=== PATIENT | male | born 1950 | race Caucasian/White ===

== ENCOUNTER 2018-03-03 17:09 | Emergency (ER) | payer BC, MEDICARE ==
[2018-03-03 17:21] VITALS: RESP 18
[2018-03-03] MEDS ORDERED: SODIUM CHLORIDE 0.9% 1,000 ML IV STA (17:48)
--- NOTE | 2018-03-03 18:08 | ED ---
Male Urogenital HPI - General Chief complaint: Urogenital Stated complaint: Unable to urinate Time Seen by Provider: 03/03/18 17:27 Source: patient, RN notes reviewed Mode of arrival: ambulatory Limitations: no limitations - History of Present Illness Initial comments: This is a 67-year-old male who presents to the emergency department with chief complaint of difficulty urinating. Patient is legally blind in both eyes and does have some difficulty answering questions so his at bedside contributes to majority of the history. She states that last night she noticed blood in the patient's urine. They presented to [facility] where patient was diagnosed with a urinary tract infection and hematuria. He was started on Macrobid. He has taken 3 doses since yesterday. Patient's states that he does have a history of kidney stones for which it has caused obstruction and had to be removed by Dr. Michaud. She does state that she contacted Dr. Martin prior to arrival to the emergency department today and he requested that patient have a Harp catheter and follow up with him. Patient presents to the emergency department today because he developed some difficulty urinating, he states he has been straining and is only able to urinate in small amounts. He admits to dribbling. also states that patient had a bowel movement today and when he wiped noticed some bright red blood on the toilet paper. She does state that he has a history of hemorrhoids. Patient denies any significant abdominal pain but does admit to some mild suprapubic discomfort, especially while trying to urinate. Denies fevers or chills, chest pain or shortness of breath, nausea or vomiting, diarrhea or constipation. - Related Data Home Medications Medication Instructions Recorded Confirmed Aspirin EC [Ecotrin Low Dose] 81 mg PO DAILY 03/03/18 03/03/18 Thiamine [Vitamin B-1] 50 mg PO DAILY 03/03/18 03/03/18 Allergies Allergy/AdvReac Type Severity Reaction Status Date / Time Latex, Natural Rubber AdvReac Rash/Hives Verified 03/03/18 18:22 Review of Systems ROS Statement: Those systems with pertinent positive or pertinent negative responses have been documented in the HPI. ROS Other: All systems not noted in ROS Statement are negative. Past Medical History Past Medical History: CVA/TIA, Dementia, Hyperlipidemia Additional Past Medical History / Comment(s): kidney stones, legally blind History of Any Multi-Drug Resistant Organisms: None Reported Past Surgical History: No Surgical Hx Reported Additional Past Surgical History / Comment(s): Two surgeries for kidney stones Additional Past Anesthesia/Blood Transfusion Reaction / Comment(s): Never had transfusion Past Psychological History: No Psychological Hx Reported Smoking Status: Never smoker Past Alcohol Use History: None Reported Past Drug Use History: None Reported - Past Family History Mother Family Medical History: Dementia General Exam - General Exam Comments Initial Comments: General: Awake and alert, well-developed; in no apparent distress. HEENT: Head atraumatic, normocephalic. Pupils are equal, round and reactive to light. Extraocular movements intact. Oropharynx moist without erythema or exudate. Neck: Supple. Normal ROM. Cardiovascular: Regular rate and rhythm. Systolic murmur heard best at right upper sternal border. No rubs or gallops. Chest symmetrical. Respiratory: Lungs clear to auscultation bilaterally. No wheezes, rales or rhonchi. Normal respiratory effort with no use of accessory muscles. Abdomen: Soft. Tenderness on palpation of suprapubic region with mild distention. No rigidity, rebound or guarding. Normal bowel sounds in all 4 quadrants. Musculoskeletal: Normal ROM, no tenderness bilateral upper and lower extremities. Skin: [place], warm and dry without rashes or lesions. Neurological: Alert and oriented x3. CN II-XII grossly intact. No focal neuro deficits. Psychiatric: Normal mood and affect. No overt signs of depression or anxiety noted. Limitations: no limitations Rectal exam: Present: normal rectal tone, hemorrhoids (internal and external). Absent: mass, tenderness Course Vital Signs 03/03/18 17:17 Temperature 99.3 F Pulse Rate 99 Respiratory 18 Rate Blood Pressure 142/87 O2 Sat by Pulse 99 Oximetry Medical Decision Making - Medical Decision Making This is a 67-year-old male who presents to the emergency department with chief complaint of difficulty urinating. Patient was diagnosed with a urinary tract infection and hematuria yesterday. He was started on Macrobid. Patient complains of difficulty urinating, straining and dribbling. Bladder scan revealed a urine volume of 634 mL. Several attempts were made for foely catheter insertion and we were finally successful with using Urojet. UA revealed moderate blood, 40 red blood cells and occasional bacteria. CBC and CMP were unremarkable. KUB was unremarkable for any acute process. Patient did test positive for occult blood, however he does have internal and external hemorrhoids and he is not anemic. No signs of weakness, dizziness. Patient's vital signs are stable and he is in no acute distress. Patient's was in contact with Dr. Martin who patient will be following up with. He will be sent home with the Harp bag. Recommended flushing with normal saline every several hours. Patient to continue Macrobid. They're in agreement with plan and voices understanding. All questions were answered. - Lab Data Result diagrams: 03/03/18 17:55 03/03/18 17:55 Lab Results 03/03/18 03/03/18 03/03/18 Range/Units 17:55 17:55 17:55 WBC 9.6 (3.8-10.6) k/uL RBC 4.82 (4.30-5.90) m/uL Hgb 14.8 (13.0-17.5) gm/dL Hct 42.8 (39.0-53.0) % MCV 88.9 (80.0-100.0) fL MCH 30.6 (25.0-35.0) pg MCHC 34.5 (31.0-37.0) g/dL RDW 12.3 (11.5-15.5) % Plt Count 324 (150-450) k/uL Neutrophils % 70 % Lymphocytes % 20 % Monocytes % 6 % Eosinophils % 3 % Basophils % 1 % Neutrophils # 6.8 (1.3-7.7) k/uL Lymphocytes # 1.9 (1.0-4.8) k/uL Monocytes # 0.5 (0-1.0) k/uL Eosinophils # 0.3 (0-0.7) k/uL Basophils # 0.1 (0-0.2) k/uL Sodium 144 (137-145) mmol/L Potassium 4.2 (3.5-5.1) mmol/L Chloride 105 (98-107) mmol/L Carbon Dioxide 25 (22-30) mmol/L Anion Gap 14 mmol/L BUN 11 (9-20) mg/dL Creatinine 0.81 (0.66-1.25) mg/dL Est GFR (CKD-EPI)AfAm >90 (>60 ml/min/1.73 sqM) Est GFR (CKD-EPI)NonAf >90 (>60 ml/min/1.73 sqM) Glucose 137 H (74-99) mg/dL Calcium 10.1 (8.4-10.2) mg/dL Total Bilirubin 0.5 (0.2-1.3) mg/dL AST 23 (17-59) U/L ALT 28 (21-72) U/L Alkaline Phosphatase 70 (38-126) U/L Total Protein 7.1 (6.3-8.2) g/dL Albumin 4.3 (3.5-5.0) g/dL Urine Color Urine Appearance (Clear) Urine pH (5.0-8.0) Ur Specific [place] (1.001-1.035) Urine Protein (Negative) Urine Glucose (UA) (Negative) Urine Ketones (Negative) Urine Blood (Negative) Urine Nitrite (Negative) Urine Bilirubin (Negative) Urine Urobilinogen (<2.0) mg/dL Ur Leukocyte Esterase (Negative) Urine RBC (0-5) /hpf Urine WBC (0-5) /hpf Urine Bacteria (None) /hpf Stool Occult Blood Positive (Negative) 03/03/18 Range/Units 18:45 WBC (3.8-10.6) k/uL RBC (4.30-5.90) m/uL Hgb (13.0-17.5) gm/dL Hct (39.0-53.0) % MCV (80.0-100.0) fL MCH (25.0-35.0) pg MCHC (31.0-37.0) g/dL RDW (11.5-15.5) % Plt Count (150-450) k/uL Neutrophils % % Lymphocytes % % Monocytes % % Eosinophils % % Basophils % % Neutrophils # (1.3-7.7) k/uL Lymphocytes # (1.0-4.8) k/uL Monocytes # (0-1.0) k/uL Eosinophils # (0-0.7) k/uL Basophils # (0-0.2) k/uL Sodium (137-145) mmol/L Potassium (3.5-5.1) mmol/L Chloride (98-107) mmol/L Carbon Dioxide (22-30) mmol/L Anion Gap mmol/L BUN (9-20) mg/dL Creatinine (0.66-1.25) mg/dL Est GFR (CKD-EPI)AfAm (>60 ml/min/1.73 sqM) Est GFR (CKD-EPI)NonAf (>60 ml/min/1.73 sqM) Glucose (74-99) mg/dL Calcium (8.4-10.2) mg/dL Total Bilirubin (0.2-1.3) mg/dL AST (17-59) U/L ALT (21-72) U/L Alkaline Phosphatase (38-126) U/L Total Protein (6.3-8.2) g/dL Albumin (3.5-5.0) g/dL Urine Color Light Yellow Urine Appearance Clear (Clear) Urine pH 6.5 (5.0-8.0) Ur Specific [place] 1.003 (1.001-1.035) Urine Protein Negative (Negative) Urine Glucose (UA) Negative (Negative) Urine Ketones Negative (Negative) Urine Blood Moderate H (Negative) Urine Nitrite Negative (Negative) Urine Bilirubin Negative (Negative) Urine Urobilinogen <2.0 (<2.0) mg/dL Ur Leukocyte Esterase Negative (Negative) Urine RBC 40 H (0-5) /hpf Urine WBC 2 (0-5) /hpf Urine Bacteria Occasional H (None) /hpf Stool Occult Blood (Negative) Disposition Clinical Impression: Hematuria, Urinary retention, Prostate hypertrophy Disposition: HOME SELF-CARE Condition: Good Instructions: Urinary Tract Infection in Men (ED), Hematuria (ED) Additional Instructions: Please follow-up with Dr. Martin within 1-2 days. Please continue taking antibiotics as prescribed. Please flush harp catheter every several hours with normal saline. Please follow up with primary care provider within 1-2 days. Return to emergency department if symptoms should worsen or any concerns arise. Referrals: Jessica Hess III, MD [Primary Care Provider] - 1-2 days Mark Martin MD [STAFF PHYSICIAN] - 1-2 days Time of Disposition: 19:15
[2018-03-03 18:12] LABS: Basophils # (A) 0.1 k/uL (0-0.2); Basophils % (A) 1 %; Eosinophils # (A) 0.3 k/uL (0-0.7); Eosinophils % (A) 3 %; HCT 42.8 % (39.0-53.0); HGB 14.8 gm/dL (13.0-17.5); Lymphocytes # (A) 1.9 k/uL (1.0-4.8); Lymphocytes % (A) 20 %; MCH 30.6 pg (25.0-35.0); MCHC 34.5 g/dL (31.0-37.0); MCV 88.9 fL (80.0-100.0); Mean Platelet Volume 7.2; Monocytes # (A) 0.5 k/uL (0-1.0); Monocytes % (A) 6 %; Neutrophils # (A) 6.8 k/uL (1.3-7.7); Neutrophils % (A) 70 %; Platelet Count 324 k/uL (150-450); RBC 4.82 m/uL (4.30-5.90); RDW 12.3 % (11.5-15.5); WBC 9.6 k/uL (3.8-10.6)
[2018-03-03] MEDS ORDERED: LIDOCAINE URO-JET JELLY 2% 5 ML KIT URETHRAL ONE (18:29)
[2018-03-03 18:46] LABS: ALT 28 U/L (21-72); AST 23 U/L (17-59); Albumin 4.3 g/dL (3.5-5.0); Alkaline Phosphatase 70 U/L (38-126); Anion Gap 14 mmol/L; Blood Urea Nitrogen 11 mg/dL (9-20); Calcium 10.1 mg/dL (8.4-10.2); Carbon Dioxide 25 mmol/L (22-30); Chloride 105 mmol/L (98-107); Glucose 137 mg/dL (74-99); Potassium 4.2 mmol/L (3.5-5.1); Sodium 144 mmol/L (137-145); Total Bilirubin 0.5 mg/dL (0.2-1.3); Total Protein 7.1 g/dL (6.3-8.2)
--- NOTE | 2018-03-03 18:51 | XR ---
EXAMINATION TYPE: XR KUB portable, 2 views DATE OF EXAM: 03/03/2018 COMPARISON: 11/17/2013 HISTORY: Unable to urinate, pain TECHNIQUE: 2 supine images FINDINGS: Visualized lung bases and pleural spaces are negative. The bowel gas pattern is negative. Bones and soft tissues are negative for acute findings. It is noted that pneumoperitoneum cannot be excluded with supine radiography. IMPRESSION: NEGATIVE EXAMINATION.
[2018-03-03 18:57] LABS: Appearance,Urine Clear (Clear); Bacteria,Urine Occasional /hpf; Bilirubin,Urine Negative (Negative); Blood,Urine Moderate (Negative); Color,Urine Light Yellow; Glucose,Urine (UA) Negative (Negative); Ketones,Urine Negative (Negative); Leukocyte Esterase,Urine Negative (Negative); Nitrite,Urine Negative (Negative); PH, Urine 6.5 (5.0-8.0); Protein,Urine Negative (Negative); RBC,Urine 40 /hpf (0-5); Specific Gravity,Urine 1.003 (1.001-1.035); Urobilinogen,Urine <2.0 mg/dL (<2.0); WBC,Urine 2 /hpf (0-5)
[2018-03-03 19:40] VITALS: BP 139/85; PULSE 86; TEMP 98.7
== END 2018-03-03 19:40 | disposition home or self-care (01) ==
LOC: EC 17:09
DX: N40.1 Benign prostatic hyperplasia with lower urinary tract symptoms (principal); R33.8 Other retention of urine; K64.4 Residual hemorrhoidal skin tags; K64.8 Other hemorrhoids; Z86.73 Personal history of transient ischemic attack (TIA), and cerebral infarction without residual deficits; Z79.82 Long term (current) use of aspirin; Z91.040 Latex allergy status
CPT/HCPCS: 36415; 51702; 51798; 74018; 80053; 81001; 82272; 85025; 87086; 96360; 99283

== ENCOUNTER 2018-03-28 07:45 | Inpatient (IN) | payer MEDICARE ==
[2018-03-28] MEDS ORDERED: ACETAMINOPHEN TAB 325 MG TAB PO STA (08:14)
[2018-03-28] MEDS ORDERED: SODIUM CHLORIDE 0.9% 2,000 ML IV ONE (08:15)
--- NOTE | 2018-03-28 08:23 | ED ---
Altered Mental Status HPI <George Montenegro - Last Filed: 03/28/18 11:03> - General Source: patient, family Mode of arrival: wheelchair Limitations: physical limitation <Tasneem Padron - Last Filed: 03/28/18 16:41> - General Chief Complaint: Altered Mental Status Stated Complaint: fever, male Time Seen by Provider: 03/28/18 08:06 - History of Present Illness Initial Comments: 67-year-old male patient with past medical history significant for occipital CVA with residual blindness (legally) and dementia, kidney stones, and BPH presents to the emergency department today for evaluation of fever and altered mental status. Patient's is at bedside and provides most of history. She states that patient had issues with urinary retention approximately 3 weeks ago and had a Holden catheter placed. She states the catheter was removed yesterday. States the patient developed a fever yesterday, this morning his temperature was 104F . She states the patient has been acting confused and having hallucinations. She did give ibuprofen this morning and gave him a cool bath. Patient is complaining of lower abdominal pain, dysuria, and lower back pain. states he has been having hematuria for the last three weeks as well. He did complete an antibiotic about a month ago for UTI. He denies any cough, congestion, sore throat, or ear pain. reports he has had a couple episodes of diarrhea. She denies any hematochezia or melena. Patient denies any recent rash, shortness breath, chest pain, nausea, vomiting, numbness, tingling, dizziness, headache, visual changes, or any other complaints. (Tasneem Padron) - Related Data Home Medications Medication Instructions Recorded Confirmed Aspirin EC [Ecotrin Low Dose] 81 mg PO DAILY 03/03/18 03/28/18 Allergies Allergy/AdvReac Type Severity Reaction Status Date / Time Latex, Natural Rubber AdvReac Rash/Hives Verified 03/28/18 12:47 Review of Systems ROS Other: All systems not noted in ROS Statement are negative. <LanGeorge - Last Filed: 03/28/18 11:03> ROS Other: All systems not noted in ROS Statement are negative. <Tasneem Padron - Last Filed: 03/28/18 16:41> ROS Statement: Those systems with pertinent positive or pertinent negative responses have been documented in the HPI. Past Medical History Past Medical History: CVA/TIA, Dementia, Hyperlipidemia Additional Past Medical History / Comment(s): kidney stones, legally blind History of Any Multi-Drug Resistant Organisms: None Reported Past Surgical History: No Surgical Hx Reported Additional Past Surgical History / Comment(s): Two surgeries for kidney stones Additional Past Anesthesia/Blood Transfusion Reaction / Comment(s): Never had transfusion Past Psychological History: No Psychological Hx Reported Smoking Status: Never smoker Past Alcohol Use History: None Reported Past Drug Use History: None Reported - Past Family History Mother Family Medical History: Dementia <Tasneem Padron - Last Filed: 03/28/18 16:41> General Exam Limitations: physical limitation General appearance: alert, in no apparent distress, other (This is a well- developed, well-nourished elderly male patient in no acute distress. Vital signs upon presentation are temperature 102.4F, pulse 148, respirations 18, blood pressure 118/57, pulse ox 94% on room air.) Eye exam: Present: normal appearance, PERRL, EOMI. Absent: scleral icterus, conjunctival injection, periorbital swelling ENT exam: Present: normal exam, normal oropharynx, mucous membranes moist. Absent: TM's normal bilaterally (Right tympanic membrane obscured by cerumen, left tympanic membrane is within normal limits) Neck exam: Present: normal inspection. Absent: tenderness, meningismus, lymphadenopathy Respiratory exam: Present: normal lung sounds bilaterally. Absent: respiratory distress, wheezes, rales, rhonchi, stridor Cardiovascular Exam: Present: normal rhythm, tachycardia, normal heart sounds. Absent: systolic murmur, diastolic murmur, rubs, gallop, clicks GI/Abdominal exam: Present: soft, tenderness (Lower abdominal tenderness especially suprapubic), normal bowel sounds. Absent: distended, guarding, rebound, rigid Neurological exam: Present: alert, oriented X3, CN II-XII intact Psychiatric exam: Present: normal affect, normal mood Skin exam: Present: warm, dry, intact, normal color. Absent: rash <Tasneem Padron - Last Filed: 03/28/18 16:41> Course <George Montenegro - Last Filed: 03/28/18 11:03> <Tasneem Padron - Last Filed: 03/28/18 16:41> Vital Signs 03/28/18 03/28/18 03/28/18 07:46 09:43 10:38 Temperature 102.4 F H 99.5 F Pulse Rate 148 H 122 H 119 H Respiratory 18 22 20 Rate Blood Pressure 118/57 97/59 93/54 O2 Sat by Pulse 94 L 99 93 L Oximetry 03/28/18 03/28/18 11:56 11:57 Temperature Pulse Rate 112 H 113 H Respiratory 20 20 Rate Blood Pressure 94/54 93/63 O2 Sat by Pulse 94 L 97 Oximetry - Reevaluation(s) Reevaluation #1: 03/28/18 11:03 I did personally do a [id number] evaluation patient did discuss the findings with the patient and his . I did discuss the case with the hospitalist. Patient will be admitted I do agree with the assessment and plan. The initial epigastrium was within normal limits patient does demonstrate fever and evidence of infectious process. (George Montenegro) Medical Decision Making - Lab Data Result diagrams: 03/28/18 08:00 03/28/18 08:00 - EKG Data -: EKG Interpreted by Ny EKG shows normal: sinus rhythm (Sinus tachycardia rate 1:30 QRS 76 daily since QTC of 392/576) <George Montenegro - Last Filed: 03/28/18 11:03> - Lab Data Result diagrams: 03/28/18 08:00 03/28/18 08:00 - Radiology Data Radiology results: report reviewed, image reviewed <Tasneem Padron - Last Filed: 03/28/18 16:41> - Medical Decision Making 67 old male patient presented to the emergency department today for evaluation of fever and altered mental status. Physical examination was relatively unremarkable. Labs reviewed and did reveal an elevated white blood cell count at 19.6, neutrophils 18.2, blood glucose 1:30, bilirubin 2.1, urinalysis did show evidence of infection with trace protein, trace glucose, moderate blood, large leukocyte esterase, 103 white blood cells, rare bacteria, and rare mucous. Influenza testing was negative. Chest x-ray did show some evidence of mild congestive heart failure but no evidence of pneumonia. Lactic acid was 1.8. Patient was given IV fluids antipyretic medication. Temperature did improve. Patient remains tachycardic and altered. Patient will be admitted to the hospital for sepsis and urinary tract infection. We did give a dose of Rocephin and started Unasyn. Dr. Chau is accepting. (Tasneem Padron) - Lab Data Lab Results 03/28/18 03/28/18 03/28/18 Range/Units 08:00 08:00 08:00 WBC 19.6 H (3.8-10.6) k/uL RBC 4.47 (4.30-5.90) m/uL Hgb 13.9 (13.0-17.5) gm/dL Hct 39.3 (39.0-53.0) % MCV 87.9 (80.0-100.0) fL MCH 31.1 (25.0-35.0) pg MCHC 35.3 (31.0-37.0) g/dL RDW 12.1 (11.5-15.5) % Plt Count 220 (150-450) k/uL Neutrophils % 93 % Lymphocytes % 3 % Monocytes % 3 % Eosinophils % 0 % Basophils % 0 % Neutrophils # 18.2 H (1.3-7.7) k/uL Lymphocytes # 0.7 L (1.0-4.8) k/uL Monocytes # 0.5 (0-1.0) k/uL Eosinophils # 0.1 (0-0.7) k/uL Basophils # 0.0 (0-0.2) k/uL PT (9.0-12.0) sec INR (<1.2) APTT (22.0-30.0) sec Sodium 137 (137-145) mmol/L Potassium 3.6 (3.5-5.1) mmol/L Chloride 100 (98-107) mmol/L Carbon Dioxide 23 (22-30) mmol/L Anion Gap 14 mmol/L BUN 13 (9-20) mg/dL Creatinine 0.89 (0.66-1.25) mg/dL Est GFR (CKD-EPI)AfAm >90 (>60 ml/min/1.73 sqM) Est GFR (CKD-EPI)NonAf 89 (>60 ml/min/1.73 sqM) Glucose 130 H (74-99) mg/dL Plasma Lactic Acid Mikhail (0.7-2.0) mmol/L Calcium 9.8 (8.4-10.2) mg/dL Total Bilirubin 2.1 H (0.2-1.3) mg/dL AST 26 (17-59) U/L ALT 34 (21-72) U/L Alkaline Phosphatase 91 (38-126) U/L NT-Pro-B Natriuret Pep pg/mL Total Protein 6.7 (6.3-8.2) g/dL Albumin 4.2 (3.5-5.0) g/dL Urine Color Urine Appearance (Clear) Urine pH (5.0-8.0) Ur Specific [place] (1.001-1.035) Urine Protein (Negative) Urine Glucose (UA) (Negative) Urine Ketones (Negative) Urine Blood (Negative) Urine Nitrite (Negative) Urine Bilirubin (Negative) Urine Urobilinogen (<2.0) mg/dL Ur Leukocyte Esterase (Negative) Urine RBC (0-5) /hpf Urine WBC (0-5) /hpf Urine Bacteria (None) /hpf Urine Mucus (None) /hpf Influenza Type A RNA Not Detected (Not Detectd) Influenza Type B (PCR) Not Detected (Not Detectd) 03/28/18 03/28/18 03/28/18 Range/Units 08:00 08:00 08:00 WBC (3.8-10.6) k/uL RBC (4.30-5.90) m/uL Hgb (13.0-17.5) gm/dL Hct (39.0-53.0) % MCV (80.0-100.0) fL MCH (25.0-35.0) pg MCHC (31.0-37.0) g/dL RDW (11.5-15.5) % Plt Count (150-450) k/uL Neutrophils % % Lymphocytes % % Monocytes % % Eosinophils % % Basophils % % Neutrophils # (1.3-7.7) k/uL Lymphocytes # (1.0-4.8) k/uL Monocytes # (0-1.0) k/uL Eosinophils # (0-0.7) k/uL Basophils # (0-0.2) k/uL PT 11.0 (9.0-12.0) sec INR 1.1 (<1.2) APTT 26.7 (22.0-30.0) sec Sodium (137-145) mmol/L Potassium (3.5-5.1) mmol/L Chloride (98-107) mmol/L Carbon Dioxide (22-30) mmol/L Anion Gap mmol/L BUN (9-20) mg/dL Creatinine (0.66-1.25) mg/dL Est GFR (CKD-EPI)AfAm (>60 ml/min/1.73 sqM) Est GFR (CKD-EPI)NonAf (>60 ml/min/1.73 sqM) Glucose (74-99) mg/dL Plasma Lactic Acid Mikhail 1.8 (0.7-2.0) mmol/L Calcium (8.4-10.2) mg/dL Total Bilirubin (0.2-1.3) mg/dL AST (17-59) U/L ALT (21-72) U/L Alkaline Phosphatase (38-126) U/L NT-Pro-B Natriuret Pep pg/mL Total Protein (6.3-8.2) g/dL Albumin (3.5-5.0) g/dL Urine Color Light Yellow Urine Appearance Clear (Clear) Urine pH 6.0 (5.0-8.0) Ur Specific [place] 1.004 (1.001-1.035) Urine Protein Trace H (Negative) Urine Glucose (UA) Trace H (Negative) Urine Ketones Negative (Negative) Urine Blood Moderate H (Negative) Urine Nitrite Negative (Negative) Urine Bilirubin Negative (Negative) Urine Urobilinogen <2.0 (<2.0) mg/dL Ur Leukocyte Esterase Large H (Negative) Urine RBC 4 (0-5) /hpf Urine WBC 103 H (0-5) /hpf Urine Bacteria Rare H (None) /hpf Urine Mucus Rare H (None) /hpf Influenza Type A RNA (Not Detectd) Influenza Type B (PCR) (Not Detectd) 03/28/18 Range/Units 08:00 WBC (3.8-10.6) k/uL RBC (4.30-5.90) m/uL Hgb (13.0-17.5) gm/dL Hct (39.0-53.0) % MCV (80.0-100.0) fL MCH (25.0-35.0) pg MCHC (31.0-37.0) g/dL RDW (11.5-15.5) % Plt Count (150-450) k/uL Neutrophils % % Lymphocytes % % Monocytes % % Eosinophils % % Basophils % % Neutrophils # (1.3-7.7) k/uL Lymphocytes # (1.0-4.8) k/uL Monocytes # (0-1.0) k/uL Eosinophils # (0-0.7) k/uL Basophils # (0-0.2) k/uL PT (9.0-12.0) sec INR (<1.2) APTT (22.0-30.0) sec Sodium (137-145) mmol/L Potassium (3.5-5.1) mmol/L Chloride (98-107) mmol/L Carbon Dioxide (22-30) mmol/L Anion Gap mmol/L BUN (9-20) mg/dL Creatinine (0.66-1.25) mg/dL Est GFR (CKD-EPI)AfAm (>60 ml/min/1.73 sqM) Est GFR (CKD-EPI)NonAf (>60 ml/min/1.73 sqM) Glucose (74-99) mg/dL Plasma Lactic Acid Mikhail (0.7-2.0) mmol/L Calcium (8.4-10.2) mg/dL Total Bilirubin (0.2-1.3) mg/dL AST (17-59) U/L ALT (21-72) U/L Alkaline Phosphatase (38-126) U/L NT-Pro-B Natriuret Pep 103 pg/mL Total Protein (6.3-8.2) g/dL Albumin (3.5-5.0) g/dL Urine Color Urine Appearance (Clear) Urine pH (5.0-8.0) Ur Specific [place] (1.001-1.035) Urine Protein (Negative) Urine Glucose (UA) (Negative) Urine Ketones (Negative) Urine Blood (Negative) Urine Nitrite (Negative) Urine Bilirubin (Negative) Urine Urobilinogen (<2.0) mg/dL Ur Leukocyte Esterase (Negative) Urine RBC (0-5) /hpf Urine WBC (0-5) /hpf Urine Bacteria (None) /hpf Urine Mucus (None) /hpf Influenza Type A RNA (Not Detectd) Influenza Type B (PCR) (Not Detectd) - Radiology Data Two-view x-ray of the chest shows a steady is mildly rotated. Heart is mildly enlarged. There is scarring or atelectasis at the left lung base. Lungs otherwise clear. Pleural spaces are clear. There is vascular congestion and subtle interstitial change. Impression by Dr. Choudhury shows mild cardia megaly. Findings consistent with mild heart failure. (Tasneem Padron) Disposition <George Montenegro - Last Filed: 03/28/18 11:03> Decision to Admit Reason: Admit from [facility] Decision Date: 03/28/18 Decision Time: 16:40 <Tasneem Padron - Last Filed: 03/28/18 16:41> Clinical Impression: Urinary tract infection, Sepsis Disposition: ADMITTED IP TO THIS HOSP Condition: Serious
[2018-03-28 08:32] LABS: Basophils % (A) 0 %; Eosinophils # (A) 0.1 k/uL (0-0.7); Eosinophils % (A) 0 %; HCT 39.3 % (39.0-53.0); HGB 13.9 gm/dL (13.0-17.5); Lymphocytes # (A) 0.7 k/uL (1.0-4.8); Lymphocytes % (A) 3 %; MCH 31.1 pg (25.0-35.0); MCHC 35.3 g/dL (31.0-37.0); MCV 87.9 fL (80.0-100.0); Monocytes # (A) 0.5 k/uL (0-1.0); Monocytes % (A) 3 %; Neutrophils # (A) 18.2 k/uL (1.3-7.7); Neutrophils % (A) 93 %; Platelet Count 220 k/uL (150-450); RBC 4.47 m/uL (4.30-5.90); RDW 12.1 % (11.5-15.5); WBC 19.6 k/uL (3.8-10.6)
[2018-03-28 08:38] LABS: Appearance,Urine Clear (Clear); Bacteria,Urine Rare /hpf; Bilirubin,Urine Negative (Negative); Blood,Urine Moderate (Negative); Color,Urine Light Yellow; Glucose,Urine (UA) Trace (Negative); Ketones,Urine Negative (Negative); Leukocyte Esterase,Urine Large (Negative); Mucus,Urine Rare /hpf; Nitrite,Urine Negative (Negative); Protein,Urine Trace (Negative); RBC,Urine 4 /hpf (0-5); Specific Gravity,Urine 1.004 (1.001-1.035); Urobilinogen,Urine <2.0 mg/dL (<2.0); WBC,Urine 103 /hpf (0-5)
[2018-03-28 08:43] LABS: ALT 34 U/L (21-72); AST 26 U/L (17-59); Albumin 4.2 g/dL (3.5-5.0); Alkaline Phosphatase 91 U/L (38-126); Anion Gap 14 mmol/L; Blood Urea Nitrogen 13 mg/dL (9-20); Calcium 9.8 mg/dL (8.4-10.2); Carbon Dioxide 23 mmol/L (22-30); Chloride 100 mmol/L (98-107); Glucose 130 mg/dL (74-99); Potassium 3.6 mmol/L (3.5-5.1); Sodium 137 mmol/L (137-145); Total Bilirubin 2.1 mg/dL (0.2-1.3); Total Protein 6.7 g/dL (6.3-8.2)
[2018-03-28 08:46] LABS: INR 1.1 (<1.2); Partial Thromboplastin Time 26.7 sec (22.0-30.0)
[2018-03-28] MEDS ORDERED: cefTRIAXone IN SWFI 2,000 MG/20 ML SYRINGE IVP STA (08:52)
--- NOTE | 2018-03-28 09:53 | XR ---
EXAMINATION TYPE: XR chest 2V DATE OF EXAM: 03/28/2018 HISTORY: Fever. REFERENCE: Previous study dated 11/12/2017. FINDINGS: The study is mildly rotated. The heart is mildly enlarged. There is scarring or atelectasis at the left lung base. Lungs otherwise clear. Pleural spaces are clear. There is vascular congestion and subtle interstitial change. IMPRESSION: 1. MILD CARDIOMEGALY. 2. FINDINGS CONSISTENT WITH MILD HEART FAILURE. PLEASE CORRELATE CLINICALLY.
[2018-03-28] MEDS ORDERED: NALOXONE 0.4 MG/ML 1 ML VIAL IV PRN (10:39)
[2018-03-28] MEDS ORDERED: AMPICILLIN-SULBACTAM 3 GM in SODIUM CHLORIDE 0.9% 100 ML IVPB STA (10:41)
[2018-03-28] MEDS ORDERED: SODIUM CHLORIDE 0.9% 500 ML IV ONE (10:41)
[2018-03-28 14:05] VITALS: BMI 24.4
--- NOTE | 2018-03-28 16:57 | P.HPIM ---
History of Present Illness 67-year-old male gentleman with a previous occipital as stroke and legally blind secondary to that and some cognitive difficulties from his previous stroke came in with the complaints of fever chills and some mental status changes. Patient had hematuria that patient had a Holden catheter, patient underwent urodynamic studies subsequently Holden catheter was removed about 3 days ago patient was started on Flomax as patient be became lightheaded and didn 't do well on Flomax Flomax was discontinued couple days ago on on Thursday and patient started retaining urine on the day and started having fever since yesterday. Patient's Holden catheter was changed here patient had high-grade fever was started on Unasyn was also received ceftriaxone, blood cultures urine cultures were obtained patient blood pressure is low with systolics 90s patient was given IV fluid was started on 100 mL of normal saline. Review of Systems REVIEW OF SYSTEMS: CONSTITUTIONAL: As mentioned in HPI HEENT: No recent visual problems or hearing problems. Denied any sore throat. CARDIOVASCULAR: No chest pain, orthopnea, PND, no palpitations, no syncope. PULMONARY: No shortness of breath, no cough, no hemoptysis. GASTROINTESTINAL: No diarrhea, no nausea, no vomiting, no abdominal pain. Normoactive bowel sounds. NEUROLOGICAL: No headaches, no weakness, no numbness. HEMATOLOGICAL: Denies any bleeding or petechiae. GENITOURINARY: As mentioned in HPI MUSCULOSKELETAL/RHEUMATOLOGICAL: Denies any joint pain, swelling, or any muscle pain. ENDOCRINE: Denies any polyuria or polydipsia. The rest of the 14-point review of systems is negative. Past Medical History Past Medical History: CVA/TIA, Dementia, Hyperlipidemia Additional Past Medical History / Comment(s): kidney stones, legally blind History of Any Multi-Drug Resistant Organisms: None Reported Past Surgical History: No Surgical Hx Reported Additional Past Surgical History / Comment(s): Two surgeries for kidney stones Past Anesthesia/Blood Transfusion Reactions: No Reported Reaction Additional Past Anesthesia/Blood Transfusion Reaction / Comment(s): Never had transfusion Past Psychological History: No Psychological Hx Reported Smoking Status: Never smoker Past Alcohol Use History: None Reported Past Drug Use History: None Reported - Past Family History Mother Family Medical History: Dementia Medications and Allergies Home Medications Medication Instructions Recorded Confirmed Type Aspirin EC [Ecotrin Low Dose] 81 mg PO DAILY 03/03/18 03/28/18 History Allergies Allergy/AdvReac Type Severity Reaction Status Date / Time Latex, Natural Rubber AdvReac Rash/Hives Verified 03/28/18 12:47 Physical Exam Vitals: Vital Signs Temp Pulse Pulse Resp BP BP Pulse Ox 03/28/18 14:46 98.1 F 114 H 16 86/59 98 03/28/18 13:36 98.1 F 114 H 16 86/59 97 03/28/18 11:57 113 H 20 93/63 97 03/28/18 11:56 112 H 20 94/54 94 L 03/28/18 10:38 99.5 F 119 H 20 93/54 93 L 03/28/18 09:43 122 H 22 97/59 99 03/28/18 07:46 102.4 F H 148 H 18 118/57 94 L Intake and Output 03/28/18 03/28/18 03/28/18 06:59 14:59 22:59 Intake Total 300 Balance 300 Intake: Intake, IV Titration 300 Amount Ampicillin-Sulbactam 3 gm 100 In Sodium Chloride 0.9% 100 ml @ 100 mls/hr IVPB ONCE [facility] Rx#:[id number] Sodium Chloride 0.9% 1, 200 000 ml @ 100 mls/hr IV . Q10H [facility] Rx#:[id number] Other: Voiding Method Indwelling Catheter Weight 75 kg PHYSICAL EXAMINATION: GENERAL: The patient is alert and oriented x3, not in any acute distress. Well developed, well nourished. [address] HEENT: Legally blind. EOMI. No scleral icterus. No conjunctival pallor. Normocephalic, atraumatic. No pharyngeal erythema. No thyromegaly. CARDIOVASCULAR: S1 and S2 present. No murmurs, rubs, or gallops. PULMONARY: Chest is clear to auscultation, no wheezing or crackles. ABDOMEN: Soft, nontender, nondistended, normoactive bowel sounds. No palpable organomegaly. MUSCULOSKELETAL: No joint swelling or deformity. EXTREMITIES: No cyanosis, clubbing, or pedal edema. NEUROLOGICAL: Gross neurological examination did not reveal any focal deficits. SKIN: No rashes. Results CBC & Chem 7: 03/28/18 08:00 03/28/18 08:00 Labs: Abnormal Lab Results - Last 24 Hours (Table) 03/28/18 03/28/18 03/28/18 Range/Units 08:00 08:00 08:00 WBC 19.6 H (3.8-10.6) k/uL Neutrophils # 18.2 H (1.3-7.7) k/uL Lymphocytes # 0.7 L (1.0-4.8) k/uL Glucose 130 H (74-99) mg/dL Total Bilirubin 2.1 H (0.2-1.3) mg/dL Urine Protein Trace H (Negative) Urine Glucose (UA) Trace H (Negative) Urine Blood Moderate H (Negative) Ur Leukocyte Esterase Large H (Negative) Urine WBC 103 H (0-5) /hpf Urine Bacteria Rare H (None) /hpf Urine Mucus Rare H (None) /hpf Microbiology - Last 24 Hours (Table) 03/28/18 08:00 Urine Culture - Preliminary Urine,Clean Catch Thrombosis Risk Factor Assmnt - Choose All That Apply Any of the Below Risk Factors Present?: Yes Other Risk Factors: Yes Each Risk Factor Represents 2 Points: Age 61-74 years Thrombosis Risk Factor Assessment Total Risk Factor Score: 2 Thrombosis Risk Factor Assessment Level: Low Risk Assessment and Plan Plan: -Sepsis: Secondary to urinary tract infection, secondary to urinary retention, Holden catheter was placed and the patient was started on antibiotics. Urology will be consulted for benign prostatic hypertrophy and patient did not tolerate Flomax. Urine cultures and blood cultures were obtained awaiting cultures and studies. -History of cerebrovascular accident in the past and occipital area and patient is legally blind secondary to that -Possible mild vascular dementia patient and aspirin which will be continued -Benign prostatic hypertrophy: urology consultation -Tachycardia and hypotension: Secondary to sepsis -Toxic encephalopathy secondary to sepsis
[2018-03-28] MEDS: ACETAMINOPHEN TAB 325 MG TAB PO PRN (17:19)
[2018-03-28] MEDS: SODIUM CHLORIDE 0.9% 1,000 ML IV SCH ×2 (17:20→20:29)
[2018-03-28] MEDS: IBUPROFEN 400 MG TAB PO PRN (20:28)
[2018-03-28] MEDS: FAMOTIDINE 20 MG TAB PO SCH (20:28)
[2018-03-28] MEDS: HEPARIN SODIUM,PORCINE 5,000 UNIT/ML 1 ML VIAL SQ SCH (20:29)
[2018-03-29] MEDS: SODIUM CHLORIDE 0.9% 1,000 ML IV SCH ×2 (05:40→15:29)
[2018-03-29] MEDS: BENZOCAINE/MENTHOL LOZENG 1 EACH LOZENGE MUCOUS MEM PRN ×2 (06:24→08:45)
[2018-03-29] MEDS: PIPERACILLIN-TAZOBACTAM 3.375 GM in DEXTROSE/WATER 1 50ML.BAG IVPB SCH ×3 (07:43→23:43)
[2018-03-29] MEDS: HEPARIN SODIUM,PORCINE 5,000 UNIT/ML 1 ML VIAL SQ SCH ×2 (08:44→21:19)
[2018-03-29] MEDS: FAMOTIDINE 20 MG TAB PO SCH ×2 (08:45→21:19)
[2018-03-29] MEDS: ASPIRIN 81 MG PO SCH (08:45)
[2018-03-29 10:49] LABS: Anion Gap 10 mmol/L; Blood Urea Nitrogen 10 mg/dL (9-20); Calcium 8.9 mg/dL (8.4-10.2); Carbon Dioxide 25 mmol/L (22-30); Chloride 105 mmol/L (98-107); Glucose 187 mg/dL (74-99); Potassium 3.8 mmol/L (3.5-5.1); Sodium 140 mmol/L (137-145)
[2018-03-29 10:53] LABS: Basophils # (A) 0.1 k/uL (0-0.2); Basophils % (A) 0 %; Eosinophils # (A) 0.1 k/uL (0-0.7); Eosinophils % (A) 0 %; HCT 36.8 % (39.0-53.0); HGB 12.2 gm/dL (13.0-17.5); Lymphocytes # (A) 0.9 k/uL (1.0-4.8); Lymphocytes % (A) 5 %; MCH 30.6 pg (25.0-35.0); MCHC 33.2 g/dL (31.0-37.0); MCV 92.1 fL (80.0-100.0); Mean Platelet Volume 7.3; Monocytes # (A) 0.5 k/uL (0-1.0); Monocytes % (A) 3 %; Neutrophils # (A) 15.6 k/uL (1.3-7.7); Neutrophils % (A) 91 %; Platelet Count 185 k/uL (150-450); RBC 3.99 m/uL (4.30-5.90); RDW 12.4 % (11.5-15.5); WBC 17.2 k/uL (3.8-10.6)
[2018-03-29] MEDS: ACETAMINOPHEN TAB 325 MG TAB PO PRN (11:21)
--- NOTE | 2018-03-29 12:56 | P.PN ---
Subjective Patient was admitted secondary to urinary retention and urinary tract infection patient Zosyn no fever since yesterday heart rate and blood pressure are better now. His confusion improved. Constitutional: Denied any fatigue denied any fever. Cardio vascular: denied any chest pain, palpitations Gastrointestinal denied any nausea vomiting Pulmonary: Denied any shortness of breath cough Neurologic denied any new focal deficits Objective - Vital Signs Vital signs: Vital Signs Temp 97.7 F 03/29/18 07:00 Pulse 91 03/29/18 07:00 Resp 18 03/29/18 07:00 BP 107/64 03/29/18 07:00 Pulse Ox 98 03/29/18 07:00 Intake & Output 03/28/18 03/29/18 03/29/18 18:59 06:59 18:59 Intake Total 300 1800 50 Output Total 2200 Balance 300 -400 50 Weight 75 kg 75 kg Intake: Intake, IV Titration 300 50 Amount Ampicillin-Sulbactam 3 gm 100 In Sodium Chloride 0.9% 100 ml @ 100 mls/hr IVPB ONCE [facility] Rx#:[id number] Piperacillin-Tazobactam 3 50 .375 gm In Dextrose/Water 1 50ml.bag @ 12.5 mls/hr IVPB Q8HR [facility] Rx#: [id number] Sodium Chloride 0.9% 1, 200 000 ml @ 100 mls/hr IV . Q10H [facility] Rx#:[id number] Oral 1800 Output: Urine 2200 Other: Voiding Method Indwelling Catheter Indwelling Catheter # Bowel Movements 1 - Exam PHYSICAL EXAMINATION: GENERAL: The patient is alert and oriented x3, not in any acute distress. Well developed, well nourished. Holden catheter in place HEENT: Legally blind. EOMI. No scleral icterus. No conjunctival pallor. Normocephalic, atraumatic. No pharyngeal erythema. No thyromegaly. CARDIOVASCULAR: S1 and S2 present. No murmurs, rubs, or gallops. PULMONARY: Chest is clear to auscultation, no wheezing or crackles. ABDOMEN: Soft, nontender, nondistended, normoactive bowel sounds. No palpable organomegaly. MUSCULOSKELETAL: No joint swelling or deformity. EXTREMITIES: No cyanosis, clubbing, or pedal edema. NEUROLOGICAL: Gross neurological examination did not reveal any focal deficits. SKIN: No rashes. - Labs CBC & Chem 7: 03/29/18 10:03 03/29/18 10:03 Labs: Abnormal Lab Results - Last 24 Hours (Table) 03/29/18 03/29/18 Range/Units 10:03 10:03 WBC 17.2 H (3.8-10.6) k/uL RBC 3.99 L (4.30-5.90) m/uL Hgb 12.2 L (13.0-17.5) gm/dL Hct 36.8 L (39.0-53.0) % Neutrophils # 15.6 H (1.3-7.7) k/uL Lymphocytes # 0.9 L (1.0-4.8) k/uL Glucose 187 H (74-99) mg/dL Microbiology - Last 24 Hours (Table) 03/28/18 08:00 Blood Culture Gram Stain - Preliminary Blood 03/28/18 08:00 Blood Culture - Final Blood 03/28/18 08:00 Urine Culture - Preliminary Urine,Clean Catch Assessment and Plan Plan: -Sepsis: Secondary to urinary tract infection, secondary to urinary retention, Holden catheter was placed and the patient was started on antibiotics. Urology will be consulted for benign prostatic hypertrophy and patient did not tolerate Flomax. Urine cultures and blood cultures were obtained awaiting cultures and studies. Patient is found to be bacteremic with gram-negative rods which is consistent with urinary tract infection and bacteremia repeat blood cultures will be obtained today. Patient is unable to tolerate Flomax the possible reason being hypotension from sepsis, it's reasonable to try Flomax here again if urology believes that is appropriate and see if he can tolerate. I do not believe patient had ALLERGIC reaction to Flomax -History of cerebrovascular accident in the past and occipital area and patient is legally blind secondary to that -Possible mild vascular dementia patient and aspirin which will be continued -Benign prostatic hypertrophy: urology consultation -Tachycardia and hypotension: Secondary to sepsis -Toxic encephalopathy secondary to sepsis
[2018-03-29] MEDS ORDERED: SODIUM CHLORIDE 0.65% NASAL SPRAY 44 ML BTL NASAL PRN (13:12)
[2018-03-29] MEDS: IBUPROFEN 400 MG TAB PO PRN (13:14)
--- NOTE | 2018-03-29 16:39 | P.GSCN ---
History of Present Illness Consult date: 03/29/18 History of present illness: This is a pleasant 67-year-old gentleman who was admitted the hospital with a urinary tract infection with sepsis. The patient's urologic history dates to about 3 weeks ago when he developed a urinary tract infection with hematuria. [facility] by [facility] room. He had gross hematuria and a catheter was placed. Remain in place until he saw Dr. Martin several days ago. The patient was placed on Flomax and the catheter removed 48 hours later however he went back in urine retention. He then developed what sounded like a urinary traction infection with sepsis as his blood pressure dropped to 88 he became disoriented and he had a fever 104. He is admitted the hospital cultured up and placed on IV antibiotics. He was in urine retention and a catheter is placed. We are asked see the patient. The patient does have a history of bladder stones treated in the past with cystolithotripsy. His dates as does his that he has voided well since then. Review of Systems - Constitutional Reports anorexia, Reports chills, Reports fever - EENT Eyes: bilateral loss of vision - Genitourinary Reports as per HPI - Neurological Neurologic Comment(s): Previous occipital stroke Reports loss of vision Past Medical History Past Medical History: CVA/TIA, Dementia, Hyperlipidemia Additional Past Medical History / Comment(s): kidney stones, legally blind History of Any Multi-Drug Resistant Organisms: None Reported Past Surgical History: No Surgical Hx Reported Additional Past Surgical History / Comment(s): Two surgeries for kidney stones Past Anesthesia/Blood Transfusion Reactions: No Reported Reaction Additional Past Anesthesia/Blood Transfusion Reaction / Comm: Never had transfusion Past Psychological History: No Psychological Hx Reported Smoking Status: Never smoker Past Alcohol Use History: None Reported Past Drug Use History: None Reported - Past Family History Mother Family Medical History: Dementia Medications and Allergies Home Medications Medication Instructions Recorded Confirmed Type Aspirin EC [Ecotrin Low Dose] 81 mg PO DAILY 03/03/18 03/28/18 History Allergies Allergy/AdvReac Type Severity Reaction Status Date / Time Latex, Natural Rubber AdvReac Rash/Hives Verified 03/28/18 12:47 Surgical - Exam Vital Signs Temp Pulse Resp BP Pulse Ox 102.4 F H 148 H 18 118/57 94 L 03/28/18 07:46 03/28/18 07:46 03/28/18 07:46 03/28/18 07:46 03/28/18 07:46 - General Expressive aphasia well developed, well nourished - Eyes Blind - ENT no hearing loss - Neck trachea midline - Respiratory normal expansion, normal respiratory effort - Cardiovascular Rhythm: regular - Abdomen Abdomen: soft, non tender - Genitourinary Indwelling catheter and rectal deferred, recently done by Dr. Martin, enlarged but benign normal penis with no external lesions, testicles present - Musculoskeletal normal posture - Psychiatric oriented to time, oriented to person, oriented to place, speech is normal, memory intact Results - Labs 03/29/18 10:03 03/29/18 10:03 Abnormal Lab Results - Last 24 Hours (Table) 03/29/18 03/29/18 Range/Units 10:03 10:03 WBC 17.2 H (3.8-10.6) k/uL RBC 3.99 L (4.30-5.90) m/uL Hgb 12.2 L (13.0-17.5) gm/dL Hct 36.8 L (39.0-53.0) % Neutrophils # 15.6 H (1.3-7.7) k/uL Lymphocytes # 0.9 L (1.0-4.8) k/uL Glucose 187 H (74-99) mg/dL Microbiology - Last 24 Hours (Table) 03/28/18 08:00 Urine Culture - Preliminary Urine,Clean Catch Gram Neg Bacilli 03/28/18 08:00 Blood Culture Gram Stain - Preliminary Blood 03/28/18 08:00 Blood Culture - Final Blood Diabetes panel 03/29/18 Range/Units 10:03 Sodium 140 (137-145) mmol/L Potassium 3.8 (3.5-5.1) mmol/L Chloride 105 (98-107) mmol/L Carbon Dioxide 25 (22-30) mmol/L BUN 10 (9-20) mg/dL Creatinine 0.76 (0.66-1.25) mg/dL Glucose 187 H (74-99) mg/dL Calcium 8.9 (8.4-10.2) mg/dL Calcium panel 03/29/18 Range/Units 10:03 Calcium 8.9 (8.4-10.2) mg/dL Pituitary panel 03/29/18 Range/Units 10:03 Sodium 140 (137-145) mmol/L Potassium 3.8 (3.5-5.1) mmol/L Chloride 105 (98-107) mmol/L Carbon Dioxide 25 (22-30) mmol/L BUN 10 (9-20) mg/dL Creatinine 0.76 (0.66-1.25) mg/dL Glucose 187 H (74-99) mg/dL Calcium 8.9 (8.4-10.2) mg/dL Adrenal panel 03/29/18 Range/Units 10:03 Sodium 140 (137-145) mmol/L Potassium 3.8 (3.5-5.1) mmol/L Chloride 105 (98-107) mmol/L Carbon Dioxide 25 (22-30) mmol/L BUN 10 (9-20) mg/dL Creatinine 0.76 (0.66-1.25) mg/dL Glucose 187 H (74-99) mg/dL Calcium 8.9 (8.4-10.2) mg/dL - Imaging CT scan - abdomen: report reviewed, image reviewed CT scan - pelvis: report reviewed, image reviewed Assessment and Plan Assessment: Impression: Acute prostatitis with urine retention. Urinary tract infection with sepsis. Medical issues as outlined above Recommendations: The patient has an indwelling catheter which should remain. His blood pressure seems to be improving. His vital signs are stable. He has positive blood culture. He is on Zosyn. I would leave indwelling catheter until he goes back on Flomax for several days. Once the cultures are back she can be switched to oral antibiotics. There were no stones in his bladder leading to urine retention. I suspect the urine infection in the prostate has caused the prostate to swell and he has gone into retention. I will notify of his admission. Would hold the Flomax until his blood pressure is stable.
[2018-03-30] MEDS: SODIUM CHLORIDE 0.9% 1,000 ML IV SCH ×3 (03:34→23:05)
[2018-03-30] MEDS: ACETAMINOPHEN TAB 325 MG TAB PO PRN (05:41)
[2018-03-30] MEDS: ASPIRIN 81 MG PO SCH (08:05)
[2018-03-30] MEDS: FAMOTIDINE 20 MG TAB PO SCH ×2 (08:05→21:42)
[2018-03-30] MEDS: PIPERACILLIN-TAZOBACTAM 3.375 GM in DEXTROSE/WATER 1 50ML.BAG IVPB SCH ×3 (08:05→23:04)
[2018-03-30] MEDS: HEPARIN SODIUM,PORCINE 5,000 UNIT/ML 1 ML VIAL SQ SCH ×2 (08:05→21:44)
[2018-03-30 09:07] LABS: HCT 34.8 % (39.0-53.0); HGB 11.7 gm/dL (13.0-17.5); MCH 30.7 pg (25.0-35.0); MCHC 33.7 g/dL (31.0-37.0); MCV 91.2 fL (80.0-100.0); Mean Platelet Volume 7.6; Platelet Count 235 k/uL (150-450); RBC 3.82 m/uL (4.30-5.90); RDW 12.2 % (11.5-15.5); WBC 10.5 k/uL (3.8-10.6)
[2018-03-30 09:26] LABS: Anion Gap 11 mmol/L; Blood Urea Nitrogen 8 mg/dL (9-20); Calcium 8.7 mg/dL (8.4-10.2); Carbon Dioxide 22 mmol/L (22-30); Chloride 108 mmol/L (98-107); Glucose 197 mg/dL (74-99); Potassium 3.7 mmol/L (3.5-5.1); Sodium 141 mmol/L (137-145)
--- NOTE | 2018-03-30 11:25 | ECHOF ---
Referral Reason:r/o chf MEASUREMENTS -------- HEIGHT: 175.3 cm WEIGHT: 74.8 kg BP: 108/66 RVIDd: 3.2 cm (< 3.3) IVSd: 1.2 cm (0.6 - 1.1) LVIDd: 3.3 cm (3.9 - 5.3) LVPWd: 0.9 cm (0.6 - 1.1) IVSs: 1.2 cm LVIDs: 2.2 cm LVPWs: 1.1 cm LAESV Index (A-L): 24.46 ml/m Ao Diam: 2.9 cm (2.0 - 3.7) AV Cusp: 1.5 cm (1.5 - 2.6) LA Diam: 3.1 cm (2.7 - 3.8) MV E Tien: 0.90 m/s MV DecT: 213 ms MV A Tien: 0.96 m/s MV E/A Ratio: 0.94 AV maxP.63 mmHg AV meanP.14 mmHg RAP: 5.00 mmHg RVSP: 28.67 mmHg FINDINGS -------- Sinus rhythm. This was a technically adequate study. The left ventricular size is normal. There is borderline concentric left ventricular hypertrophy. Overall left ventricular systolic function is normal with, an EF between 55 - 60 %. The right ventricle is normal in size and function. Normal LA size by volume 22+/-6 ml/m2. The right atrium is normal in size. There is moderate aortic valve sclerosis. There is no evidence of aortic regurgitation. There is moderate aortic stenosis present. Peak/mean gradient across the Aortic Valve is 32.63mmHg / 20.14mm Hg. The mitral valve leaflets are mildly thickened. There is trace to mild mitral regurgitation. Mild tricuspid regurgitation present. Right ventricular systolic pressure is normal at < 35 mmHg. There is no evidence of pulmonary hypertension. Trace/mild (physiologic) pulmonic regurgitation. The aortic root size is normal. Normal inferior vena cava with normal inspiratory collapse consistent with estimated right atrial pre ssure of 5 mmHg. There is no pericardial effusion. CONCLUSIONS -------- 1. Sinus rhythm. 2. This was a technically adequate study. 3. The left ventricular size is normal. 4. There is borderline concentric left ventricular hypertrophy. 5. Overall left ventricular systolic function is normal with, an EF between 55 - 60 %. 6. Normal LA size by volume 22+/-6 ml/m2. 7. There is moderate aortic valve sclerosis. 8. There is moderate aortic stenosis present. 9. Peak/mean gradient across the Aortic Valve is 32.63mmHg / 20.14mmHg. 10. The mitral valve leaflets are mildly thickened. 11. There is trace to mild mitral regurgitation. 12. Mild tricuspid regurgitation present. 13. Right ventricular systolic pressure is normal at < 35 mmHg. 14. There is no evidence of pulmonary hypertension. 15. Trace/mild (physiologic) pulmonic regurgitation. 16. The aortic root size is normal. 17. There is no pericardial effusion. ED MANAGER: Frank Palmer RDCS
--- NOTE | 2018-03-30 22:42 | P.PN ---
Progress Note - Text Progress Note Date: 03/30/18 Mr. Call has no specific complaints. The Holden catheter is draining clear yellow urine. Urine and blood cultures have shown Pseudomonas, sensitive to quinolones. I would suggest that the Holden catheter remain in place. Consideration will be given to a repeat voiding trial, though he may be best served by a TURP.
[2018-03-31] MEDS: HEPARIN SODIUM,PORCINE 5,000 UNIT/ML 1 ML VIAL SQ SCH ×2 (08:10→21:24)
[2018-03-31] MEDS: ASPIRIN 81 MG PO SCH (08:10)
[2018-03-31] MEDS: PIPERACILLIN-TAZOBACTAM 3.375 GM in DEXTROSE/WATER 1 50ML.BAG IVPB SCH (08:10)
[2018-03-31] MEDS: FAMOTIDINE 20 MG TAB PO SCH ×2 (08:10→21:24)
[2018-03-31] MEDS: ACETAMINOPHEN TAB 325 MG TAB PO PRN (08:18)
[2018-03-31] MEDS: IBUPROFEN 400 MG TAB PO PRN ×2 (10:08→23:33)
[2018-03-31 11:45] LABS: Basophils % (A) 0 %; Eosinophils # (A) 0.1 k/uL (0-0.7); Eosinophils % (A) 1 %; HCT 34.7 % (39.0-53.0); Lymphocytes # (A) 0.5 k/uL (1.0-4.8); Lymphocytes % (A) 5 %; MCH 31.1 pg (25.0-35.0); MCHC 34.5 g/dL (31.0-37.0); Mean Platelet Volume 7.1; Monocytes # (A) 0.5 k/uL (0-1.0); Monocytes % (A) 5 %; Neutrophils # (A) 8.8 k/uL (1.3-7.7); Neutrophils % (A) 88 %; Platelet Count 236 k/uL (150-450); RBC 3.85 m/uL (4.30-5.90); RDW 12.3 % (11.5-15.5); WBC 10.1 k/uL (3.8-10.6)
--- NOTE | 2018-03-31 13:34 | P.PN ---
Subjective Patient was admitted secondary to urinary retention and urinary tract infection patient Zosyn no fever since yesterday heart rate and blood pressure are better now. His confusion improved. 03/31/2018 Patient started getting confused again, blood cultures are positive for Pseudomonas. Started having fever again repeat blood cultures were obtain again. Infectious disease was consulted. Constitutional: Denied any fatigue denied any fever. Cardio vascular: denied any chest pain, palpitations Gastrointestinal denied any nausea vomiting Pulmonary: Denied any shortness of breath cough Neurologic denied any new focal deficits Objective - Vital Signs Vital signs: Vital Signs Temp 100 F H 03/31/18 10:53 Pulse 92 03/31/18 06:00 Resp 16 03/31/18 06:00 BP 147/84 03/31/18 06:00 Pulse Ox 97 03/31/18 06:00 Intake & Output 03/30/18 03/31/18 03/31/18 18:59 06:59 18:59 Output Total 1600 1900 Balance -1600 -1900 Output: Urine 1600 1900 Other: Voiding Method Indwelling Catheter Indwelling Catheter Indwelling Catheter # Voids 2 - Exam PHYSICAL EXAMINATION: GENERAL: The patient is alert and oriented x3, not in any acute distress. Well developed, well nourished. Holden catheter in place HEENT: Legally blind. EOMI. No scleral icterus. No conjunctival pallor. Normocephalic, atraumatic. No pharyngeal erythema. No thyromegaly. CARDIOVASCULAR: S1 and S2 present. No murmurs, rubs, or gallops. PULMONARY: Chest is clear to auscultation, no wheezing or crackles. ABDOMEN: Soft, nontender, nondistended, normoactive bowel sounds. No palpable organomegaly. MUSCULOSKELETAL: No joint swelling or deformity. EXTREMITIES: No cyanosis, clubbing, or pedal edema. NEUROLOGICAL: Gross neurological examination did not reveal any focal deficits. SKIN: No rashes. - Labs CBC & Chem 7: 03/31/18 11:26 03/30/18 08:43 Labs: Abnormal Lab Results - Last 24 Hours (Table) 03/31/18 Range/Units 11:26 RBC 3.85 L (4.30-5.90) m/uL Hgb 12.0 L (13.0-17.5) gm/dL Hct 34.7 L (39.0-53.0) % Neutrophils # 8.8 H (1.3-7.7) k/uL Lymphocytes # 0.5 L (1.0-4.8) k/uL Microbiology - Last 24 Hours (Table) 03/30/18 08:43 Blood Culture - Preliminary Blood No Growth after 24 hours 03/28/18 08:00 Blood Culture Gram Stain - Final Blood Blood Culture - Final Pseudomonas aeruginosa 03/29/18 13:20 Blood Culture - Preliminary Blood No Growth after 24 hours Assessment and Plan Plan: -Sepsis: Secondary to urinary tract infection, secondary to urinary retention, Holden catheter was placed and the patient was started on antibiotics. Urology evaluated for benign prostatic hypertrophy and patient did not tolerate Flomax. Urine cultures and blood cultures are positive for Pseudomonas pansensitive Patient is found to be bacteremic with Pseudomonas. Repeat blood cultures from day before and has gram-negative started having fever again repeat blood cultures today -History of cerebrovascular accident in the past and occipital area and patient is legally blind secondary to that -Possible mild vascular dementia patient and aspirin which will be continued -Benign prostatic hypertrophy: urology consultation -Tachycardia and hypotension: Secondary to sepsis -Toxic encephalopathy secondary to sepsis
--- NOTE | 2018-03-31 13:35 | P.PN ---
Subjective Patient was admitted secondary to urinary retention and urinary tract infection patient Zosyn no fever since yesterday heart rate and blood pressure are better now. His confusion improved. 03/30/2018 Patient is feeling much better blood cultures and urine cultures are positive for Pseudomonas Constitutional: Denied any fatigue denied any fever. Cardio vascular: denied any chest pain, palpitations Gastrointestinal denied any nausea vomiting Pulmonary: Denied any shortness of breath cough Neurologic denied any new focal deficits Objective - Vital Signs Vital signs: Vital Signs Temp 100 F H 03/31/18 10:53 Pulse 92 03/31/18 06:00 Resp 16 03/31/18 06:00 BP 147/84 03/31/18 06:00 Pulse Ox 97 03/31/18 06:00 Intake & Output 03/30/18 03/31/18 03/31/18 18:59 06:59 18:59 Output Total 1600 1900 Balance -1600 -1900 Output: Urine 1600 1900 Other: Voiding Method Indwelling Catheter Indwelling Catheter Indwelling Catheter # Voids 2 - Exam PHYSICAL EXAMINATION: GENERAL: The patient is alert and oriented x3, not in any acute distress. Well developed, well nourished. Holden catheter in place HEENT: Legally blind. EOMI. No scleral icterus. No conjunctival pallor. Normocephalic, atraumatic. No pharyngeal erythema. No thyromegaly. CARDIOVASCULAR: S1 and S2 present. No murmurs, rubs, or gallops. PULMONARY: Chest is clear to auscultation, no wheezing or crackles. ABDOMEN: Soft, nontender, nondistended, normoactive bowel sounds. No palpable organomegaly. MUSCULOSKELETAL: No joint swelling or deformity. EXTREMITIES: No cyanosis, clubbing, or pedal edema. NEUROLOGICAL: Gross neurological examination did not reveal any focal deficits. SKIN: No rashes. - Labs CBC & Chem 7: 03/31/18 11:26 03/30/18 08:43 Labs: Abnormal Lab Results - Last 24 Hours (Table) 03/31/18 Range/Units 11:26 RBC 3.85 L (4.30-5.90) m/uL Hgb 12.0 L (13.0-17.5) gm/dL Hct 34.7 L (39.0-53.0) % Neutrophils # 8.8 H (1.3-7.7) k/uL Lymphocytes # 0.5 L (1.0-4.8) k/uL Microbiology - Last 24 Hours (Table) 03/30/18 08:43 Blood Culture - Preliminary Blood No Growth after 24 hours 03/28/18 08:00 Blood Culture Gram Stain - Final Blood Blood Culture - Final Pseudomonas aeruginosa 03/29/18 13:20 Blood Culture - Preliminary Blood No Growth after 24 hours Assessment and Plan Plan: -Sepsis: Secondary to urinary tract infection, secondary to urinary retention, Holden catheter was placed and the patient was started on antibiotics. Urology evaluated for benign prostatic hypertrophy and patient did not tolerate Flomax. Urine cultures and blood cultures are positive for Pseudomonas pansensitive Patient is found to be bacteremic with Pseudomonas. -History of cerebrovascular accident in the past and occipital area and patient is legally blind secondary to that -Possible mild vascular dementia patient and aspirin which will be continued -Benign prostatic hypertrophy: urology consultation -Tachycardia and hypotension: Secondary to sepsis -Toxic encephalopathy secondary to sepsis
[2018-03-31] MEDS: SODIUM CHLORIDE 0.9% 1,000 ML IV SCH ×2 (16:11→22:39)
--- NOTE | 2018-03-31 20:58 | US ---
EXAMINATION TYPE: US kidneys/renal and bladder DATE OF EXAM: 03/31/2018 COMPARISON: NONE CLINICAL HISTORY: recurrent UTI , bacteremia. UTI exam limitation patient had a stroke. EXAM MEASUREMENTS: Right Kidney: 10.3 x 4.9 x 5.8 cm Left Kidney: 10.7 x 5.7 x 4.8 cm Right Kidney: No hydronephrosis or masses seen Left Kidney: Lobulated cortex no hydronephrosis seen. Bladder: Catheter in place Bilateral Jets seen: No There is no evidence for hydronephrosis at this point in time. No nephrolithiasis is seen. No masses are identified. The urinary bladder is anechoic. IMPRESSION: No acute process.
--- NOTE | 2018-03-31 23:00 | CONS ---
CONSULTATION DATE OF SERVICE: 03/31/2018 REASON FOR CONSULTATION: Pseudomonas bacteremia and UTI. HISTORY OF PRESENT ILLNESS: The patient is a 67-year-old male who recently had a problem with urinary retention that required Holden catheter placement. The patient subsequently had a Holden catheter for about 3 weeks. He did have outpatient followup with Urology, but apparently the patient's Holden catheter was discontinued, as the patient was able to void and empty his bladder completely. The patient has been continued on Flomax and with no Holden catheter for about a week. However, the patient's temperature over the weekend with hallucinations, fever, weakness and evidence of urinary retention. With these symptoms, the patient was brought into the ER at [facility] on 03/28/2018. On arrival in the ER, the patient did have a fever of 102 degrees Fahrenheit. The patient had evidence of sepsis with elevated white count. His urine was significantly positive. Influenza serology was negative. The patient was started on Zosyn. Over the next day or two the patient's fever resolved and his urine was showing Pseudomonas aeruginosa. Blood culture was finalized with the same pathogen. However, the patient started having a fever again on 03/30/2018 of 100.1, with a fever of 102.7 this morning. That prompted this infectious disease consultation. The patient remains feeling weak and tired but denies having any headache. No significant URI symptoms. No chest pain or shortness of breath. No cough. No abdominal pain except some discomfort in the suprapubic area. No diarrhea. He did have a Holden catheter placed this admission. No nausea. No vomiting. No problem with the IV site. REVIEW OF SYSTEMS: CONSTITUTIONAL: Positive for weakness along with a fever. EYES: No complaint. ENT: No complaint. RESPIRATORY: No complaint. CARDIOVASCULAR: No complaint. GENITOURINARY: As per HPI. GASTROINTESTINAL: No complaint. MUSCULOSKELETAL: No complaint. INTEGUMENTARY: No complaint. PSYCHOLOGICAL: No complaint. ENDOCRINE: No complaint. NEUROLOGICAL: No complaint. PAST MEDICAL HISTORY: 1. Hyperlipidemia. 2. CVA, TIA. 3. Dementia. 4. Urine retention. 5. Kidney stone. PAST SURGICAL HISTORY: Surgery for kidney stone. SOCIAL HISTORY: No history of smoking, drinking or drug use. FAMILY HISTORY: Mother with history of dementia. ALLERGIES: LATEX and NATURAL RUBBER. CURRENT MEDICATIONS: 1. Tylenol. 2. Aspirin. 3. Cepacol lozenges. 4. Zosyn. 5. Pepcid. 6. Heparin. 7. Motrin. 8. Narcan. PHYSICAL EXAMINATION: Blood pressure is 98/66, pulse 87, temperature 97.9, T-max 102.7. He is 97% on room air. General description is an elderly male up in the chair in no distress. No tachypnea or accessory muscle of respiration use. HEENT examination shows no pallor or scleral icterus. Oral mucosa membrane is moist. No pharyngeal erythema or thrush. NECK: Trachea is central. No thyromegaly. LUNGS: Unlabored breathing. Clear to auscultation anteriorly. No wheeze or crackle. HEART: S1, S2. Regular rate and rhythm. No added sound. ABDOMEN: Soft. No tenderness. No guarding or rigidity. EXTREMITIES: No edema of feet. SKIN EXAMINATION: No rashes. No mass palpable. Neurologically the patient is awake, alert, oriented x3. Mood and affect normal. LABS: Hemoglobin is 12, white count 10.1. Admission white count was 19.6 with a BUN of 8, creatinine 0.76. Urine has been positive. Both urine and the blood culture with Pseudomonas aeruginosa. Blood cultures from 03/29 and 03/30 have been negative so far. DIAGNOSTIC IMPRESSION AND PLAN: Patient admitted to hospital with a complicated urinary tract infection in a patient who did have urine retention requiring a Holden catheter in the outpatient setting with retention. This admission he required a Holden catheter placement. Significantly positive UA with features of sepsis on admission, now with both blood and urine showing Pseudomonas aeruginosa. The patient has been on the right antibiotic in the form of Zosyn, with initial resolution of the fever. However, he subsequently started having a fever again, with a question of possible abnormality related to the urogenital floor tract or another process such as acute influenza that may be contributing to this new fever. Patient with no features suggestive of pneumonia and no evidence of any cellulitis or any problem with the IV site. PLAN: 1. Discontinue the Zosyn. 2. Start the patient on Fortaz 2 grams q.8. 3. Will obtain ultrasound of the kidneys and bladder. 4. Obtain influenza swab. 5. His clinical response as well as finalization of his workup will determine his discharge antibiotic. Family was present at the bedside. Their questions were answered. MMODL / IJN: [id number] /
[2018-04-01] MEDS: ACETAMINOPHEN TAB 325 MG TAB PO PRN (01:48)
[2018-04-01] MEDS: SODIUM CHLORIDE 0.9% 1,000 ML IV SCH ×3 (06:05→23:21)
[2018-04-01] MEDS: ASPIRIN 81 MG PO SCH (08:01)
[2018-04-01] MEDS: FAMOTIDINE 20 MG TAB PO SCH ×2 (08:01→20:26)
[2018-04-01] MEDS: HEPARIN SODIUM,PORCINE 5,000 UNIT/ML 1 ML VIAL SQ SCH ×2 (08:02→20:26)
[2018-04-01 09:59] LABS: HCT 38.8 % (39.0-53.0); HGB 13.1 gm/dL (13.0-17.5); MCH 30.8 pg (25.0-35.0); MCHC 33.8 g/dL (31.0-37.0); MCV 91.1 fL (80.0-100.0); Platelet Count 244 k/uL (150-450); RBC 4.26 m/uL (4.30-5.90); RDW 12.3 % (11.5-15.5); WBC 7.5 k/uL (3.8-10.6)
[2018-04-01 10:50] LABS: Anion Gap 15 mmol/L; Blood Urea Nitrogen 10 mg/dL (9-20); Calcium 9.1 mg/dL (8.4-10.2); Carbon Dioxide 25 mmol/L (22-30); Chloride 106 mmol/L (98-107); Glucose 142 mg/dL (74-99); Potassium 3.7 mmol/L (3.5-5.1); Sodium 146 mmol/L (137-145)
--- NOTE | 2018-04-01 11:18 | P.PN ---
Progress Note - Text Progress Note Date: 04/01/18 The patient is feeling better. He has been afebrile since yesterday morning. His WBC count has normalized. Urine and blood cultures have both shown Pseudomonas aeruginosa, sensitive to quinolones. I discussed with the patient and his the fact that this is a nosocomial UTI, related to the indwelling Holden catheter. The catheter remains in place to his urinary retention. They wish to lower his infection risk, and thus prefer to perform intermittent self- catheterization. The Holden catheter will best be removed, and the patient will be taught to self catheterize. His is willing to assist him. In the meantime, tamsulosin was prescribed with the hopes that he will be able to void.
[2018-04-01] MEDS: TAMSULOSIN 0.4 MG CAP.ER.24H PO SCH (11:39)
--- NOTE | 2018-04-01 14:27 | P.PN ---
Subjective Progress Note Date: 03/31/18 Patient was admitted secondary to urinary retention and urinary tract infection patient Zosyn no fever since yesterday heart rate and blood pressure are better now. His confusion improved. 03/30/2018 Patient is feeling much better blood cultures and urine cultures are positive for Pseudomonas 03/31/2018 Patient has fever again because of which repeat blood cultures were obtained and infectious disease was consulted. Constitutional: Denied any fatigue denied any fever. Cardio vascular: denied any chest pain, palpitations Gastrointestinal denied any nausea vomiting Pulmonary: Denied any shortness of breath cough Neurologic denied any new focal deficits Objective - Vital Signs Vital signs: Vital Signs Temp 98.5 F 04/01/18 06:30 Pulse 80 04/01/18 06:30 Resp 20 04/01/18 08:00 BP 121/58 04/01/18 06:30 Pulse Ox 97 04/01/18 06:30 Intake & Output 03/31/18 04/01/18 04/01/18 18:59 06:59 18:59 Intake Total 240 450 Output Total 1400 2500 2200 Balance -1160 -2500 -1750 Weight 75 kg Intake: Oral 240 450 Output: Urine 1400 2500 2200 Other: Voiding Method Indwelling Catheter Indwelling Catheter Indwelling Catheter # Bowel Movements 0 2 - Exam PHYSICAL EXAMINATION: GENERAL: The patient is alert and oriented x3, not in any acute distress. Well developed, well nourished. Holden catheter in place HEENT: Legally blind. EOMI. No scleral icterus. No conjunctival pallor. Normocephalic, atraumatic. No pharyngeal erythema. No thyromegaly. CARDIOVASCULAR: S1 and S2 present. No murmurs, rubs, or gallops. PULMONARY: Chest is clear to auscultation, no wheezing or crackles. ABDOMEN: Soft, nontender, nondistended, normoactive bowel sounds. No palpable organomegaly. MUSCULOSKELETAL: No joint swelling or deformity. EXTREMITIES: No cyanosis, clubbing, or pedal edema. NEUROLOGICAL: Gross neurological examination did not reveal any focal deficits. SKIN: No rashes. - Labs CBC & Chem 7: 04/01/18 09:33 04/01/18 09:33 Labs: Abnormal Lab Results - Last 24 Hours (Table) 04/01/18 04/01/18 Range/Units 09:33 09:33 RBC 4.26 L (4.30-5.90) m/uL Hct 38.8 L (39.0-53.0) % Sodium 146 H (137-145) mmol/L Glucose 142 H (74-99) mg/dL Microbiology - Last 24 Hours (Table) 03/31/18 11:26 Blood Culture - Preliminary Blood No Growth after 24 hours 03/30/18 08:43 Blood Culture - Preliminary Blood No Growth after 48 hours 03/29/18 13:20 Blood Culture - Preliminary Blood No Growth after 48 hours Assessment and Plan Plan: -Sepsis: Secondary to urinary tract infection, secondary to urinary retention, Holden catheter was placed and the patient was started on antibiotics. Urology evaluated for benign prostatic hypertrophy and patient did not tolerate Flomax. Urine cultures and blood cultures are positive for Pseudomonas pansensitive Patient is found to be bacteremic with Pseudomonas. -History of cerebrovascular accident in the past and occipital area and patient is legally blind secondary to that -Possible mild vascular dementia patient and aspirin which will be continued -Benign prostatic hypertrophy: urology consultation -Tachycardia and hypotension: Secondary to sepsis -Toxic encephalopathy secondary to sepsis
--- NOTE | 2018-04-01 14:29 | P.PN ---
Subjective Patient was admitted secondary to urinary retention and urinary tract infection patient Zosyn no fever since yesterday heart rate and blood pressure are better now. His confusion improved. 03/30/2018 Patient is feeling much better blood cultures and urine cultures are positive for Pseudomonas 03/31/2018 Patient has fever again because of which repeat blood cultures were obtained and infectious disease was consulted. 04/01/2018 Patient is afebrile patient is on Ceptazidime, fully get was removed patient is able to urinate once his infection clears patient will undergo prostatectomy. Constitutional: Denied any fatigue denied any fever. Cardio vascular: denied any chest pain, palpitations Gastrointestinal denied any nausea vomiting Pulmonary: Denied any shortness of breath cough Neurologic denied any new focal deficits Objective - Vital Signs Vital signs: Vital Signs Temp 98.5 F 04/01/18 06:30 Pulse 80 04/01/18 06:30 Resp 20 04/01/18 08:00 BP 121/58 04/01/18 06:30 Pulse Ox 97 04/01/18 06:30 Intake & Output 03/31/18 04/01/18 04/01/18 18:59 06:59 18:59 Intake Total 240 450 Output Total 1400 2500 2200 Balance -1160 -2500 -1750 Weight 75 kg Intake: Oral 240 450 Output: Urine 1400 2500 2200 Other: Voiding Method Indwelling Catheter Indwelling Catheter Indwelling Catheter # Bowel Movements 0 2 - Exam PHYSICAL EXAMINATION: GENERAL: The patient is alert and oriented x3, not in any acute distress. Well developed, well nourished. Holden catheter in place HEENT: Legally blind. EOMI. No scleral icterus. No conjunctival pallor. Normocephalic, atraumatic. No pharyngeal erythema. No thyromegaly. CARDIOVASCULAR: S1 and S2 present. No murmurs, rubs, or gallops. PULMONARY: Chest is clear to auscultation, no wheezing or crackles. ABDOMEN: Soft, nontender, nondistended, normoactive bowel sounds. No palpable organomegaly. MUSCULOSKELETAL: No joint swelling or deformity. EXTREMITIES: No cyanosis, clubbing, or pedal edema. NEUROLOGICAL: Gross neurological examination did not reveal any focal deficits. SKIN: No rashes. - Labs CBC & Chem 7: 04/01/18 09:33 04/01/18 09:33 Labs: Abnormal Lab Results - Last 24 Hours (Table) 04/01/18 04/01/18 Range/Units 09:33 09:33 RBC 4.26 L (4.30-5.90) m/uL Hct 38.8 L (39.0-53.0) % Sodium 146 H (137-145) mmol/L Glucose 142 H (74-99) mg/dL Microbiology - Last 24 Hours (Table) 03/31/18 11:26 Blood Culture - Preliminary Blood No Growth after 24 hours 03/30/18 08:43 Blood Culture - Preliminary Blood No Growth after 48 hours 03/29/18 13:20 Blood Culture - Preliminary Blood No Growth after 48 hours Assessment and Plan Plan: -Sepsis: Secondary to urinary tract infection, secondary to urinary retention, Holden catheter removed and patient is able to urinate now. Patient is afebrile repeat blood cultures from as today day before are negative patient is clinically doing well can be discharged tomorrow. Urine cultures and blood cultures are positive for Pseudomonas pansensitive Patient is found to be bacteremic with Pseudomonas. -History of cerebrovascular accident in the past and occipital area and patient is legally blind secondary to that -Possible mild vascular dementia patient and aspirin which will be continued -Benign prostatic hypertrophy: urology evaluated the patient patient -Tachycardia and hypotension: Secondary to sepsis -Toxic encephalopathy secondary to sepsis is resolved now
--- NOTE | 2018-04-01 22:37 | PN ---
PROGRESS NOTE DATE OF SERVICE: 04/01/2018 REASON FOR FOLLOWUP: Pseudomonas aeruginosa urinary tract infection and bacteremia. INTERVAL HISTORY: The patient's overall fever pattern has improved. He has been breathing comfortably. Denies any chest pain or cough. No abdominal pain. No diarrhea. Still has Holden catheter with discontinued and catheterization. EXAMINATION: Blood pressure 144/80 with a pulse of 78, temperature 99.1. He is 99% on room air. General description is an elderly male up in the chair in no distress. RESPIRATORY SYSTEM: Unlabored breathing, clear to auscultation anteriorly. HEART: S1, S2. Regular rate and rhythm and rhythm. ABDOMEN: Soft, no tenderness. EXTREMITIES: No edema of the feet. LABS: Hemoglobin 13.1, white count 7.5, BUN of 10, creatinine 0.84. DIAGNOSTIC IMPRESSION AND PLAN: The patient with Pseudomonas aeruginosa urinary tract infection with secondary bacteremia. Ultrasound was negative for any structural abnormality. Blood culture repeat has been negative. The patient continues to improve with oral Cipro 500 b.i.d. for another 10 days with close outpatient followup. MMODL / IJN: [id number] /
[2018-04-02 00:11] VITALS: RESP 16
[2018-04-02] MEDS: IBUPROFEN 400 MG TAB PO PRN (01:39)
[2018-04-02 07:01] VITALS: BP 145/87; PULSE 83; TEMP 98.5
[2018-04-02] MEDS: SODIUM CHLORIDE 0.9% 1,000 ML IV SCH (07:36)
[2018-04-02] MEDS: ASPIRIN 81 MG PO SCH (07:39)
[2018-04-02] MEDS: HEPARIN SODIUM,PORCINE 5,000 UNIT/ML 1 ML VIAL SQ SCH (07:39)
[2018-04-02] MEDS: TAMSULOSIN 0.4 MG CAP.ER.24H PO SCH (07:39)
[2018-04-02] MEDS: FAMOTIDINE 20 MG TAB PO SCH (07:39)
--- NOTE | 2018-04-02 12:43 | P.DS ---
Providers Date of admission: 03/28/18 11:02 Attending physician: Luz Chau Consults: 03/29/18 09:07 Consult Physician Urgent Consulting Provider: Mark Martin Consult Reason/Comments: retention/uti/sepsis, known to pt. Do you want consulting provider notified?: Yes 03/31/18 12:33 Consult Physician Routine Consulting Provider: Wendy Johnson Consult Reason/Comments: Bactremia, UTI Do you want consulting provider notified?: Yes [facility] Course: Patient was admitted secondary to urinary retention and urinary tract infection patient Zosyn no fever since yesterday heart rate and blood pressure are better now. His confusion improved. 03/30/2018 Patient is feeling much better blood cultures and urine cultures are positive for Pseudomonas 03/31/2018 Patient has fever again because of which repeat blood cultures were obtained and infectious disease was consulted. 04/01/2018 Patient is afebrile patient is on Ceptazidime, fully get was removed patient is able to urinate once his infection clears patient will undergo prostatectomy. 04/02/2018 Patient is afebrile. Repeat Blood cultures are negative discussed with infectious disease patient will be discharged on Cipro 750 twice a day for 10 days PHYSICAL EXAMINATION: GENERAL: The patient is alert and oriented x2-3, not in any acute distress. Well developed, well nourished. Holden catheter in place HEENT: Legally blind. EOMI. No scleral icterus. No conjunctival pallor. Normocephalic, atraumatic. No pharyngeal erythema. No thyromegaly. CARDIOVASCULAR: S1 and S2 present. No murmurs, rubs, or gallops. PULMONARY: Chest is clear to auscultation, no wheezing or crackles. ABDOMEN: Soft, nontender, nondistended, normoactive bowel sounds. No palpable organomegaly. MUSCULOSKELETAL: No joint swelling or deformity. EXTREMITIES: No cyanosis, clubbing, or pedal edema. NEUROLOGICAL: Gross neurological examination did not reveal any new focal deficits. Does have visual issues from his previous occipital stroke SKIN: No rashes. Assessment and Plan Plan: -Sepsis and bacteremia with the Pseudomonas aeruginosa -History of cerebrovascular accident in the past and occipital area and patient is legally blind secondary to that -Possible mild vascular dementia patient and aspirin which will be continued -Benign prostatic hypertrophy: urology evaluated the patient patient -Tachycardia and hypotension: Secondary to sepsis, resolved now -Toxic encephalopathy secondary to sepsis is resolved now Patient Condition at Discharge: Serious Plan - Discharge Summary Discharge Rx Participant: No New Discharge Prescriptions: New Ciprofloxacin HCl [Cipro] 750 mg PO BID #20 tablet Tamsulosin [Flomax] 0.4 mg PO DAILY #30 cap.er.24h Continue Aspirin EC [Ecotrin Low Dose] 81 mg PO DAILY Discharge Medication List Aspirin EC [Ecotrin Low Dose] 81 mg PO DAILY 03/03/18 [History] Ciprofloxacin HCl [Cipro] 750 mg PO BID #20 tablet 04/02/18 [Rx] Tamsulosin [Flomax] 0.4 mg PO DAILY #30 cap.er.24h 04/02/18 [Rx] Follow up Appointment(s)/Referral(s): Mark Martin MD [STAFF PHYSICIAN] - 1 Week Jessica Hess III, MD [Primary Care Provider] - 1-2 days [facility], [NON-STAFF] - Wendy Johnson MD [STAFF PHYSICIAN] - 1 Week Patient Instructions/Handouts: Urinary Tract Infection in Men (DC), Holden Catheter Placement and Care (DC) Activity/Diet/Wound Care/Special Instructions: Cardiac diet Discharge Disposition: HOME SELF-CARE
--- NOTE | 2018-04-02 14:32 | PN ---
PROGRESS NOTE DATE OF SERVICE: 04/02/2018 REASON FOR FOLLOWUP: Pseudomonas bacteremia urinary tract infection. INTERVAL HISTORY: The patient is afebrile. He has been breathing comfortably. Denies having any chest pain, shortness of breath: Abdomen the patient Holden has been discontinued. He is able to urinate without any problem. PHYSICAL EXAMINATION: Blood pressure is 145/87, pulse of 83, temperature 98.5. He is 97% on room air. General description is an elderly male up in the chair, in no distress. RESPIRATORY SYSTEM: Unlabored breathing, clear to auscultation anteriorly. HEART: S1, S2. Regular rate and rhythm. ABDOMEN: Soft, no tenderness. LABS: No new labs have been obtained today. DIAGNOSTIC IMPRESSION AND PLAN: Patient with Pseudomonas bacteremia and urinary tract infection. Ultrasound negative for any structural abnormality. Plan to finish therapy with oral Cipro 550 twice a day for another 10 days with close outpatient followup. MMODL / IJN: [id number] /
== END 2018-04-02 13:43 | disposition home health service (06) | DRG 698 ==
LOC: EC 07:45 → 4MS4W 11:02
PROVIDERS: ADMIT Internal Medicine; ATTEND Internal Medicine
DX: T83.511A Infection and inflammatory reaction due to indwelling urethral catheter, initial encounter (principal); A41.52 Sepsis due to Pseudomonas; G92 Toxic encephalopathy; N41.0 Acute prostatitis; N39.0 Urinary tract infection, site not specified; I69.319 Unspecified symptoms and signs involving cognitive functions following cerebral infarction; I69.398 Other sequelae of cerebral infarction; F01.50 Vascular dementia, unspecified severity, without behavioral disturbance, psychotic disturbance, mood disturbance, and anxiety; E78.5 Hyperlipidemia, unspecified; N40.1 Benign prostatic hyperplasia with lower urinary tract symptoms; R33.8 Other retention of urine; H54.8 Legal blindness, as defined in USA; R40.2362 Coma scale, best motor response, obeys commands, at arrival to emergency department; R40.2142 Coma scale, eyes open, spontaneous, at arrival to emergency department; R40.2252 Coma scale, best verbal response, oriented, at arrival to emergency department; R19.7 Diarrhea, unspecified; R31.0 Gross hematuria; Z79.82 Long term (current) use of aspirin; Z87.442 Personal history of urinary calculi; Z91.040 Latex allergy status; Z91.048 Other nonmedicinal substance allergy status; Y84.6 Urinary catheterization as the cause of abnormal reaction of the patient, or of later complication, without mention of misadventure at the time of the procedure
CPT/HCPCS: 36415; 51702; 71046; 76770; 80048; 80053; 81001; 83605; 83880; 85025; 85027; 85610; 85730; 87040; 87077; 87086; 87186; 87502; 93005; 93306; 94760; 96361; 96374; 99285

== ENCOUNTER 2018-11-29 01:14 | Inpatient (IN) | payer MEDICARE ==
[2018-11-29] MEDS ORDERED: SODIUM CHLORIDE 0.9% 1,000 ML IV STA (02:10)
--- NOTE | 2018-11-29 02:47 | ED ---
GI Bleed HPI - General Chief complaint: GI Bleed Stated complaint: Rectal bleeding Time Seen by Provider: 11/29/18 02:09 Source: patient, family Mode of arrival: ambulatory Limitations: no limitations - History of Present Illness Initial comments: Is a 68-year-old gentleman with a history of stroke in the past resulting in some expressive aphasia and weakness. Patient presents to the emergency department today with his significant other for evaluation of throat or 5 episodes of bright red blood per rectum. History is provided primarily by the significant other the patient is able to answer questions appropriately. Patient reports that around 8:30 yesterday evening he had a bowel movement which was bright red blood. She reports that over the past 6 hours he's had approximately one bowel movement per hour which are bright red blood but recently she noted some clots in the blood. He has no history of anything like this in the past. He has no known history of diverticulitis or diverticulosis. She cannot recall when his last colonoscopy was she leaves it was around the age of 61 and doesn't recall if there were any abnormalities. Patient does take baby aspirin 2 times daily but is on no other antiplatelet or anticoagulant medications. Patient is able to nod yes or no in answer in short verbal responses. Patient denies chest pain, shortness breath, lightheadedness, nausea, vomiting, abdominal pain. Patient reports that he is comfortable with no complaints aside from the bright red blood per rectum. reports - Related Data Home Medications Medication Instructions Recorded Confirmed Aspirin EC [Ecotrin Low Dose] 81 mg PO DAILY 03/03/18 03/28/18 Previous Rx's Medication Instructions Recorded Ciprofloxacin HCl [Cipro] 750 mg PO BID #20 tablet 04/02/18 Tamsulosin [Flomax] 0.4 mg PO DAILY #30 cap.er.24h 04/02/18 Allergies Allergy/AdvReac Type Severity Reaction Status Date / Time Latex, Natural Rubber AdvReac Rash/Hives Verified 11/29/18 01:24 Review of Systems ROS Statement: Those systems with pertinent positive or pertinent negative responses have been documented in the HPI. ROS Other: All systems not noted in ROS Statement are negative. Past Medical History Past Medical History: CVA/TIA, Dementia, Hyperlipidemia Additional Past Medical History / Comment(s): kidney stones, legally blind History of Any Multi-Drug Resistant Organisms: None Reported Past Surgical History: No Surgical Hx Reported Additional Past Surgical History / Comment(s): Two surgeries for kidney stones Past Anesthesia/Blood Transfusion Reactions: No Reported Reaction Additional Past Anesthesia/Blood Transfusion Reaction / Comment(s): Never had transfusion Past Psychological History: No Psychological Hx Reported Smoking Status: Never smoker Past Alcohol Use History: None Reported Past Drug Use History: None Reported - Past Family History Mother Family Medical History: Dementia General Exam - General Exam Comments Initial Comments: Physical Exam GENERAL: Patient is well-developed and well-nourished. Patient is nontoxic and well-hydrated and is in no distress. HENT: Normocephalic, Atraumatic. EYES: PERRL, EOMI No conjunctival pallor PULMONARY: Unlabored respirations. No audible rales rhonchi or wheezing was noted. CARDIOVASCULAR: There is a regular rate and rhythm without any murmurs gallops or rubs. ABDOMEN: Soft and nontender with normal bowel sounds. SKIN: Skin is clear with no lesions or rashes and otherwise unremarkable. : Deferred Rectal exam with dark red blood NEUROLOGIC: Alert and oriented 3, occasional expressive aphasia and difficulty with word finding MUSCULOSKELETAL: Normal extremities with adequate strength and full range of motion. No lower extremity swelling or edema. No calf tenderness. PSYCHIATRIC: Normal psychiatric evaluation. Limitations: no limitations Limitations: no limitations Course Vital Signs 11/29/18 11/29/18 11/29/18 01:21 03:39 03:49 Temperature 98.1 F Pulse Rate 76 67 70 Respiratory 18 17 15 Rate Blood Pressure 112/73 122/74 127/74 O2 Sat by Pulse 99 97 100 Oximetry Medical Decision Making - Medical Decision Making The patient was seen and evaluated history is obtained from patient medical record and discussion with significant other Physical exam is unremarkable aside from dark red blood per rectum, patient is not tachycardic, not hypoxic, he does not appear pale there is no conjunctival pallor Labs Ordered Labs with no significant abnormalities, patient's hemoglobin is stable at 13.4 Patient has had multiple episodes of dark red clotted blood per rectum this does appear to be a lower GI bleed, does not appear to be melanotic Patient remained hemodynamically stable. Patient care was discussed with GI document control coordinator Dr. Marvin lopez to make him aware that the patient is having a GI bleed will require evaluation. He will evaluate the patient in the morning. Protonix was ordered in case this is a rapid upper GI bleed though I have low suspicion for this is the patient is having no nausea or vomiting and the blood appears to be lower Takes a was ordered due to persistent bleeding Admission orders were placed to Dr. Corona of the [facility] hospitalist group for the patient's primary care physician preference. - Lab Data Result diagrams: 11/29/18 02:30 11/29/18 02:30 Lab Results 11/29/18 11/29/18 11/29/18 Range/Units 02:30 02:30 02:30 WBC 8.1 (3.8-10.6) k/uL RBC 4.58 (4.30-5.90) m/uL Hgb 13.4 (13.0-17.5) gm/dL Hct 41.3 (39.0-53.0) % MCV 90.2 (80.0-100.0) fL MCH 29.2 (25.0-35.0) pg MCHC 32.4 (31.0-37.0) g/dL RDW 12.6 (11.5-15.5) % Plt Count 257 (150-450) k/uL Neutrophils % 55 % Lymphocytes % 33 % Monocytes % 5 % Eosinophils % 3 % Basophils % 1 % Neutrophils # 4.5 (1.3-7.7) k/uL Lymphocytes # 2.7 (1.0-4.8) k/uL Monocytes # 0.4 (0-1.0) k/uL Eosinophils # 0.2 (0-0.7) k/uL Basophils # 0.1 (0-0.2) k/uL PT (9.0-12.0) sec INR (<1.2) APTT (22.0-30.0) sec Sodium 138 (137-145) mmol/L Potassium 4.1 (3.5-5.1) mmol/L Chloride 102 (98-107) mmol/L Carbon Dioxide 28 (22-30) mmol/L Anion Gap 8 mmol/L BUN 21 H (9-20) mg/dL Creatinine 0.98 (0.66-1.25) mg/dL Est GFR (CKD-EPI)AfAm >90 (>60 ml/min/1.73 sqM) Est GFR (CKD-EPI)NonAf 80 (>60 ml/min/1.73 sqM) Glucose 94 (74-99) mg/dL Plasma Lactic Acid Mikhail 1.0 (0.7-2.0) mmol/L Calcium 9.5 (8.4-10.2) mg/dL Total Bilirubin 0.6 (0.2-1.3) mg/dL AST 22 (17-59) U/L ALT 29 (21-72) U/L Alkaline Phosphatase 58 (38-126) U/L Total Protein 6.8 (6.3-8.2) g/dL Albumin 4.2 (3.5-5.0) g/dL Stool Occult Blood (Negative) 11/29/18 11/29/18 Range/Units 02:30 02:30 WBC (3.8-10.6) k/uL RBC (4.30-5.90) m/uL Hgb (13.0-17.5) gm/dL Hct (39.0-53.0) % MCV (80.0-100.0) fL MCH (25.0-35.0) pg MCHC (31.0-37.0) g/dL RDW (11.5-15.5) % Plt Count (150-450) k/uL Neutrophils % % Lymphocytes % % Monocytes % % Eosinophils % % Basophils % % Neutrophils # (1.3-7.7) k/uL Lymphocytes # (1.0-4.8) k/uL Monocytes # (0-1.0) k/uL Eosinophils # (0-0.7) k/uL Basophils # (0-0.2) k/uL PT 10.1 (9.0-12.0) sec INR 0.9 (<1.2) APTT 23.6 (22.0-30.0) sec Sodium (137-145) mmol/L Potassium (3.5-5.1) mmol/L Chloride (98-107) mmol/L Carbon Dioxide (22-30) mmol/L Anion Gap mmol/L BUN (9-20) mg/dL Creatinine (0.66-1.25) mg/dL Est GFR (CKD-EPI)AfAm (>60 ml/min/1.73 sqM) Est GFR (CKD-EPI)NonAf (>60 ml/min/1.73 sqM) Glucose (74-99) mg/dL Plasma Lactic Acid Mikhail (0.7-2.0) mmol/L Calcium (8.4-10.2) mg/dL Total Bilirubin (0.2-1.3) mg/dL AST (17-59) U/L ALT (21-72) U/L Alkaline Phosphatase (38-126) U/L Total Protein (6.3-8.2) g/dL Albumin (3.5-5.0) g/dL Stool Occult Blood Positive (Negative) Disposition Clinical Impression: GIB (gastrointestinal bleeding) Disposition: ADMITTED IP TO THIS HOSP
[2018-11-29 03:00] LABS: Basophils # (A) 0.1 k/uL (0-0.2); Basophils % (A) 1 %; Eosinophils # (A) 0.2 k/uL (0-0.7); Eosinophils % (A) 3 %; HCT 41.3 % (39.0-53.0); HGB 13.4 gm/dL (13.0-17.5); Lymphocytes # (A) 2.7 k/uL (1.0-4.8); Lymphocytes % (A) 33 %; MCH 29.2 pg (25.0-35.0); MCHC 32.4 g/dL (31.0-37.0); MCV 90.2 fL (80.0-100.0); Mean Platelet Volume 6.7; Monocytes # (A) 0.4 k/uL (0-1.0); Monocytes % (A) 5 %; Neutrophils # (A) 4.5 k/uL (1.3-7.7); Neutrophils % (A) 55 %; Platelet Count 257 k/uL (150-450); RBC 4.58 m/uL (4.30-5.90); RDW 12.6 % (11.5-15.5); WBC 8.1 k/uL (3.8-10.6)
[2018-11-29 03:08] LABS: INR 0.9 (<1.2); Partial Thromboplastin Time 23.6 sec (22.0-30.0); Prothrombin Time 10.1 sec (9.0-12.0)
[2018-11-29 03:15] LABS: ALT 29 U/L (21-72); AST 22 U/L (17-59); Albumin 4.2 g/dL (3.5-5.0); Alkaline Phosphatase 58 U/L (38-126); Anion Gap 8 mmol/L; Blood Urea Nitrogen 21 mg/dL (9-20); Calcium 9.5 mg/dL (8.4-10.2); Carbon Dioxide 28 mmol/L (22-30); Chloride 102 mmol/L (98-107); Glucose 94 mg/dL (74-99); Potassium 4.1 mmol/L (3.5-5.1); Sodium 138 mmol/L (137-145); Total Bilirubin 0.6 mg/dL (0.2-1.3); Total Protein 6.8 g/dL (6.3-8.2)
[2018-11-29] MEDS ORDERED: NALOXONE 0.4 MG/ML 1 ML VIAL IV PRN (03:22)
[2018-11-29] MEDS ORDERED: TRANEXAMIC ACID 1,000 MG in SODIUM CHLORIDE 0.9% 50 ML IVPB ONE (03:30)
[2018-11-29] MEDS: SODIUM CHLORIDE 0.9% 1,000 ML IV SCH ×3 (04:54→18:01)
[2018-11-29] MEDS: PANTOPRAZOLE 40 MG/10 ML VIAL IVP SCH ×2 (09:53→20:08)
[2018-11-29 11:36] LABS: Basophils # (A) 0.1 k/uL (0-0.2); Basophils % (A) 1 %; Eosinophils # (A) 0.2 k/uL (0-0.7); Eosinophils % (A) 4 %; HCT 38.4 % (39.0-53.0); HGB 12.4 gm/dL (13.0-17.5); Lymphocytes # (A) 1.9 k/uL (1.0-4.8); Lymphocytes % (A) 31 %; MCH 29.7 pg (25.0-35.0); MCHC 32.4 g/dL (31.0-37.0); MCV 91.7 fL (80.0-100.0); Mean Platelet Volume 6.8; Monocytes # (A) 0.3 k/uL (0-1.0); Monocytes % (A) 5 %; Neutrophils # (A) 3.5 k/uL (1.3-7.7); Neutrophils % (A) 58 %; Platelet Count 238 k/uL (150-450); RBC 4.19 m/uL (4.30-5.90); RDW 12.6 % (11.5-15.5); WBC 6.1 k/uL (3.8-10.6)
[2018-11-29] MEDS ORDERED: ALPRAZolam 0.25 MG TAB PO PRN (15:53)
[2018-11-29] MEDS ORDERED: HYDROcodone/APAP 5-325MG 1 EACH TAB PO PRN (15:53)
--- NOTE | 2018-11-29 17:07 | HP ---
HISTORY AND PHYSICAL CHIEF COMPLAINT: Gastrointestinal bleed. HISTORY OF PRESENT ILLNESS: This 68-year-old gentleman with a past medical history of multiple medical problems including CVA, TIA, dementia, history of hyperlipidemia, history of nephrolithiasis, being followed by Dr. Sydney Spaulding in the outpatient setting was noted to have significant bleeding per rectum, at least there were 5 episodes episodes of bright red blood per rectum and large quantity was observed by the family and the patient came to [facility] and admitted for evaluation and treatment. There is no history of fever, rigors or chills. The patient unable to give coherent history. Most of the history taken from my discussion with staff and review of chart and discussion with the family. Hemoglobin was 13.4 on admission and currently is 12.4. PAST MEDICAL HISTORY: Past medical history of CVA, TIA, dementia, and hyperlipidemia, kidney stones, legally blind. MEDICATIONS: Prior to admission include home medications are: 1. Flomax 0.4 daily. 2. Aspirin 81 mg b.i.d. ALLERGIES: LATEX. FAMILY HISTORY: History of dementia in the family. SOCIAL HISTORY: No history of smoking. No history of alcohol. REVIEW OF SYSTEMS: Could not be taken at length. PHYSICAL EXAM: VITAL SIGNS: Pulse is 62, blood pressure is 101/74, respiration 18, temperature normal, pulse ox 98% on room air. HEENT: Conjunctivae normal. Oral mucosa moist. NECK: No jugular venous distention. No carotid bruit. No lymph nodes enlargement. CARDIOVASCULAR: S1, S2. RESPIRATION: Breath sounds diminished in the bases. A few scattered rhonchi. No crackles. ABDOMEN: Soft, nontender. Legs are no edema. No swelling. CENTRAL NERVOUS SYSTEM: No focal deficits. LAB STUDIES: WBC 6.9, hemoglobin 12.4. CBC within normal limits. ASSESSMENT: 1. Acute gastrointestinal bleeding, lower gastrointestinal bleeding with blood loss anemia for evaluation. 2. History of cerebrovascular accident, transient ischemic attack. 3. History of dementia. 4. Hyperlipidemia. 5. History of nephrolithiasis. 6. Legal blindness. RECOMMENDATIONS AND DISCUSSION: In this 68-year-old gentleman who presented with multiple complex medical issues, we will monitor the patient closely. Continue the current medications, management and symptomatic treatment. I would recommend Gastroenterology consultation. Repeat hemoglobin. Otherwise, avoid aspirin. Resume the home medications. DVT prophylaxis. Guarded prognosis because of multiple complex medical issues. Further recommendations to follow. A copy of dictation being forwarded to Dr. Sydney Spaulding who is the primary physician. MMODL / IJN: [id number] /
--- NOTE | 2018-11-29 17:52 | P.CONS ---
History of Present Illness - Reason for Consult Consult date: 11/29/18 Hematochezia Requesting physician: Hudson Corona - Chief Complaint Blood per rectum - History of Present Illness 68-year-old male with a medical history significant for prior CVA and dyslipidemia who presented to the hospital with complaints of rectal bleeding. Of note a history has been given by the patient's , daughter as well as upon review of the medical record. Per the family patient had approximately 4- 5 episodes of blood per rectum. This started suddenly and was not associated with any abdominal pain. They deny any prior history of rectal bleeding. The patient's believes he is undergone evaluation with urology, but does not believe that he has had a colonoscopy in the past. They deny any significant history of GI disease or malignancy in the family. Testing of the patient's stool was positive for blood. On presentation his hemoglobin was noted to be 13.4 which subsequently trended to 12.4. No associated nausea or vomiting. Review of Systems REVIEW OF SYSTEMS: CARDIO: Denies any chest pain or palpitations. PULMONARY: Denies any shortness of breath or wheezing. GENITOURINARY: No dysuria or hematuria. MUSCULOSKELETAL: No new weakness reported. SKIN: Denies any new rashes or lesions, jaundice or pallor. PSYCHIATRIC: Denies any new depression or anxiety. NEUROLOGY: Denies headache, or syncopal episodes. EARS: No tinnitus, discharge or new hearing loss. NOSE: No discharge or congestion. EYES: No pain in eyes or change in vision. CONSTITUTIONAL: No recent weight loss. No fever, chills, night sweats. Past Medical History Past Medical History: CVA/TIA, Dementia, Hyperlipidemia, Prostate Disorder Additional Past Medical History / Comment(s): kidney stones,uti/sepsis , per pt's pt legally blind "occiptal stroke" History of Any Multi-Drug Resistant Organisms: None Reported Past Surgical History: No Surgical Hx Reported Additional Past Surgical History / Comment(s): Two surgeries for kidney stones Past Anesthesia/Blood Transfusion Reactions: No Reported Reaction Additional Past Anesthesia/Blood Transfusion Reaction / Comm: Never had transfusion Smoking Status: Never smoker - Past Family History Father History Unknown: Yes Additional Family Medical History / Comment(s): father in a mva Mother Family Medical History: Dementia Medications and Allergies Home Medications Medication Instructions Recorded Confirmed Type Aspirin EC [Ecotrin Low Dose] 81 mg PO BID 03/03/18 11/29/18 History Tamsulosin [Flomax] 0.4 mg PO DAILY@199911/29/18 11/29/18 History Allergies Allergy/AdvReac Type Severity Reaction Status Date / Time Latex, Natural Rubber AdvReac Rash/Hives Verified 11/29/18 09:20 Physical Exam Vitals: Vital Signs Temp Pulse Pulse Resp BP BP Pulse Ox 11/29/18 17:05 98.1 F 78 20 126/71 98 11/29/18 16:12 80 18 118/83 97 11/29/18 12:47 68 18 108/72 99 11/29/18 11:21 62 18 107/74 98 11/29/18 09:54 63 18 106/74 97 11/29/18 09:27 71 18 129/83 99 11/29/18 06:54 112 H 18 103/60 97 11/29/18 06:00 70 17 123/75 96 11/29/18 04:41 63 12 118/77 99 11/29/18 03:49 70 15 127/74 100 11/29/18 03:39 67 17 122/74 97 11/29/18 01:21 98.1 F 76 18 112/73 99 Intake and Output 11/29/18 11/29/18 11/29/18 06:59 14:59 22:59 Other: Weight 74.389 kg On physical examination, patient appears comfortable in no apparent distress. HEAD: Normocephalic, atraumatic. EYES: No scleral icterus. No conjunctival injection. MOUTH: No lesions, tongue midline. NECK: Trachea midline, no gross abnormalities. CHEST: Clear to auscultation with no wheezing or rhonchi appreciated. HEART: Regular rate and rhythm. ABDOMEN: Soft, obese. Bowel sounds are positive. No organomegaly. No guarding or rigidity. EXTREMITIES: No pedal edema. SKIN: No rashes, no jaundice. NEUROLOGIC: Alert and interactive, the patient does have residual deficits from prior. Results CBC & Chem 7: 11/29/18 11:22 11/29/18 02:30 Labs: Abnormal Lab Results - Last 24 Hours (Table) 11/29/18 11/29/18 Range/Units 02:30 11:22 RBC 4.19 L (4.30-5.90) m/uL Hgb 12.4 L (13.0-17.5) gm/dL Hct 38.4 L (39.0-53.0) % BUN 21 H (9-20) mg/dL Assessment and Plan (1) GIB (gastrointestinal bleeding) Narrative/Plan: the patient presented with multiple episodes of painless bright red blood per rectum. This likely represents a diverticular bleed with differential including hemorrhoidal bleed, bleeding AVM, or other etiology. Current Visit: Yes Status: Acute Code(s): K92.2 - GASTROINTESTINAL HEMORRHAGE, UNSPECIFIED SNOMED Code(s): 11723858 Plan: Supportive care Nothing by mouth, plan to advance to liquid diet tomorrow if hemoglobin remains stable and symptoms improved Monitor hemoglobin and transfuse as needed Cold any NSAID or anticoagulation at this time Continue to monitor symptoms No plans for endoscopic evaluation at this time, with recommendation for colonoscopy in the outpatient setting, however if patient continues to have bleeding further workup will be ordered Thank you for allowing us to dissipate in the care of this patient we will continue to follow
[2018-11-29] MEDS: TAMSULOSIN 0.4 MG CAP.ER.24H PO SCH (20:08)
[2018-11-29] MEDS: ACETAMINOPHEN TAB 500 MG TAB PO PRN (20:09)
[2018-11-30] MEDS: SODIUM CHLORIDE 0.9% 1,000 ML IV SCH ×3 (03:13→16:39)
[2018-11-30 07:19] LABS: Basophils # (A) 0.1 k/uL (0-0.2); Basophils % (A) 1 %; Eosinophils # (A) 0.2 k/uL (0-0.7); Eosinophils % (A) 4 %; HGB 12.2 gm/dL (13.0-17.5); Lymphocytes # (A) 1.9 k/uL (1.0-4.8); Lymphocytes % (A) 34 %; MCH 30.1 pg (25.0-35.0); MCHC 32.2 g/dL (31.0-37.0); MCV 93.5 fL (80.0-100.0); Monocytes # (A) 0.3 k/uL (0-1.0); Monocytes % (A) 5 %; Neutrophils % (A) 54 %; Platelet Count 246 k/uL (150-450); RBC 4.07 m/uL (4.30-5.90); RDW 12.6 % (11.5-15.5); WBC 5.6 k/uL (3.8-10.6)
[2018-11-30 07:44] LABS: Anion Gap 8 mmol/L; Blood Urea Nitrogen 12 mg/dL (9-20); Calcium 9.1 mg/dL (8.4-10.2); Carbon Dioxide 24 mmol/L (22-30); Chloride 109 mmol/L (98-107); Glucose 93 mg/dL (74-99); Potassium 4.1 mmol/L (3.5-5.1); Sodium 141 mmol/L (137-145)
[2018-11-30] MEDS: PANTOPRAZOLE 40 MG/10 ML VIAL IVP SCH ×2 (08:54→20:24)
--- NOTE | 2018-11-30 18:11 | P.PN ---
Subjective Progress Note Date: 11/30/18 Principal diagnosis: Blood per rectum Continues to deny any abdominal pain. Had 2 episodes of passage of dark clots this morning, but no further bright red blood. Objective - Vital Signs Vital signs: Vital Signs Temp 98 F 11/30/18 12:31 Pulse 72 11/30/18 12:31 Resp 16 11/30/18 12:31 BP 121/73 11/30/18 12:31 Pulse Ox 100 11/30/18 12:31 Intake & Output 11/29/18 11/30/18 11/30/18 18:59 06:59 18:59 Intake Total 875 1000 Balance 875 1000 Intake: Intake, IV Titration 875 1000 Amount Sodium Chloride 0.9% 1, 875 1000 000 ml @ 125 mls/hr IV . Q8H [facility] Rx#:[id number] Oral 0 Other: Voiding Method Toilet # Voids 2 # Bowel Movements 1 - Exam On physical examination, patient appears comfortable in no apparent distress. HEAD: Normocephalic, atraumatic. EYES: No scleral icterus. No conjunctival injection. MOUTH: No lesions, tongue midline. NECK: Trachea midline, no gross abnormalities. CHEST: Clear to auscultation with no wheezing or rhonchi appreciated. HEART: Regular rate and rhythm. ABDOMEN: Soft, obese. Bowel sounds are positive. No organomegaly. No guarding or rigidity. EXTREMITIES: No pedal edema. SKIN: No rashes, no jaundice. NEUROLOGIC: Alert and oriented. - Labs CBC & Chem 7: 11/30/18 06:17 11/30/18 06:17 Labs: Abnormal Lab Results - Last 24 Hours (Table) 11/30/18 11/30/18 Range/Units 06:17 06:17 RBC 4.07 L (4.30-5.90) m/uL Hgb 12.2 L (13.0-17.5) gm/dL Hct 38.0 L (39.0-53.0) % Chloride 109 H (98-107) mmol/L Assessment and Plan (1) GIB (gastrointestinal bleeding) Narrative/Plan: the patient presented with multiple episodes of painless bright red blood per rectum. This likely represents a diverticular bleed with differential including hemorrhoidal bleed, bleeding AVM, or other etiology. Current Visit: Yes Status: Acute Code(s): K92.2 - GASTROINTESTINAL HEMORRHAGE, UNSPECIFIED SNOMED Code(s): 12848604 Plan: Supportive care Liquid started today, advance as tolerated Monitor hemoglobin and transfuse as needed Hold any NSAID or anticoagulation at this time Continue to monitor symptoms No plans for endoscopic evaluation at this time, with recommendation for colonoscopy in the outpatient setting, however if patient continues to have bleeding further workup will be ordered Thank you for allowing us to dissipate in the care of this patient we will continue to follow
[2018-11-30] MEDS: TAMSULOSIN 0.4 MG CAP.ER.24H PO SCH (20:24)
--- NOTE | 2018-12-01 07:23 | PN ---
PROGRESS NOTE DATE OF SERVICE: 11/30/2018 This 68-year-old gentleman was admitted with acute GI bleed is being closely monitored at this time. Gastroenterology following the patient closely. The patient had 2 episodes of dark blood clots this morning. The hemoglobin is at 12.2 at this time. No chest pain. No palpitations. No fever. EXAM: Alert and oriented x2. Pulse 87, blood pressure 140/62, respirations 16, temperature 98.2, pulse ox 97% on room air. HEENT: Conjunctivae normal. NECK: No jugular venous distention. CARDIOVASCULAR: S1, S2 muffled. RESPIRATORY: Breath sounds diminished in the bases. No rhonchi. No crackles. ABDOMEN is soft, nontender. LEGS are no edema. No swelling. CENTRAL NERVOUS SYSTEM: No focal deficits. LABS: WBC 5.2, hemoglobin 12.2. ASSESSMENT: 1. Acute lower gastrointestinal bleeding with acute blood loss anemia for evaluation. 2. History of cerebrovascular accident, transient ischemic attack. 3. History of dementia. 4. Hyperlipidemia. 5. History of nephrolithiasis. 6. History of legal blindness. RECOMMENDATIONS AND DISCUSSION: Recommend to continue current medications, management and symptomatic treatment. Closely follow with Gastroenterology and Gastroenterology is planning possible outpatient endoscopies. Further recommendations to follow. Overall prognosis guarded. Advance diet. MMODL / IJN: [id number] /
[2018-12-01] MEDS: SODIUM CHLORIDE 0.9% 1,000 ML IV SCH ×3 (07:24→21:55)
[2018-12-01 07:54] LABS: Basophils % (A) 1 %; Eosinophils # (A) 0.2 k/uL (0-0.7); Eosinophils % (A) 4 %; HCT 31.5 % (39.0-53.0); HGB 10.7 gm/dL (13.0-17.5); Lymphocytes # (A) 1.4 k/uL (1.0-4.8); Lymphocytes % (A) 28 %; MCV 91.3 fL (80.0-100.0); Mean Platelet Volume 7.4; Monocytes # (A) 0.3 k/uL (0-1.0); Monocytes % (A) 6 %; Neutrophils % (A) 60 %; Platelet Count 206 k/uL (150-450); RBC 3.44 m/uL (4.30-5.90); RDW 12.7 % (11.5-15.5)
[2018-12-01] MEDS: PANTOPRAZOLE 40 MG/10 ML VIAL IVP SCH ×2 (07:57→21:55)
[2018-12-01 08:09] LABS: Anion Gap 5 mmol/L; Blood Urea Nitrogen 9 mg/dL (9-20); Calcium 8.8 mg/dL (8.4-10.2); Carbon Dioxide 25 mmol/L (22-30); Chloride 111 mmol/L (98-107); Glucose 96 mg/dL (74-99); Potassium 3.9 mmol/L (3.5-5.1); Sodium 141 mmol/L (137-145)
--- NOTE | 2018-12-01 08:24 | P.PN ---
Subjective Progress Note Date: 12/01/18 Principal diagnosis: GI bleed 2. Tinged bowel movements last night. Denies abdominal pain. Tolerating clears. Hemoglobin decreased this morning 10.7. Afebrile. BUN 9. Creatinine 0.7. Objective - Vital Signs Vital signs: Vital Signs Temp 98.0 F 12/01/18 05:00 Pulse 76 12/01/18 05:00 Resp 16 12/01/18 05:00 BP 114/60 12/01/18 05:00 Pulse Ox 92 L 12/01/18 05:00 Intake & Output 11/30/18 12/01/18 12/01/18 18:59 06:59 18:59 Intake Total 1000 1500 Balance 1000 1500 Intake: Intake, IV Titration 1000 1500 Amount Sodium Chloride 0.9% 1, 1000 1500 000 ml @ 125 mls/hr IV . Q8H [facility] Rx#:[id number] Other: Voiding Method Toilet Toilet # Voids 1 - Exam General appearance: The patient is alert, oriented, in no acute distress. HET: Head is normocephalic and atraumatic. Pupils are equal and reactive. Oropharynx is clear without lesions. Neck: Supple without lymphadenopathy. Trachea midline. Heart: S1 S2. Regular rate and rhythm. Lungs: No crackles or wheezes are heard. Abdomen: Soft, nontender, nondistended with bowel sounds. No peritoneal signs. No palpable organomegaly or masses. Extremities: Normal skin color and turgor. No cyanosis, rash, ulceration, clubbing, or edema. Radial and pedal pulses are 2/4 bilaterally. Neurological: No focal deficits. Strength and sensation are grossly intact. - Labs CBC & Chem 7: 12/01/18 07:20 12/01/18 07:20 Labs: Abnormal Lab Results - Last 24 Hours (Table) 12/01/18 12/01/18 Range/Units 07:20 07:20 RBC 3.44 L (4.30-5.90) m/uL Hgb 10.7 L (13.0-17.5) gm/dL Hct 31.5 L (39.0-53.0) % Chloride 111 H (98-107) mmol/L Assessment and Plan (1) GIB (gastrointestinal bleeding) Narrative/Plan: Acute GI bleed component of acute blood loss anemia. Admitted with painless rectal bleeding passed 2 pink tinged L movements last night with decreasing hemoglobin 10.7 this morning without abdominal pain or fever. Current Visit: Yes Status: Acute Code(s): K92.2 - GASTROINTESTINAL HEMORRHAGE, UNSPECIFIED SNOMED Code(s): 16961069 Plan: 1. CBC monitoring. GI prophylaxis. Clear liquids. Dr. Colin recommends outpatient endoscopy. We'll continue to follow. Assessment and plan a care discussed with Dr. Colin.
[2018-12-01] MEDS ORDERED: PEG 3350-NA SULF,BICARB,CL/KCL 4,000 ML BOTTLE PO ONE (15:00)
[2018-12-01 15:59] LABS: Glucose,Whole Blood 127 mg/dL (75-99)
[2018-12-01] MEDS ORDERED: MIDAZOLAM (PF) 2 MG/2 ML VIAL IV PRN (18:41)
[2018-12-01] MEDS ORDERED: LIDOCAINE 1% 20 ML VIAL (10MG/ML) FOR IV START INTRADERMA PRN (18:41)
--- NOTE | 2018-12-01 20:39 | PN ---
PROGRESS NOTE DATE OF SERVICE: 12/01/2018 This 68-year-old gentleman admitted with GI bleed had some drop in hemoglobin. Patient has continued bleeding. Discussed with Dr. Colin, who will perform a colonoscopy tomorrow. No chest pain. No palpitations. No fever. PHYSICAL EXAMINATION: Alert and oriented x3. Pulse 70, blood pressure 132/76, respiration 16, temperature 97.6, pulse ox 100% on room air. HEENT: Conjunctivae normal. NECK: No jugular venous distention. CARDIOVASCULAR SYSTEM: S1, S2 muffled. RESPIRATORY SYSTEM: Breath sounds diminished at the bases. No rhonchi. No crackles. ABDOMEN: Soft, non-tender. LEGS: No edema. No swelling. NERVOUS SYSTEM: No focal deficit. LABS: WBC 5, hemoglobin 10.7. ASSESSMENT: 1. Acute lower gastrointestinal bleeding with acute blood loss anemia for evaluation. 2. History of cerebrovascular accident, transient ischemic attack. 3. History of dementia. 4. Hyperlipidemia. 5. History of nephrolithiasis. 6. History of legal blindness. RECOMMENDATIONS AND DISCUSSION: At this time I recommend to continue current medications, continue with symptomatic treatment. Repeat the hemoglobin. Otherwise, continue with clear liquids and follow with Dr. Colin for possible colonoscopy. Prognosis guarded. Further recommendations to follow. MMODL / IJN: [id number] /
[2018-12-01] MEDS: TAMSULOSIN 0.4 MG CAP.ER.24H PO SCH (21:55)
[2018-12-01] MEDS: LACTATED RINGERS 1,000 ML IV SCH (21:59)
[2018-12-02] MEDS: SODIUM CHLORIDE 0.9% 1,000 ML IV SCH ×3 (06:34→15:13)
[2018-12-02] MEDS: PANTOPRAZOLE 40 MG/10 ML VIAL IVP SCH ×2 (08:17→23:32)
[2018-12-02 08:41] LABS: Basophils % (A) 1 %; Eosinophils # (A) 0.2 k/uL (0-0.7); Eosinophils % (A) 4 %; HCT 29.3 % (39.0-53.0); HGB 9.9 gm/dL (13.0-17.5); Lymphocytes # (A) 1.6 k/uL (1.0-4.8); Lymphocytes % (A) 33 %; MCH 30.8 pg (25.0-35.0); MCHC 33.8 g/dL (31.0-37.0); MCV 91.2 fL (80.0-100.0); Mean Platelet Volume 6.8; Monocytes # (A) 0.2 k/uL (0-1.0); Monocytes % (A) 5 %; Neutrophils # (A) 2.6 k/uL (1.3-7.7); Neutrophils % (A) 54 %; Platelet Count 205 k/uL (150-450); RBC 3.21 m/uL (4.30-5.90); WBC 4.7 k/uL (3.8-10.6)
[2018-12-02 08:54] LABS: Anion Gap 4 mmol/L; Blood Urea Nitrogen 4 mg/dL (9-20); Calcium 8.5 mg/dL (8.4-10.2); Carbon Dioxide 27 mmol/L (22-30); Chloride 111 mmol/L (98-107); Glucose 91 mg/dL (74-99); Potassium 3.7 mmol/L (3.5-5.1); Sodium 142 mmol/L (137-145)
[2018-12-02] MEDS ORDERED: IV FLUID CONTINUATION 1,000 ML IV ONE (11:32)
[2018-12-02] MEDS ORDERED: PROPOFOL 10 MG/ML 20 ML VIAL IV ONE (11:36)
[2018-12-02] MEDS ORDERED: LIDOCAINE 1% INJ 10MG/ML (20 ML MDV) ONE (11:36)
[2018-12-02] MEDS ORDERED: LACTATED RINGERS 1,000 ML IV ONE (12:13)
--- NOTE | 2018-12-02 13:37 | P.PCN ---
Date of Procedure: 12/02/18 Description of Procedure: BRIEF HISTORY: Patient is a 68-year-old pleasant male with past medical history significant for prior CVA who presented to the hospital with complaints of painless bright red blood per rectum. The patient had multiple episodes of bleeding per rectum and fall in his hemoglobin. Colonoscopy was ordered for further evaluation. The patient has no prior history of colonoscopy. PROCEDURE PERFORMED: Colonoscopy with polypectomy and biopsy. PREOPERATIVE DIAGNOSIS: Anemia of acute blood loss, hematochezia. ESTIMATED BLOOD LOSS: Minimal. IV sedation per Anesthesia. PROCEDURE: After informed consent was obtained, the patient, was brought into the endoscopy unit. IV sedation was administered by Anesthesia under continuous monitoring. Digital rectal examination was normal. Initially the Olympus CF- 190 flexible video colonoscope was then inserted in the rectum, gradually advanced into the cecum without any difficulty. Careful examination was performed as the scope was gradually being withdrawn. Ileocecal valve and the appendiceal orifice were visualized and appeared normal. Prep was excellent. A large pedunculated cecal mass without evidence of active bleeding was noted. The cecal mass was adjacent to the appendiceal orifice and nonobstructing, measuring approximately 4 cm. Multiple biopsies of the cecal mass were taken. Multiple large and small diverticula were noted predominantly in the sigmoid and descending colon. Cold forceps polypectomy of a sessile 4 mm polyp in the ascending colon. Cold forcep polypectomy of a sessile 3 mm polyp in the descending colon. Cold forcep polypectomy of a sessile 3 mm polyp in the rectum. Retroflexion was performed in the rectum and no lesions were seen. Mild internal hemorrhoids were noted during retroflexion, and external non- thrombosed hemorrhoids on digital rectal exam. The patient tolerated the procedure well. IMPRESSION: Cecal mass, biopsied. Cold forcep polypectomy of diminutive polyps in the ascending colon, descending colon and rectum. Diverticulosis. No active bleeding noted. Internal hemorrhoids RECOMMENDATIONS: Findings of this examination were discussed with the patient and his . Await pathology from biopsies. Surgical service has been consult. Okay for liquid diet. Monitor for signs and symptoms of bleeding. Monitor hemoglobin and transfuse as needed. Primary care physician has been informed of the findings.
[2018-12-02] MEDS: IOPAMIDOL-300 CONTRAST 30 ML VIAL (ORAL USE) PO PRN ×2 (15:15→16:14)
--- NOTE | 2018-12-02 16:20 | P.GSCN ---
<Denise Rankin - Last Filed: 12/02/18 16:23> History of Present Illness Consult date: 12/02/18 Reason for Consult: cecal mass Requesting physician: David Colin History of present illness: CHIEF COMPLAINT: cecal mass HISTORY OF PRESENT ILLNESS: 68-year-old male who presented to the emergency room with a chief complaint of rectal bleeding. There are multiple family members at the bedside. Majority of HPI is from family as patient has had a CVA approximately 5 years ago which has left him legally blind and also cognitively impaired per family member. Family reports they were at the [facility] and patient used the restroom and there was a large amount of blood in the toilet. Denies previous history of rectal bleeding. Denies abdominal pain. Family reports no change in bowel habits, nausea, vomiting, diarrhea, or constipation. Patient underwent colonoscopy today which revealed a nonobstructing cecal mass measuring 4cm. General surgery was consulted for further evaluation. Family denies previous colonoscopy. Last CT in EMR is from 10/2014 which did not show evidence of mass per radiologist dictation. PAST MEDICAL HISTORY: Please see list PAST SURGICAL HISTORY: Please see list MEDICATIONS: Please see list ALLERGIES: Latex, natural rubber SOCIAL HISTORY: No illicit drug use or recent tobacco use FAMILY HISTORY: Denies pertinent family medical history. Denies history of cancer. REVIEW OF SYSTEMS: Unable to obtain thorough review of systems due to patients cognitive impairment. PHYSICAL EXAM: VITAL SIGNS: Reviewed GENERAL: Well-developed pleasant male in no acute distress. HEENT: Patient is legally blind. No scleral icterus. Moist buccal mucosa. NECK: Supple without lymphadenopathy. CHEST: Equal expansion. CARDIOVASCULAR: Regular rate regular rhythm rhythm. Distal 2+ pulses. ABDOMEN: Soft. Non-distended. Positive bowel sounds. No palpable abdominal masses. MUSCULOSKELETAL: No clubbing, cyanosis, or edema. NEURO : Difficult to thoroughly assess due to history of CVA. No seizure activity noted. No tremors. PSYCH: Awake and alert. SKIN: Well perfused. Good skin turgor. No cyanosis. No jaundice. ASSESSMENT: 1. Cecal mass, measuring 4cm 2. Acute blood loss anemia 3. Diverticulosis 4. Internal hemorrhoids 5. History of CVA with residual cognitive impairment 6. Legally blind 7. Hyperlipidemia 8. History of UTI and sepsis, February 2018 PLAN: 1. CT chest/abdomen/pelvis with IV and oral contrast 2. Cardiology consult for surgical clearance 3. Await results of biopsy 4. Monitor hemoglobin 5. Patient tentatively scheduled for robotic right hemicolectomy, possible ostomy on Thursday with Dr. Lan Thank you for this consultation. We will continue to follow with Edgard during his hospitalization. Nurse practitioner note has been reviewed by physician. Signing provider agrees with the documented findings, assessment, and plan of care. Past Medical History Past Medical History: CVA/TIA, Dementia, Hyperlipidemia, Prostate Disorder Additional Past Medical History / Comment(s): kidney stones,uti/sepsis , per pt's pt legally blind "occiptal stroke" History of Any Multi-Drug Resistant Organisms: None Reported Past Surgical History: No Surgical Hx Reported Additional Past Surgical History / Comment(s): Two surgeries for kidney stones Past Anesthesia/Blood Transfusion Reactions: No Reported Reaction Additional Past Anesthesia/Blood Transfusion Reaction / Comm: Never had transfusion Smoking Status: Never smoker - Past Family History Father History Unknown: Yes Additional Family Medical History / Comment(s): father in a mva Mother Family Medical History: Dementia Medications and Allergies Home Medications Medication Instructions Recorded Confirmed Type Aspirin EC [Ecotrin Low Dose] 81 mg PO BID 03/03/18 11/29/18 History Tamsulosin [Flomax] 0.4 mg PO DAILY@199911/29/18 11/29/18 History Allergies Allergy/AdvReac Type Severity Reaction Status Date / Time Latex, Natural Rubber AdvReac Rash/Hives Verified 11/29/18 09:20 Surgical - Exam Vital Signs Temp Pulse Resp BP Pulse Ox 98.1 F 76 18 112/73 99 11/29/18 01:21 11/29/18 01:21 11/29/18 01:21 11/29/18 01:21 11/29/18 01:21 Results - Labs 12/02/18 08:10 12/02/18 08:10 Abnormal Lab Results - Last 24 Hours (Table) 12/01/18 12/02/18 12/02/18 Range/Units 15:55 08:10 08:10 RBC 3.21 L (4.30-5.90) m/uL Hgb 9.9 L (13.0-17.5) gm/dL Hct 29.3 L (39.0-53.0) % Chloride 111 H (98-107) mmol/L BUN 4 L (9-20) mg/dL POC Glucose (mg/dL) 127 H (75-99) mg/dL Diabetes panel 12/02/18 Range/Units 08:10 Sodium 142 (137-145) mmol/L Potassium 3.7 (3.5-5.1) mmol/L Chloride 111 H (98-107) mmol/L Carbon Dioxide 27 (22-30) mmol/L BUN 4 L (9-20) mg/dL Creatinine 0.82 (0.66-1.25) mg/dL Glucose 91 (74-99) mg/dL Calcium 8.5 (8.4-10.2) mg/dL Calcium panel 12/02/18 Range/Units 08:10 Calcium 8.5 (8.4-10.2) mg/dL Pituitary panel 12/02/18 Range/Units 08:10 Sodium 142 (137-145) mmol/L Potassium 3.7 (3.5-5.1) mmol/L Chloride 111 H (98-107) mmol/L Carbon Dioxide 27 (22-30) mmol/L BUN 4 L (9-20) mg/dL Creatinine 0.82 (0.66-1.25) mg/dL Glucose 91 (74-99) mg/dL Calcium 8.5 (8.4-10.2) mg/dL Adrenal panel 12/02/18 Range/Units 08:10 Sodium 142 (137-145) mmol/L Potassium 3.7 (3.5-5.1) mmol/L Chloride 111 H (98-107) mmol/L Carbon Dioxide 27 (22-30) mmol/L BUN 4 L (9-20) mg/dL Creatinine 0.82 (0.66-1.25) mg/dL Glucose 91 (74-99) mg/dL Calcium 8.5 (8.4-10.2) mg/dL Assessment and Plan (1) Acute blood loss anemia Current Visit: Yes Status: Acute Code(s): D62 - ACUTE POSTHEMORRHAGIC ANEMIA SNOMED Code(s): 840334919 (2) Cecum mass Current Visit: Yes Status: Acute Code(s): K63.9 - DISEASE OF INTESTINE, UNSPECIFIED SNOMED Code(s): 072682589 (3) Diverticulosis of colon Current Visit: Yes Status: Acute Code(s): K57.30 - DVRTCLOS OF LG INT W/O PERFORATION OR ABSCESS W/O BLEEDING SNOMED Code(s): 176681268 (4) Internal hemorrhoid Current Visit: Yes Status: Acute Code(s): K64.8 - OTHER HEMORRHOIDS SNOMED Code(s): 32358984 (5) CVA (cerebral vascular accident) Current Visit: Yes Status: Acute Code(s): I63.9 - CEREBRAL INFARCTION, UNSPECIFIED SNOMED Code(s): 479101157 (6) GIB (gastrointestinal bleeding) Current Visit: Yes Status: Acute Code(s): K92.2 - GASTROINTESTINAL HEMORRHAGE, UNSPECIFIED SNOMED Code(s): 03814921 <Dodie Lan - Last Filed: 12/03/18 10:14> Surgical - Exam Vital Signs Temp Pulse Resp BP Pulse Ox 98.1 F 76 18 112/73 99 11/29/18 01:21 11/29/18 01:21 11/29/18 01:21 11/29/18 01:21 11/29/18 01:21 Results - Labs 12/03/18 08:25 12/03/18 08:25 Abnormal Lab Results - Last 24 Hours (Table) 12/03/18 12/03/18 Range/Units 08:25 08:25 RBC 3.76 L (4.30-5.90) m/uL Hgb 11.3 L (13.0-17.5) gm/dL Hct 34.7 L (39.0-53.0) % Chloride 109 H (98-107) mmol/L BUN <2 L (9-20) mg/dL Glucose 139 H (74-99) mg/dL Diabetes panel 12/03/18 Range/Units 08:25 Sodium 142 (137-145) mmol/L Potassium 3.5 (3.5-5.1) mmol/L Chloride 109 H (98-107) mmol/L Carbon Dioxide 25 (22-30) mmol/L BUN <2 L (9-20) mg/dL Creatinine 0.80 (0.66-1.25) mg/dL Glucose 139 H (74-99) mg/dL Calcium 9.0 (8.4-10.2) mg/dL Calcium panel 12/03/18 Range/Units 08:25 Calcium 9.0 (8.4-10.2) mg/dL Pituitary panel 12/03/18 Range/Units 08:25 Sodium 142 (137-145) mmol/L Potassium 3.5 (3.5-5.1) mmol/L Chloride 109 H (98-107) mmol/L Carbon Dioxide 25 (22-30) mmol/L BUN <2 L (9-20) mg/dL Creatinine 0.80 (0.66-1.25) mg/dL Glucose 139 H (74-99) mg/dL Calcium 9.0 (8.4-10.2) mg/dL Adrenal panel 12/03/18 Range/Units 08:25 Sodium 142 (137-145) mmol/L Potassium 3.5 (3.5-5.1) mmol/L Chloride 109 H (98-107) mmol/L Carbon Dioxide 25 (22-30) mmol/L BUN <2 L (9-20) mg/dL Creatinine 0.80 (0.66-1.25) mg/dL Glucose 139 H (74-99) mg/dL Calcium 9.0 (8.4-10.2) mg/dL Assessment and Plan Plan: Metastatic work-up initiated with CT of the abdomen and pelvis. In the interim , will need cardiac risk assessment. Surgery tentatively scheduled for Thursday, Dec 06. Recommend iron infusion and blood transfusion if needed. Patient has virgin abdomen, robotic assisted approach described to and family at bedside. Biopsies are still pending but will need colon resection with presentation of acute blood loss anemia and GI bleed. Patient was seen and evaluated with SIMULATION ANALYST and agree with above assessment.
[2018-12-02] MEDS: LACTATED RINGERS 1,000 ML IV SCH (16:54)
--- NOTE | 2018-12-02 21:35 | CT ---
EXAMINATION TYPE: CT ChestAbdPelvis w con DATE OF EXAM: 12/02/2018 COMPARISON: 11/09/2014 HISTORY: Cecal mass. CT DLP: 1512 mGycm Automated exposure control for dose reduction was used. CONTRAST: CT scan of the chest, abdomen and pelvis is performed with Oral Contrast and with IV Contrast, patien t injected with 100ml mL of Isovue 300. FINDINGS: The lungs are clear of infiltrate. There is minimal scarring or atelectasis at the right posterior daniel ng base. Heart and mediastinum appear normal. There are no hilar masses. There is no mediastinal kenan opathy. There is no pericardial effusion. Liver spleen pancreas gallbladder appear normal. Bile ducts are not dilated. There is no adrenal mass . The kidneys show satisfactory contrast opacification. There is no hydronephrosis. There is no retrope ritoneal adenopathy. The bladder distends smoothly. There is no inguinal hernia. There is no free flu id in the pelvis. There is no evidence of a bowel obstruction. There are no dilated loops. There is n o evidence of a thickened appendix. There is small filling defect in the tip of the cecum that is tho ught to be some retained fecal material. There are few sigmoid diverticula. There is no sign of diver ticulitis. Small bowel pattern appears normal. There is no mesenteric edema or adenopathy. The bony s tructures appear intact. I see no compression fracture. IMPRESSION: Sigmoid diverticulosis. Fecal material retention in the cecum. A small cecal mass peduncu lated cannot be entirely excluded. There is clearing of the patchy mild atelectasis and infiltrates to a large extent compared to old CT scan of 11/09/2014. No evidence of metastatic disease.
[2018-12-02] MEDS: TAMSULOSIN 0.4 MG CAP.ER.24H PO SCH (23:32)
--- NOTE | 2018-12-03 00:25 | PN ---
PROGRESS NOTE DATE OF SERVICE: 12/02/2018. HISTORY: This 68-year-old gentleman was admitted with acute lower gastrointestinal bleeding, underwent colonoscopy by Dr. Colin. Colonoscopy showed a cecal mass which was biopsied by Dr. Colin. Diminutive polyps in the ascending, descending colon and rectum also noted. The patient also underwent a chest, abdomen, and pelvis CT scan which showed small cecal mass noted. No chest pain. No palpitations. No fever. EXAM: Alert and oriented x3. Pulse is 78, blood pressure 126/60, respirations 16, temperature 97.7, pulse ox 98% on room air. HEENT: Conjunctivae normal. NECK: Supple. No JVD. CARDIOVASCULAR: S1 and S2 muffled. LUNGS: Breath sounds diminished. CARDIOVASCULAR: S1 and S2 muffled. LUNGS: Breath sounds diminished in the bases. Few scattered rhonchi. No crackles. ABDOMEN: Soft, nontender. NERVOUS SYSTEM: No focal deficits. LABS: WBC 4.2, hemoglobin 9.9. ASSESSMENT: 1. Acute lower gastrointestinal bleeding secondary to possible cecal mass, possibly malignant. 2. Acute blood loss anemia. 3. History of cerebrovascular accident, transient ischemic attack. 4. History of dementia. 5. Hyperlipidemia. 6. History of nephrolithiasis. 7. History of nephrolithiasis. 8. History of legal blindness. RECOMMENDATIONS: Recommend to continue current management and symptomatic treatment. Otherwise will closely monitor with Gastroenterology. Surgical evaluation. Guarded prognosis because of multiple complex medical issues. Further recommendations to follow. MMODL / IJN: [id number] /
[2018-12-03] MEDS: SODIUM CHLORIDE 0.9% 1,000 ML IV SCH ×3 (05:14→18:30)
--- NOTE | 2018-12-03 08:28 | P.PN ---
Subjective Progress Note Date: 12/03/18 Principal diagnosis: GI bleed No rectal bleeding. CBC pending. Status post colonoscopy yesterday with findings of colonic diverticulosis and cecal mass biopsies pending. General surgery consulted. Denies abdominal pain. Tolerating clears. Afebrile. Objective - Vital Signs Vital signs: Vital Signs Temp 98.2 F 12/03/18 05:00 Pulse 75 12/03/18 05:00 Resp 16 12/03/18 05:00 BP 119/63 12/03/18 05:00 Pulse Ox 97 12/03/18 05:00 Intake & Output 12/02/18 12/03/18 12/03/18 18:59 06:59 18:59 Intake Total 200 590 Balance 200 590 Intake: IV 200 Oral 590 Other: Voiding Method Toilet Toilet # Voids 3 3 - Exam General appearance: The patient is alert, oriented, in no acute distress. HET: Head is normocephalic and atraumatic. Pupils are equal and reactive. Oropharynx is clear without lesions. Neck: Supple without lymphadenopathy. Trachea midline. Heart: S1 S2. Regular rate and rhythm. Lungs: No crackles or wheezes are heard. Abdomen: Soft, nontender, nondistended with bowel sounds. No peritoneal signs. No palpable organomegaly or masses. Extremities: Normal skin color and turgor. No cyanosis, rash, ulceration, clubbing, or edema. Radial and pedal pulses are 2/4 bilaterally. Neurological: No focal deficits. Strength and sensation are grossly intact. - Labs CBC & Chem 7: 12/02/18 08:10 12/02/18 08:10 Labs: Abnormal Lab Results - Last 24 Hours (Table) 12/02/18 12/02/18 Range/Units 08:10 08:10 RBC 3.21 L (4.30-5.90) m/uL Hgb 9.9 L (13.0-17.5) gm/dL Hct 29.3 L (39.0-53.0) % Chloride 111 H (98-107) mmol/L BUN 4 L (9-20) mg/dL Assessment and Plan (1) GIB (gastrointestinal bleeding) Narrative/Plan: Colonic diverticulosis cecal mass status post biopsies Current Visit: Yes Status: Acute Code(s): K92.2 - GASTROINTESTINAL HEMORRHAGE, UNSPECIFIED SNOMED Code(s): 73678384 Plan: 1. CT chest abdomen and pelvis reviewed no evidence of metastatic disease. Continue clear liquids. CBC monitoring. CEA requested. We'll follow as needed. Assessment and plan a care discussed with Dr. Colin
[2018-12-03] MEDS ORDERED: fentaNYL (PF) 50 MCG/ML 2 ML AMP IV PRN (08:29)
[2018-12-03] MEDS ORDERED: DEXAMETHASONE SOD PHOSPHATE 10 MG/ML 1 ML VIAL IV ONE (08:29)
[2018-12-03] MEDS ORDERED: MIDAZOLAM (PF) 2 MG/2 ML VIAL IV PRN (08:29)
[2018-12-03] MEDS ORDERED: LACTATED RINGERS 1,000 ML IV SCH (08:30)
[2018-12-03 08:59] LABS: Basophils % (A) 1 %; Eosinophils # (A) 0.2 k/uL (0-0.7); Eosinophils % (A) 4 %; HCT 34.7 % (39.0-53.0); HGB 11.3 gm/dL (13.0-17.5); Lymphocytes # (A) 1.5 k/uL (1.0-4.8); Lymphocytes % (A) 30 %; MCH 30.1 pg (25.0-35.0); MCHC 32.7 g/dL (31.0-37.0); MCV 92.2 fL (80.0-100.0); Mean Platelet Volume 7.3; Monocytes # (A) 0.2 k/uL (0-1.0); Monocytes % (A) 4 %; Neutrophils # (A) 3.1 k/uL (1.3-7.7); Neutrophils % (A) 60 %; Platelet Count 233 k/uL (150-450); RBC 3.76 m/uL (4.30-5.90); RDW 13.1 % (11.5-15.5); WBC 5.1 k/uL (3.8-10.6)
[2018-12-03 09:18] LABS: Anion Gap 8 mmol/L; Blood Urea Nitrogen <2 mg/dL (9-20); Carbon Dioxide 25 mmol/L (22-30); Chloride 109 mmol/L (98-107); Glucose 139 mg/dL (74-99); Potassium 3.5 mmol/L (3.5-5.1); Sodium 142 mmol/L (137-145)
[2018-12-03] MEDS: PANTOPRAZOLE 40 MG/10 ML VIAL IVP SCH ×2 (09:46→20:50)
--- NOTE | 2018-12-03 13:27 | P.CRDCN ---
History of Present Illness History of present illness: This is a pleasant 68-year-old male past medical history significant for CVA 5 years ago, BPH, dyslipidemia and aortic stenosis. The patient's is at the bedside who is his caregiver she states he has never had a history of coronary artery disease or hypertension. 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 We have been asked to see him in consultation for preoperative evaluation. He presented to the hospital with symptoms of ada bright red bleeding per rectum. He underwent colonoscopy which revealed a cecal mass. He is scheduled for exploratory laparotomy with Dr. Castaneda on Thursday. He denies symptoms of chest discomfort, shortness of breath, dizziness or palpitations. EKG reveals sinus mechanism with first-degree AV block, no acute ST or T wave abnormalities noted. CT chest abdomen and pelvis revealed sigmoid diverticulosis, fecal matter in the cecum and a small cecal mass cannot be excluded. No evidence of metastasis. Laboratory data reviewed, hemoglobin 11.3, platelets 233, WBC 5.1, sodium 142, potassium 3.5, creatinine 0.8. Current cardiac medications include aspirin 81 mg twice a day. Most recent echocardiogram obtained February 2018 reveals preserved left ventricular systolic function with ejection fraction 55-60%, aortic stenosis with a mean gradient of 20 mmHg. At the time of my exam: CONSTITUTIONAL: Denies fever. Denies chills. EYES: Denies blurred vision. Denies vision changes. Denies eye pain. EARS, NOSE, MOUTH & THROAT: Denies headache. Denies sore throat. Denies ear pain. CARDIOVASCULAR: Denies chest pain. Denies shortness of breath. Denies orthopnea. Denies PND. Denies palpitations. RESPIRATORY: Denies cough. GASTROINTESTINAL: Denies abdominal pain. Denies diarrhea. Denies constipation. Denies nausea. Denies vomiting. MUSCULOSKELETAL: Denies myalgias. INTEGUMENTARY: Denies pruitis. Denies rash. NEUROLOGIC: Denies numbness. Denies tingling. Denies weakness. PSYCHIATRIC: Denies anxiety. Denies depression. ENDOCRINE: Denies fatigue. Denies weight change. Denies polydipsia. Denies polyurina. GENITOURINARY: Denies burning, hematuria or urgency with micturation. HEMATOLOGIC: Denies history of anemia. Denies bleeding. Blood pressure 119/63 heart rate 75 afebrile maintaining oxygen saturation on room air GENERAL: This is a 68-year-old male in no apparent distress at the time of my examination. HEENT: Head is atraumatic, normocephalic. Pupils are equal, round. Sclerae anicteric. Conjunctivae are clear. Mucous membranes of the mouth are moist. Neck is supple. There is no jugular venous distention. No carotid bruit is heard. LUNGS: Clear to auscultation no wheezes, rales or rhonchi. No chest wall tenderness is noted on palpation or with deep breathing. HEART: Regular rate and rhythm with systolic ejection murmur at the base, no rubs or gallops. S1 and S2 heard. ABDOMEN: Soft, nontender. Bowel sounds are heard. No organomegaly noted. EXTREMITIES: No evidence of peripheral edema and no calf tenderness noted. VASCULAR: Radial and dorsalis pedis pulses palpated, no evidence of clubbing. NEUROLOGIC: Patient is awake, alert and oriented x3. ASSESSMENT Cecal mass Aortic stenosis History of occipital lobe CVA PLAN Repeat echocardiogram has been obtained and reviewed. From a cardiac perspective the patient has no symptoms suggestive of angina or heart failure. He is currently euvolemic. He is a moderate risk for surgical intervention secondary to his valvular abnormality. Recommend cautious fluid administration intraoperatively and optimal blood pressure control. Thank you kindly for this consultation. Nurse Practitioner note has been reviewed, I agree with a documented findings and plan of care. Patient was seen and examined. Past Medical History Past Medical History: CVA/TIA, Dementia, Hyperlipidemia, Prostate Disorder Additional Past Medical History / Comment(s): kidney stones,uti/sepsis , per pt's pt legally blind "occiptal stroke" History of Any Multi-Drug Resistant Organisms: None Reported Past Surgical History: No Surgical Hx Reported Additional Past Surgical History / Comment(s): Two surgeries for kidney stones Past Anesthesia/Blood Transfusion Reactions: No Reported Reaction Additional Past Anesthesia/Blood Transfusion Reaction / Comment(s): Never had transfusion Smoking Status: Never smoker - Past Family History Father History Unknown: Yes Additional Family Medical History / Comment(s): father in a mva Mother Family Medical History: Dementia Medications and Allergies Home Medications Medication Instructions Recorded Confirmed Type Aspirin EC [Ecotrin Low Dose] 81 mg PO BID 03/03/18 11/29/18 History Tamsulosin [Flomax] 0.4 mg PO DAILY@199911/29/18 11/29/18 History Allergies Allergy/AdvReac Type Severity Reaction Status Date / Time Latex, Natural Rubber AdvReac Rash/Hives Verified 11/29/18 09:20 Physical Exam Vitals: Vital Signs Temp Pulse Resp BP Pulse Ox 12/03/18 05:00 98.2 F 75 16 119/63 97 12/03/18 00:00 71 16 12/02/18 21:00 98.1 F 71 16 158/81 100 Intake and Output 12/02/18 12/03/18 12/03/18 22:59 06:59 14:59 Intake Total 590 500 Balance 590 500 Intake: Oral 590 500 Other: Voiding Method Toilet # Voids 3 1 Results 12/03/18 08:25 12/03/18 08:25 CBC 12/03/18 Range/Units 08:25 WBC 5.1 (3.8-10.6) k/uL RBC 3.76 L (4.30-5.90) m/uL Hgb 11.3 L (13.0-17.5) gm/dL Hct 34.7 L (39.0-53.0) % Plt Count 233 (150-450) k/uL Comprehensive Metabolic Panel 12/03/18 Range/Units 08:25 Sodium 142 (137-145) mmol/L Potassium 3.5 (3.5-5.1) mmol/L Chloride 109 H (98-107) mmol/L Carbon Dioxide 25 (22-30) mmol/L BUN <2 L (9-20) mg/dL Creatinine 0.80 (0.66-1.25) mg/dL Glucose 139 H (74-99) mg/dL Calcium 9.0 (8.4-10.2) mg/dL Current Medications Generic Name Dose Route Start Last Admin Trade Name Freq PRN Reason Stop Dose Admin Acetaminophen 500 mg 11/29/18 15:53 11/29/18 20:09 Tylenol Tab PO 500 mg Q6HR PRN Administration Fever and/ or Pain Hydrocodone Bitart/Acetaminophen 1 each 11/29/18 15:53 Perkins 5-325 PO Q6HR PRN Pain Alprazolam 0.25 mg 11/29/18 15:53 Xanax PO TID PRN Anxiety Dexamethasone Sodium Phosphate 5 mg 12/06/18 06:00 Decadron IV 12/06/18 06:01 ONCE ONE Fentanyl Citrate 50 mcg 12/03/18 08:29 Sublimaze IV 12/04/18 08:30 Q3M PRN Pain Control Sodium Chloride 1,000 mls @ 125 mls/hr 11/29/18 03:30 12/03/18 09:55 Saline 0.9% IV 125 mls/hr .Q8H LAURE Administration Lactated Ringer's 1,000 mls @ 20 mls/hr 12/01/18 18:45 12/02/18 16:54 Lactated Ringers IV Not Given .Q24H LAURE Lactated Ringer's 1,000 mls @ 20 mls/hr 12/06/18 06:00 Lactated Ringers IV .Q24H LAURE Lidocaine HCl 0.1 ml 12/01/18 18:41 .Xylocaine 1% Inj (10mg/Ml) For Iv Start INTRADERMA PER PROTOCOL PRN IV Start Midazolam HCl 2 mg 12/03/18 08:29 Versed Pf IV 12/04/18 08:30 ONCE PRN Anxiety Naloxone HCl 0.2 mg 11/29/18 03:22 Narcan IV Q2M PRN Opioid Reversal Pantoprazole Sodium 40 mg 11/29/18 09:00 12/03/18 09:46 Protonix IVP 40 mg BID LAURE Administration Tamsulosin HCl 0.4 mg 11/29/18 20:00 12/02/18 23:32 Flomax PO 0.4 mg DAILY@1999 LAURE Administration Intake and Output 12/02/18 12/03/18 12/03/18 22:59 06:59 14:59 Intake Total 590 500 Balance 590 500 Intake: Oral 590 500 Other: Voiding Method Toilet # Voids 3 1 12/03/18 08:25 12/03/18 08:25
[2018-12-03] MEDS: LACTATED RINGERS 1,000 ML IV SCH (17:43)
--- NOTE | 2018-12-03 18:30 | P.PN ---
Progress Note - Text Progress Note Date: 12/03/18 The patient resting comfortably in his bed. He denies any significant abdominal pain. He's had no further bleeding. On exam his vital signs are stable. His abdomen soft. Patient will undergo right colectomy on Thursday.
--- NOTE | 2018-12-03 18:50 | PN ---
PROGRESS NOTE DATE OF SERVICE: 12/03/2018 This 68-year-old gentleman who was admitted with acute lower GI bleeding, probably secondary to a cecal mass, is being closely monitored at this time. Surgery evaluation is in prognosis at this time. No chest pain. No palpitations. No fever. PHYSICAL EXAMINATION: Alert and oriented x3. Pulse 85, blood pressure 126/71, respiration 16, temperature 97.8, pulse ox 99% on room air. HEENT: Conjunctivae normal. NECK: No jugular venous distention. CARDIOVASCULAR SYSTEM: S1, S2 muffled. RESPIRATORY SYSTEM: Breath sounds diminished at the bases. A few scattered rhonchi. No crackles. ABDOMEN: Soft, non-tender. NERVOUS SYSTEM: No focal deficit. LABS: WBC 5.1, hemoglobin 11.3. ASSESSMENT: 1. Acute lower gastrointestinal bleeding secondary to possible cecal mass, possibly colonic malignancy. 2. Acute blood loss anemia. 3. History of cerebrovascular accident, transient ischemic attack. 4. History of dementia. 5. Hyperlipidemia. 6. History of nephrolithiasis. 7. Legal blindness. 8. History of aortic stenosis. RECOMMENDATIONS AND DISCUSSION: I recommend to continue current medication, continue with symptomatic treatment. Otherwise, closely follow. Cardiology clearance before surgery. CT scan of chest, abdomen and pelvis is noted. Closely follow with Surgery. Further recommendations to follow. MMODL / IJN: [id number] /
[2018-12-03] MEDS: TAMSULOSIN 0.4 MG CAP.ER.24H PO SCH (20:50)
[2018-12-04] MEDS: SODIUM CHLORIDE 0.9% 1,000 ML IV SCH ×3 (03:00→22:03)
[2018-12-04 08:00] LABS: Basophils % (A) 1 %; Eosinophils # (A) 0.2 k/uL (0-0.7); Eosinophils % (A) 5 %; HCT 30.7 % (39.0-53.0); HGB 10.4 gm/dL (13.0-17.5); Lymphocytes # (A) 1.6 k/uL (1.0-4.8); Lymphocytes % (A) 33 %; MCH 31.1 pg (25.0-35.0); MCHC 33.9 g/dL (31.0-37.0); MCV 91.6 fL (80.0-100.0); Mean Platelet Volume 7.3; Monocytes # (A) 0.2 k/uL (0-1.0); Monocytes % (A) 4 %; Neutrophils # (A) 2.7 k/uL (1.3-7.7); Neutrophils % (A) 56 %; Platelet Count 211 k/uL (150-450); RBC 3.36 m/uL (4.30-5.90); RDW 13.1 % (11.5-15.5); WBC 4.8 k/uL (3.8-10.6)
[2018-12-04 08:18] LABS: Anion Gap 5 mmol/L; Blood Urea Nitrogen <2 mg/dL (9-20); Calcium 8.6 mg/dL (8.4-10.2); Carbon Dioxide 27 mmol/L (22-30); Chloride 111 mmol/L (98-107); Glucose 90 mg/dL (74-99); Potassium 3.5 mmol/L (3.5-5.1); Sodium 143 mmol/L (137-145)
[2018-12-04] MEDS: PANTOPRAZOLE 40 MG/10 ML VIAL IVP SCH ×2 (08:32→20:25)
--- NOTE | 2018-12-04 12:41 | P.PN ---
Progress Note - Text Progress Note Date: 12/04/18 Patient resting comfortably in his bed. He has no real complaints of pain. On exam his vital signs are stable. His evidence soft. History of right colon tumor. Patient is scheduled for right colectomy with Dr. Castaneda on Thursday.
[2018-12-04] MEDS: LACTATED RINGERS 1,000 ML IV SCH (18:55)
--- NOTE | 2018-12-04 18:59 | PN ---
PROGRESS NOTE DATE OF SERVICE: 12/04/2018 This 68-year-old gentleman admitted with lower GI bleed and acute blood loss . The colonoscopy showed cecal mass. The patient has been awaiting right hemicolectomy by Dr. Rivero probably on Thursday. No chest pain. No palpitations. No fever. EXAM: Alert and oriented times three. Pulse 61. Blood pressure 150/78. Respiration 16 , temperature 97.4, pulse ox 99% room air. HEENT: Conjunctivae normal. NECK: No jugular venous distention. CARDIOVASCULAR: S1, S2 muffled. RESPIRATORY: Breath sounds diminished in the bases. Bilateral scattered rhonchi and crackles. ABDOMEN is soft. CENTRAL NERVOUS SYSTEM: No focal deficits. LABORATORY DATA: WBC 4.8. Hemoglobin 10.4. ASSESSMENT: 1. Acute lower gastrointestinal bleeding secondary to possible cecal mass, possible colonic malignancy. 2. Acute blood loss anemia. 3. History of cerebrovascular accident, transient ischemic attack. 4. History of dementia. 5. History of hyperlipidemia. 6. History of nephrolithiasis. 7. Legal blindness. 8. History of aortic stenosis. RECOMMENDATIONS AND DISCUSSION: Recommend to continue current medications, management and symptomatic treatment. Closely follow with Cardiology. Closely follow with multiple consultants. Guarded prognosis because of multiple complex medical issues. Further recommendations to follow. Repeat labs are noted. Further recommendations to follow. MMODL / IJN: [id number] / MTDD
[2018-12-04] MEDS: TAMSULOSIN 0.4 MG CAP.ER.24H PO SCH (20:25)
[2018-12-05] MEDS: SODIUM CHLORIDE 0.9% 1,000 ML IV SCH ×4 (03:51→23:38)
[2018-12-05] MEDS: PANTOPRAZOLE 40 MG/10 ML VIAL IVP SCH ×2 (08:47→20:31)
--- NOTE | 2018-12-05 12:41 | P.PN ---
Progress Note - Text Progress Note Date: 12/05/18 Patient seen well. He is tolerating his clear liquid diet. He has no complaints of pain. On exam his vital signs are stable. His abdomen soft. Patient will undergo right colectomy tomorrow for his colon polyp with high- grade dysplasia. Patient will be evaluated by Dr. Castaneda prior to surgery.
[2018-12-05] MEDS: LACTATED RINGERS 1,000 ML IV SCH (16:45)
[2018-12-05] MEDS: TAMSULOSIN 0.4 MG CAP.ER.24H PO SCH (20:30)
--- NOTE | 2018-12-05 22:22 | PN ---
PROGRESS NOTE . DATE OF SERVICE: 12/05/2018 This 68-year-old gentleman who was admitted with acute lower gastrointestinal bleeding had a cecal mass. The surgery has been tentatively planned by surgery tomorrow no chest pain. No palpitations. No fever. EXAM: Alert and oriented times three. Pulse 83. Blood pressure 150/72, respiratory rate 17, temperature 97.2, pulse ox 98% on room air. HEENT: Conjunctivae normal. NECK: No jugular venous distention. Cardiovascular: S1, S2 muffled. RESPIRATORY: Breath sounds diminished in the bases. No rhonchi. No crackles. ABDOMEN is soft, nontender. No mass palpable. LEGS: No edema. No swelling. Central nervous system: No focal deficits. LAB STUDIES: WBC 4.8, hemoglobin 10.4. ASSESSMENT: 1. Acute lower gastrointestinal bleeding secondary to possible cecal mass, possible chronic malignancy. 2. Acute blood loss anemia. 3. History of cerebrovascular accident, transient ischemic attack. 4. History of dementia. 5. History of hyperlipidemia. 6. History of nephrolithiasis. 7. Legal blindness. 8. History of aortic stenosis. RECOMMENDATIONS AND DISCUSSION: Recommend to continue current medications, monitoring and symptomatic treatment. Closely follow with surgery. Repeat labs. Incentive spirometry. DVT prophylaxis. Guarded prognosis. Further recommendations to follow. MMODL / IJN: [id number] /
[2018-12-06] MEDS ORDERED: LACTATED RINGERS 1,000 ML IV SCH (06:00)
[2018-12-06] MEDS ORDERED: DEXAMETHASONE SOD PHOSPHATE 10 MG/ML 1 ML VIAL IV ONE (06:00)
[2018-12-06] MEDS: PANTOPRAZOLE 40 MG/10 ML VIAL IVP SCH ×2 (08:58→21:10)
--- NOTE | 2018-12-06 09:53 | P.HPADDEND ---
H&P Addendum H&P Addendum Date: 12/06/18 I personally spoke to the patient's regarding findings of CEA within normal limits. CT of the chest abdomen and pelvis is negative for metastatic disease. 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 Will proceed with robotic right hemicolectomy
[2018-12-06] MEDS ORDERED: IV FLUID CONTINUATION 1,000 ML IV ONE (09:55)
--- NOTE | 2018-12-06 09:58 | ECHOF ---
Referral Reason:pre-op MEASUREMENTS -------- HEIGHT: 175.3 cm WEIGHT: 74.4 kg BP: 119/63 RVIDd: 2.3 cm (< 3.3) IVSd: 0.9 cm (0.6 - 1.1) LVIDd: 3.7 cm (3.9 - 5.3) LVPWd: 0.9 cm (0.6 - 1.1) IVSs: 1.2 cm LVIDs: 2.4 cm LVPWs: 1.2 cm LAESV Index (A-L): 16.65 ml/m Ao Diam: 3.4 cm (2.0 - 3.7) AV Cusp: 1.4 cm (1.5 - 2.6) LA Diam: 3.5 cm (2.7 - 3.8) EPSS: 0.3 cm MV E Tien: 0.76 m/s MV DecT: 188 ms MV A Tien: 0.79 m/s MV E/A Ratio: 0.96 AV maxP.70 mmHg AV meanP.65 mmHg RAP: 5.00 mmHg RVSP: 22.89 mmHg MV EF SLOPE: 145.18 mm/s (70 - 150) MV EXCURSION: 1.90 cm (> 18.000) FINDINGS -------- Sinus rhythm. This was a technically good study. The left ventricular size is normal. Left ventricular wall thickness is normal. Overall left vent ricular systolic function is normal with, an EF between 55 - 60 %. The right ventricle is normal in size and function. Normal LA size by volume 22+/-6 ml/m2. The right atrium is normal in size. There is moderate aortic valve sclerosis. There is no evidence of aortic regurgitation. There is moderate aortic stenosis present. Peak/mean gradient across the Aortic Valve is 35.70mmHg / 21.65mm Hg. The mitral valve leaflets are mildly thickened. There is trace to mild mitral regurgitation. Mild tricuspid regurgitation present. Right ventricular systolic pressure is normal at < 35 mmHg. There is no evidence of pulmonary hypertension. The pulmonic valve was not well visualized. The aortic root size is normal. Normal inferior vena cava with normal inspiratory collapse consistent with estimated right atrial pre ssure of 5 mmHg. There is no pericardial effusion. CONCLUSIONS -------- 1. Sinus rhythm. 2. This was a technically good study. 3. The left ventricular size is normal. 4. Left ventricular wall thickness is normal. 5. Overall left ventricular systolic function is normal with, an EF between 55 - 60 %. 6. Normal LA size by volume 22+/-6 ml/m2. 7. There is moderate aortic valve sclerosis. 8. There is moderate aortic stenosis present. 9. Peak/mean gradient across the Aortic Valve is 35.70mmHg / 21.65mmHg. 10. The mitral valve leaflets are mildly thickened. 11. There is trace to mild mitral regurgitation. 12. Mild tricuspid regurgitation present. 13. Right ventricular systolic pressure is normal at < 35 mmHg. 14. There is no evidence of pulmonary hypertension. 15. The pulmonic valve was not well visualized. 16. The aortic root size is normal. 17. There is no pericardial effusion. EXECUTIVE PASTRY CHEF: Frank Palmer RDCS
[2018-12-06] MEDS ORDERED: MIDAZOLAM 2 MG/2 ML VIAL IV ONE ×2 (10:37→11:30)
[2018-12-06] MEDS ORDERED: Antibiotics per Pharmacy 1 EACH MISC MISCELLANE PRN (10:44)
[2018-12-06] MEDS ORDERED: ALVIMOPAN 12 MG CAPSULE PO STA (10:44)
[2018-12-06] MEDS ORDERED: HEPARIN SODIUM,PORCINE 5,000 UNIT/ML 1 ML VIAL SQ STA (10:44)
[2018-12-06] MEDS ORDERED: ACETAMINOPHEN IV (For NPO) 1,000 MG in EMPTY BAG 1 BAG IVPB STA (10:47)
[2018-12-06] MEDS ORDERED: metroNIDAZOLE-NS PMX 500 MG in SALINE 1 100ML.BAG IVPB STA (10:49)
[2018-12-06] MEDS ORDERED: ceFAZolin IN SWFI 2 GM/20 ML SYRINGE IVP STA (10:49)
[2018-12-06] MEDS ORDERED: NALOXONE 0.4 MG/ML 1 ML VIAL IV PRN (11:00)
[2018-12-06] MEDS ORDERED: ROPIVACAINE 250 MG, fentaNYL (PF) 1,250 MCG in SODIUM CHLORIDE 0.9% 175 ML EPIDURAL PRN (11:00)
[2018-12-06] MEDS ORDERED: ONDANSETRON 4 MG/2 ML VIAL IVP ONE (11:18)
[2018-12-06] MEDS ORDERED: GLYCOPYRROLATE 0.2 MG/ML 2 ML VIAL ONE (11:29)
[2018-12-06] MEDS ORDERED: PHENYLEPHRINE-0.9% NACL SYG 1 MG/10 ML SYRINGE ONE (11:29)
[2018-12-06] MEDS ORDERED: PROPOFOL 10 MG/ML 20 ML VIAL IV ONE (11:29)
[2018-12-06] MEDS ORDERED: NEOSTIGMINE 1 MG/ML 10 ML VIAL ONE (11:29)
[2018-12-06] MEDS ORDERED: ROCURONIUM BROMIDE 10 MG/ML 10 ML VIAL IV ONE (11:29)
[2018-12-06] MEDS ORDERED: fentaNYL (PF) 50 MCG/ML 2 ML AMP ONE (11:29)
[2018-12-06] MEDS ORDERED: LIDOCAINE 1% INJ 10MG/ML (20 ML MDV) ONE (11:29)
[2018-12-06] MEDS ORDERED: LACTATED RINGERS 1,000 ML IV ONE ×2 (12:19→15:51)
[2018-12-06] MEDS ORDERED: BENZOCAINE/MENTHOL LOZENG 1 EACH LOZENGE MUCOUS MEM PRN (16:12)
--- NOTE | 2018-12-06 16:18 | P.OP ---
Date of Procedure: 12/06/18 Description of Procedure: Date of Procedure: 12/06/18 SURGEON: SHIRIN HOLLAND MD Preoperative Diagnosis: 1. History of gastrointestinal bleed 2. History acute blood loss anemia 3. Cecal mass with high-grade dysplasia 4. Chronic iron deficiency anemia due to blood loss 5. History of cerebrovascular accident with sequelae of occipital stroke 6. 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 Dementia 8. History of urosepsis 9. Hyperlipidemia 10. Prostate disorder Postoperative Diagnosis: 1. History of gastrointestinal bleed 2. History acute blood loss anemia 3. Cecal mass with high-grade dysplasia 4. Chronic iron deficiency anemia due to blood loss 5. History of cerebrovascular accident with sequelae of occipital stroke 6. 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 Dementia 8. History of urosepsis 9. Hyperlipidemia 10. Prostate disorder Procedure(s) Performed: Robot-assisted daVinci Xi laparoscopic ileocolectomy Anesthesia: GETA, local, epidural Estimated Blood Loss (ml): 30 Pathology: other (1. Terminal ileum with right colon with appendix sent en bloc 2. Ileocolic anastomosis) Condition: stable Disposition: floor COMPLICATIONS: None. Operative Findings: 1. MICHAEL drain placed right lateral abdominal wall to anastomosis 2. Ileocolectomy Gaetano oversewn using 3-0 silk 3. Mesenteric defect obliterated by isoperistaltic anastomosis of ileum and the colon 4. Left lower quadrant adhesions of sigmoid colon to abdominal wall from previous diverticulitis attacks identified 5. Tumor involving the cecum including ileocecal valve with proximal resection 5 cm proximal to ileocecal valve 6. No evidence of peritoneal metastatic deposits or liver involvement 7. Incision is made along the upper abdomen with specimen extraction at left upper quadrant INDICATIONS: The patient is a 68-year-old male who presented acutely to the hospital with acute blood loss anemia with gastrointestinal bleed. Workup including lower endoscopy by GI was performed identifying a neoplasm along the cecum. Metastatic workup with a computed tomography scan was unremarkable including CEA levels within normal limits. Surgical intervention with colon resection was described valve and cecal. Benefits and risks, including infection, open surgery possibility for additional surgery was discussed at length. Informed consent was obtained. All questions of the patient and family were answered. DESCRIPTION: During his hospitalization, the patient had recent colon prep for his colonoscopy and was maintained on liquid diet prior to surgery. The patient was transferred to the operating room and placed in supine position. After general anesthetic, a harp catheter was placed. The abdomen was then prepped and draped in standard sterile fashion as Ioban was placed along the abdomen to minimize any contamination of skin floor. After a timeout protocol was performed, attention was then brought to the left upper quadrant whereby a 0 degree 5 mm laparoscopic trocar entry was performed. The abdominal cavity was entered and insufflated to 15 mmHg pressure, which he tolerated well. Diagnostic laparoscopy demonstrated no injury to bowel, viscera or mesentery. No metastatic or peritoneal deposits were identified. The liver was unremarkable. The tumor was identified along the cecum with hypervascularity. Peritoneal adhesion of scar tissue of the left lower quadrant was consistent with prior diverticulitis attacks. All ports were placed along the epigastrium. Next a robotic 8-mm trocar was placed along the right lateral abdominal wall, 15-cm superior from the pelvis. A 8 mm port was placed along the right upper quadrant and another 8-mm port along the epigastrium. Ports were placed 8 cm apart from each other including 15-20 cm away from the target anatomy of the right pelvis. The 5-mm port was exchanged for a 12 mm robotic port at the left upper quadrant. The patient was then placed in Trendelenburg position, at least 14. The robotic da Sujata XI system was primed and docked from the right side of the patient. Using atraumatic graspers and vessel sealer, the robotic system was docked and primed as described. Instruments were interchanged by the civil engineering assistant including scissors, needle front loader residential driver, robotic stapler and vessel sealer. Next, attention was brought to identify the cecum. A stay suture using 0 silk was placed along the anterior serosa of the ascending colon including along the terminal ileum. The appendix was identified and used as a handle during the case. The terminal ileum and ascending colon mesentery was mobilized using a vessel sealer whereby the colon was marked and tagged. Using robot stapler 45 mm white load, the distal ileum was divided 5 cm proximal to the ileocecal valve. The mesentery of the ascending colon was mobilized towards the midline using a vessel sealer. Next, the ascending colon was divided using the robotic stapler 45 mm blue loads. The rest of the colon mesentery was mobilized using vessel sealer including using blunt dissection. The vascular pedicle of the ileocolic artery was controlled using a vessel sealer. The proximal colon and distal ileum was brought in a side to side in an isoperistaltic anastomotic fashion after placing interrupted sutures along the proposed abril-lumen using 3-0 silk. A colotomy and enterotomy was prepared along both limbs along the antimesenteric border. Next, 45 mm blue stapler loads were fired to create the abril-lumen of the previous colotomy. The abril- lumen was reapproximated using 3-0 silk followed by 45 mm blue load for closure of the enterostomy and oversewn using 3-0 silk. As the patient presents with increased risk of leak without a mechanical bowel prep, a MICHAEL drain was placed along the right lateral abdominal wall and exited via the right upper quadrant trocar. The field was completely dry with minimal contamination. All needles were removed from the abdominal cavity. The robot was undocked. I re-scrubbed into the case. Via the 12 mm port of the left upper quadrant, the right colon was removed after widening the skin incision to 4-cm. All sponges were removed from the abdominal cavity. No contamination had occurred throughout this portion of the case. The fascial defect was oversewn using 0 Vicryl and Pamela's. Next all pneumoperitoneum was evacuated from the abdominal cavity. The 8-mm trocar sites were reapproximated using 4-0 Monocryl in an interrupted subcuticular fashion. Local anesthetic was infiltrated to all wounds for postop analgesia. All incisions were also cleansed with diluted hydrogen peroxide. An Optifoam surgical dressing was placed over the left upper quadrant incision of the colon extraction site. Dermabond was applied to the rest of the skin incisions. The patient had tolerated the procedure well. The patient was extubated successfully. Intraoperative photos were reviewed with the patient's family who were overall pleased with the level of care. The patient was transferred to the postanesthesia care unit in stable condition.
[2018-12-06] MEDS: metroNIDAZOLE-NS PMX 500 MG in SALINE 1 100ML.BAG IVPB SCH (18:54)
[2018-12-06] MEDS: ceFAZolin IN SWFI 2 GM/20 ML SYRINGE IVP SCH (18:54)
[2018-12-06] MEDS: D5-0.45% NACL WITH KCL 20MEQ/L 1,000 ML IV SCH (18:54)
--- NOTE | 2018-12-06 20:04 | PN ---
PROGRESS NOTE DATE OF SERVICE: 12/06/2018 This 68-year-old gentleman who was admitted with acute lower GI bleed had a possible cecal mass. The patient was advised to undergo surgery. He underwent robotic right colectomy by Dr. Lan. No chest pain. No palpitations. No fever. On exam, pulse is 73, blood pressure 98/57, respirations 16, temperature 97.7, pulse ox 97% on room air. HEENT: Conjunctivae normal. NECK: No jugular venous distention. CARDIOVASCULAR SYSTEM: S1, S2 muffled. RESPIRATORY SYSTEM: Breath sounds diminished at the bases. No rhonchi. No crackles. ABDOMEN: Soft. Status post surgery. LEGS: No edema. No swelling. NERVOUS SYSTEM: No focal deficit. LABS: WBC 4.8, hemoglobin 10.4. Sodium 143, potassium 3.5. ASSESSMENT: 1. Acute lower gastrointestinal bleeding secondary to possible cecal mass, status post robotic right colectomy. 2. Acute blood loss anemia. 3. History of cerebrovascular accident, transient ischemic attack, occipital stroke and blindness. 4. History of dementia. 5. History of hyperlipidemia. 6. History of nephrolithiasis. 7. Legal blindness. 8. History of aortic stenosis. RECOMMENDATIONS AND DISCUSSION: I recommend to continue current management, continue with symptomatic treatment. Otherwise we will monitor the patient closely. Closely follow with Dr. Lan. See orders for further details. Further recommendations to follow. MMODL / IJN: [id number] /
[2018-12-06] MEDS: ALVIMOPAN 12 MG CAPSULE PO SCH (21:08)
[2018-12-06] MEDS: TAMSULOSIN 0.4 MG CAP.ER.24H PO SCH (21:08)
[2018-12-06] MEDS: SODIUM CHLORIDE 0.9% 1,000 ML IV SCH (22:23)
[2018-12-07] MEDS: metroNIDAZOLE-NS PMX 500 MG in SALINE 1 100ML.BAG IVPB SCH ×4 (00:18→17:53)
[2018-12-07] MEDS: ceFAZolin IN SWFI 2 GM/20 ML SYRINGE IVP SCH ×3 (02:03→17:47)
[2018-12-07] MEDS: ACETAMINOPHEN TAB 500 MG TAB PO PRN (02:35)
[2018-12-07] MEDS: D5-0.45% NACL WITH KCL 20MEQ/L 1,000 ML IV SCH ×2 (05:09→20:52)
--- NOTE | 2018-12-07 06:21 | P.PN ---
Progress Note - Text Progress Note Date: 12/07/18 68 yo male s/p robotic assisted laparoscopic right hemicolectomy. POD #1. Patient had a thoracic epidural placed in pre-op holding area for post-op pain control. Ropivacaine 0.1% + Fentanyl 5 mcg/ml currently at a rate of 3cc/hr. No issues or major complaints overnight. Sleeping in bed this morning. No headache , nausea or vomiting. No motor or sensory deficit. Epidural catheter insertion site clean, no signs of infection. VAs=2/10. Adequate pain control. Will keep same epidural regimen.
--- NOTE | 2018-12-07 09:37 | P.PN ---
Progress Note - Text Progress Note Date: 12/07/18 Please see full notes. at bedside. Minimal output from drain. He rested comfortably. wants harp out as soon as possible from prior history of urosepsis. Plan to DC epidural today with harp. Liquid for lunch. Plan for discharge in 24 hrs pending pain management with oral pain meds, MICHAEL drain care, and spontaneous void.
--- NOTE | 2018-12-07 10:11 | P.PN ---
<Denise Rankin A - Last Filed: 12/07/18 10:02> Subjective Progress Note Date: 12/07/18 CHIEF COMPLAINT: cecal mass HISTORY OF PRESENT ILLNESS: 68-year-old male who underwent robotic right colectomy. POD #1. Pain currently has epidural infusing. Pain is tolerable at this time. Holden intact. MICHAEL drain with minimal drainage. Patient was febrile overnight. 100.1 degrees Fahrenheit. Temp 98.3 this morning. Blood pressure in the 90s. PHYSICAL EXAM: VITAL SIGNS: Reviewed GENERAL: Well-developed pleasant male in no acute distress. HEENT: Patient is legally blind. No scleral icterus. Moist buccal mucosa. NECK: Supple without lymphadenopathy. CHEST: Equal expansion. CARDIOVASCULAR: Regular rate regular rhythm. Distal 2+ pulses. ABDOMEN: Abdominal dressing clean dry intact. MICHAEL drain with minimal output. MUSCULOSKELETAL: No clubbing, cyanosis, or edema. NEURO : Difficult to thoroughly assess due to history of CVA. No seizure activity noted. No tremors. PSYCH: Awake and alert. SKIN: Well perfused. Good skin turgor. No cyanosis. No jaundice. ASSESSMENT: 1. Cecal mass, s/p robotic right colectomy, POD #1 2. Acute blood loss anemia 3. Diverticulosis 4. Internal hemorrhoids 5. History of CVA with residual cognitive impairment 6. Legally blind 7. Hyperlipidemia 8. History of UTI and sepsis, February 2018 9. Diabetes type 2, [id number] 10. Ischemic cardiomyopathy with congestive heart failure 11. Iron deficiency anemia 12. Personal history of kidney stones 13. Personal history of skin cancer 14. Generalized debility PLAN: 1. Discontinue epidural 2. Begin oral pain medications 3. Begin clear liquid diet for lunch 4. Discontinue urinary catheter 5. Incentive spirometry 6. Possible discharge home tomorrow Nurse practitioner note has been reviewed by physician. Signing provider agrees with the documented findings, assessment, and plan of care. Objective - Vital Signs Vital signs: Vital Signs Temp 98.3 F 12/07/18 06:14 Pulse 88 12/07/18 06:14 Resp 16 12/07/18 06:14 BP 94/56 12/07/18 06:14 Pulse Ox 98 12/07/18 06:14 Intake & Output 12/06/18 12/07/18 12/07/18 18:59 06:59 18:59 Intake Total 1600 1528.100 Output Total 530 645 Balance 1070 883.100 Intake: IV 1600 Intake, IV Titration 1528.100 Amount D5-0.45% NaCl with KCl 1200 20Meq/l 1,000 ml @ 75 mls /hr IV .[id number] [facility] Rx#: [id number] Ropivacaine 250 mg 28.100 fentaNYL (PF) 1,250 mcg In Sodium Chloride 0.9% 175 ml @ Per Protocol EPIDURAL .Q0M PRN Rx#: [id number] metroNIDAZOLE-NS PMX 500 300 mg In Saline 1 100ml.bag @ 100 mls/hr IVPB Q6HR [facility] Rx#:[id number] Output: Drainage 20 Abdomen 20 Urine 120 625 Estimated Blood Loss 410 Other: Voiding Method Indwelling Catheter - Labs CBC & Chem 7: 12/04/18 07:07 12/04/18 07:07 Assessment and Plan (1) Acute blood loss anemia Current Visit: Yes Status: Acute Code(s): D62 - ACUTE POSTHEMORRHAGIC ANEMIA SNOMED Code(s): 333089579 (2) Cecum mass Current Visit: Yes Status: Acute Code(s): K63.9 - DISEASE OF INTESTINE, UNSPECIFIED SNOMED Code(s): 246832490 (3) Diverticulosis of colon Current Visit: Yes Status: Acute Code(s): K57.30 - DVRTCLOS OF LG INT W/O PERFORATION OR ABSCESS W/O BLEEDING SNOMED Code(s): 194711931 (4) Internal hemorrhoid Current Visit: Yes Status: Acute Code(s): K64.8 - OTHER HEMORRHOIDS SNOMED Code(s): 52056340 (5) CVA (cerebral vascular accident) Current Visit: Yes Status: Acute Code(s): I63.9 - CEREBRAL INFARCTION, UNSPECIFIED SNOMED Code(s): 602660599 (6) GIB (gastrointestinal bleeding) Current Visit: Yes Status: Acute Code(s): K92.2 - GASTROINTESTINAL HEMORRHAGE, UNSPECIFIED SNOMED Code(s): 53483752 <Dodie Lan - Last Filed: 12/08/18 09:54> Objective - Vital Signs Vital signs: Vital Signs Temp 97.0 F L 12/08/18 05:00 Pulse 86 12/08/18 05:00 Resp 16 12/08/18 05:00 BP 115/60 12/08/18 05:00 Pulse Ox 93 L 12/08/18 05:00 Intake & Output 12/07/18 12/08/18 12/08/18 18:59 06:59 18:59 Intake Total 1420 2120 Output Total 1540 30 Balance -120 2090 Weight 74.389 kg 74.389 kg Intake: Intake, IV Titration 700 1400 Amount D5-0.45% NaCl with KCl 600 1200 20Meq/l 1,000 ml @ 75 mls /hr IV .[id number] [facility] Rx#: [id number] metroNIDAZOLE-NS PMX 500 100 200 mg In Saline 1 100ml.bag @ 100 mls/hr IVPB Q6HR [facility] Rx#:[id number] Oral 720 720 Output: Drainage 90 30 Abdomen 90 30 Urine 1450 Uretheral (Holden) 750 Other: Voiding Method Indwelling Catheter Indwelling Catheter # Voids 1 1 - Labs CBC & Chem 7: 12/08/18 07:16 12/08/18 07:16 Labs: Abnormal Lab Results - Last 24 Hours (Table) 12/07/18 12/07/18 12/08/18 Range/Units 09:05 09:05 07:16 WBC 11.0 H 12.2 H (3.8-10.6) k/uL RBC 3.42 L 3.57 L (4.30-5.90) m/uL Hgb 10.6 L 11.1 L (13.0-17.5) gm/dL Hct 31.0 L 33.0 L (39.0-53.0) % Neutrophils # 8.1 H 9.8 H (1.3-7.7) k/uL Potassium 3.3 L (3.5-5.1) mmol/L BUN 8 L (9-20) mg/dL Glucose (74-99) mg/dL 12/08/18 Range/Units 07:16 WBC (3.8-10.6) k/uL RBC (4.30-5.90) m/uL Hgb (13.0-17.5) gm/dL Hct (39.0-53.0) % Neutrophils # (1.3-7.7) k/uL Potassium (3.5-5.1) mmol/L BUN 8 L (9-20) mg/dL Glucose 122 H (74-99) mg/dL
[2018-12-07 10:41] LABS: Anion Gap 7 mmol/L; Blood Urea Nitrogen 8 mg/dL (9-20); Calcium 8.6 mg/dL (8.4-10.2); Carbon Dioxide 27 mmol/L (22-30); Chloride 106 mmol/L (98-107); Glucose 99 mg/dL (74-99); Potassium 3.3 mmol/L (3.5-5.1); Sodium 140 mmol/L (137-145)
[2018-12-07] MEDS: HYDROcodone/APAP 5-325MG 1 EACH TAB PO PRN ×3 (10:48→21:00)
[2018-12-07] MEDS: PANTOPRAZOLE 40 MG/10 ML VIAL IVP SCH ×2 (10:50→21:00)
[2018-12-07] MEDS: ALVIMOPAN 12 MG CAPSULE PO SCH ×2 (10:50→21:00)
[2018-12-07 11:07] LABS: Basophils % (A) 0 %; Eosinophils # (A) 0.1 k/uL (0-0.7); Eosinophils % (A) 1 %; HGB 10.6 gm/dL (13.0-17.5); Lymphocytes # (A) 2.3 k/uL (1.0-4.8); Lymphocytes % (A) 21 %; MCHC 34.1 g/dL (31.0-37.0); MCV 90.7 fL (80.0-100.0); Mean Platelet Volume 9.2; Monocytes # (A) 0.4 k/uL (0-1.0); Monocytes % (A) 4 %; Neutrophils # (A) 8.1 k/uL (1.3-7.7); Neutrophils % (A) 74 %; Platelet Count 155 k/uL (150-450); RBC 3.42 m/uL (4.30-5.90); RDW 13.2 % (11.5-15.5)
[2018-12-07] MEDS: HYDROmorphone 1 MG/ML 1 ML SYRINGE IVP PRN (18:21)
[2018-12-07] MEDS: TAMSULOSIN 0.4 MG CAP.ER.24H PO SCH (21:00)
[2018-12-07] MEDS ORDERED: HYDROmorphone 1 MG/ML 1 ML SYRINGE ONE (23:50)
[2018-12-08] MEDS ORDERED: HYDROmorphone 1 MG/ML 1 ML SYRINGE ONE (03:00)
[2018-12-08] MEDS ORDERED: HYDROcodone/APAP 5-325MG 1 EACH TAB ONE (03:00)
[2018-12-08] MEDS: HYDROcodone/APAP 5-325MG 1 EACH TAB PO PRN ×5 (04:59→21:28)
[2018-12-08] MEDS: metroNIDAZOLE-NS PMX 500 MG in SALINE 1 100ML.BAG IVPB SCH ×5 (05:58→23:40)
[2018-12-08] MEDS: HYDROmorphone 1 MG/ML 1 ML SYRINGE IVP PRN (05:59)
[2018-12-08] MEDS: ceFAZolin IN SWFI 2 GM/20 ML SYRINGE IVP SCH ×2 (06:33→11:07)
[2018-12-08 07:56] LABS: Basophils % (A) 0 %; Eosinophils # (A) 0.1 k/uL (0-0.7); Eosinophils % (A) 1 %; HGB 11.1 gm/dL (13.0-17.5); Lymphocytes # (A) 1.8 k/uL (1.0-4.8); Lymphocytes % (A) 14 %; MCHC 33.5 g/dL (31.0-37.0); MCV 92.4 fL (80.0-100.0); Mean Platelet Volume 7.7; Monocytes # (A) 0.4 k/uL (0-1.0); Monocytes % (A) 4 %; Neutrophils # (A) 9.8 k/uL (1.3-7.7); Neutrophils % (A) 80 %; Platelet Count 236 k/uL (150-450); RBC 3.57 m/uL (4.30-5.90); RDW 13.3 % (11.5-15.5); WBC 12.2 k/uL (3.8-10.6)
[2018-12-08 08:12] LABS: Anion Gap 7 mmol/L; Blood Urea Nitrogen 8 mg/dL (9-20); Calcium 8.6 mg/dL (8.4-10.2); Carbon Dioxide 25 mmol/L (22-30); Chloride 105 mmol/L (98-107); Glucose 122 mg/dL (74-99); Potassium 3.7 mmol/L (3.5-5.1); Sodium 137 mmol/L (137-145)
[2018-12-08] MEDS: ALVIMOPAN 12 MG CAPSULE PO SCH ×2 (08:45→20:31)
[2018-12-08] MEDS: PANTOPRAZOLE 40 MG/10 ML VIAL IVP SCH ×2 (08:45→20:31)
[2018-12-08] MEDS: D5-0.45% NACL WITH KCL 20MEQ/L 1,000 ML IV SCH (11:02)
--- NOTE | 2018-12-08 12:52 | P.PN ---
Subjective This is a pleasant 68-year-old male past medical history significant for CVA 5 years ago, BPH, dyslipidemia and aortic stenosis. The patient's is at the bedside who is his caregiver she states he has never had a history of coronary artery disease or hypertension. He underwent right colectomy for removal of a cecal mass. Pathology is pending. Laboratory data reviewed, WBC 12.2, hemoglobin 11.1, platelets 236, sodium 137, potassium 3.7, creatinine 0.82. Blood pressure 115/60 heart rate 86 afebrile maintaining oxygen saturation on room air. HEENT denies symptoms of chest pain, shortness of breath, dizziness or palpitations. He seems to be in significant amount of abdominal discomfort. He states he ate a clear liquid breakfast this morning but has not yet started passing gas or having bowel movements. Bowel sounds are positive. GENERAL: This is a 68-year-old male in no apparent distress at the time of my examination. HEENT: Head is atraumatic, normocephalic. Pupils are equal, round. Sclerae anicteric. Conjunctivae are clear. Mucous membranes of the mouth are moist. Neck is supple. There is no jugular venous distention. No carotid bruit is heard. LUNGS: Clear to auscultation no wheezes, rales or rhonchi. No chest wall tenderness is noted on palpation or with deep breathing. HEART: Regular rate and rhythm with systolic ejection murmur at the base, no rubs or gallops. S1 and S2 heard. EXTREMITIES: No evidence of peripheral edema and no calf tenderness noted. ASSESSMENT Cecal mass Aortic stenosis History of occipital lobe CVA PLAN Stable from a cardiac perspective. Follow up with Dr. Greene upon discharge. We will continue to follow as needed, please feel free to call with further questions or concerns. Nurse Practitioner note has been reviewed, I agree with a documented findings and plan of care. Patient was seen and examined. Objective - Vital Signs Vital signs: Vital Signs Temp 97.0 F L 12/08/18 05:00 Pulse 86 12/08/18 05:00 Resp 16 12/08/18 05:00 BP 115/60 12/08/18 05:00 Pulse Ox 93 L 12/08/18 05:00 Intake & Output 12/07/18 12/08/18 12/08/18 18:59 06:59 18:59 Intake Total 1420 2120 Output Total 1540 30 Balance -120 2090 Weight 74.389 kg 74.389 kg Intake: Intake, IV Titration 700 1400 Amount D5-0.45% NaCl with KCl 600 1200 20Meq/l 1,000 ml @ 75 mls /hr IV .[id number] [facility] Rx#: [id number] metroNIDAZOLE-NS PMX 500 100 200 mg In Saline 1 100ml.bag @ 100 mls/hr IVPB Q6HR [facility] Rx#:[id number] Oral 720 720 Output: Drainage 90 30 Abdomen 90 30 Urine 1450 Uretheral (Holden) 750 Other: Voiding Method Indwelling Catheter Indwelling Catheter # Voids 1 1 - Labs CBC & Chem 7: 12/08/18 07:16 12/08/18 07:16 Labs: Abnormal Lab Results - Last 24 Hours (Table) 12/07/18 12/07/18 12/08/18 Range/Units 09:05 09:05 07:16 WBC 11.0 H 12.2 H (3.8-10.6) k/uL RBC 3.42 L 3.57 L (4.30-5.90) m/uL Hgb 10.6 L 11.1 L (13.0-17.5) gm/dL Hct 31.0 L 33.0 L (39.0-53.0) % Neutrophils # 8.1 H 9.8 H (1.3-7.7) k/uL Potassium 3.3 L (3.5-5.1) mmol/L BUN 8 L (9-20) mg/dL Glucose (74-99) mg/dL 12/08/18 Range/Units 07:16 WBC (3.8-10.6) k/uL RBC (4.30-5.90) m/uL Hgb (13.0-17.5) gm/dL Hct (39.0-53.0) % Neutrophils # (1.3-7.7) k/uL Potassium (3.5-5.1) mmol/L BUN 8 L (9-20) mg/dL Glucose 122 H (74-99) mg/dL
[2018-12-08] MEDS: PIPERACILLIN-TAZOBACTAM 3.375 GM in SODIUM CHLORIDE 0.9% 100 ML IVPB SCH ×2 (13:12→20:30)
--- NOTE | 2018-12-08 13:43 | P.PN ---
<Denise Rankin A - Last Filed: 12/08/18 13:34> Subjective Progress Note Date: 12/08/18 CHIEF COMPLAINT: cecal mass HISTORY OF PRESENT ILLNESS: 68-year-old male who underwent robotic right colectomy. POD #2. Epidural was discontinued yesterday. Pain is tolerable. Holden catheter discontinued. Patient voiding without difficulty. MICHAEL drain to right lower quadrant with minimal drainage. Patient denies passing gas. No BM. Tolerating clear liquid diet. PHYSICAL EXAM: VITAL SIGNS: Reviewed GENERAL: Well-developed pleasant male in no acute distress. HEENT: Patient is legally blind. No scleral icterus. Moist buccal mucosa. NECK: Supple without lymphadenopathy. CHEST: Equal expansion. CARDIOVASCULAR: Regular rate regular rhythm. Distal 2+ pulses. ABDOMEN: Abdominal dressing clean dry intact. MICHAEL drain with minimal output. MUSCULOSKELETAL: No clubbing, cyanosis, or edema. NEURO : Difficult to thoroughly assess due to history of CVA. No seizure activity noted. No tremors. PSYCH: Awake and alert. SKIN: Well perfused. Good skin turgor. No cyanosis. No jaundice. ASSESSMENT: 1. Cecal mass, s/p robotic right colectomy, POD #2 2. Acute blood loss anemia 3. Diverticulosis 4. Internal hemorrhoids 5. History of CVA with residual cognitive impairment 6. Legally blind 7. Hyperlipidemia 8. History of UTI and sepsis, February 2018 9. Diabetes type 2, [id number] 10. Ischemic cardiomyopathy with congestive heart failure 11. Iron deficiency anemia 12. Personal history of kidney stones 13. Personal history of skin cancer 14. Generalized debility PLAN: 1. May advance diet to full liquid with protein supplements 2. Continue optifoam dressing 3. Obtain smaller optifoam dressing to place over MICHAEL drain site 4. Incentive spirometry 5. Patient encouraged to cough and deep breathe. Patient needs pulmonary toileting. Nurse practitioner note has been reviewed by physician. Signing provider agrees with the documented findings, assessment, and plan of care. Objective - Vital Signs Vital signs: Vital Signs Temp 97.4 F L 12/08/18 13:19 Pulse 77 12/08/18 13:19 Resp 18 12/08/18 13:19 BP 113/65 12/08/18 13:19 Pulse Ox 96 12/08/18 13:19 Intake & Output 12/07/18 12/08/18 12/08/18 18:59 06:59 18:59 Intake Total 1420 2120 Output Total 1540 30 Balance -120 2090 Weight 74.389 kg 74.389 kg 74.389 kg Intake: Intake, IV Titration 700 1400 Amount D5-0.45% NaCl with KCl 600 1200 20Meq/l 1,000 ml @ 75 mls /hr IV .[id number] [facility] Rx#: [id number] metroNIDAZOLE-NS PMX 500 100 200 mg In Saline 1 100ml.bag @ 100 mls/hr IVPB Q6HR [facility] Rx#:[id number] Oral 720 720 Output: Drainage 90 30 Abdomen 90 30 Urine 1450 Uretheral (Holden) 750 Other: Voiding Method Indwelling Catheter Indwelling Catheter # Voids 1 1 - Labs CBC & Chem 7: 12/08/18 07:16 12/08/18 07:16 Labs: Abnormal Lab Results - Last 24 Hours (Table) 12/08/18 12/08/18 Range/Units 07:16 07:16 WBC 12.2 H (3.8-10.6) k/uL RBC 3.57 L (4.30-5.90) m/uL Hgb 11.1 L (13.0-17.5) gm/dL Hct 33.0 L (39.0-53.0) % Neutrophils # 9.8 H (1.3-7.7) k/uL BUN 8 L (9-20) mg/dL Glucose 122 H (74-99) mg/dL Assessment and Plan (1) Acute blood loss anemia Current Visit: Yes Status: Acute Code(s): D62 - ACUTE POSTHEMORRHAGIC ANEMIA SNOMED Code(s): 992627467 (2) Cecum mass Current Visit: Yes Status: Acute Code(s): K63.9 - DISEASE OF INTESTINE, UNSPECIFIED SNOMED Code(s): 482414735 (3) Diverticulosis of colon Current Visit: Yes Status: Acute Code(s): K57.30 - DVRTCLOS OF LG INT W/O PERFORATION OR ABSCESS W/O BLEEDING SNOMED Code(s): 404262457 (4) Internal hemorrhoid Current Visit: Yes Status: Acute Code(s): K64.8 - OTHER HEMORRHOIDS SNOMED Code(s): 96335170 (5) CVA (cerebral vascular accident) Current Visit: Yes Status: Acute Code(s): I63.9 - CEREBRAL INFARCTION, UNSPECIFIED SNOMED Code(s): 758471738 (6) GIB (gastrointestinal bleeding) Current Visit: Yes Status: Acute Code(s): K92.2 - GASTROINTESTINAL HEMORRHAGE, UNSPECIFIED SNOMED Code(s): 68815559 <Dodie Lan N - Last Filed: 12/09/18 04:21> Objective - Vital Signs Vital signs: Vital Signs Temp 98.1 F 12/08/18 19:59 Pulse 72 12/08/18 20:45 Resp 15 12/08/18 20:45 BP 106/60 12/08/18 19:59 Pulse Ox 98 12/08/18 19:59 Intake & Output 12/08/18 12/08/18 12/09/18 06:59 18:59 06:59 Intake Total 2120 3660 Output Total 30 600 30 Balance 2090 3060 -30 Weight 74.389 kg 74.389 kg 74.389 kg Intake: Intake, IV Titration 1400 900 Amount D5-0.45% NaCl with KCl 1200 600 20Meq/l 1,000 ml @ 75 mls /hr IV .[id number] [facility] Rx#: [id number] Piperacillin-Tazobactam 3 100 .375 gm In Sodium Chloride 0.9% 100 ml @ 25 mls/hr IVPB Q8H [facility] Rx#: [id number] metroNIDAZOLE-NS PMX 500 200 200 mg In Saline 1 100ml.bag @ 100 mls/hr IVPB Q6HR [facility] Rx#:[id number] Oral 720 2760 Output: Drainage 30 250 30 Abdomen 30 250 30 Urine 350 Other: Voiding Method Indwelling Catheter Toilet Toilet # Voids 1 4 2 # Bowel Movements 1 - Labs CBC & Chem 7: 12/08/18 07:16 12/08/18 07:16 Labs: Abnormal Lab Results - Last 24 Hours (Table) 12/08/18 12/08/18 Range/Units 07:16 07:16 WBC 12.2 H (3.8-10.6) k/uL RBC 3.57 L (4.30-5.90) m/uL Hgb 11.1 L (13.0-17.5) gm/dL Hct 33.0 L (39.0-53.0) % Neutrophils # 9.8 H (1.3-7.7) k/uL BUN 8 L (9-20) mg/dL Glucose 122 H (74-99) mg/dL Assessment and Plan Plan: Patient re-evaluated this evening due to discordant outputs documented from MICHAEL. I personally spoke to his nurse who also contacted Nurse of [facility] where outputs are inaccurately recorded. Only 50 mL serosanguinous in a 24 hr period. My re-evaluation in the evening showed scant output also serosanguinous from this mornings assessment. Patient denied any right lower quadrant or moderate incisional pain. Abdomen remained soft and non-distended without cellulitis. updated and also confirms good clinical status of her and overall pleased with surgical care. Will re-evaluate with discharge pending flatus and or bowel movement. Ambulation is encouraged.
[2018-12-08] MEDS: TAMSULOSIN 0.4 MG CAP.ER.24H PO SCH (20:31)
[2018-12-09] MEDS: HYDROcodone/APAP 5-325MG 1 EACH TAB PO PRN ×3 (00:24→09:48)
[2018-12-09] MEDS: HYDROmorphone 1 MG/ML 1 ML SYRINGE IVP PRN ×3 (03:17→17:43)
[2018-12-09] MEDS: PIPERACILLIN-TAZOBACTAM 3.375 GM in SODIUM CHLORIDE 0.9% 100 ML IVPB SCH ×3 (04:38→20:06)
[2018-12-09] MEDS: metroNIDAZOLE-NS PMX 500 MG in SALINE 1 100ML.BAG IVPB SCH ×3 (05:07→17:44)
[2018-12-09] MEDS: D5-0.45% NACL WITH KCL 20MEQ/L 1,000 ML IV SCH ×2 (06:12→07:42)
[2018-12-09] MEDS: PANTOPRAZOLE 40 MG/10 ML VIAL IVP SCH ×2 (07:42→23:11)
[2018-12-09] MEDS: ALVIMOPAN 12 MG CAPSULE PO SCH ×2 (07:42→23:11)
[2018-12-09 09:19] LABS: Basophils % (A) 0 %; Eosinophils # (A) 0.2 k/uL (0-0.7); Eosinophils % (A) 1 %; HCT 36.1 % (39.0-53.0); HGB 11.5 gm/dL (13.0-17.5); Lymphocytes # (A) 1.4 k/uL (1.0-4.8); Lymphocytes % (A) 10 %; MCH 29.9 pg (25.0-35.0); MCHC 31.8 g/dL (31.0-37.0); MCV 93.9 fL (80.0-100.0); Mean Platelet Volume 6.9; Monocytes # (A) 0.4 k/uL (0-1.0); Monocytes % (A) 3 %; Neutrophils # (A) 11.3 k/uL (1.3-7.7); Neutrophils % (A) 84 %; Platelet Count 287 k/uL (150-450); RBC 3.84 m/uL (4.30-5.90); RDW 12.9 % (11.5-15.5); WBC 13.4 k/uL (3.8-10.6)
[2018-12-09 09:45] LABS: Anion Gap 6 mmol/L; Blood Urea Nitrogen 6 mg/dL (9-20); Calcium 9.2 mg/dL (8.4-10.2); Carbon Dioxide 30 mmol/L (22-30); Chloride 103 mmol/L (98-107); Glucose 170 mg/dL (74-99); Potassium 3.7 mmol/L (3.5-5.1); Sodium 139 mmol/L (137-145)
--- NOTE | 2018-12-09 14:08 | P.PN ---
Subjective Progress Note Date: 12/07/18 Principal diagnosis: Acute lower GI bleed Cecal mass status post surgery Patient is a 68-year-old male was admitted to the hospital due to lower GI bleed and was found have cecal mass. Patient underwent robotic right colectomy by Dr. Lan. 12/07/2018 Patient denied any complaints of chest pain or shortness of breath. Abdominal pain is better. No flatness or bowel movement. Epidural has been discontinued. No fever no chills. No nausea vomiting. Discussed with family at bedside in detail. Current medications reviewed Objective - Vital Signs Vital signs: Vital Signs Temp 97.6 F 12/07/18 13:39 Pulse 78 12/07/18 13:39 Resp 16 12/07/18 13:39 BP 91/51 12/07/18 13:39 Pulse Ox 98 12/07/18 13:39 Intake & Output 12/06/18 12/07/18 12/07/18 18:59 06:59 18:59 Intake Total 1600 1528.100 Output Total 530 645 780 Balance 1070 883.100 -780 Weight 74.389 kg Intake: IV 1600 Intake, IV Titration 1528.100 Amount D5-0.45% NaCl with KCl 1200 20Meq/l 1,000 ml @ 75 mls /hr IV .[id number] [facility] Rx#: [id number] Ropivacaine 250 mg 28.100 fentaNYL (PF) 1,250 mcg In Sodium Chloride 0.9% 175 ml @ Per Protocol EPIDURAL .Q0M PRN Rx#: [id number] metroNIDAZOLE-NS PMX 500 300 mg In Saline 1 100ml.bag @ 100 mls/hr IVPB Q6HR [facility] Rx#:[id number] Output: Drainage 20 30 Abdomen 20 30 Urine 120 625 750 Uretheral (Holden) 750 Estimated Blood Loss 410 Other: Voiding Method Indwelling Catheter Indwelling Catheter - Exam GENERAL: Well-developed pleasant male in no acute distress. HEENT: Patient is legally blind. No scleral icterus. Moist buccal mucosa. NECK: Supple without lymphadenopathy. CHEST: Equal expansion. Bibasilar diminished air entry. No wheezing no crackles. CARDIOVASCULAR: Regular rate regular rhythm. Distal 2+ pulses. S1-S2 heard. Systolic murmur positive. ABDOMEN: Abdominal dressing clean dry intact. MICHAEL drain with minimal output. Bowel sounds diminished. MUSCULOSKELETAL: No clubbing, cyanosis, or edema. NEURO : Difficult to thoroughly assess due to history of CVA. No seizure activity noted. No tremors. PSYCH: Awake and alert. SKIN: Well perfused. Good skin turgor. No cyanosis. No jaundice. - Labs CBC & Chem 7: 12/09/18 09:04 12/09/18 09:04 Labs: Abnormal Lab Results - Last 24 Hours (Table) 12/07/18 12/07/18 Range/Units 09:05 09:05 WBC 11.0 H (3.8-10.6) k/uL RBC 3.42 L (4.30-5.90) m/uL Hgb 10.6 L (13.0-17.5) gm/dL Hct 31.0 L (39.0-53.0) % Neutrophils # 8.1 H (1.3-7.7) k/uL Potassium 3.3 L (3.5-5.1) mmol/L BUN 8 L (9-20) mg/dL Assessment and Plan Assessment: Acute lower GI bleed secondary to sigmoid mass. Status post robotic right colectomy Acute blood loss anemia History of CVA/TIA occipital stroke and blindness dementia hyperlipidemia History of December Legal blindness History of aortic stenosis. Outpatient follow-up per cardiology Plan: Patient will be continued on IV hydration pain management. Continue the supportive care. General surgery is on board. Replace electrolyte is continue to monitor closely. Continued on antibiotics in the form of Flagyl. Further recommendations based on the clinical course. Time with Patient: Greater than 30
--- NOTE | 2018-12-09 14:10 | P.PN ---
Subjective Progress Note Date: 12/08/18 Principal diagnosis: Acute lower GI bleed Cecal mass status post surgery Patient is a 68-year-old male was admitted to the hospital due to lower GI bleed and was found have cecal mass. Patient underwent robotic right colectomy by Dr. Lan. 12/07/2018 Patient denied any complaints of chest pain or shortness of breath. Abdominal pain is better. No flatness or bowel movement. Epidural has been discontinued. No fever no chills. No nausea vomiting. Discussed with family at bedside in detail. 12/08/2018 No complaints of chest pain or shortness breath. Holden catheter has been discontinued and voiding spontaneously. Patient is tolerating clear liquid diet. No bowel movement or flatus. Bowel sounds are heard today. No fever no chills. Patient remains on antibiotics in the form of Flagyl and Zosyn. General surgery is following. No other acute overnight issues. Plan discussed with the family at bedside in detail. Current medications reviewed Objective - Vital Signs Vital signs: Vital Signs Temp 98.1 F 12/08/18 19:59 Pulse 72 12/08/18 20:45 Resp 15 12/08/18 20:45 BP 106/60 12/08/18 19:59 Pulse Ox 98 12/08/18 19:59 Intake & Output 12/08/18 12/08/18 12/09/18 06:59 18:59 06:59 Intake Total 2120 3660 Output Total 30 600 Balance 2090 3060 Weight 74.389 kg 74.389 kg Intake: Intake, IV Titration 1400 900 Amount D5-0.45% NaCl with KCl 1200 600 20Meq/l 1,000 ml @ 75 mls /hr IV .[id number] [facility] Rx#: [id number] Piperacillin-Tazobactam 3 100 .375 gm In Sodium Chloride 0.9% 100 ml @ 25 mls/hr IVPB Q8H [facility] Rx#: [id number] metroNIDAZOLE-NS PMX 500 200 200 mg In Saline 1 100ml.bag @ 100 mls/hr IVPB Q6HR [facility] Rx#:[id number] Oral 720 2760 Output: Drainage 30 250 Abdomen 30 250 Urine 350 Other: Voiding Method Indwelling Catheter Toilet Toilet # Voids 1 4 - Exam GENERAL: Well-developed pleasant male in no acute distress. HEENT: Patient is legally blind. No scleral icterus. Moist buccal mucosa. NECK: Supple without lymphadenopathy. CHEST: Equal expansion. Bibasilar diminished air entry. No wheezing no crackles. CARDIOVASCULAR: Regular rate regular rhythm. Distal 2+ pulses. S1-S2 heard. Systolic murmur positive. ABDOMEN: Abdominal dressing clean dry intact. MICHAEL drain with minimal output. Bowel sounds diminished. MUSCULOSKELETAL: No clubbing, cyanosis, or edema. NEURO : Difficult to thoroughly assess due to history of CVA. No seizure activity noted. No tremors. PSYCH: Awake and alert. SKIN: Well perfused. Good skin turgor. No cyanosis. No jaundice. - Labs CBC & Chem 7: 12/09/18 09:04 12/09/18 09:04 Labs: Abnormal Lab Results - Last 24 Hours (Table) 12/08/18 12/08/18 Range/Units 07:16 07:16 WBC 12.2 H (3.8-10.6) k/uL RBC 3.57 L (4.30-5.90) m/uL Hgb 11.1 L (13.0-17.5) gm/dL Hct 33.0 L (39.0-53.0) % Neutrophils # 9.8 H (1.3-7.7) k/uL BUN 8 L (9-20) mg/dL Glucose 122 H (74-99) mg/dL Assessment and Plan Assessment: Acute lower GI bleed secondary to sigmoid mass. Status post robotic right colectomy Acute blood loss anemia History of CVA/TIA occipital stroke and blindness dementia hyperlipidemia History of December Legal blindness History of aortic stenosis. Outpatient follow-up per cardiology Plan: Patient will be continued on IV hydration pain management. Continue the supportive care. General surgery is on board. Replace electrolyte is continue to monitor closely. Continued on antibiotics in the form of Flagyl. Further recommendations based on the clinical course.
[2018-12-09] MEDS ORDERED: SODIUM CHLORIDE 0.9% 1,000 ML IV ONE (14:59)
[2018-12-09] MEDS ORDERED: fentaNYL (PF) 50 MCG/ML 2 ML AMP IV PRN (15:43)
[2018-12-09] MEDS ORDERED: MIDAZOLAM (PF) 2 MG/2 ML VIAL IV PRN (15:43)
--- NOTE | 2018-12-09 19:30 | P.PN ---
Progress Note - Text Progress Note Date: 12/09/18 Patient now has stool coming out of drain with new abdominal pain. Family and at bedside. Clinical leak confirmed. Exploratory laparotomy with ostomy described. Path is negative for cancer and information dispensed to family. All questions thoroughly addressed to and family.
[2018-12-09] MEDS: LACTATED RINGERS 1,000 ML IV SCH (19:35)
[2018-12-09] MEDS ORDERED: PROPOFOL 10 MG/ML 20 ML VIAL IV ONE (19:54)
[2018-12-09] MEDS ORDERED: PHENYLEPHRINE-0.9% NACL SYG 1 MG/10 ML SYRINGE ONE (19:54)
[2018-12-09] MEDS ORDERED: GLYCOPYRROLATE 0.2 MG/ML 2 ML VIAL ONE (19:54)
[2018-12-09] MEDS ORDERED: LIDOCAINE 1% INJ 10MG/ML (20 ML MDV) ONE (19:54)
[2018-12-09] MEDS ORDERED: ceFAZolin 1,000 MG VIAL ONE (19:54)
[2018-12-09] MEDS ORDERED: NEOSTIGMINE 1 MG/ML 10 ML VIAL ONE (19:54)
[2018-12-09] MEDS ORDERED: SUCCINYLCHOLINE CHLORIDE 100 MG/5 ML SYR IV ONE (19:54)
[2018-12-09] MEDS ORDERED: ROCURONIUM BROMIDE 10 MG/ML 10 ML VIAL IV ONE (19:54)
[2018-12-09] MEDS ORDERED: fentaNYL (PF) 50 MCG/ML 2 ML AMP ONE (19:54)
[2018-12-09] MEDS ORDERED: LACTATED RINGERS 1,000 ML IV ONE ×2 (19:57→22:33)
[2018-12-09] MEDS: TAMSULOSIN 0.4 MG CAP.ER.24H PO SCH (20:06)
[2018-12-09] MEDS: HYDROmorphone 1 MG/ML 1 ML SYRINGE IVP ONE ×2 (22:57→23:04)
[2018-12-09] MEDS: ONDANSETRON 4 MG/2 ML VIAL IVP PRN (23:04)
--- NOTE | 2018-12-09 23:04 | P.OP ---
Date of Procedure: 12/09/18 Description of Procedure: SURGEON: SHIRIN HOLLAND MD FIRER ELECTRIC LOCOMOTIVE: NONE. Preoperative Diagnosis: 1. Colon anastomotic leak 2. Peritonitis 3. History of gastrointestinal bleed 4. History acute blood loss anemia 5. Cecal mass with high-grade dysplasia 6. Chronic iron deficiency anemia due to blood loss 7. History of cerebrovascular accident with sequelae of occipital stroke 8. Blindness due to occipital stroke 9. Dementia 10. History of urosepsis 11. Hyperlipidemia 12. Prostate disorder Postoperative Diagnosis: 1. Colon anastomotic leak 2. Peritonitis 3. History of gastrointestinal bleed 4. History acute blood loss anemia 5. Cecal mass with high-grade dysplasia 6. Chronic iron deficiency anemia due to blood loss 7. History of cerebrovascular accident with sequelae of occipital stroke 8. Blindness due to occipital stroke 9. Dementia 10. History of urosepsis 11. Hyperlipidemia 12. Prostate disorder 13. Peritoneal adhesions from diverticulitis OPERATION: 1. Exploratory laparotomy with takedown of ileocolic anastomosis and extended right hemicolectomy 2. Peritoneal lavage 6 L normal saline 3. Placement of Johnnie-De Leon drain at left lower quadrant 4. Removal of previous right lower quadrant drain 5. Application of PREVENA wound VAC extended length Anesthesia: GETA Estimated Blood Loss (ml): 50 Pathology: Extended right hemicolectomy Condition: stable Disposition: floor Operative Findings: 1. Blowout of initial ileocolic anastomosis 2. Intra-abdominal adhesions from diverticulitis with internal hernias 4 released from left lower quadrant 3. MICHAEL drain along right lower quadrant discontinued as previous source of stool through drain 4. Extended right hemicolectomy performed with viable tissue INDICATIONS: The patient is a 68-year-old male who is postop day 3 from index operation of robotic right hemicolectomy for gastrointestinal bleed secondary to large cecal neoplasm. He was doing well until today when his MICHAEL had ada stool consistent with breakdown of ileocolic anastomosis. Surgical intervention was advised with exploratory laparotomy possible bowel resection and ostomy creation. Benefits and risks of the procedures were discussed. Informed consent was obtained. The patient's and daughter were at bedside. DESCRIPTION: The patient was brought to the operating room. After general induction, a Holden catheter was placed. The abdomen was prepped and draped in standard sterile fashion. Ioban draping was also placed. Prior to incision, a timeout protocol was confirmed with surgical team regarding patient's name including procedures to be performed. Preoperative medications were confirmed. A #10 blade was used to enter along the epigastrium and extended down to the pubis. Carefully the abdomen was entered using electro- Bovie cautery. No gross stool spillage was identified upon initial entry. Next, attention was brought to the right lower quadrant where the Johnnie-De Leon drain was initially placed and was removed. Careful inspection of the ileocolic anastomosis revealed a small pinhole leak. An extended right hemicolectomy was proposed to the mid transverse colon. Proximally, the ileum was resected using Covidien TriStapler ornelas load 60 mm. The omentum and mesentery were mobilized towards the mid transverse colon using LigaSure. The distal resection is along proximal to the mid transverse colon. The colon resection was performed using a 60 mm purple load. The proposed anastomosis was without tension and brougt up in an isoperistaltic fashion. An enterotomy and colotomy was performed along the proposed anastomosis where the abril-lumen was created using 60 mm purple load. Anti-tension sutures using 3-0 silk was placed along the seat of the anastomosis. The abril-lumen was closed using 60 mm purple load. The mesenteric defect was oversewn using 2-0 V LOC. The rest of the abdomen was explored where peritoneal adhesions were identified along the left lower pelvis of the sigmoid colon and omentum to the anterior abdominal wall. Upon closer inspection, intra-abdominal adhesions from previous diverticulitis was confirmed with internal hernias 4 released using Ligasure from left lower quadrant. The nasogastric tube was palpated and adjusted along the stomach. The small bowel was inspected from the ligament of Treitz distally. A peritoneal lavage of 6 L normal saline was performed. The irrigant was completely clear. A new Johnnie-De Leon #19 round drain was placed along the left lower quadrant and secured using 2-0 nylon. Hemostasis was excellent throughout the out the entire case. All instruments and gowns including gloves were changed after copiously irrigating the abdomen. The abdomen was dried using towels. All sponge count was verified as correct. The abdomen was closed using double stranded 0 PDS. The subcutaneous tissue was irrigated in a similar fashion. The skin incision was reapproximated using interrupted 3-0 Vicryl for the dermis at the umbilicus and rest of the incision was closed using stainless steel angelika. A PREVENA extended length was placed over the incision after prepping the skin with tegarderm and wipes. Optifoam dressings were placed along the MICHAEL sites. A bulb suction was placed to the MICHAEL drain. At the end of the procedure, needle, sponge, and instrument count had been verified correct by the surgical manager. The patient was sent to the postanesthesia care unit in stable condition. Intraoperative findings were described to the patient's family. Postoperative recovery was described in detail.
[2018-12-09] MEDS: KETOROLAC 30 MG/ML 1 ML VIAL IVP SCH (23:19)
--- NOTE | 2018-12-09 23:26 | P.PN ---
Subjective Progress Note Date: 12/09/18 Principal diagnosis: Acute lower GI bleed Cecal mass status post surgery Patient is a 68-year-old male was admitted to the hospital due to lower GI bleed and was found have cecal mass. Patient underwent robotic right colectomy by Dr. Lan. 12/07/2018 Patient denied any complaints of chest pain or shortness of breath. Abdominal pain is better. No flatness or bowel movement. Epidural has been discontinued. No fever no chills. No nausea vomiting. Discussed with family at bedside in detail. 12/08/2018 No complaints of chest pain or shortness breath. Holden catheter has been discontinued and voiding spontaneously. Patient is tolerating clear liquid diet. No bowel movement or flatus. Bowel sounds are heard today. No fever no chills. Patient remains on antibiotics in the form of Flagyl and Zosyn. General surgery is following. No other acute overnight issues. Plan discussed with the family at bedside in detail. 12/09/2018 Patient is more lethargic and confused today. As per family patient is getting abdominal distention. MICHAEL drain is draining greenish colored fluid. General surgery is planning for expiratory laparotomy due to leak. WBC count is slightly increased to 14. Continued antibiotics with Zosyn and Flagyl. No fever. Patient does not have any bowel movement or flatus. Surgical pathology is negative for any malignancy. Current medications reviewed Objective - Vital Signs Vital signs: Vital Signs Temp 98.1 F 12/09/18 04:58 Pulse 95 12/09/18 04:58 Resp 18 12/09/18 04:58 BP 124/62 12/09/18 04:58 Pulse Ox 97 12/09/18 04:58 Intake & Output 12/08/18 12/09/18 12/09/18 18:59 06:59 18:59 Intake Total 3660 Output Total 600 40 5 Balance 3060 -40 -5 Weight 74.389 kg 74.389 kg Intake: Intake, IV Titration 900 Amount D5-0.45% NaCl with KCl 600 20Meq/l 1,000 ml @ 75 mls /hr IV .[id number] [facility] Rx#: [id number] Piperacillin-Tazobactam 3 100 .375 gm In Sodium Chloride 0.9% 100 ml @ 25 mls/hr IVPB Q8H [facility] Rx#: [id number] metroNIDAZOLE-NS PMX 500 200 mg In Saline 1 100ml.bag @ 100 mls/hr IVPB Q6HR [facility] Rx#:[id number] Oral 2760 Output: Drainage 250 40 5 Abdomen 250 40 5 Urine 350 Other: Voiding Method Toilet Toilet Toilet # Voids 4 2 # Bowel Movements 1 - Exam GENERAL: Well-developed pleasant male in no acute distress. More lethargic. HEENT: Patient is legally blind. No scleral icterus. Moist buccal mucosa. NECK: Supple without lymphadenopathy. CHEST: Equal expansion. Bibasilar diminished air entry. No wheezing no crackles. CARDIOVASCULAR: Regular rate regular rhythm. Distal 2+ pulses. S1-S2 heard. Systolic murmur positive. ABDOMEN: Abdominal dressing clean dry intact. MICHAEL drain with greenish fluid output. Bowel sounds diminished. Slight abdominal distention. No guarding no rigidity. MUSCULOSKELETAL: No clubbing, cyanosis, or edema. NEURO : Difficult to thoroughly assess due to history of CVA. No seizure activity noted. No tremors. PSYCH: Awake and alert. SKIN: Well perfused. Good skin turgor. No cyanosis. No jaundice. - Labs CBC & Chem 7: 12/09/18 09:04 12/09/18 09:04 Labs: Abnormal Lab Results - Last 24 Hours (Table) 12/09/18 12/09/18 Range/Units 09:04 09:04 WBC 13.4 H (3.8-10.6) k/uL RBC 3.84 L (4.30-5.90) m/uL Hgb 11.5 L (13.0-17.5) gm/dL Hct 36.1 L (39.0-53.0) % Neutrophils # 11.3 H (1.3-7.7) k/uL BUN 6 L (9-20) mg/dL Glucose 170 H (74-99) mg/dL Assessment and Plan Assessment: Acute lower GI bleed secondary to sigmoid mass. Status post robotic right colectomy Possible bowel leak with likely stool in MICHAEL drain. General surgery is planning for excellent a laparotomy. Acute blood loss anemia History of CVA/TIA occipital stroke and blindness dementia hyperlipidemia History of December Legal blindness History of aortic stenosis. Outpatient follow-up per cardiology Plan: Patient will be continued on IV hydration pain management. Continue with IV antibiotics.. General surgery is following closely. Replace electrolyte is continue to monitor closely. Continued on antibiotics in the form of Zosyn and Flagyl. Further recommendations based on the clinical course. Prognosis is guarded. Time with Patient: Greater than 30
[2018-12-10] MEDS: metroNIDAZOLE-NS PMX 500 MG in SALINE 1 100ML.BAG IVPB SCH ×4 (00:38→17:00)
[2018-12-10] MEDS ORDERED: ACETAMINOPHEN IV (For NPO) 1,000 MG in EMPTY BAG 1 BAG IVPB PRN (02:00)
[2018-12-10] MEDS: D5-0.45% NACL WITH KCL 20MEQ/L 1,000 ML IV SCH ×3 (02:24→20:57)
[2018-12-10] MEDS: PIPERACILLIN-TAZOBACTAM 3.375 GM in SODIUM CHLORIDE 0.9% 100 ML IVPB SCH ×3 (04:38→20:57)
[2018-12-10] MEDS: KETOROLAC 30 MG/ML 1 ML VIAL IVP SCH ×4 (04:44→23:21)
[2018-12-10] MEDS: HYDROmorphone 1 MG/ML 1 ML SYRINGE IVP PRN ×5 (05:23→19:35)
[2018-12-10 08:29] LABS: Basophils % (A) 0 %; Eosinophils % (A) 0 %; HGB 10.4 gm/dL (13.0-17.5); Lymphocytes % (A) 9 %; MCH 30.5 pg (25.0-35.0); MCHC 32.4 g/dL (31.0-37.0); MCV 94.1 fL (80.0-100.0); Mean Platelet Volume 7.3; Monocytes # (A) 0.3 k/uL (0-1.0); Monocytes % (A) 3 %; Neutrophils # (A) 9.2 k/uL (1.3-7.7); Neutrophils % (A) 86 %; Platelet Count 275 k/uL (150-450); RBC 3.41 m/uL (4.30-5.90); WBC 10.6 k/uL (3.8-10.6)
[2018-12-10 08:31] LABS: ALT 21 U/L (21-72); AST 17 U/L (17-59); Albumin 2.4 g/dL (3.5-5.0); Alkaline Phosphatase 37 U/L (38-126); Anion Gap 5 mmol/L; Blood Urea Nitrogen 9 mg/dL (9-20); Calcium 8.1 mg/dL (8.4-10.2); Carbon Dioxide 27 mmol/L (22-30); Chloride 107 mmol/L (98-107); Glucose 121 mg/dL (74-99); Magnesium 1.6 mg/dL (1.6-2.3); Phosphorus 3.2 mg/dL (2.5-4.5); Potassium 4.1 mmol/L (3.5-5.1); Sodium 139 mmol/L (137-145); Total Protein 4.3 g/dL (6.3-8.2)
[2018-12-10] MEDS: ENOXAPARIN 30 MG/0.3 ML SYRINGE SQ SCH (08:55)
[2018-12-10] MEDS: PANTOPRAZOLE 40 MG/10 ML VIAL IVP SCH ×2 (08:55→20:57)
[2018-12-10] MEDS: ALVIMOPAN 12 MG CAPSULE PO SCH ×2 (09:03→20:57)
[2018-12-10] MEDS ORDERED: MVI, ADULT NO.4 WITH VIT K 10 ML, TRACE (CONC-1ML/DOSE) 1 ML in AMINO ACID 4.25%-D10W+L... IV ONE ×3 (13:00)
--- NOTE | 2018-12-10 13:21 | P.PN ---
Subjective Progress Note Date: 12/10/18 CHIEF COMPLAINT: cecal mass HISTORY OF PRESENT ILLNESS: 68-year-old male who underwent robotic right colectomy. Patient was taken back to OR yesterday secondary to brown drainage from MICHAEL drain. Patient was found to have blowout of initial ileocolic anastomosis and intra-abdominal adhesions from diverticulitis with internal hernia 4. He underwent exploratory laparotomy with extended right hemicolectomy. He is postop day 1. MICHAEL drain to left lower quadrant intact with serosanguineous drainage. His pain is tolerable at this time. Denies passing flatus. WBC 10.6 Hemoglobin 10.4. PHYSICAL EXAM: VITAL SIGNS: Reviewed GENERAL: Well-developed pleasant male in no acute distress. HEENT: Patient is legally blind. No scleral icterus. Moist buccal mucosa. NECK: Supple without lymphadenopathy. CHEST: Equal expansion. CARDIOVASCULAR: Regular rate regular rhythm. Distal 2+ pulses. ABDOMEN: Abdominal dressing clean dry intact. MICHAEL drain with minimal output. MUSCULOSKELETAL: No clubbing, cyanosis, or edema. NEURO : Difficult to thoroughly assess due to history of CVA. No seizure activity noted. No tremors. PSYCH: Oriented x 3. Resting comfortably. SKIN: Well perfused. Good skin turgor. No cyanosis. No jaundice. ASSESSMENT: 1. Cecal mass, s/p robotic right colectomy, POD #4 2. S/P exploratory laparotomy with takedown of ileocolic anastomosis and extended right hemicolectomy secondary to blowout of initial ileocolic anastomosis, POD#1 3. Peritonitis 4. Sepsis, secondary to above 5. Acute blood loss anemia 6. Diverticulosis 7. Internal hemorrhoids 8. History of CVA with residual cognitive impairment 9. Legally blind 10. Hyperlipidemia 11. History of UTI and sepsis, February 2018 12. Diabetes type 2, [id number] 13. Iron deficiency anemia 14. Personal history of kidney stones 15. Personal history of skin cancer 16. Generalized debility 17. Hypomagnesemia PLAN: 1. Continue clear liquid diet 2. Monitor output from MICHAEL 3. Pain control 4. Incentive spirometry 5. Continue antibiotics 6. Monitor WBC. Repeat in AM 7. Consult infectious disease for evaluation 8. Replace magnesium Nurse practitioner note has been reviewed by physician. Signing provider agrees with the documented findings, assessment, and plan of care. Objective - Vital Signs Vital signs: Vital Signs Temp 97.5 F L 01/11/19 11:32 Pulse 100 12/10/18 11:32 Resp 16 12/10/18 11:32 BP 129/70 12/10/18 11:32 Pulse Ox 99 12/10/18 11:32 Intake & Output 12/09/18 12/10/18 12/10/18 18:59 06:59 18:59 Intake Total 2300 480 Output Total 10 990 Balance -10 1310 480 Weight 74.389 kg Intake: IV 1400 Intake, IV Titration 900 Amount ACETAMINOPHEN IV (For NPO 100 ) 1,000 mg In Empty Bag 1 bag @ 400 mls/hr IVPB Q6H PRN Rx#:[id number] D5-0.45% NaCl with KCl 600 20Meq/l 1,000 ml @ 75 mls /hr IV .[id number] [facility] Rx#: [id number] Piperacillin-Tazobactam 3 100 .375 gm In Sodium Chloride 0.9% 100 ml @ 25 mls/hr IVPB Q8H [facility] Rx#: [id number] metroNIDAZOLE-NS PMX 500 100 mg In Saline 1 100ml.bag @ 100 mls/hr IVPB Q6HR [facility] Rx#:[id number] Oral 480 Output: Drainage 10 40 Left Lower Quadrant 10 Medial Abdomen 40 Urine 900 Estimated Blood Loss 50 Other: Voiding Method Toilet Indwelling Catheter # Voids 3 # Bowel Movements 1 - Labs CBC & Chem 7: 12/10/18 06:22 12/10/18 06:22 Labs: Abnormal Lab Results - Last 24 Hours (Table) 12/10/18 12/10/18 Range/Units 06:22 06:22 RBC 3.41 L (4.30-5.90) m/uL Hgb 10.4 L (13.0-17.5) gm/dL Hct 32.0 L (39.0-53.0) % Neutrophils # 9.2 H (1.3-7.7) k/uL Glucose 121 H (74-99) mg/dL Calcium 8.1 L (8.4-10.2) mg/dL Alkaline Phosphatase 37 L (38-126) U/L Total Protein 4.3 L (6.3-8.2) g/dL Albumin 2.4 L (3.5-5.0) g/dL Microbiology - Last 24 Hours (Table) 12/09/18 14:59 Gram Stain - Preliminary [facility] Body Fluid Culture - Preliminary Group D Enterococcus Gram Neg Bacilli Assessment and Plan (1) Acute blood loss anemia Current Visit: Yes Status: Acute Code(s): D62 - ACUTE POSTHEMORRHAGIC ANEMIA SNOMED Code(s): 317739825 (2) Cecum mass Current Visit: Yes Status: Acute Code(s): K63.9 - DISEASE OF INTESTINE, UNSPECIFIED SNOMED Code(s): 932982348 (3) Diverticulosis of colon Current Visit: Yes Status: Acute Code(s): K57.30 - DVRTCLOS OF LG INT W/O PERFORATION OR ABSCESS W/O BLEEDING SNOMED Code(s): 799999081 (4) Internal hemorrhoid Current Visit: Yes Status: Acute Code(s): K64.8 - OTHER HEMORRHOIDS SNOMED Code(s): 58462707 (5) CVA (cerebral vascular accident) Current Visit: Yes Status: Acute Code(s): I63.9 - CEREBRAL INFARCTION, UNSPECIFIED SNOMED Code(s): 306395581 (6) GIB (gastrointestinal bleeding) Current Visit: Yes Status: Acute Code(s): K92.2 - GASTROINTESTINAL HEMORRHAGE, UNSPECIFIED SNOMED Code(s): 27207733 (7) Peritonitis Current Visit: Yes Status: Acute Code(s): K65.9 - PERITONITIS, UNSPECIFIED SNOMED Code(s): 04727641
[2018-12-10] MEDS: MAGNESIUM SULFATE-D5W PMX 1 GM in DEXTROSE/WATER 1 100ML.BAG IVPB SCH ×2 (13:22→14:52)
[2018-12-10] MEDS: LACTATED RINGERS 1,000 ML IV SCH (14:58)
[2018-12-10] MEDS: FAT EMULSION 20% 250 ML in EMPTY BAG 1 BAG IV SCH (16:46)
[2018-12-10 17:14] LABS: Glucose,Whole Blood 129 mg/dL (75-99)
[2018-12-10] MEDS: INSULIN ASPART 100 UNIT/ML 1 ML 10 ML VIAL SQ SCH (17:49)
[2018-12-10] MEDS: TAMSULOSIN 0.4 MG CAP.ER.24H PO SCH (20:57)
[2018-12-10] MEDS: ACETAMINOPHEN TAB 500 MG TAB PO PRN (20:57)
--- NOTE | 2018-12-10 21:58 | P.PN ---
Subjective Progress Note Date: 12/10/18 Principal diagnosis: Acute lower GI bleed Cecal mass status post surgery Patient is a 68-year-old male was admitted to the hospital due to lower GI bleed and was found have cecal mass. Patient underwent robotic right colectomy by Dr. Lan. 12/07/2018 Patient denied any complaints of chest pain or shortness of breath. Abdominal pain is better. No flatness or bowel movement. Epidural has been discontinued. No fever no chills. No nausea vomiting. Discussed with family at bedside in detail. 12/08/2018 No complaints of chest pain or shortness breath. Holden catheter has been discontinued and voiding spontaneously. Patient is tolerating clear liquid diet. No bowel movement or flatus. Bowel sounds are heard today. No fever no chills. Patient remains on antibiotics in the form of Flagyl and Zosyn. General surgery is following. No other acute overnight issues. Plan discussed with the family at bedside in detail. 12/09/2018 Patient is more lethargic and confused today. As per family patient is getting abdominal distention. MICHAEL drain is draining greenish colored fluid. General surgery is planning for expiratory laparotomy due to leak. WBC count is slightly increased to 14. Continued antibiotics with Zosyn and Flagyl. No fever. Patient does not have any bowel movement or flatus. Surgical pathology is negative for any malignancy. 12/10/2018 Patient is more awake and oriented today. Patient was taken to OR on 2010 due to possible bowel leak with greenish fluid in the MICHAEL drain. Patient was found to have blowout of initial ileocolic anastomosis and intra-abdominal adhesions from diverticulitis with internal hernia 4. He underwent exploratory laparotomy with extended right hemicolectomy. Currently abdomen is soft. Bowel sounds are diminished. No flatus or bowel movement yet. Continued on IV hydration and antibiotics in the form of Flagyl and Zosyn. Hemoglobin is 10.6 and leukocytosis improved to 10.4 today. Discussed with his at bedside in detail. Current medications reviewed Objective - Vital Signs Vital signs: Vital Signs Temp 97.5 F L 12/10/18 11:32 Pulse 100 12/10/18 16:00 Resp 16 12/10/18 16:00 BP 129/70 12/10/18 11:32 Pulse Ox 99 12/10/18 11:32 Intake & Output 12/10/18 12/10/18 12/11/18 06:59 18:59 06:59 Intake Total 2300 3400 Output Total 990 1230 Balance 1310 2170 Weight 76.657 kg Intake: IV 1400 Intake, IV Titration 900 1000 Amount ACETAMINOPHEN IV (For NPO 100 ) 1,000 mg In Empty Bag 1 bag @ 400 mls/hr IVPB Q6H PRN Rx#:[id number] Amino Acid 4.25%-D10w+ 300 Lytes*E* 1,000 ml @ 100 mls/hr IV .BY DURATION [facility] Rx#:[id number] D5-0.45% NaCl with KCl 600 20Meq/l 1,000 ml @ 75 mls /hr IV .[id number] [facility] Rx#: [id number] Magnesium Sulfate-D5w Pmx 200 1 gm In Dextrose/Water 1 100ml.bag @ 100 mls/hr IVPB Q1H [facility] Rx#: [id number] Mvi, Adult No.4 with Vit 300 K 10 ml Trace (Conc-1Ml/ Dose) 1 ml In Amino Acid 4.25%-D10w+Lytes*E* 1,000 ml @ 100 mls/hr IV .BY DURATION [facility] Rx#: [id number] Piperacillin-Tazobactam 3 100 200 .375 gm In Sodium Chloride 0.9% 100 ml @ 25 mls/hr IVPB Q8H [facility] Rx#: [id number] metroNIDAZOLE-NS PMX 500 100 mg In Saline 1 100ml.bag @ 100 mls/hr IVPB Q6HR [facility] Rx#:[id number] Oral 2400 Output: Drainage 40 330 Medial Abdomen 40 330 Urine 900 900 Estimated Blood Loss 50 Other: Voiding Method Indwelling Catheter Indwelling Catheter - Exam GENERAL: Well-developed pleasant male in no acute distress. More lethargic. HEENT: Patient is legally blind. No scleral icterus. Moist buccal mucosa. NECK: Supple without lymphadenopathy. CHEST: Equal expansion. Bibasilar diminished air entry. No wheezing no crackles. CARDIOVASCULAR: Regular rate regular rhythm. Distal 2+ pulses. S1-S2 heard. Systolic murmur positive. ABDOMEN: Abdominal dressing clean dry intact. MICHAEL drain with serous fluid. Bowel sounds diminished. Abdomen is soft. No guarding no rigidity. MUSCULOSKELETAL: No clubbing, cyanosis, or edema. NEURO : Difficult to thoroughly assess due to history of CVA. No seizure activity noted. No tremors. PSYCH: Awake and alert. SKIN: Well perfused. Good skin turgor. No cyanosis. No jaundice. - Labs CBC & Chem 7: 12/10/18 06:22 12/10/18 06:22 Labs: Abnormal Lab Results - Last 24 Hours (Table) 12/10/18 12/10/18 12/10/18 Range/Units 06:22 06:22 17:13 RBC 3.41 L (4.30-5.90) m/uL Hgb 10.4 L (13.0-17.5) gm/dL Hct 32.0 L (39.0-53.0) % Neutrophils # 9.2 H (1.3-7.7) k/uL Glucose 121 H (74-99) mg/dL POC Glucose (mg/dL) 129 H (75-99) mg/dL Calcium 8.1 L (8.4-10.2) mg/dL Alkaline Phosphatase 37 L (38-126) U/L Total Protein 4.3 L (6.3-8.2) g/dL Albumin 2.4 L (3.5-5.0) g/dL Microbiology - Last 24 Hours (Table) 12/09/18 14:59 Gram Stain - Preliminary [facility] Body Fluid Culture - Preliminary Group D Enterococcus Gram Neg Bacilli Assessment and Plan Assessment: Acute lower GI bleed secondary to sigmoid mass. Status post robotic right colectomy Status post exploratory laparotomy on 12/09/2018. Patient was found to have blowout of initial ileocolic anastomosis and intra-abdominal adhesions from diverticulitis with internal hernia 4. He underwent exploratory laparotomy with extended right hemicolectomy. Acute blood loss anemia History of CVA/TIA occipital stroke and blindness dementia hyperlipidemia History of December Legal blindness History of aortic stenosis. Outpatient follow-up per cardiology Plan: Patient will be continued on IV hydration pain management. Continue with IV antibiotics.. General surgery is following closely. Replace electrolyte is continue to monitor closely. Continued on antibiotics in the form of Zosyn and Flagyl. Further recommendations based on the clinical course. Prognosis is guarded. Time with Patient: Greater than 30
[2018-12-10] MEDS ORDERED: ANIDULAFUNGIN 200 MG in SODIUM CHLORIDE 0.9% 200 ML IVPB ONE (22:30)
--- NOTE | 2018-12-10 23:03 | P.CONS ---
History of Present Illness - Reason for Consult Consult date: 12/10/18 - Chief Complaint Abdominal sepsis - History of Present Illness 68-year-old male who has a significant past medical history cardiovascular disease, stroke, being legally blind presents to hospital with several bowel movements. Because it did not improve and he continued to have bright red blood per rectum he presented to the emergency center. He underwent evaluations with gastroenterology as well as general surgery. 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 Due to the cecal mass in the high-grade nature he was taken to the operating room on 12/06/2018 in the colonic resection and anastomosis occurred. The patient continued to have some abdominal discomfort and distention and markedly worsened and by December 09 there was evidence of leakage of the anastomosis because was taken back to the operating room where the anastomotic below was seen and it was revised. Patient has been modified wound VAC in place and is modestly comfortable. He has noted he is still receiving a large amount of pain medications and is somewhat sedated but is comfortable. There allowing some clear liquids and is having no nausea. No bloody rectal discharge is noted. MICHAEL drainage is modestly clear. Review of Systems ROS unobtainable: due to mental status (Patient is received pain medications for his abdominal pain. He is arousable but is not highly conversational and does not consistently answer very many questions. Does appear to have some ongoing abdominal pain. As noted nursing has not seen any particular blood per rectum in the drainage from the wound VAC and MICHAEL drains are clear) Past Medical History Past Medical History: CVA/TIA, Dementia, Hyperlipidemia, Prostate Disorder Additional Past Medical History / Comment(s): kidney stones,uti/sepsis , per pt's pt legally blind "occiptal stroke" History of Any Multi-Drug Resistant Organisms: None Reported Past Surgical History: No Surgical Hx Reported Additional Past Surgical History / Comment(s): Two surgeries for kidney stones Past Anesthesia/Blood Transfusion Reactions: No Reported Reaction Additional Past Anesthesia/Blood Transfusion Reaction / Comm: Never had transfusion Additional Psychological History / Comment(s): Retired from the [employer]. No experience. Pet dog in parakeets in the home. Lives with the , no children in the home. No international travel. Lifelong nonsmoker Smoking Status: Never smoker - Past Family History Father History Unknown: Yes Additional Family Medical History / Comment(s): father in a mva Mother Family Medical History: Dementia Medications and Allergies Home Medications and Allergies Comment(s): Current Medications Acetaminophen (Tylenol Tab) 500 mg PO Q6HR PRN PRN Reason: Fever and/ or Pain Last Admin: 12/10/18 20:57 Dose: 500 mg Hydrocodone Bitart/Acetaminophen (Beatrice 7.5-325) 1 each PO Q4H PRN PRN Reason: Pain Alprazolam (Xanax) 0.25 mg PO TID PRN PRN Reason: Anxiety Alvimopan (Entereg) 12 mg PO BID [facility] Stop: 12/13/18 09:01 Last Admin: 12/10/18 20:57 Dose: 12 mg Benzocaine/Menthol (Cepacol Lozenge) 1 each MUCOUS MEM Q1HR PRN PRN Reason: Sore Throat Enoxaparin Sodium (Lovenox) 30 mg SQ DAILY [facility] Last Admin: 12/10/18 08:55 Dose: 30 mg Hydromorphone HCl (Dilaudid) 1 mg IVP Q3HR PRN PRN Reason: Severe Pain Last Admin: 12/10/18 19:35 Dose: 1 mg Potassium Chloride/Dextrose/Sod Cl (D5%-1/2ns-Kcl 20 Meq/L Iv Solution) 1,000 mls @ 75 mls/hr IV .[id number] [facility] Last Admin: 12/10/18 20:57 Dose: 75 mls/hr Metronidazole 500 mg/ IV (Solution) 100 mls @ 100 mls/hr IVPB Q6HR [facility] Last Admin: 12/10/18 17:00 Dose: 100 mls/hr Piperacillin Sod/Tazobactam (Sod 3.375 gm/ Sodium Chloride) 100 mls @ 25 mls/ hr IVPB Q8H [facility] Last Admin: 12/10/18 20:57 Dose: 25 mls/hr Lactated Ringer's (Lactated Ringers) 1,000 mls @ 20 mls/hr IV .Q24H [facility] Last Admin: 12/10/18 14:58 Dose: Not Given Acetaminophen 1,000 mg/ IV (Solution) 100 mls @ 400 mls/hr IVPB Q6H PRN PRN Reason: Fever Stop: 12/11/18 02:01 Last Admin: 12/10/18 02:18 Dose: 400 mls/hr Parenteral Vitamin Supplement 10 ml/ Chromium/Copper/Manganese/Seleni/Zn 1 ml/ Amino Ac/Electrol/Dextrose/Calcium 1,011 mls @ 50 mls/hr IV .[id number] ONE Stop: 12/11/18 09:13 Last Admin: 12/10/18 13:42 Dose: 50 mls/hr Parenteral Vitamin Supplement 10 ml/ Chromium/Copper/Manganese/Seleni/Zn 1 ml/ Amino Ac/Electrol/Dextrose/Calcium 1,011 mls @ 100 mls/hr IV .BY DURATION [facility] Amino Ac/Electrol/Dextrose/Calcium (Clinimix E 4.25%-D10% Solution) 1,000 mls @ 100 mls/hr IV .BY DURATION [facility] Fat Emulsion Intravenous 250 (ml/ IV Solution) 250 mls @ 21 mls/hr IV Q24H [facility] Last Admin: 12/10/18 16:46 Dose: 21 mls/hr Anidulafungin 200 mg/ Sodium (Chloride) 200 mls @ 84 mls/hr IVPB ONCE ONE Stop: 12/11/18 00:52 Anidulafungin 100 mg/ Sodium (Chloride) 100 mls @ 84 mls/hr IVPB DAILY [facility] Insulin Aspart (Novolog) 0 unit SQ Q6H [facility]; Protocol Last Admin: 12/10/18 17:49 Dose: Not Given Ketorolac Tromethamine (Toradol) 15 mg IVP Q6H [facility] Stop: 12/11/18 17:01 Last Admin: 12/10/18 16:56 Dose: 15 mg Lidocaine HCl (.Xylocaine 1% Inj (10mg/Ml) For Iv Start) 0.1 ml INTRADERMA PER PROTOCOL PRN PRN Reason: IV Start Naloxone HCl (Narcan) 0.2 mg IV Q2M PRN PRN Reason: Opioid Reversal Ondansetron HCl (Zofran) 4 mg IVP Q8HR PRN PRN Reason: Nausea And Vomiting Last Admin: 12/09/18 23:04 Dose: 4 mg Pantoprazole Sodium (Protonix) 40 mg IVP BID [facility] Last Admin: 12/10/18 20:57 Dose: 40 mg Tamsulosin HCl (Flomax) 0.4 mg PO DAILY@1999 [facility] Last Admin: 12/10/18 20:57 Dose: 0.4 mg Home Medications Medication Instructions Recorded Confirmed Type Aspirin EC [Ecotrin Low Dose] 81 mg PO BID 03/03/18 11/29/18 History Tamsulosin [Flomax] 0.4 mg PO DAILY@199911/29/18 11/29/18 History Allergies Allergy/AdvReac Type Severity Reaction Status Date / Time Latex, Natural Rubber AdvReac Rash/Hives Verified 12/06/18 09:57 Physical Exam Vitals: Vital Signs Temp Pulse Pulse Resp BP BP Pulse Ox 12/10/18 16:00 98 100 16 12/10/18 11:32 97.5 F L 100 16 129/70 99 12/10/18 08:00 98 16 12/10/18 06:15 98 F 113 H 18 117/60 98 12/10/18 03:35 98.1 F 98 15 117/60 98 12/10/18 02:35 98 F 98 17 132/66 98 12/10/18 02:18 98.5 F 12/10/18 01:35 98.6 F 104 H 17 127/66 98 12/10/18 01:05 98.3 F 99 16 118/64 99 12/10/18 00:52 98.5 F 12/10/18 00:35 99.0 F 104 H 16 129/68 98 12/10/18 00:20 99.1 F 106 H 131/70 98 12/10/18 00:05 100.3 F H 110 H 17 131/68 98 12/10/18 00:00 104 H 12/09/18 23:50 99.1 F 110 H 16 131/65 95 12/09/18 23:30 109 H 14 137/65 100 12/09/18 23:15 110 H 16 144/66 100 12/09/18 23:00 108 H 16 108/72 100 12/09/18 22:56 99.6 F 109 H 18 124/83 94 L Intake and Output 12/10/18 12/10/18 12/10/18 06:59 14:59 22:59 Intake Total 1100 1440 1960 Output Total 690 1230 Balance 410 1440 730 Intake: IV 200 Intake, IV Titration 900 1000 Amount ACETAMINOPHEN IV (For NPO 100 ) 1,000 mg In Empty Bag 1 bag @ 400 mls/hr IVPB Q6H PRN Rx#:[id number] Amino Acid 4.25%-D10w+ 300 Lytes*E* 1,000 ml @ 100 mls/hr IV .BY DURATION [facility] Rx#:[id number] D5-0.45% NaCl with KCl 600 20Meq/l 1,000 ml @ 75 mls /hr IV .[id number] [facility] Rx#: [id number] Magnesium Sulfate-D5w Pmx 200 1 gm In Dextrose/Water 1 100ml.bag @ 100 mls/hr IVPB Q1H [facility] Rx#: [id number] Mvi, Adult No.4 with Vit 300 K 10 ml Trace (Conc-1Ml/ Dose) 1 ml In Amino Acid 4.25%-D10w+Lytes*E* 1,000 ml @ 100 mls/hr IV .BY DURATION [facility] Rx#: [id number] Piperacillin-Tazobactam 3 100 200 .375 gm In Sodium Chloride 0.9% 100 ml @ 25 mls/hr IVPB Q8H [facility] Rx#: [id number] metroNIDAZOLE-NS PMX 500 100 mg In Saline 1 100ml.bag @ 100 mls/hr IVPB Q6HR [facility] Rx#:[id number] Oral 1440 960 Output: Drainage 40 330 Medial Abdomen 40 330 Urine 650 900 Other: Voiding Method Indwelling Catheter Indwelling Catheter Indwelling Catheter Weight 74.389 kg 76.657 kg 68-year-old male of a somewhat thin build, is sedated with his pain medications , is not in acute distress HEENT: Anicteric conjunctiva are pink and moist nasal mucosa grossly intact without significant lesions, there is no thrush. Neck: The neck is supple without significant lymphadenopathy or thyromegaly. Lungs: Good bilateral air entry without significant crackles or wheezing. There is no significant bronchial sounds. There is no egophony or dullness. Heart: Regular rate and rhythm with an audible S1-S2, no S3 no S4. There is no significant murmur click or rub, PMI was nondisplaced. Abdomen: Abdomen is mildly distended, wound VAC is in place, scant drainage is seen that is nonbloody. No bloody drainage per rectum at this time. Abdomen is mildly distended Extremities: The upper extremities have excellent pulses they are symmetric, no significant petechiae or telangiectasia. No splinter hemorrhages were noted. The lower extremities are free from significant edema. The peripheral pulses were 2+ and symmetric. Neuro: Awake alert stable to minimally interactive but is a poor historian is difficulty elucidating a pain score. Results CBC & Chem 7: 12/10/18 06:22 12/10/18 06:22 Labs: Abnormal Lab Results - Last 24 Hours (Table) 12/10/18 12/10/18 12/10/18 Range/Units 06:22 06:22 17:13 RBC 3.41 L (4.30-5.90) m/uL Hgb 10.4 L (13.0-17.5) gm/dL Hct 32.0 L (39.0-53.0) % Neutrophils # 9.2 H (1.3-7.7) k/uL Glucose 121 H (74-99) mg/dL POC Glucose (mg/dL) 129 H (75-99) mg/dL Calcium 8.1 L (8.4-10.2) mg/dL Alkaline Phosphatase 37 L (38-126) U/L Total Protein 4.3 L (6.3-8.2) g/dL Albumin 2.4 L (3.5-5.0) g/dL Microbiology - Last 24 Hours (Table) 12/09/18 14:59 Gram Stain - Preliminary [facility] Body Fluid Culture - Preliminary Group D Enterococcus Gram Neg Bacilli Laboratory Results WBC 10.6 k/uL (3.8-10.6) 12/10/18 06:22 RBC 3.41 m/uL (4.30-5.90) L 12/10/18 06:22 Hgb 10.4 gm/dL (13.0-17.5) L 12/10/18 06:22 Hct 32.0 % (39.0-53.0) L 12/10/18 06:22 MCV 94.1 fL (80.0-100.0) 12/10/18 06:22 MCH 30.5 pg (25.0-35.0) 12/10/18 06:22 MCHC 32.4 g/dL (31.0-37.0) 12/10/18 06:22 RDW 13.0 % (11.5-15.5) 12/10/18 06:22 Plt Count 275 k/uL (150-450) 12/10/18 06:22 Neutrophils % 86 % 12/10/18 06:22 Lymphocytes % 9 % 12/10/18 06:22 Monocytes % 3 % 12/10/18 06:22 Eosinophils % 0 % 12/10/18 06:22 Basophils % 0 % 12/10/18 06:22 Neutrophils # 9.2 k/uL (1.3-7.7) H 12/10/18 06:22 Lymphocytes # 1.0 k/uL (1.0-4.8) 12/10/18 06:22 Monocytes # 0.3 k/uL (0-1.0) 12/10/18 06:22 Eosinophils # 0.0 k/uL (0-0.7) 12/10/18 06:22 Basophils # 0.0 k/uL (0-0.2) 12/10/18 06:22 PT 10.1 sec (9.0-12.0) 11/29/18 02:30 INR 0.9 (<1.2) 11/29/18 02:30 APTT 23.6 sec (22.0-30.0) 11/29/18 02:30 Sodium 139 mmol/L (137-145) 12/10/18 06:22 Potassium 4.1 mmol/L (3.5-5.1) 12/10/18 06:22 Chloride 107 mmol/L (98-107) 12/10/18 06:22 Carbon Dioxide 27 mmol/L (22-30) 12/10/18 06:22 Anion Gap 5 mmol/L 12/10/18 06:22 BUN 9 mg/dL (9-20) 12/10/18 06:22 Creatinine 0.69 mg/dL (0.66-1.25) 12/10/18 06:22 Est GFR (CKD-EPI)AfAm >90 (>60 ml/min/1.73 sqM) 12/10/18 06:22 Est GFR (CKD-EPI)NonAf >90 (>60 ml/min/1.73 sqM) 12/10/18 06:22 Glucose 121 mg/dL (74-99) H 12/10/18 06:22 POC Glucose (mg/dL) 129 mg/dL (75-99) H 12/10/18 17:13 POC Glu Medical Practice Administrator ID Wesley Albrecht 12/10/18 17:13 Plasma Lactic Acid Mikhail 1.0 mmol/L (0.7-2.0) 11/29/18 02:30 Calcium 8.1 mg/dL (8.4-10.2) L 12/10/18 06:22 Ionized Calcium Tay 5.0 mg/dL (4.5-5.3) 12/10/18 12:21 Phosphorus 3.2 mg/dL (2.5-4.5) 12/10/18 06:22 Magnesium 1.6 mg/dL (1.6-2.3) 12/10/18 06:22 Ferritin 117.1 ng/mL (22.0-322.0) 12/10/18 06:22 Total Bilirubin 1.0 mg/dL (0.2-1.3) 12/10/18 06:22 AST 17 U/L (17-59) 12/10/18 06:22 ALT 21 U/L (21-72) 12/10/18 06:22 Alkaline Phosphatase 37 U/L (38-126) L 12/10/18 06:22 Total Protein 4.3 g/dL (6.3-8.2) L 12/10/18 06:22 Albumin 2.4 g/dL (3.5-5.0) L 12/10/18 06:22 Triglycerides 39 mg/dL (<150) 12/10/18 12:21 Carcinoembryonic Ag 0.9 ng/mL (0.0-4.9) 12/03/18 08:25 Stool Occult Blood Positive (Negative) 11/29/18 02:30 Microbiology 12/09/18 14:59 [facility] Gram Stain - Preliminary 12/09/18 14:59 [facility] Body Fluid Culture - Preliminary Group D Enterococcus Gram Neg Bacilli CT scan - abdomen: report reviewed Assessment and Plan (1) Cecum mass Narrative/Plan: 68-year-old male with multiple medical troubles including cardiovascular disease, stroke, legally blind presents to hospital with further blood per rectum. He underwent endoscopy finding evidence of a cecal mass. Consequently on December 06 was taken to the operating room in the colonic resection anastomosis occurred. By December 09 there was evidence of failure the anastomosis was taken back to the operating room with evidence of blowout of the anastomosis, the patient underwent extension of the colectomy and reanastomosis and wound VAC application. Patient is doing relatively well this point in time does have leukocytosis which of the base of the recent surgeries in the anastomotic leak. Antimicrobial therapy with Zosyn and Flagyl is adequate for the moment however would add Eraxis ensure covering for Priscilla other fungus given the gross spillage. Cultures be monitored and hopefully will have a oral course of antimicrobial therapy at discharge. He is tolerating some clear liquids without nausea or emesis. Family's questions are answered. Current Visit: Yes Status: Acute Code(s): K63.9 - DISEASE OF INTESTINE, UNSPECIFIED SNOMED Code(s): 426554522 (2) Diverticulosis of colon Current Visit: Yes Status: Acute Code(s): K57.30 - DVRTCLOS OF LG INT W/O PERFORATION OR ABSCESS W/O BLEEDING SNOMED Code(s): 753113529 (3) Acute blood loss anemia Current Visit: Yes Status: Acute Code(s): D62 - ACUTE POSTHEMORRHAGIC ANEMIA SNOMED Code(s): 297642521
[2018-12-10 23:54] LABS: Glucose,Whole Blood 149 mg/dL (75-99)
[2018-12-11] MEDS: metroNIDAZOLE-NS PMX 500 MG in SALINE 1 100ML.BAG IVPB SCH ×4 (00:17→17:26)
[2018-12-11] MEDS: HYDROmorphone 1 MG/ML 1 ML SYRINGE IVP PRN ×5 (00:17→23:57)
[2018-12-11] MEDS: INSULIN ASPART 100 UNIT/ML 1 ML 10 ML VIAL SQ SCH ×4 (00:18→17:41)
[2018-12-11] MEDS: PIPERACILLIN-TAZOBACTAM 3.375 GM in SODIUM CHLORIDE 0.9% 100 ML IVPB SCH ×3 (03:31→20:56)
[2018-12-11 04:04] LABS: Iron Saturation 2.28 (15.00-50.00)
[2018-12-11] MEDS: KETOROLAC 30 MG/ML 1 ML VIAL IVP SCH ×3 (04:58→16:45)
[2018-12-11 06:02] LABS: Glucose,Whole Blood 145 mg/dL (75-99)
[2018-12-11] MEDS: 1: MVI, ADULT NO.4 WITH VIT K 10 ML, TRACE (CONC-1ML/DOSE) 1 ML in AMINO ACID 4.25%-D10W IV SCH ×6 (06:53→15:34)
[2018-12-11 07:47] LABS: Basophils % (A) 0 %; Eosinophils # (A) 0.4 k/uL (0-0.7); Eosinophils % (A) 4 %; HCT 32.5 % (39.0-53.0); HGB 10.6 gm/dL (13.0-17.5); Hypochromasia Slight; Lymphocytes # (A) 1.1 k/uL (1.0-4.8); Lymphocytes % (A) 9 %; MCHC 32.5 g/dL (31.0-37.0); MCV 95.5 fL (80.0-100.0); Mean Platelet Volume 7.8; Monocytes # (A) 0.5 k/uL (0-1.0); Monocytes % (A) 4 %; Neutrophils # (A) 9.9 k/uL (1.3-7.7); Neutrophils % (A) 82 %; Platelet Count 263 k/uL (150-450); RBC 3.41 m/uL (4.30-5.90); RDW 13.1 % (11.5-15.5)
[2018-12-11] MEDS: ENOXAPARIN 30 MG/0.3 ML SYRINGE SQ SCH (07:59)
[2018-12-11] MEDS: PANTOPRAZOLE 40 MG/10 ML VIAL IVP SCH ×2 (07:59→20:56)
[2018-12-11] MEDS: ALVIMOPAN 12 MG CAPSULE PO SCH ×2 (07:59→21:27)
[2018-12-11 08:00] LABS: Ionized Calcium 5.1 mg/dL (4.5-5.3)
[2018-12-11 08:09] LABS: Albumin 2.4 g/dL (3.5-5.0); Anion Gap 7 mmol/L; Blood Urea Nitrogen 12 mg/dL (9-20); Calcium 8.2 mg/dL (8.4-10.2); Carbon Dioxide 26 mmol/L (22-30); Chloride 104 mmol/L (98-107); Glucose 117 mg/dL (74-99); Magnesium 2.2 mg/dL (1.6-2.3); Phosphorus 2.7 mg/dL (2.5-4.5); Sodium 137 mmol/L (137-145)
[2018-12-11 11:39] LABS: Glucose,Whole Blood 172 mg/dL (75-99)
[2018-12-11] MEDS: SODIUM FERRIC GLUCONAT-SUCROSE 125 MG in SODIUM CHLORIDE 0.9% 100 ML IVPB SCH (13:34)
--- NOTE | 2018-12-11 14:29 | P.PN ---
Subjective Progress Note Date: 12/11/18 CHIEF COMPLAINT: History of peritonitis and GI bleed HISTORY OF PRESENT ILLNESS: The patient is a 68-year-old gentleman initially admitted with gross GI bleed. 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 He initially underwent a robotic right hemicolectomy on . On 12/09/2018, he had gross stool in his MICHAEL warranting emergency exploratory laparotomy. An extended right hemicolectomy was performed including abdominal washout on 12/09/2018. Since surgery, his abdominal pain is much improved. His family is at bedside. He is tolerating liquids. He is ambulating. No reports of fevers. No reports of chills. Antibiotic management per infectious disease pending results of his microbiology culture. PHYSICAL EXAM: VITAL SIGNS: Reviewed GENERAL: Well-developed in no acute distress. HEENT: No sclera icterus. Head is atraumatic, normocephalic. Hears conversational speech. No nasal drainage. NECK: Supple without lymphadenopathy. CHEST: Non-labored respirations and equal bilateral excursions. CARDIOVASCULAR: Palpable 2+ radial pulses. ABDOMEN: Soft. Nondistended. PREVENA midline dressing clean dry and intact. Shadowing along dressing of the right lateral abdominal wall noted. MUSCULOSKELETAL: No clubbing, cyanosis. : Holden present clear urine. NEUROLOGIC: No focal or lateralizing signs. Cranial nerves II through XII grossly intact. PSYCH: Appropriate affect. Alert and oriented to person, place and time. SKIN: Well perfused. Good skin turgor. ASSESSMENT: 1. 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 Diverticulosis 3. Fecal peritonitis from anastomotic blowout 4. Severe iron deficiency anemia due to chronic blood loss, pre-existing PLAN: 1. I have ordered iron infusions including an iron panel confirming the severity of his iron deficiency anemia 2. Microbiology cultures at this time shows multiple resistant organisms from the abdomen. Infectious disease following. 3. He is currently on TPN for inadequate protein intake and hypoalbuminemia 4. Recommend multivitamin for optimal wound recovery and healing. 5. Discontinue Holden catheter for prior history of urosepsis on past hospital admissions 6. Await bowel function. From index operation, bowel function took 4 days. He is postoperative day 2 following his second procedure 7. Discharge pending need of PICC line for TPN including IV antibiotics and resumption of bowel function 8. Full liquid diet with protein shakes advised Objective - Vital Signs Vital signs: Vital Signs Temp 97.4 F L 12/11/18 11:46 Pulse 91 12/11/18 11:46 Resp 18 12/11/18 11:46 BP 111/60 12/11/18 11:46 Pulse Ox 96 12/11/18 11:46 Intake & Output 12/10/18 12/11/18 12/11/18 18:59 06:59 18:59 Intake Total 3400 2914 2980 Output Total 1230 1300 1440 Balance 2170 1614 1540 Weight 76.657 kg 76.657 kg Intake: Intake, IV Titration 1000 2434 2000 Amount Amino Acid 4.25%-D10w+ 963 670 2629 Lytes*E* 1,000 ml @ 100 mls/hr IV .BY DURATION [facility] Rx#:[id number] Anidulafungin 100 mg In 100 Sodium Chloride 0.9% 100 ml @ 84 mls/hr IVPB DAILY [facility] Rx#:[id number] D5-0.45% NaCl with KCl 900 400 20Meq/l 1,000 ml @ 75 mls /hr IV .[id number] [facility] Rx#: [id number] Fat Emulsion 20% 250 ml 334 In Empty Bag 1 bag @ 21 mls/hr IV Q24H [facility] Rx#: [id number] Magnesium Sulfate-D5w Pmx 200 1 gm In Dextrose/Water 1 100ml.bag @ 100 mls/hr IVPB Q1H [facility] Rx#: [id number] Mvi, Adult No.4 with Vit 300 K 10 ml Trace (Conc-1Ml/ Dose) 1 ml In Amino Acid 4.25%-D10w+Lytes*E* 1,000 ml @ 100 mls/hr IV .BY DURATION [facility] Rx#: [id number] Mvi, Adult No.4 with Vit 200 K 10 ml Trace (Conc-1Ml/ Dose) 1 ml In Amino Acid 4.25%-D10w+Lytes*E* 1,000 ml @ 50 mls/hr IV . [id number] [facility] Rx#:[id number] Piperacillin-Tazobactam 3 200 200 200 .375 gm In Sodium Chloride 0.9% 100 ml @ 25 mls/hr IVPB Q8H [facility] Rx#: [id number] Sodium Ferric Gluconat- 100 Sucrose 125 mg In Sodium Chloride 0.9% 100 ml @ 100 mls/hr IVPB DAILY [facility] Rx#:[id number] metroNIDAZOLE-NS PMX 500 100 100 mg In Saline 1 100ml.bag @ 100 mls/hr IVPB Q6HR [facility] Rx#:[id number] Oral 2400 480 980 Output: Drainage 330 140 Left Lower Quadrant 140 Medial Abdomen 330 Urine 900 1300 1300 Other: Voiding Method Indwelling Catheter Indwelling Catheter Indwelling Catheter # Voids 1 - Labs CBC & Chem 7: 12/11/18 07:03 12/11/18 07:03 Labs: Abnormal Lab Results - Last 24 Hours (Table) 12/10/18 12/10/18 12/10/18 Range/Units 12:21 17:13 23:51 WBC (3.8-10.6) k/uL RBC (4.30-5.90) m/uL Hgb (13.0-17.5) gm/dL Hct (39.0-53.0) % Neutrophils # (1.3-7.7) k/uL Glucose (74-99) mg/dL POC Glucose (mg/dL) 129 H 149 H (75-99) mg/dL Calcium (8.4-10.2) mg/dL Iron 5 L (65-175) ug/dL TIBC 219 L (228-460) ug/dL Iron Saturation 2.28 L (15.00-50.00) Albumin (3.5-5.0) g/dL 12/11/18 12/11/18 12/11/18 Range/Units 06:01 07:03 07:03 WBC 12.0 H (3.8-10.6) k/uL RBC 3.41 L (4.30-5.90) m/uL Hgb 10.6 L (13.0-17.5) gm/dL Hct 32.5 L (39.0-53.0) % Neutrophils # 9.9 H (1.3-7.7) k/uL Glucose 117 H (74-99) mg/dL POC Glucose (mg/dL) 145 H (75-99) mg/dL Calcium 8.2 L (8.4-10.2) mg/dL Iron (65-175) ug/dL TIBC (228-460) ug/dL Iron Saturation (15.00-50.00) Albumin 2.4 L (3.5-5.0) g/dL 12/11/18 Range/Units 11:38 WBC (3.8-10.6) k/uL RBC (4.30-5.90) m/uL Hgb (13.0-17.5) gm/dL Hct (39.0-53.0) % Neutrophils # (1.3-7.7) k/uL Glucose (74-99) mg/dL POC Glucose (mg/dL) 172 H (75-99) mg/dL Calcium (8.4-10.2) mg/dL Iron (65-175) ug/dL TIBC (228-460) ug/dL Iron Saturation (15.00-50.00) Albumin (3.5-5.0) g/dL Microbiology - Last 24 Hours (Table) 12/09/18 14:59 Gram Stain - Final [facility] Body Fluid Culture - Final Enterococcus faecium Enterobacter cloacae Assessment and Plan (1) Iron deficiency anemia secondary to blood loss (chronic) Current Visit: Yes Status: Acute Code(s): D50.0 - IRON DEFICIENCY ANEMIA SECONDARY TO BLOOD LOSS (CHRONIC) SNOMED Code(s): 778457499 (2) Hypoalbuminemia due to protein-calorie malnutrition Current Visit: Yes Status: Acute Code(s): E46 - UNSPECIFIED PROTEIN-CALORIE MALNUTRITION SNOMED Code(s): 942151216 (3) Acute blood loss anemia Current Visit: Yes Status: Acute Code(s): D62 - ACUTE POSTHEMORRHAGIC ANEMIA SNOMED Code(s): 341343117 (4) Cecum mass Current Visit: Yes Status: Acute Code(s): K63.9 - DISEASE OF INTESTINE, UNSPECIFIED SNOMED Code(s): 806049436 (5) Diverticulosis of colon Current Visit: Yes Status: Acute Code(s): K57.30 - DVRTCLOS OF LG INT W/O PERFORATION OR ABSCESS W/O BLEEDING SNOMED Code(s): 727650019 (6) GIB (gastrointestinal bleeding) Current Visit: Yes Status: Acute Code(s): K92.2 - GASTROINTESTINAL HEMORRHAGE, UNSPECIFIED SNOMED Code(s): 97090018 (7) Peritonitis Current Visit: Yes Status: Acute Code(s): K65.9 - PERITONITIS, UNSPECIFIED SNOMED Code(s): 74892227
--- NOTE | 2018-12-11 15:07 | XR ---
EXAMINATION TYPE: XR chest 1V DATE OF EXAM: 12/11/2018 COMPARISON: Prior chest x-ray 03/28/2018 HISTORY: Shortness of breath TECHNIQUE: Single frontal view of the chest is obtained. FINDINGS: Patient is rotated. Bandlike area of increased attenuation at the left lung base may repre sent subsegmental atelectasis or scarring. There is evidence of old rib fractures. Cardiac mediastina l silhouette, pulmonary vascularity and malik within normal limits. Aorta is dense. Right hemidiaphrag m somewhat elevated but stable. IMPRESSION: There may be some minimal basilar atelectasis or scarring. Additional findings above.
[2018-12-11] MEDS: FAT EMULSION 20% 250 ML in EMPTY BAG 1 BAG IV SCH (15:33)
[2018-12-11] MEDS: D5-0.45% NACL WITH KCL 20MEQ/L 1,000 ML IV SCH (15:35)
[2018-12-11] MEDS: LACTATED RINGERS 1,000 ML IV SCH (15:54)
[2018-12-11 17:21] LABS: Glucose,Whole Blood 191 mg/dL (75-99)
[2018-12-11] MEDS: ONDANSETRON 4 MG/2 ML VIAL IVP PRN (20:49)
[2018-12-11] MEDS: ACETAMINOPHEN TAB 500 MG TAB PO PRN (20:54)
[2018-12-11] MEDS: TAMSULOSIN 0.4 MG CAP.ER.24H PO SCH (20:55)
--- NOTE | 2018-12-11 21:59 | P.PN ---
Subjective Progress Note Date: 12/11/18 Principal diagnosis: Acute lower GI bleed Cecal mass status post surgery Patient is a 68-year-old male was admitted to the hospital due to lower GI bleed and was found have cecal mass. Patient underwent robotic right colectomy by Dr. Lan. 12/07/2018 Patient denied any complaints of chest pain or shortness of breath. Abdominal pain is better. No flatness or bowel movement. Epidural has been discontinued. No fever no chills. No nausea vomiting. Discussed with family at bedside in detail. 12/08/2018 No complaints of chest pain or shortness breath. Holden catheter has been discontinued and voiding spontaneously. Patient is tolerating clear liquid diet. No bowel movement or flatus. Bowel sounds are heard today. No fever no chills. Patient remains on antibiotics in the form of Flagyl and Zosyn. General surgery is following. No other acute overnight issues. Plan discussed with the family at bedside in detail. 12/09/2018 Patient is more lethargic and confused today. As per family patient is getting abdominal distention. MICHAEL drain is draining greenish colored fluid. General surgery is planning for expiratory laparotomy due to leak. WBC count is slightly increased to 14. Continued antibiotics with Zosyn and Flagyl. No fever. Patient does not have any bowel movement or flatus. Surgical pathology is negative for any malignancy. 12/10/2018 Patient is more awake and oriented today. Patient was taken to OR on 2010 due to possible bowel leak with greenish fluid in the MICHAEL drain. Patient was found to have blowout of initial ileocolic anastomosis and intra-abdominal adhesions from diverticulitis with internal hernia 4. He underwent exploratory laparotomy with extended right hemicolectomy. Currently abdomen is soft. Bowel sounds are diminished. No flatus or bowel movement yet. Continued on IV hydration and antibiotics in the form of Flagyl and Zosyn. Hemoglobin is 10.6 and leukocytosis improved to 10.4 today. Discussed with his at bedside in detail. 12/11/2018 Patient is more awake and oriented. Patient has not passed factor soft bowel movement yet. Otherwise fluid cultures are showing enterococcus patient and Enterobacter species. ID is following. Currently on Zosyn and Flagyl. No fever no chills. WBC slightly increased to 12.0. No nausea or vomiting. Abdominal pain is controlled with pain medications. No chest pain. Patient does complain of short of breath otherwise. Chest x-ray showed bibasilar atelectasis. General surgery and ID is following. Current medications reviewed Objective - Vital Signs Vital signs: Vital Signs Temp 97.4 F L 12/11/18 11:46 Pulse 91 12/11/18 11:46 Resp 18 12/11/18 11:46 BP 111/60 12/11/18 11:46 Pulse Ox 96 12/11/18 11:46 Intake & Output 12/10/18 12/11/18 12/11/18 18:59 06:59 18:59 Intake Total 3400 2914 2980 Output Total 1230 1300 1440 Balance 2170 1614 1540 Weight 76.657 kg 76.657 kg Intake: Intake, IV Titration 1000 2434 2000 Amount Amino Acid 4.25%-D10w+ 815 674 4852 Lytes*E* 1,000 ml @ 100 mls/hr IV .BY DURATION [facility] Rx#:[id number] Anidulafungin 100 mg In 100 Sodium Chloride 0.9% 100 ml @ 84 mls/hr IVPB DAILY [facility] Rx#:[id number] D5-0.45% NaCl with KCl 900 400 20Meq/l 1,000 ml @ 75 mls /hr IV .[id number] [facility] Rx#: [id number] Fat Emulsion 20% 250 ml 334 In Empty Bag 1 bag @ 21 mls/hr IV Q24H [facility] Rx#: [id number] Magnesium Sulfate-D5w Pmx 200 1 gm In Dextrose/Water 1 100ml.bag @ 100 mls/hr IVPB Q1H [facility] Rx#: [id number] Mvi, Adult No.4 with Vit 300 K 10 ml Trace (Conc-1Ml/ Dose) 1 ml In Amino Acid 4.25%-D10w+Lytes*E* 1,000 ml @ 100 mls/hr IV .BY DURATION [facility] Rx#: [id number] Mvi, Adult No.4 with Vit 200 K 10 ml Trace (Conc-1Ml/ Dose) 1 ml In Amino Acid 4.25%-D10w+Lytes*E* 1,000 ml @ 50 mls/hr IV . [id number] [facility] Rx#:[id number] Piperacillin-Tazobactam 3 200 200 200 .375 gm In Sodium Chloride 0.9% 100 ml @ 25 mls/hr IVPB Q8H [facility] Rx#: [id number] Sodium Ferric Gluconat- 100 Sucrose 125 mg In Sodium Chloride 0.9% 100 ml @ 100 mls/hr IVPB DAILY [facility] Rx#:[id number] metroNIDAZOLE-NS PMX 500 100 100 mg In Saline 1 100ml.bag @ 100 mls/hr IVPB Q6HR [facility] Rx#:[id number] Oral 2400 480 980 Output: Drainage 330 140 Left Lower Quadrant 140 Medial Abdomen 330 Urine 900 1300 1300 Other: Voiding Method Indwelling Catheter Indwelling Catheter Indwelling Catheter # Voids 1 - Exam GENERAL: Well-developed pleasant male in no acute distress. HEENT: Patient is legally blind. No scleral icterus. Moist buccal mucosa. NECK: Supple without lymphadenopathy. CHEST: Equal expansion. Bibasilar diminished air entry. No wheezing no crackles. CARDIOVASCULAR: Regular rate regular rhythm. Distal 2+ pulses. S1-S2 heard. Systolic murmur positive. ABDOMEN: Abdominal dressing clean dry intact. MICHAEL drain with serous fluid. Bowel sounds diminished. Abdomen is soft. No guarding no rigidity. MUSCULOSKELETAL: No clubbing, cyanosis, or edema. NEURO : Difficult to thoroughly assess due to history of CVA. No seizure activity noted. No tremors. PSYCH: Awake and alert. SKIN: Well perfused. Good skin turgor. No cyanosis. No jaundice. - Labs CBC & Chem 7: 12/11/18 07:03 12/11/18 07:03 Labs: Abnormal Lab Results - Last 24 Hours (Table) 12/10/18 12/10/18 12/10/18 Range/Units 12:21 17:13 23:51 WBC (3.8-10.6) k/uL RBC (4.30-5.90) m/uL Hgb (13.0-17.5) gm/dL Hct (39.0-53.0) % Neutrophils # (1.3-7.7) k/uL Glucose (74-99) mg/dL POC Glucose (mg/dL) 129 H 149 H (75-99) mg/dL Calcium (8.4-10.2) mg/dL Iron 5 L (65-175) ug/dL TIBC 219 L (228-460) ug/dL Iron Saturation 2.28 L (15.00-50.00) Albumin (3.5-5.0) g/dL 12/11/18 12/11/18 12/11/18 Range/Units 06:01 07:03 07:03 WBC 12.0 H (3.8-10.6) k/uL RBC 3.41 L (4.30-5.90) m/uL Hgb 10.6 L (13.0-17.5) gm/dL Hct 32.5 L (39.0-53.0) % Neutrophils # 9.9 H (1.3-7.7) k/uL Glucose 117 H (74-99) mg/dL POC Glucose (mg/dL) 145 H (75-99) mg/dL Calcium 8.2 L (8.4-10.2) mg/dL Iron (65-175) ug/dL TIBC (228-460) ug/dL Iron Saturation (15.00-50.00) Albumin 2.4 L (3.5-5.0) g/dL 12/11/18 Range/Units 11:38 WBC (3.8-10.6) k/uL RBC (4.30-5.90) m/uL Hgb (13.0-17.5) gm/dL Hct (39.0-53.0) % Neutrophils # (1.3-7.7) k/uL Glucose (74-99) mg/dL POC Glucose (mg/dL) 172 H (75-99) mg/dL Calcium (8.4-10.2) mg/dL Iron (65-175) ug/dL TIBC (228-460) ug/dL Iron Saturation (15.00-50.00) Albumin (3.5-5.0) g/dL Microbiology - Last 24 Hours (Table) 12/09/18 14:59 Gram Stain - Final [facility] Body Fluid Culture - Final Enterococcus faecium Enterobacter cloacae Assessment and Plan Assessment: Acute lower GI bleed secondary to sigmoid mass. Status post robotic right colectomy Status post exploratory laparotomy on 12/09/2018. Patient was found to have blowout of initial ileocolic anastomosis and intra-abdominal adhesions from diverticulitis with internal hernia 4. He underwent exploratory laparotomy with extended right hemicolectomy. Acute blood loss anemia History of CVA/TIA occipital stroke and blindness dementia hyperlipidemia History of December Legal blindness History of aortic stenosis. Outpatient follow-up per cardiology Plan: Patient will be continued on IV hydration pain management. Continue with IV antibiotics.. General surgery is following closely. Replace electrolyte is continue to monitor closely. Continued on antibiotics in the form of Zosyn and Flagyl. Further recommendations based on the clinical course. Prognosis is guarded. Time with Patient: Greater than 30
[2018-12-11] MEDS: ANIDULAFUNGIN 100 MG in SODIUM CHLORIDE 0.9% 100 ML IVPB SCH (22:51)
[2018-12-11] MEDS: HYDROcodone/APAP 7.5-325MG 1 EACH TAB PO PRN (22:51)
[2018-12-12 00:08] LABS: Glucose,Whole Blood 195 mg/dL (75-99)
[2018-12-12] MEDS: INSULIN ASPART 100 UNIT/ML 1 ML 10 ML VIAL SQ SCH ×5 (01:06→23:58)
[2018-12-12] MEDS: metroNIDAZOLE-NS PMX 500 MG in SALINE 1 100ML.BAG IVPB SCH ×5 (02:02→23:59)
[2018-12-12] MEDS: HYDROmorphone 1 MG/ML 1 ML SYRINGE IVP PRN ×2 (03:11→09:09)
[2018-12-12] MEDS: 1: MVI, ADULT NO.4 WITH VIT K 10 ML, TRACE (CONC-1ML/DOSE) 1 ML in AMINO ACID 4.25%-D10W IV SCH ×12 (04:52→20:34)
[2018-12-12] MEDS: PIPERACILLIN-TAZOBACTAM 3.375 GM in SODIUM CHLORIDE 0.9% 100 ML IVPB SCH ×3 (04:53→20:20)
[2018-12-12] MEDS: D5-0.45% NACL WITH KCL 20MEQ/L 1,000 ML IV SCH (04:53)
[2018-12-12] MEDS: FAT EMULSION 20% 250 ML in EMPTY BAG 1 BAG IV SCH (04:54)
[2018-12-12 06:28] LABS: Glucose,Whole Blood 145 mg/dL (75-99)
[2018-12-12] MEDS: PANTOPRAZOLE 40 MG/10 ML VIAL IVP SCH ×2 (07:43→20:26)
[2018-12-12] MEDS: ALVIMOPAN 12 MG CAPSULE PO SCH ×2 (07:43→20:26)
[2018-12-12] MEDS: ENOXAPARIN 30 MG/0.3 ML SYRINGE SQ SCH (07:43)
[2018-12-12] MEDS: ANIDULAFUNGIN 100 MG in SODIUM CHLORIDE 0.9% 100 ML IVPB SCH (07:44)
[2018-12-12] MEDS: HYDROcodone/APAP 7.5-325MG 1 EACH TAB PO PRN (07:46)
[2018-12-12 07:48] LABS: Basophils % (A) 0 %; Eosinophils # (A) 0.4 k/uL (0-0.7); Eosinophils % (A) 5 %; HCT 28.9 % (39.0-53.0); HGB 9.3 gm/dL (13.0-17.5); Hypochromasia Slight; Lymphocytes # (A) 1.2 k/uL (1.0-4.8); Lymphocytes % (A) 14 %; MCH 30.5 pg (25.0-35.0); MCHC 32.2 g/dL (31.0-37.0); MCV 94.8 fL (80.0-100.0); Mean Platelet Volume 6.8; Monocytes # (A) 0.4 k/uL (0-1.0); Monocytes % (A) 5 %; Neutrophils # (A) 6.5 k/uL (1.3-7.7); Neutrophils % (A) 76 %; Platelet Count 293 k/uL (150-450); RBC 3.05 m/uL (4.30-5.90); WBC 8.6 k/uL (3.8-10.6)
[2018-12-12 08:16] LABS: Anion Gap 3 mmol/L; Blood Urea Nitrogen 11 mg/dL (9-20); Calcium 7.9 mg/dL (8.4-10.2); Carbon Dioxide 28 mmol/L (22-30); Chloride 109 mmol/L (98-107); Glucose 137 mg/dL (74-99); Phosphorus 3.4 mg/dL (2.5-4.5); Potassium 3.7 mmol/L (3.5-5.1); Sodium 140 mmol/L (137-145)
[2018-12-12 08:27] LABS: Ionized Calcium 5.1 mg/dL (4.5-5.3)
[2018-12-12] MEDS: SODIUM FERRIC GLUCONAT-SUCROSE 125 MG in SODIUM CHLORIDE 0.9% 100 ML IVPB SCH (10:12)
[2018-12-12 11:38] LABS: Glucose,Whole Blood 210 mg/dL (75-99)
--- NOTE | 2018-12-12 12:56 | P.PN ---
Subjective Progress Note Date: 12/12/18 CHIEF COMPLAINT: History of peritonitis and GI bleed HISTORY OF PRESENT ILLNESS: The patient is a 68-year-old gentleman initially admitted with gross GI bleed. 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 He initially underwent a robotic right hemicolectomy on . On 12/09/2018, he had gross stool in his MICHAEL warranting emergency exploratory laparotomy. An extended right hemicolectomy was performed including abdominal washout on 12/09/2018. He is postop day 3. He had a formed bowel movement today. He reports incisional pain after Toradol was auto discontinued per pharmacy. His is at bedside. She has been imperative to his recovery including encourage him to ambulate regularly. Overall, nurse is concerned about volume overload with history of aortic stenosis and multiple IV fluids running with TPN. PHYSICAL EXAM: VITAL SIGNS: Reviewed GENERAL: Well-developed in no acute distress. HEENT: No sclera icterus. Head is atraumatic, normocephalic. Hears conversational speech. No nasal drainage. NECK: Supple without lymphadenopathy. CHEST: Non-labored respirations and equal bilateral excursions. CARDIOVASCULAR: Palpable 2+ radial pulses. ABDOMEN: Soft. PREVENA midline dressing clean dry and intact. MUSCULOSKELETAL: No clubbing, cyanosis. NEUROLOGIC: No focal or lateralizing signs. Cranial nerves II through XII grossly intact. PSYCH: Appropriate affect. Alert and oriented to person, place and time. SKIN: Well perfused. Good skin turgor. ASSESSMENT: 1. 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 Diverticulosis 3. Fecal peritonitis from anastomotic blowout 4. Severe iron deficiency anemia due to chronic blood loss, pre-existing 5. Aortic stenosis with tachycardia PLAN: 1. White count is now normal today. 2. IV fluids adjusted to reflect TPN only. 3. With bowel movement may advance to soft diet 4. I have ordered iron supplement with infusion. 5. I have reordered toward all for pain 6. Lovenox switched to heparin to prevent risk for bleeding with Toradol 7. Disposition in 48-72 hours pending need for IV antibiotics versus oral and tolerating diet and pain control. 8. Metoprolol started for tachycardia and cardioprotection to decrease per preoperative cardiac injury 9. Microbiology cultures reviewed and antibiotics reviewed by infectious disease Objective - Vital Signs Vital signs: Vital Signs Temp 98.3 F 01/13/19 12:27 Pulse 102 H 12/12/18 12:27 Resp 16 12/12/18 12:27 BP 148/77 12/12/18 12:27 Pulse Ox 96 12/12/18 12:27 Intake & Output 12/11/18 12/12/18 12/12/18 18:59 06:59 18:59 Intake Total 3991 590 Output Total 1989 25 Balance 2000 565 -40 Weight 76.657 kg 85 kg Intake: Intake, IV Titration 3011 Amount Amino Acid 4.25%-D10w+ 1200 Lytes*E* 1,000 ml @ 100 mls/hr IV .BY DURATION [facility] Rx#:[id number] D5-0.45% NaCl with KCl 400 20Meq/l 1,000 ml @ 75 mls /hr IV .[id number] [facility] Rx#: [id number] Mvi, Adult No.4 with Vit 1011 K 10 ml Trace (Conc-1Ml/ Dose) 1 ml In Amino Acid 4.25%-D10w+Lytes*E* 1,000 ml @ 100 mls/hr IV .BY DURATION [facility] Rx#: [id number] Piperacillin-Tazobactam 3 200 .375 gm In Sodium Chloride 0.9% 100 ml @ 25 mls/hr IVPB Q8H [facility] Rx#: [id number] Sodium Ferric Gluconat- 100 Sucrose 125 mg In Sodium Chloride 0.9% 100 ml @ 100 mls/hr IVPB DAILY [facility] Rx#:[id number] metroNIDAZOLE-NS PMX 500 100 mg In Saline 1 100ml.bag @ 100 mls/hr IVPB Q6HR [facility] Rx#:[id number] Oral 980 590 Output: Drainage 140 25 40 Left Lower Quadrant 140 25 40 Urine 1850 Uretheral (Holden) 550 Other: Voiding Method Indwelling Catheter Urinal # Voids 1 2 - Labs CBC & Chem 7: 12/12/18 07:30 12/12/18 07:30 Labs: Abnormal Lab Results - Last 24 Hours (Table) 12/11/18 12/11/18 12/12/18 Range/Units 17:19 23:50 06:16 RBC (4.30-5.90) m/uL Hgb (13.0-17.5) gm/dL Hct (39.0-53.0) % Chloride (98-107) mmol/L Glucose (74-99) mg/dL POC Glucose (mg/dL) 191 H 195 H 145 H (75-99) mg/dL Calcium (8.4-10.2) mg/dL 12/12/18 12/12/18 12/12/18 Range/Units 07:30 07:30 11:37 RBC 3.05 L (4.30-5.90) m/uL Hgb 9.3 L (13.0-17.5) gm/dL Hct 28.9 L (39.0-53.0) % Chloride 109 H (98-107) mmol/L Glucose 137 H (74-99) mg/dL POC Glucose (mg/dL) 210 H (75-99) mg/dL Calcium 7.9 L (8.4-10.2) mg/dL Microbiology - Last 24 Hours (Table) 12/09/18 14:59 Gram Stain - Final [facility] Body Fluid Culture - Final Enterococcus faecium Enterobacter cloacae Assessment and Plan (1) Iron deficiency anemia secondary to blood loss (chronic) Current Visit: Yes Status: Acute Code(s): D50.0 - IRON DEFICIENCY ANEMIA SECONDARY TO BLOOD LOSS (CHRONIC) SNOMED Code(s): 664918685 (2) Hypoalbuminemia due to protein-calorie malnutrition Current Visit: Yes Status: Acute Code(s): E46 - UNSPECIFIED PROTEIN-CALORIE MALNUTRITION SNOMED Code(s): 708403051 (3) Acute blood loss anemia Current Visit: Yes Status: Acute Code(s): D62 - ACUTE POSTHEMORRHAGIC ANEMIA SNOMED Code(s): 010813791 (4) Cecum mass Current Visit: Yes Status: Acute Code(s): K63.9 - DISEASE OF INTESTINE, UNSPECIFIED SNOMED Code(s): 916570242 (5) Diverticulosis of colon Current Visit: Yes Status: Acute Code(s): K57.30 - DVRTCLOS OF LG INT W/O PERFORATION OR ABSCESS W/O BLEEDING SNOMED Code(s): 835323660 (6) GIB (gastrointestinal bleeding) Current Visit: Yes Status: Acute Code(s): K92.2 - GASTROINTESTINAL HEMORRHAGE, UNSPECIFIED SNOMED Code(s): 26595284 (7) Peritonitis Current Visit: Yes Status: Acute Code(s): K65.9 - PERITONITIS, UNSPECIFIED SNOMED Code(s): 18471600
[2018-12-12] MEDS: METOPROLOL TARTRATE 25 MG TAB PO SCH ×2 (13:04→20:33)
[2018-12-12] MEDS: MULTIVITAMINS, THERA 1 EACH TAB PO SCH (13:04)
[2018-12-12] MEDS: KETOROLAC 30 MG/ML 1 ML VIAL IVP SCH ×3 (13:14→23:58)
[2018-12-12] MEDS: POTASSIUM CHLORIDE 10 MEQ in WATER FOR INJECTION 1 100ML.BAG IVPB SCH ×2 (14:27→15:43)
--- NOTE | 2018-12-12 14:31 | P.PN ---
Subjective Progress Note Date: 12/12/18 68-year-old male who has a significant past medical history cardiovascular disease, stroke, being legally blind presents to hospital with several bowel movements. Because it did not improve and he continued to have bright red blood per rectum he presented to the emergency center. He underwent evaluations with gastroenterology as well as general surgery. 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 Due to the cecal mass in the high-grade nature he was taken to the operating room on 12/06/2018 in the colonic resection and anastomosis occurred. The patient continued to have some abdominal discomfort and distention and markedly worsened and by December 09 there was evidence of leakage of the anastomosis because was taken back to the operating room where the anastomotic below was seen and it was revised. Patient has been modified wound VAC in place and is modestly comfortable. He has noted he is still receiving a large amount of pain medications and is somewhat sedated but is comfortable. There allowing some clear liquids and is having no nausea. No bloody rectal discharge is noted. MICHAEL drainage is modestly clear. 12/12/2018 patient is feeling better. Was still having pain. He is however up walking in the halls without nausea. Still has some modest drainage in the MICHAEL drain Objective - Vital Signs Vital signs: Vital Signs Temp 98.3 F 12/12/18 12:27 Pulse 102 H 12/12/18 12:27 Resp 16 12/12/18 12:27 BP 148/77 12/12/18 12:27 Pulse Ox 96 12/12/18 12:27 Intake & Output 12/11/18 12/12/18 12/12/18 18:59 06:59 18:59 Intake Total 3991 590 Output Total 1989 25 40 Balance 2000 565 -40 Weight 76.657 kg 85 kg Intake: Intake, IV Titration 3011 Amount Amino Acid 4.25%-D10w+ 1200 Lytes*E* 1,000 ml @ 100 mls/hr IV .BY DURATION [facility] Rx#:[id number] D5-0.45% NaCl with KCl 400 20Meq/l 1,000 ml @ 75 mls /hr IV .[id number] [facility] Rx#: [id number] Mvi, Adult No.4 with Vit 1011 K 10 ml Trace (Conc-1Ml/ Dose) 1 ml In Amino Acid 4.25%-D10w+Lytes*E* 1,000 ml @ 100 mls/hr IV .BY DURATION [facility] Rx#: [id number] Piperacillin-Tazobactam 3 200 .375 gm In Sodium Chloride 0.9% 100 ml @ 25 mls/hr IVPB Q8H [facility] Rx#: [id number] Sodium Ferric Gluconat- 100 Sucrose 125 mg In Sodium Chloride 0.9% 100 ml @ 100 mls/hr IVPB DAILY [facility] Rx#:[id number] metroNIDAZOLE-NS PMX 500 100 mg In Saline 1 100ml.bag @ 100 mls/hr IVPB Q6HR [facility] Rx#:[id number] Oral 980 590 Output: Drainage 140 25 40 Left Lower Quadrant 140 25 40 Urine 1850 Uretheral (Holden) 550 Other: Voiding Method Indwelling Catheter Urinal # Voids 1 2 - Exam 68-year-old male of a somewhat thin build, is sedated with his pain medications , is not in acute distress HEENT: Anicteric conjunctiva are pink and moist nasal mucosa grossly intact without significant lesions, there is no thrush. Neck: The neck is supple without significant lymphadenopathy or thyromegaly. Lungs: Good bilateral air entry without significant crackles or wheezing. There is no significant bronchial sounds. There is no egophony or dullness. Heart: Regular rate and rhythm with an audible S1-S2, no S3 no S4. There is no significant murmur click or rub, PMI was nondisplaced. Abdomen: Abdomen is mildly distended, wound VAC is in place, scant drainage is seen that is nonbloody. No bloody drainage per rectum at this time. Abdomen is mildly distended Extremities: The upper extremities have excellent pulses they are symmetric, no significant petechiae or telangiectasia. No splinter hemorrhages were noted. The lower extremities are free from significant edema. The peripheral pulses were 2+ and symmetric. Neuro: Awake alert stable to minimally interactive but is a poor historian has difficulty elucidating a pain score. - Labs CBC & Chem 7: 12/12/18 07:30 12/12/18 07:30 Labs: Abnormal Lab Results - Last 24 Hours (Table) 12/11/18 12/11/18 12/12/18 Range/Units 17:19 23:50 06:16 RBC (4.30-5.90) m/uL Hgb (13.0-17.5) gm/dL Hct (39.0-53.0) % Chloride (98-107) mmol/L Glucose (74-99) mg/dL POC Glucose (mg/dL) 191 H 195 H 145 H (75-99) mg/dL Calcium (8.4-10.2) mg/dL 12/12/18 12/12/18 12/12/18 Range/Units 07:30 07:30 11:37 RBC 3.05 L (4.30-5.90) m/uL Hgb 9.3 L (13.0-17.5) gm/dL Hct 28.9 L (39.0-53.0) % Chloride 109 H (98-107) mmol/L Glucose 137 H (74-99) mg/dL POC Glucose (mg/dL) 210 H (75-99) mg/dL Calcium 7.9 L (8.4-10.2) mg/dL Microbiology - Last 24 Hours (Table) 12/09/18 14:59 Gram Stain - Final [facility] Body Fluid Culture - Final Enterococcus faecium Enterobacter cloacae Laboratory Results WBC 8.6 k/uL (3.8-10.6) 12/12/18 07:30 RBC 3.05 m/uL (4.30-5.90) L 12/12/18 07:30 Hgb 9.3 gm/dL (13.0-17.5) L 12/12/18 07:30 Hct 28.9 % (39.0-53.0) L 12/12/18 07:30 MCV 94.8 fL (80.0-100.0) 12/12/18 07:30 MCH 30.5 pg (25.0-35.0) 12/12/18 07:30 MCHC 32.2 g/dL (31.0-37.0) 12/12/18 07:30 RDW 13.0 % (11.5-15.5) 12/12/18 07:30 Plt Count 293 k/uL (150-450) 12/12/18 07:30 Neutrophils % 76 % 12/12/18 07:30 Lymphocytes % 14 % 12/12/18 07:30 Monocytes % 5 % 12/12/18 07:30 Eosinophils % 5 % 12/12/18 07:30 Basophils % 0 % 12/12/18 07:30 Neutrophils # 6.5 k/uL (1.3-7.7) 12/12/18 07:30 Lymphocytes # 1.2 k/uL (1.0-4.8) 12/12/18 07:30 Monocytes # 0.4 k/uL (0-1.0) 12/12/18 07:30 Eosinophils # 0.4 k/uL (0-0.7) 12/12/18 07:30 Basophils # 0.0 k/uL (0-0.2) 12/12/18 07:30 Hypochromasia Slight 12/12/18 07:30 PT 10.1 sec (9.0-12.0) 11/29/18 02:30 INR 0.9 (<1.2) 11/29/18 02:30 APTT 23.6 sec (22.0-30.0) 11/29/18 02:30 Sodium 140 mmol/L (137-145) 12/12/18 07:30 Potassium 3.7 mmol/L (3.5-5.1) 12/12/18 07:30 Chloride 109 mmol/L (98-107) H 12/12/18 07:30 Carbon Dioxide 28 mmol/L (22-30) 12/12/18 07:30 Anion Gap 3 mmol/L 12/12/18 07:30 BUN 11 mg/dL (9-20) 12/12/18 07:30 Creatinine 0.71 mg/dL (0.66-1.25) 12/12/18 07:30 Est GFR (CKD-EPI)AfAm >90 (>60 ml/min/1.73 sqM) 12/12/18 07:30 Est GFR (CKD-EPI)NonAf >90 (>60 ml/min/1.73 sqM) 12/12/18 07:30 Glucose 137 mg/dL (74-99) H 12/12/18 07:30 POC Glucose (mg/dL) 210 mg/dL (75-99) H 12/12/18 11:37 POC Glu Animal Technician ID Josie Broderick 12/12/18 11:37 Plasma Lactic Acid Mikhail 1.0 mmol/L (0.7-2.0) 11/29/18 02:30 Calcium 7.9 mg/dL (8.4-10.2) L 12/12/18 07:30 Ionized Calcium Tay 5.1 mg/dL (4.5-5.3) 12/12/18 07:30 Phosphorus 3.4 mg/dL (2.5-4.5) 12/12/18 07:30 Magnesium 2.0 mg/dL (1.6-2.3) 12/12/18 07:30 Iron 5 ug/dL (65-175) L 12/10/18 12:21 TIBC 219 ug/dL (228-460) L 12/10/18 12:21 Iron Saturation 2.28 (15.00-50.00) L 12/10/18 12:21 Ferritin 117.1 ng/mL (22.0-322.0) 12/10/18 06:22 Total Bilirubin 1.0 mg/dL (0.2-1.3) 12/10/18 06:22 AST 17 U/L (17-59) 12/10/18 06:22 ALT 21 U/L (21-72) 12/10/18 06:22 Alkaline Phosphatase 37 U/L (38-126) L 12/10/18 06:22 Total Protein 4.3 g/dL (6.3-8.2) L 12/10/18 06:22 Albumin 2.4 g/dL (3.5-5.0) L 12/11/18 07:03 Triglycerides 39 mg/dL (<150) 12/10/18 12:21 Carcinoembryonic Ag 0.9 ng/mL (0.0-4.9) 12/03/18 08:25 Stool Occult Blood Positive (Negative) 11/29/18 02:30 Microbiology 12/09/18 14:59 [facility] Gram Stain - Final 12/09/18 14:59 [facility] Body Fluid Culture - Final Enterococcus faecium Enterobacter cloacae Assessment and Plan (1) Cecum mass Narrative/Plan: 68-year-old male with multiple medical troubles including cardiovascular disease, stroke, legally blind presents to hospital with further blood per rectum. He underwent endoscopy finding evidence of a cecal mass. Consequently on December 06 was taken to the operating room in the colonic resection anastomosis occurred. By December 09 there was evidence of failure the anastomosis was taken back to the operating room with evidence of blowout of the anastomosis, the patient underwent extension of the colectomy and reanastomosis and wound VAC application. Patient is doing relatively well this point in time does have leukocytosis which of the base of the recent surgeries in the anastomotic leak. Antimicrobial therapy with Zosyn and Flagyl is adequate for the moment however would add Eraxis ensure covering for Priscilla other fungus given the gross spillage. Cultures be monitored and hopefully will have a oral course of antimicrobial therapy at discharge. He is tolerating some clear liquids without nausea or emesis. Family's questions are answered. 12/12/2018 patient is sitting upright in the lounge is not walking the floors. He is slightly more comfortable but still having some pain. He is denying other intermediate troubles at this point in time. No fevers or chills are noted. The patient's is present and has been assisting him in walking in the hallway. He is not having nausea or emesis and is not having any significant stool output either. Some flatus as noted. Pain control seems to be adequate. The cough is now finalized and there is evidence of enterococcus fascia that has a Vanco ADEOLA of 4 and does not appear to be susceptible to penicillin based antibiotics and constantly daptomycin is added in addition to the other agents. Follow-up cultures indicated if he has fevers, surgery has no further plans at this time. Current Visit: Yes Status: Acute Code(s): K63.9 - DISEASE OF INTESTINE, UNSPECIFIED SNOMED Code(s): 344464005 (2) Diverticulosis of colon Current Visit: Yes Status: Acute Code(s): K57.30 - DVRTCLOS OF LG INT W/O PERFORATION OR ABSCESS W/O BLEEDING SNOMED Code(s): 634817325 (3) Acute blood loss anemia Current Visit: Yes Status: Acute Code(s): D62 - ACUTE POSTHEMORRHAGIC ANEMIA SNOMED Code(s): 751275733
[2018-12-12] MEDS: DAPTOmycin 500 MG in SODIUM CHLORIDE 0.9% 50 ML IVPB SCH (16:28)
[2018-12-12 17:17] LABS: Glucose,Whole Blood 141 mg/dL (75-99)
--- NOTE | 2018-12-12 20:21 | P.PN ---
Subjective Progress Note Date: 12/12/18 Principal diagnosis: Acute lower GI bleed Cecal mass status post surgery Patient is a 68-year-old male was admitted to the hospital due to lower GI bleed and was found have cecal mass. Patient underwent robotic right colectomy by Dr. Lan. 12/07/2018 Patient denied any complaints of chest pain or shortness of breath. Abdominal pain is better. No flatness or bowel movement. Epidural has been discontinued. No fever no chills. No nausea vomiting. Discussed with family at bedside in detail. 12/08/2018 No complaints of chest pain or shortness breath. Holden catheter has been discontinued and voiding spontaneously. Patient is tolerating clear liquid diet. No bowel movement or flatus. Bowel sounds are heard today. No fever no chills. Patient remains on antibiotics in the form of Flagyl and Zosyn. General surgery is following. No other acute overnight issues. Plan discussed with the family at bedside in detail. 12/09/2018 Patient is more lethargic and confused today. As per family patient is getting abdominal distention. MICHAEL drain is draining greenish colored fluid. General surgery is planning for expiratory laparotomy due to leak. WBC count is slightly increased to 14. Continued antibiotics with Zosyn and Flagyl. No fever. Patient does not have any bowel movement or flatus. Surgical pathology is negative for any malignancy. 12/10/2018 Patient is more awake and oriented today. Patient was taken to OR on 2010 due to possible bowel leak with greenish fluid in the MICHAEL drain. Patient was found to have blowout of initial ileocolic anastomosis and intra-abdominal adhesions from diverticulitis with internal hernia 4. He underwent exploratory laparotomy with extended right hemicolectomy. Currently abdomen is soft. Bowel sounds are diminished. No flatus or bowel movement yet. Continued on IV hydration and antibiotics in the form of Flagyl and Zosyn. Hemoglobin is 10.6 and leukocytosis improved to 10.4 today. Discussed with his at bedside in detail. 12/11/2018 Patient is more awake and oriented. Patient has not passed factor soft bowel movement yet. Otherwise fluid cultures are showing enterococcus patient and Enterobacter species. ID is following. Currently on Zosyn and Flagyl. No fever no chills. WBC slightly increased to 12.0. No nausea or vomiting. Abdominal pain is controlled with pain medications. No chest pain. Patient does complain of short of breath otherwise. Chest x-ray showed bibasilar atelectasis. General surgery and ID is following. 12/12/2018 Patient denied any complaints of nausea vomiting. Abdominal pain is much better. Otherwise patient did have a small bowel movement today. Able to ambulate in the hallway. Patient was started on clear liquid diet. Will continue with TPN for today. Continue with IV antibiotics in the form of Zosyn and Flagyl and Anidulafungin for peritonitis. General surgery and ID is following. Current medications reviewed Objective - Vital Signs Vital signs: Vital Signs Temp 98.3 F 12/12/18 12:27 Pulse 102 H 12/12/18 16:07 Resp 16 12/12/18 16:07 BP 148/77 12/12/18 12:27 Pulse Ox 96 12/12/18 12:27 Intake & Output 12/12/18 12/12/18 12/13/18 06:59 18:59 06:59 Intake Total 1590 3040 Output Total 25 60 Balance 1565 2980 Weight 85 kg 85 kg Intake: Intake, IV Titration 1000 2350 Amount Amino Acid 4.25%-D10w+ 1000 1200 Lytes*E* 1,000 ml @ 100 mls/hr IV .BY DURATION [facility] Rx#:[id number] Anidulafungin 100 mg In 100 Sodium Chloride 0.9% 100 ml @ 84 mls/hr IVPB DAILY LAURE Rx#:[id number] D5-0.45% NaCl with KCl 650 20Meq/l 1,000 ml @ 75 mls /hr IV .[id number] LA[facility] Rx#: [id number] Piperacillin-Tazobactam 3 100 .375 gm In Sodium Chloride 0.9% 100 ml @ 25 mls/hr IVPB Q8H LAURE Rx#: [id number] Potassium Chloride 10 meq 200 In Water For Injection 1 100ml.bag @ 100 mls/hr IVPB Q1H LAURE Rx#: [id number] Sodium Ferric Gluconat- 100 Sucrose 125 mg In Sodium Chloride 0.9% 100 ml @ 100 mls/hr IVPB DAILY LAURE Rx#:[id number] Oral 590 690 Output: Drainage 25 60 Left Lower Quadrant 25 60 Other: Voiding Method Urinal Urinal # Voids 2 4 # Bowel Movements 1 - Exam GENERAL: Well-developed pleasant male in no acute distress. HEENT: Patient is legally blind. No scleral icterus. Moist buccal mucosa. NECK: Supple without lymphadenopathy. CHEST: Equal expansion. Bibasilar diminished air entry. No wheezing no crackles. CARDIOVASCULAR: Regular rate regular rhythm. Distal 2+ pulses. S1-S2 heard. Systolic murmur positive. ABDOMEN: Abdominal dressing clean dry intact. Bowel sounds present. Abdomen is soft. No guarding no rigidity. MUSCULOSKELETAL: No clubbing, cyanosis, or edema. NEURO : Difficult to thoroughly assess due to history of CVA. No seizure activity noted. No tremors. PSYCH: Awake and alert. SKIN: Well perfused. Good skin turgor. No cyanosis. No jaundice. - Labs CBC & Chem 7: 12/12/18 07:30 12/12/18 07:30 Labs: Abnormal Lab Results - Last 24 Hours (Table) 12/11/18 12/12/18 12/12/18 Range/Units 23:50 06:16 07:30 RBC (4.30-5.90) m/uL Hgb (13.0-17.5) gm/dL Hct (39.0-53.0) % Chloride 109 H (98-107) mmol/L Glucose 137 H (74-99) mg/dL POC Glucose (mg/dL) 195 H 145 H (75-99) mg/dL Calcium 7.9 L (8.4-10.2) mg/dL 12/12/18 12/12/18 12/12/18 Range/Units 07:30 11:37 17:15 RBC 3.05 L (4.30-5.90) m/uL Hgb 9.3 L (13.0-17.5) gm/dL Hct 28.9 L (39.0-53.0) % Chloride (98-107) mmol/L Glucose (74-99) mg/dL POC Glucose (mg/dL) 210 H 141 H (75-99) mg/dL Calcium (8.4-10.2) mg/dL Assessment and Plan Assessment: Acute lower GI bleed secondary to sigmoid mass. Status post robotic right colectomy. 12/03/2018 Status post exploratory laparotomy on 12/09/2018. Patient was found to have blowout of initial ileocolic anastomosis and intra-abdominal adhesions from diverticulitis with internal hernia 4. He underwent exploratory laparotomy with extended right hemicolectomy. Peritonitis Acute blood loss anemia History of CVA/TIA occipital stroke and blindness and expressive aphasia. dementia hyperlipidemia Legal blindness History of aortic stenosis. Outpatient follow-up per cardiology Plan: Patient will be continued on IV hydration pain management. Continue with IV antibiotics.. General surgery is following closely. Replace electrolyte is continue to monitor closely. Patient was started on clear liquid diet and advance as tolerated. Encourage ambulation and incentive spirometry. Continued on antibiotics in the form of Zosyn and Flagyl and Anidulafungin. Further recommendations based on the clinical course. Prognosis is guarded. Time with Patient: Greater than 30
[2018-12-12] MEDS: TAMSULOSIN 0.4 MG CAP.ER.24H PO SCH (20:26)
[2018-12-12 23:57] LABS: Glucose,Whole Blood 180 mg/dL (75-99)
[2018-12-13] MEDS: 1: MVI, ADULT NO.4 WITH VIT K 10 ML, TRACE (CONC-1ML/DOSE) 1 ML in AMINO ACID 4.25%-D10W IV SCH ×6 (02:12→17:51)
[2018-12-13] MEDS: KETOROLAC 30 MG/ML 1 ML VIAL IVP SCH ×4 (05:07→23:17)
[2018-12-13] MEDS: PIPERACILLIN-TAZOBACTAM 3.375 GM in SODIUM CHLORIDE 0.9% 100 ML IVPB SCH ×3 (05:10→20:00)
[2018-12-13] MEDS: FAT EMULSION 20% 250 ML in EMPTY BAG 1 BAG IV SCH (05:10)
[2018-12-13] MEDS: metroNIDAZOLE-NS PMX 500 MG in SALINE 1 100ML.BAG IVPB SCH ×4 (05:10→23:17)
[2018-12-13 05:24] LABS: Glucose,Whole Blood 194 mg/dL (75-99)
[2018-12-13] MEDS: INSULIN ASPART 100 UNIT/ML 1 ML 10 ML VIAL SQ SCH ×3 (05:29→17:31)
[2018-12-13] MEDS: HYDROmorphone 1 MG/ML 1 ML SYRINGE IVP PRN ×2 (06:01→10:08)
[2018-12-13 08:25] LABS: Anion Gap 3 mmol/L; Blood Urea Nitrogen 12 mg/dL (9-20); Carbon Dioxide 27 mmol/L (22-30); Chloride 110 mmol/L (98-107); Glucose 173 mg/dL (74-99); Phosphorus 3.3 mg/dL (2.5-4.5); Potassium 4.2 mmol/L (3.5-5.1); Sodium 140 mmol/L (137-145)
[2018-12-13] MEDS: PANTOPRAZOLE 40 MG/10 ML VIAL IVP SCH ×2 (08:37→20:00)
[2018-12-13] MEDS: ALVIMOPAN 12 MG CAPSULE PO SCH (08:37)
[2018-12-13] MEDS: SODIUM FERRIC GLUCONAT-SUCROSE 125 MG in SODIUM CHLORIDE 0.9% 100 ML IVPB SCH (08:38)
[2018-12-13] MEDS: METOPROLOL TARTRATE 25 MG TAB PO SCH ×2 (08:38→19:58)
--- NOTE | 2018-12-13 10:00 | P.PN ---
<Denise Rankin A - Last Filed: 12/13/18 15:10> Subjective Progress Note Date: 12/13/18 CHIEF COMPLAINT: History of peritonitis and GI bleed HISTORY OF PRESENT ILLNESS: The patient is a 68-year-old gentleman initially admitted with gross GI bleed. 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 He initially underwent a robotic right hemicolectomy on . On 12/09/2018, he had gross stool in his MICHAEL warranting emergency exploratory laparotomy. An extended right hemicolectomy was performed including abdominal washout on 12/09/2018. He is postop day 4. Patient examined this morning. Spouse is at the bedside. Patient is sitting up in the chair. Patient states his pain is tolerable at this time. Patient reports having a BM this morning. TPN is infusing. Patient is tolerating soft diet. Reports decreased appetite. MICHAEL drain with serosanguineous drainage. PHYSICAL EXAM: VITAL SIGNS: Reviewed GENERAL: Well-developed in no acute distress. HEENT: No sclera icterus. Head is atraumatic, normocephalic. Hears conversational speech. No nasal drainage. NECK: Supple without lymphadenopathy. CHEST: Non-labored respirations and equal bilateral excursions. CARDIOVASCULAR: Palpable 2+ radial pulses. ABDOMEN: Soft. PREVENA midline dressing clean dry and intact. MUSCULOSKELETAL: No clubbing, cyanosis. NEUROLOGIC: No focal or lateralizing signs. Cranial nerves II through XII grossly intact. PSYCH: Appropriate affect. Alert and oriented to person, place and time. SKIN: Well perfused. Good skin turgor. ASSESSMENT: 1. 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 Diverticulosis 3. Fecal peritonitis, S/P exploratory laparotomy with takedown of ileocolic anastomosis and extended right hemicolectomy secondary to blowout of initial ileocolic anastomosis 4. Severe iron deficiency anemia due to chronic blood loss, pre-existing 5. Aortic stenosis with tachycardia PLAN: 1. Continue full liquid/soft diet 2. Wean TPN today 3. Await discharge antibiotic recommendations per ID 4. Pain control 5. Activity as tolerated 6. Anticipate discharge by Thursday Nurse practitioner note has been reviewed by physician. Signing provider agrees with the documented findings, assessment, and plan of care. Objective - Vital Signs Vital signs: Vital Signs Temp 98.1 F 12/13/18 05:00 Pulse 88 12/13/18 05:00 Resp 17 12/13/18 05:00 BP 128/64 12/13/18 05:00 Pulse Ox 97 12/13/18 05:00 Intake & Output 12/12/18 12/13/18 12/13/18 18:59 06:59 18:59 Intake Total 4051 736 Output Total 60 410 30 Balance 3991 326 -30 Weight 85 kg 85 kg Intake: Intake, IV Titration 3361 736 Amount Amino Acid 4.25%-D10w+ 1200 Lytes*E* 1,000 ml @ 100 mls/hr IV .BY DURATION LAURE Rx#:[id number] Anidulafungin 100 mg In 100 Sodium Chloride 0.9% 100 ml @ 84 mls/hr IVPB DAILY LAURE Rx#:[id number] D5-0.45% NaCl with KCl 650 20Meq/l 1,000 ml @ 75 mls /hr IV .[id number] [facility] Rx#: [id number] Fat Emulsion 20% 250 ml 336 In Empty Bag 1 bag @ 21 mls/hr IV Q24H LAURE Rx#: [id number] Mvi, Adult No.4 with Vit 1011 K 10 ml Trace (Conc-1Ml/ Dose) 1 ml In Amino Acid 4.25%-D10w+Lytes*E* 1,000 ml @ 100 mls/hr IV .BY DURATION [facility] Rx#: [id number] Piperacillin-Tazobactam 3 100 200 .375 gm In Sodium Chloride 0.9% 100 ml @ 25 mls/hr IVPB Q8H LAURE Rx#: [id number] Potassium Chloride 10 meq 200 In Water For Injection 1 100ml.bag @ 100 mls/hr IVPB Q1H LAURE Rx#: [id number] Sodium Ferric Gluconat- 100 Sucrose 125 mg In Sodium Chloride 0.9% 100 ml @ 100 mls/hr IVPB DAILY LAURE Rx#:[id number] metroNIDAZOLE-NS PMX 500 200 mg In Saline 1 100ml.bag @ 100 mls/hr IVPB Q6HR LAURE Rx#:[id number] Oral 690 Output: Drainage 60 60 30 Left Lower Quadrant 60 60 30 Urine 350 Other: Voiding Method Urinal Urinal Urinal # Voids 4 2 # Bowel Movements 1 - Labs CBC & Chem 7: 12/12/18 07:30 12/13/18 07:23 Labs: Abnormal Lab Results - Last 24 Hours (Table) 12/12/18 12/12/18 12/12/18 Range/Units 11:37 17:15 23:55 Chloride (98-107) mmol/L Glucose (74-99) mg/dL POC Glucose (mg/dL) 210 H 141 H 180 H (75-99) mg/dL Calcium (8.4-10.2) mg/dL 12/13/18 12/13/18 Range/Units 05:19 07:23 Chloride 110 H (98-107) mmol/L Glucose 173 H (74-99) mg/dL POC Glucose (mg/dL) 194 H (75-99) mg/dL Calcium 8.0 L (8.4-10.2) mg/dL Assessment and Plan (1) Acute blood loss anemia Current Visit: Yes Status: Acute Code(s): D62 - ACUTE POSTHEMORRHAGIC ANEMIA SNOMED Code(s): 617799349 (2) Cecum mass Current Visit: Yes Status: Acute Code(s): K63.9 - DISEASE OF INTESTINE, UNSPECIFIED SNOMED Code(s): 441801102 (3) Diverticulosis of colon Current Visit: Yes Status: Acute Code(s): K57.30 - DVRTCLOS OF LG INT W/O PERFORATION OR ABSCESS W/O BLEEDING SNOMED Code(s): 672104548 (4) Internal hemorrhoid Current Visit: Yes Status: Acute Code(s): K64.8 - OTHER HEMORRHOIDS SNOMED Code(s): 14609822 (5) CVA (cerebral vascular accident) Current Visit: Yes Status: Acute Code(s): I63.9 - CEREBRAL INFARCTION, UNSPECIFIED SNOMED Code(s): 838122344 (6) GIB (gastrointestinal bleeding) Current Visit: Yes Status: Acute Code(s): K92.2 - GASTROINTESTINAL HEMORRHAGE, UNSPECIFIED SNOMED Code(s): 86382146 (7) Peritonitis Current Visit: Yes Status: Acute Code(s): K65.9 - PERITONITIS, UNSPECIFIED SNOMED Code(s): 44461673 <Dodie Lan N - Last Filed: 12/13/18 16:02> Objective - Vital Signs Vital signs: Vital Signs Temp 98 F 12/13/18 11:51 Pulse 89 12/13/18 11:51 Resp 18 12/13/18 11:51 BP 138/67 12/13/18 11:51 Pulse Ox 97 12/13/18 11:51 Intake & Output 12/12/18 12/13/18 12/13/18 18:59 06:59 18:59 Intake Total 4051 736 2842.333 Output Total 60 410 380 Balance 3991 326 2462.333 Weight 85 kg 85 kg 85 kg Intake: Intake, IV Titration 3361 736 1352.333 Amount Amino Acid 4.25%-D10w+ 1200 Lytes*E* 1,000 ml @ 100 mls/hr IV .BY DURATION [facility]URE Rx#:[id number] Anidulafungin 100 mg In 100 100 Sodium Chloride 0.9% 100 ml @ 84 mls/hr IVPB DAILY LAURE Rx#:[id number] D5-0.45% NaCl with KCl 650 20Meq/l 1,000 ml @ 75 mls /hr IV .[id number] LAURE Rx#: [id number] Fat Emulsion 20% 250 ml 336 169 In Empty Bag 1 bag @ 21 mls/hr IV Q24H LAURE Rx#: [id number] Mvi, Adult No.4 with Vit 1011 983.333 K 10 ml Trace (Conc-1Ml/ Dose) 1 ml In Amino Acid 4.25%-D10w+Lytes*E* 1,000 ml @ 100 mls/hr IV .BY DURATION [facility] Rx#: [id number] Piperacillin-Tazobactam 3 100 200 .375 gm In Sodium Chloride 0.9% 100 ml @ 25 mls/hr IVPB Q8H LAURE Rx#: [id number] Potassium Chloride 10 meq 200 In Water For Injection 1 100ml.bag @ 100 mls/hr IVPB Q1H LAURE Rx#: [id number] Sodium Ferric Gluconat- 100 100 Sucrose 125 mg In Sodium Chloride 0.9% 100 ml @ 100 mls/hr IVPB DAILY LAURE Rx#:[id number] metroNIDAZOLE-NS PMX 500 200 mg In Saline 1 100ml.bag @ 100 mls/hr IVPB Q6HR LAURE Rx#:[id number] Oral 690 1490 Output: Drainage 60 60 30 Left Lower Quadrant 60 60 30 Urine 350 350 Other: Voiding Method Urinal Urinal Urinal # Voids 4 2 2 # Bowel Movements 1 1 - Labs CBC & Chem 7: 12/12/18 07:30 12/13/18 07:23 Labs: Abnormal Lab Results - Last 24 Hours (Table) 12/12/18 12/12/18 12/13/18 Range/Units 17:15 23:55 05:19 Chloride (98-107) mmol/L Glucose (74-99) mg/dL POC Glucose (mg/dL) 141 H 180 H 194 H (75-99) mg/dL Calcium (8.4-10.2) mg/dL 12/13/18 12/13/18 Range/Units 07:23 11:38 Chloride 110 H (98-107) mmol/L Glucose 173 H (74-99) mg/dL POC Glucose (mg/dL) 168 H (75-99) mg/dL Calcium 8.0 L (8.4-10.2) mg/dL Assessment and Plan (1) Iron deficiency anemia secondary to blood loss (chronic) Current Visit: Yes Status: Acute Code(s): D50.0 - IRON DEFICIENCY ANEMIA SECONDARY TO BLOOD LOSS (CHRONIC) SNOMED Code(s): 981929169 (2) Hypoalbuminemia due to protein-calorie malnutrition Current Visit: Yes Status: Acute Code(s): E46 - UNSPECIFIED PROTEIN-CALORIE MALNUTRITION SNOMED Code(s): 342036527 (3) Acute blood loss anemia Current Visit: Yes Status: Acute Code(s): D62 - ACUTE POSTHEMORRHAGIC ANEMIA SNOMED Code(s): 134634684 (4) Cecum mass Current Visit: Yes Status: Acute Code(s): K63.9 - DISEASE OF INTESTINE, UNSPECIFIED SNOMED Code(s): 250207284 (5) Diverticulosis of colon Current Visit: Yes Status: Acute Code(s): K57.30 - DVRTCLOS OF LG INT W/O PERFORATION OR ABSCESS W/O BLEEDING SNOMED Code(s): 581369295 (6) GIB (gastrointestinal bleeding) Current Visit: Yes Status: Acute Code(s): K92.2 - GASTROINTESTINAL HEMORRHAGE, UNSPECIFIED SNOMED Code(s): 03998573 (7) Peritonitis Current Visit: Yes Status: Acute Code(s): K65.9 - PERITONITIS, UNSPECIFIED SNOMED Code(s): 21999504 Plan: Overall, patient surgically stable however recommend adjustment of pain management to oral pain medication. Minimal appetite expected secondary to complicated surgery and complicated hospital course
--- NOTE | 2018-12-13 11:40 | P.PN ---
Subjective History of present illness, taken from records. 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 Patient underwent robotic right colectomy by Dr. Lan. 12/07/2018 Patient denied any complaints of chest pain or shortness of breath. Abdominal pain is better. No flatness or bowel movement. Epidural has been discontinued. No fever no chills. No nausea vomiting. Discussed with family at bedside in detail. 12/08/2018 No complaints of chest pain or shortness breath. Holden catheter has been discontinued and voiding spontaneously. Patient is tolerating clear liquid diet. No bowel movement or flatus. Bowel sounds are heard today. No fever no chills. Patient remains on antibiotics in the form of Flagyl and Zosyn. General surgery is following. No other acute overnight issues. Plan discussed with the family at bedside in detail. 12/09/2018 Patient is more lethargic and confused today. As per family patient is getting abdominal distention. MICHAEL drain is draining greenish colored fluid. General surgery is planning for expiratory laparotomy due to leak. WBC count is slightly increased to 14. Continued antibiotics with Zosyn and Flagyl. No fever. Patient does not have any bowel movement or flatus. Surgical pathology is negative for any malignancy. 12/10/2018 Patient is more awake and oriented today. Patient was taken to OR on 2010 due to possible bowel leak with greenish fluid in the MICHAEL drain. Patient was found to have blowout of initial ileocolic anastomosis and intra-abdominal adhesions from diverticulitis with internal hernia 4. He underwent exploratory laparotomy with extended right hemicolectomy. Currently abdomen is soft. Bowel sounds are diminished. No flatus or bowel movement yet. Continued on IV hydration and antibiotics in the form of Flagyl and Zosyn. Hemoglobin is 10.6 and leukocytosis improved to 10.4 today. Discussed with his at bedside in detail. 12/11/2018 Patient is more awake and oriented. Patient has not passed factor soft bowel movement yet. Otherwise fluid cultures are showing enterococcus patient and Enterobacter species. ID is following. Currently on Zosyn and Flagyl. No fever no chills. WBC slightly increased to 12.0. No nausea or vomiting. Abdominal pain is controlled with pain medications. No chest pain. Patient does complain of short of breath otherwise. Chest x-ray showed bibasilar atelectasis. General surgery and ID is following. 12/12/2018 Patient denied any complaints of nausea vomiting. Abdominal pain is much better. Otherwise patient did have a small bowel movement today. Able to ambulate in the hallway. Patient was started on clear liquid diet. Will continue with TPN for today. Continue with IV antibiotics in the form of Zosyn and Flagyl and Anidulafungin for peritonitis. General surgery and ID is following. Current medications reviewed 12/13/2018 Patient was walking in the hallways, however he wants some discomfort due to his abdominal pain at the surgical site. Patient saw taking IV Dilaudid. His diet was advanced but he only ate part of the meal at breakfast. Passing gases but normal bowel movements. Abdominal pain is controlled with pain medication. No nausea vomiting. Patient still have total parenteral nutrition. Vitas looks stable. Last fever was in 100.0 Fahrenheit on 12/11/2018. WBC 8.6K. Creatinine 0.6 electrolytes within normal limits. Sugar controlled. Objective - Vital Signs Vital signs: Vital Signs Temp 98.1 F 12/13/18 05:00 Pulse 88 12/13/18 05:00 Resp 17 12/13/18 05:00 BP 128/64 12/13/18 05:00 Pulse Ox 97 12/13/18 05:00 Intake & Output 12/12/18 12/13/18 12/13/18 18:59 06:59 18:59 Intake Total 4051 736 Output Total 60 410 30 Balance 3991 326 -30 Weight 85 kg 85 kg 85 kg Intake: Intake, IV Titration 3361 736 Amount Amino Acid 4.25%-D10w+ 1200 Lytes*E* 1,000 ml @ 100 mls/hr IV .BY DURATION LAURE Rx#:[id number] Anidulafungin 100 mg In 100 Sodium Chloride 0.9% 100 ml @ 84 mls/hr IVPB DAILY LAURE Rx#:[id number] D5-0.45% NaCl with KCl 650 20Meq/l 1,000 ml @ 75 mls /hr IV .[id number] LA[facility] Rx#: [id number] Fat Emulsion 20% 250 ml 336 In Empty Bag 1 bag @ 21 mls/hr IV Q24H LAURE Rx#: [id number] Mvi, Adult No.4 with Vit 1011 K 10 ml Trace (Conc-1Ml/ Dose) 1 ml In Amino Acid 4.25%-D10w+Lytes*E* 1,000 ml @ 100 mls/hr IV .BY DURATION LAURE Rx#: [id number] Piperacillin-Tazobactam 3 100 200 .375 gm In Sodium Chloride 0.9% 100 ml @ 25 mls/hr IVPB Q8H LAURE Rx#: [id number] Potassium Chloride 10 meq 200 In Water For Injection 1 100ml.bag @ 100 mls/hr IVPB Q1H LAURE Rx#: [id number] Sodium Ferric Gluconat- 100 Sucrose 125 mg In Sodium Chloride 0.9% 100 ml @ 100 mls/hr IVPB DAILY LAURE Rx#:[id number] metroNIDAZOLE-NS PMX 500 200 mg In Saline 1 100ml.bag @ 100 mls/hr IVPB Q6HR LAURE Rx#:[id number] Oral 690 Output: Drainage 60 60 30 Left Lower Quadrant 60 60 30 Urine 350 Other: Voiding Method Urinal Urinal Urinal # Voids 4 2 # Bowel Movements 1 - Exam -GENERAL: Well-developed pleasant male in no acute distress. He has discomfort from his abdominal pain. HEENT: Patient is legally blind. No scleral icterus. Moist buccal mucosa. NECK: Supple without lymphadenopathy. CHEST: Equal expansion. Bibasilar diminished air entry. No wheezing no crackles. CARDIOVASCULAR: Regular rate regular rhythm. Distal 2+ pulses. S1-S2 heard. Systolic murmur positive. -ABDOMEN: Abdominal dressing clean dry intact. Bowel sounds present. Abdomen is soft. No guarding no rigidity. MUSCULOSKELETAL: No clubbing, cyanosis, or edema. NEURO : Difficult to thoroughly assess due to history of CVA. No seizure activity noted. No tremors. PSYCH: Awake and alert. SKIN: Well perfused. Good skin turgor. No cyanosis. No jaundice. - Labs CBC & Chem 7: 12/12/18 07:30 12/13/18 07:23 Labs: Abnormal Lab Results - Last 24 Hours (Table) 12/12/18 12/12/18 12/12/18 Range/Units 11:37 17:15 23:55 Chloride (98-107) mmol/L Glucose (74-99) mg/dL POC Glucose (mg/dL) 210 H 141 H 180 H (75-99) mg/dL Calcium (8.4-10.2) mg/dL 12/13/18 12/13/18 Range/Units 05:19 07:23 Chloride 110 H (98-107) mmol/L Glucose 173 H (74-99) mg/dL POC Glucose (mg/dL) 194 H (75-99) mg/dL Calcium 8.0 L (8.4-10.2) mg/dL Assessment and Plan Assessment: Assessment: 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 Status post robotic right colectomy. 12/06/2018 Status post exploratory laparotomy on 12/09/2018. Patient was found to have blowout of initial ileocolic anastomosis and intra-abdominal adhesions from diverticulitis with internal hernia 4. He underwent exploratory laparotomy with extended right hemicolectomy. Peritonitis Acute blood loss anemia History of CVA/TIA occipital stroke and blindness and expressive aphasia. dementia hyperlipidemia Legal blindness History of aortic stenosis. Outpatient follow-up per cardiology Plan: Plan: Patient will be continued on IV hydration pain management. Continue with IV antibiotics. Continue with total parenteral nutrition for now. General surgery is following closely. Replace electrolyte is continue to monitor closely. Patient was started on clear liquid diet and advance as tolerated. Encourage ambulation and incentive spirometry. Surgery and infectious disease teams are following the patient closely. Continued on antibiotics in the form of Zosyn and Flagyl and Anidulafungin. Further recommendations based on the clinical course. Prognosis is guarded.
[2018-12-13 11:50] LABS: Glucose,Whole Blood 168 mg/dL (75-99)
[2018-12-13] MEDS: ANIDULAFUNGIN 100 MG in SODIUM CHLORIDE 0.9% 100 ML IVPB SCH (11:50)
[2018-12-13] MEDS: MULTIVITAMINS, THERA 1 EACH TAB PO SCH (12:04)
[2018-12-13] MEDS: DAPTOmycin 500 MG in SODIUM CHLORIDE 0.9% 50 ML IVPB SCH (16:10)
[2018-12-13] MEDS: HYDROcodone/APAP 7.5-325MG 1 EACH TAB PO SCH ×2 (16:11→19:59)
[2018-12-13 17:02] LABS: Glucose,Whole Blood 136 mg/dL (75-99)
[2018-12-13] MEDS: TAMSULOSIN 0.4 MG CAP.ER.24H PO SCH (19:59)
[2018-12-13] MEDS: HEPARIN SODIUM,PORCINE 5,000 UNIT/ML 1 ML VIAL SQ SCH (23:22)
--- NOTE | 2018-12-13 23:23 | P.PN ---
Subjective Progress Note Date: 12/13/18 68-year-old male who has a significant past medical history cardiovascular disease, stroke, being legally blind presents to hospital with several bowel movements. Because it did not improve and he continued to have bright red blood per rectum he presented to the emergency center. He underwent evaluations with gastroenterology as well as general surgery. 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 Due to the cecal mass in the high-grade nature he was taken to the operating room on 12/06/2018 in the colonic resection and anastomosis occurred. The patient continued to have some abdominal discomfort and distention and markedly worsened and by December 09 there was evidence of leakage of the anastomosis because was taken back to the operating room where the anastomotic below was seen and it was revised. Patient has been modified wound VAC in place and is modestly comfortable. He has noted he is still receiving a large amount of pain medications and is somewhat sedated but is comfortable. There allowing some clear liquids and is having no nausea. No bloody rectal discharge is noted. MICHAEL drainage is modestly clear. 12/12/2018 patient is feeling better. Was still having pain. He is however up walking in the halls without nausea. Still has some modest drainage in the MICHAEL drain 12/13/2018 patient is still having pain seems to be comfortable. Has been able to walk in the hallway but still requires some narcotic pain medication. Tolerating current diet without nausea or emesis. Objective - Vital Signs Vital signs: Vital Signs Temp 97.9 F 12/13/18 21:00 Pulse 81 12/13/18 21:00 Resp 18 12/13/18 21:00 BP 127/62 12/13/18 21:00 Pulse Ox 99 12/13/18 21:00 Intake & Output 12/13/18 12/13/18 12/14/18 06:59 18:59 06:59 Intake Total 736 2842.333 Output Total 410 450 Balance 326 2392.333 Weight 85 kg 85 kg Intake: Intake, IV Titration 736 1352.333 Amount Anidulafungin 100 mg In 100 Sodium Chloride 0.9% 100 ml @ 84 mls/hr IVPB DAILY [facility] Rx#:[id number] Fat Emulsion 20% 250 ml 336 169 In Empty Bag 1 bag @ 21 mls/hr IV Q24H [facility] Rx#: [id number] Mvi, Adult No.4 with Vit 983.333 K 10 ml Trace (Conc-1Ml/ Dose) 1 ml In Amino Acid 4.25%-D10w+Lytes*E* 1,000 ml @ 100 mls/hr IV .BY DURATION [facility] Rx#: [id number] Piperacillin-Tazobactam 3 200 .375 gm In Sodium Chloride 0.9% 100 ml @ 25 mls/hr IVPB Q8H [facility] Rx#: [id number] Sodium Ferric Gluconat- 100 Sucrose 125 mg In Sodium Chloride 0.9% 100 ml @ 100 mls/hr IVPB DAILY [facility]URE Rx#:[id number] metroNIDAZOLE-NS PMX 500 200 mg In Saline 1 100ml.bag @ 100 mls/hr IVPB Q6HR [facility] Rx#:[id number] Oral 1490 Output: Drainage 60 100 Left Lower Quadrant 60 100 Urine 350 350 Other: Voiding Method Urinal Urinal # Voids 2 2 # Bowel Movements 1 - Exam 68-year-old male of a somewhat thin build, is not in acute distress HEENT: Anicteric conjunctiva are pink and moist nasal mucosa grossly intact without significant lesions, there is no thrush. Neck: The neck is supple without significant lymphadenopathy or thyromegaly. Lungs: Good bilateral air entry without significant crackles or wheezing. There is no significant bronchial sounds. There is no egophony or dullness. Heart: Regular rate and rhythm with an audible S1-S2, no S3 no S4. There is no significant murmur click or rub, PMI was nondisplaced. Abdomen: Abdomen is mildly distended, wound VAC is in place, scant drainage is seen that is nonbloody. No bloody drainage per rectum at this time. Abdomen is mildly distended Extremities: The upper extremities have excellent pulses they are symmetric, no significant petechiae or telangiectasia. No splinter hemorrhages were noted. The lower extremities are free from significant edema. The peripheral pulses were 2+ and symmetric. Neuro: Awake alert interactive is noted has legal blindness, does not seem to be in severe pain - Labs CBC & Chem 7: 12/12/18 07:30 12/13/18 07:23 Labs: Abnormal Lab Results - Last 24 Hours (Table) 12/12/18 12/13/18 12/13/18 Range/Units 23:55 05:19 07:23 Chloride 110 H (98-107) mmol/L Glucose 173 H (74-99) mg/dL POC Glucose (mg/dL) 180 H 194 H (75-99) mg/dL Calcium 8.0 L (8.4-10.2) mg/dL 12/13/18 12/13/18 Range/Units 11:38 17:00 Chloride (98-107) mmol/L Glucose (74-99) mg/dL POC Glucose (mg/dL) 168 H 136 H (75-99) mg/dL Calcium (8.4-10.2) mg/dL Laboratory Results WBC 8.6 k/uL (3.8-10.6) 12/12/18 07:30 RBC 3.05 m/uL (4.30-5.90) L 12/12/18 07:30 Hgb 9.3 gm/dL (13.0-17.5) L 12/12/18 07:30 Hct 28.9 % (39.0-53.0) L 12/12/18 07:30 MCV 94.8 fL (80.0-100.0) 12/12/18 07:30 MCH 30.5 pg (25.0-35.0) 12/12/18 07:30 MCHC 32.2 g/dL (31.0-37.0) 12/12/18 07:30 RDW 13.0 % (11.5-15.5) 12/12/18 07:30 Plt Count 293 k/uL (150-450) 12/12/18 07:30 Neutrophils % 76 % 12/12/18 07:30 Lymphocytes % 14 % 12/12/18 07:30 Monocytes % 5 % 12/12/18 07:30 Eosinophils % 5 % 12/12/18 07:30 Basophils % 0 % 12/12/18 07:30 Neutrophils # 6.5 k/uL (1.3-7.7) 12/12/18 07:30 Lymphocytes # 1.2 k/uL (1.0-4.8) 12/12/18 07:30 Monocytes # 0.4 k/uL (0-1.0) 12/12/18 07:30 Eosinophils # 0.4 k/uL (0-0.7) 12/12/18 07:30 Basophils # 0.0 k/uL (0-0.2) 12/12/18 07:30 Hypochromasia Slight 12/12/18 07:30 PT 10.1 sec (9.0-12.0) 11/29/18 02:30 INR 0.9 (<1.2) 11/29/18 02:30 APTT 23.6 sec (22.0-30.0) 11/29/18 02:30 Sodium 140 mmol/L (137-145) 12/13/18 07:23 Potassium 4.2 mmol/L (3.5-5.1) 12/13/18 07:23 Chloride 110 mmol/L (98-107) H 12/13/18 07:23 Carbon Dioxide 27 mmol/L (22-30) 12/13/18 07:23 Anion Gap 3 mmol/L 12/13/18 07:23 BUN 12 mg/dL (9-20) 12/13/18 07:23 Creatinine 0.68 mg/dL (0.66-1.25) 12/13/18 07:23 Est GFR (CKD-EPI)AfAm >90 (>60 ml/min/1.73 sqM) 12/13/18 07:23 Est GFR (CKD-EPI)NonAf >90 (>60 ml/min/1.73 sqM) 12/13/18 07:23 Glucose 173 mg/dL (74-99) H 12/13/18 07:23 POC Glucose (mg/dL) 136 mg/dL (75-99) H 12/13/18 17:00 POC Glu [employer] ID Wendi Welch 12/13/18 17:00 Plasma Lactic Acid Mikhail 1.0 mmol/L (0.7-2.0) 11/29/18 02:30 Calcium 8.0 mg/dL (8.4-10.2) L 12/13/18 07:23 Ionized Calcium Tay 5.1 mg/dL (4.5-5.3) 12/12/18 07:30 Phosphorus 3.3 mg/dL (2.5-4.5) 12/13/18 07:23 Magnesium 2.0 mg/dL (1.6-2.3) 12/13/18 07:23 Iron 5 ug/dL (65-175) L 12/10/18 12:21 TIBC 219 ug/dL (228-460) L 12/10/18 12:21 Iron Saturation 2.28 (15.00-50.00) L 12/10/18 12:21 Ferritin 117.1 ng/mL (22.0-322.0) 12/10/18 06:22 Total Bilirubin 1.0 mg/dL (0.2-1.3) 12/10/18 06:22 AST 17 U/L (17-59) 12/10/18 06:22 ALT 21 U/L (21-72) 12/10/18 06:22 Alkaline Phosphatase 37 U/L (38-126) L 12/10/18 06:22 Total Protein 4.3 g/dL (6.3-8.2) L 12/10/18 06:22 Albumin 2.4 g/dL (3.5-5.0) L 12/11/18 07:03 Triglycerides 39 mg/dL (<150) 12/10/18 12:21 Carcinoembryonic Ag 0.9 ng/mL (0.0-4.9) 12/03/18 08:25 Stool Occult Blood Positive (Negative) 11/29/18 02:30 Microbiology 12/09/18 14:59 Johnnie-De Leon Gram Stain - Final 12/09/18 14:59 Stone Body Fluid Culture - Final Enterococcus faecium Enterobacter cloacae Assessment and Plan (1) Cecum mass Narrative/Plan: 68-year-old male with multiple medical troubles including cardiovascular disease, stroke, legally blind presents to hospital with further blood per rectum. He underwent endoscopy finding evidence of a cecal mass. Consequently on December 06 was taken to the operating room in the colonic resection anastomosis occurred. By December 09 there was evidence of failure the anastomosis was taken back to the operating room with evidence of blowout of the anastomosis, the patient underwent extension of the colectomy and reanastomosis and wound VAC application. Patient is doing relatively well this point in time does have leukocytosis which of the base of the recent surgeries in the anastomotic leak. Antimicrobial therapy with Zosyn and Flagyl is adequate for the moment however would add Eraxis ensure covering for Priscilla other fungus given the gross spillage. Cultures be monitored and hopefully will have a oral course of antimicrobial therapy at discharge. He is tolerating some clear liquids without nausea or emesis. Family's questions are answered. 12/12/2018 patient is sitting upright in the lounge is not walking the floors. He is slightly more comfortable but still having some pain. He is denying other intermediate troubles at this point in time. No fevers or chills are noted. The patient's is present and has been assisting him in walking in the hallway. He is not having nausea or emesis and is not having any significant stool output either. Some flatus as noted. Pain control seems to be adequate. The culture is now finalized and there is evidence of enterococcus feacalis that has a Vanco ADEOLA of 4 and does not appear to be susceptible to penicillin based antibiotics and constantly daptomycin is added in addition to the other agents. Follow-up cultures indicated if he has fevers, surgery has no further plans at this time. 12/13/2018 patient's pain seems to be improving. He is without fever or chills. Some stool is been noted. Cultures are finalized and is receiving antibiotic therapy with daptomycin and Zosyn. The patient has had a very complex course and plan at this point in time will be to have a midline placed, and plan home or outpatient intravenous antibiotic therapy with daptomycin and ertapenem in the outpatient setting. Patient does have some lower extremity edema due to his low albumin hopefully as his nutrition improves this will improve. Leukocytosis has resolved. Current Visit: Yes Status: Acute Code(s): K63.9 - DISEASE OF INTESTINE, UNSPECIFIED SNOMED Code(s): 162061193 (2) Diverticulosis of colon Current Visit: Yes Status: Acute Code(s): K57.30 - DVRTCLOS OF LG INT W/O PERFORATION OR ABSCESS W/O BLEEDING SNOMED Code(s): 373383630 (3) Acute blood loss anemia Current Visit: Yes Status: Acute Code(s): D62 - ACUTE POSTHEMORRHAGIC ANEMIA SNOMED Code(s): 932909102
[2018-12-13 23:59] LABS: Glucose,Whole Blood 119 mg/dL (75-99)
[2018-12-14] MEDS: HYDROcodone/APAP 7.5-325MG 1 EACH TAB PO SCH ×6 (00:11→20:16)
[2018-12-14] MEDS: PIPERACILLIN-TAZOBACTAM 3.375 GM in SODIUM CHLORIDE 0.9% 100 ML IVPB SCH ×3 (03:15→21:07)
[2018-12-14] MEDS: KETOROLAC 30 MG/ML 1 ML VIAL IVP SCH ×3 (05:35→17:24)
[2018-12-14] MEDS: metroNIDAZOLE-NS PMX 500 MG in SALINE 1 100ML.BAG IVPB SCH ×3 (05:35→17:15)
[2018-12-14] MEDS: METOPROLOL TARTRATE 25 MG TAB PO SCH ×2 (08:16→20:30)
[2018-12-14] MEDS: HEPARIN SODIUM,PORCINE 5,000 UNIT/ML 1 ML VIAL SQ SCH ×2 (08:18→20:25)
[2018-12-14] MEDS: PANTOPRAZOLE 40 MG/10 ML VIAL IVP SCH ×2 (08:18→21:07)
[2018-12-14] MEDS: MULTIVITAMINS, THERA 1 EACH TAB PO SCH (08:19)
[2018-12-14] MEDS: ANIDULAFUNGIN 100 MG in SODIUM CHLORIDE 0.9% 100 ML IVPB SCH (08:31)
[2018-12-14 08:43] LABS: Basophils % (A) 1 %; Eosinophils # (A) 0.3 k/uL (0-0.7); Eosinophils % (A) 4 %; HCT 25.8 % (39.0-53.0); HGB 8.4 gm/dL (13.0-17.5); Hypochromasia Slight; Lymphocytes # (A) 1.2 k/uL (1.0-4.8); Lymphocytes % (A) 16 %; MCH 30.9 pg (25.0-35.0); MCHC 32.7 g/dL (31.0-37.0); MCV 94.6 fL (80.0-100.0); Mean Platelet Volume 7.5; Monocytes # (A) 0.5 k/uL (0-1.0); Monocytes % (A) 6 %; Neutrophils # (A) 5.4 k/uL (1.3-7.7); Neutrophils % (A) 71 %; Platelet Count 353 k/uL (150-450); RBC 2.72 m/uL (4.30-5.90); RDW 13.5 % (11.5-15.5); WBC 7.6 k/uL (3.8-10.6)
[2018-12-14 08:47] LABS: Anion Gap 3 mmol/L; Blood Urea Nitrogen 14 mg/dL (9-20); Calcium 8.3 mg/dL (8.4-10.2); Carbon Dioxide 24 mmol/L (22-30); Chloride 112 mmol/L (98-107); Glucose 109 mg/dL (74-99); Phosphorus 4.1 mg/dL (2.5-4.5); Potassium 4.5 mmol/L (3.5-5.1); Sodium 139 mmol/L (137-145)
--- NOTE | 2018-12-14 09:53 | P.PN ---
Subjective History of present illness, taken from records. 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 Patient underwent robotic right colectomy by Dr. Lan. 12/07/2018 Patient denied any complaints of chest pain or shortness of breath. Abdominal pain is better. No flatness or bowel movement. Epidural has been discontinued. No fever no chills. No nausea vomiting. Discussed with family at bedside in detail. 12/08/2018 No complaints of chest pain or shortness breath. Holden catheter has been discontinued and voiding spontaneously. Patient is tolerating clear liquid diet. No bowel movement or flatus. Bowel sounds are heard today. No fever no chills. Patient remains on antibiotics in the form of Flagyl and Zosyn. General surgery is following. No other acute overnight issues. Plan discussed with the family at bedside in detail. 12/09/2018 Patient is more lethargic and confused today. As per family patient is getting abdominal distention. MICHAEL drain is draining greenish colored fluid. General surgery is planning for expiratory laparotomy due to leak. WBC count is slightly increased to 14. Continued antibiotics with Zosyn and Flagyl. No fever. Patient does not have any bowel movement or flatus. Surgical pathology is negative for any malignancy. 12/10/2018 Patient is more awake and oriented today. Patient was taken to OR on 2010 due to possible bowel leak with greenish fluid in the MICHAEL drain. Patient was found to have blowout of initial ileocolic anastomosis and intra-abdominal adhesions from diverticulitis with internal hernia 4. He underwent exploratory laparotomy with extended right hemicolectomy. Currently abdomen is soft. Bowel sounds are diminished. No flatus or bowel movement yet. Continued on IV hydration and antibiotics in the form of Flagyl and Zosyn. Hemoglobin is 10.6 and leukocytosis improved to 10.4 today. Discussed with his at bedside in detail. 12/11/2018 Patient is more awake and oriented. Patient has not passed factor soft bowel movement yet. Otherwise fluid cultures are showing enterococcus patient and Enterobacter species. ID is following. Currently on Zosyn and Flagyl. No fever no chills. WBC slightly increased to 12.0. No nausea or vomiting. Abdominal pain is controlled with pain medications. No chest pain. Patient does complain of short of breath otherwise. Chest x-ray showed bibasilar atelectasis. General surgery and ID is following. 12/12/2018 Patient denied any complaints of nausea vomiting. Abdominal pain is much better. Otherwise patient did have a small bowel movement today. Able to ambulate in the hallway. Patient was started on clear liquid diet. Will continue with TPN for today. Continue with IV antibiotics in the form of Zosyn and Flagyl and Anidulafungin for peritonitis. General surgery and ID is following. Current medications reviewed 12/13/2018 Patient was walking in the hallways, however he wants some discomfort due to his abdominal pain at the surgical site. Patient saw taking IV Dilaudid. His diet was advanced but he only ate part of the meal at breakfast. Passing gases but normal bowel movements. Abdominal pain is controlled with pain medication. No nausea vomiting. Patient still have total parenteral nutrition. Vitas looks stable. Last fever was in 100.0 Fahrenheit on 12/11/2018. WBC 8.6K. Creatinine 0.6 electrolytes within normal limits. Sugar controlled. 12/14/2018 Patient still complaining from pain at the surgical site, however pain looks controlled. Patient is lying In bed comfortable not in distress. He is tolerating diet slowly. TPN was tapered down he remains on antibiotics as per infectious team recommendation for his positive culture for enterococcus in his body fluids. Hemoglobin is 8.4 slightly trending down. Chest of CBC was unremarkable. Vital sustainable Objective - Vital Signs Vital signs: Vital Signs Temp 98.5 F 12/14/18 05:00 Pulse 85 12/14/18 05:00 Resp 18 12/14/18 05:00 BP 126/68 12/14/18 05:00 Pulse Ox 96 12/14/18 05:00 Intake & Output 12/13/18 12/14/18 12/14/18 18:59 06:59 18:59 Intake Total 2842.333 200 Output Total 450 30 Balance 2392.333 170 Weight 85 kg 85.5 kg Intake: Intake, IV Titration 1352.333 200 Amount Anidulafungin 100 mg In 100 Sodium Chloride 0.9% 100 ml @ 84 mls/hr IVPB DAILY [facility] Rx#:[id number] Fat Emulsion 20% 250 ml 169 In Empty Bag 1 bag @ 21 mls/hr IV Q24H [facility] Rx#: [id number] Mvi, Adult No.4 with Vit 983.333 K 10 ml Trace (Conc-1Ml/ Dose) 1 ml In Amino Acid 4.25%-D10w+Lytes*E* 1,000 ml @ 100 mls/hr IV .BY DURATION [facility] Rx#: [id number] Piperacillin-Tazobactam 3 100 .375 gm In Sodium Chloride 0.9% 100 ml @ 25 mls/hr IVPB Q8H [facility] Rx#: [id number] Sodium Ferric Gluconat- 100 Sucrose 125 mg In Sodium Chloride 0.9% 100 ml @ 100 mls/hr IVPB DAILY [facility] Rx#:[id number] metroNIDAZOLE-NS PMX 500 100 mg In Saline 1 100ml.bag @ 100 mls/hr IVPB Q6HR [facility] Rx#:[id number] Oral 1490 Output: Drainage 100 30 Left Lower Quadrant 100 30 Urine 350 Other: Voiding Method Urinal Urinal # Voids 2 2 # Bowel Movements 1 - Exam -GENERAL: Well-developed pleasant male in no acute distress. He has discomfort from his abdominal pain. HEENT: Patient is legally blind. No scleral icterus. Moist buccal mucosa. NECK: Supple without lymphadenopathy. CHEST: Equal expansion. Bibasilar diminished air entry. No wheezing no crackles. CARDIOVASCULAR: Regular rate regular rhythm. Distal 2+ pulses. S1-S2 heard. Systolic murmur positive. -ABDOMEN: Abdominal dressing clean dry intact. Bowel sounds present. Abdomen is soft. No guarding no rigidity. MUSCULOSKELETAL: No clubbing, cyanosis, or edema. NEURO : Difficult to thoroughly assess due to history of CVA. No seizure activity noted. No tremors. PSYCH: Awake and alert. SKIN: Well perfused. Good skin turgor. No cyanosis. No jaundice. - Labs CBC & Chem 7: 12/14/18 07:56 12/14/18 07:56 Labs: Abnormal Lab Results - Last 24 Hours (Table) 12/13/18 12/13/18 12/13/18 Range/Units 11:38 17:00 23:58 RBC (4.30-5.90) m/uL Hgb (13.0-17.5) gm/dL Hct (39.0-53.0) % Chloride (98-107) mmol/L Glucose (74-99) mg/dL POC Glucose (mg/dL) 168 H 136 H 119 H (75-99) mg/dL Calcium (8.4-10.2) mg/dL 12/14/18 12/14/18 Range/Units 07:56 07:56 RBC 2.72 L (4.30-5.90) m/uL Hgb 8.4 L (13.0-17.5) gm/dL Hct 25.8 L (39.0-53.0) % Chloride 112 H (98-107) mmol/L Glucose 109 H (74-99) mg/dL POC Glucose (mg/dL) (75-99) mg/dL Calcium 8.3 L (8.4-10.2) mg/dL Assessment and Plan Assessment: Assessment: 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 Status post robotic right colectomy. 12/06/2018 Status post exploratory laparotomy on 12/09/2018. Patient was found to have blowout of initial ileocolic anastomosis and intra-abdominal adhesions from diverticulitis with internal hernia 4. He underwent exploratory laparotomy with extended right hemicolectomy. Peritonitis Acute blood loss anemia History of CVA/TIA occipital stroke and blindness and expressive aphasia. dementia hyperlipidemia Legal blindness History of aortic stenosis. Outpatient follow-up per cardiology Plan: Plan: Patient will be continued on IV hydration pain management. Continue with IV antibiotics. Continue with total parenteral nutrition for now. General surgery is following closely. Replace electrolyte is continue to monitor closely. Patient was started on clear liquid diet and advance as tolerated. Encourage ambulation and incentive spirometry. Surgery and infectious disease teams are following the patient closely. Continued on antibiotics in the form of Zosyn and Flagyl and Anidulafungin. Further recommendations based on the clinical course. Prognosis is guarded.
--- NOTE | 2018-12-14 11:07 | P.PN ---
<Denise Rankin - Last Filed: 12/14/18 11:00> Subjective Progress Note Date: 12/14/18 CHIEF COMPLAINT: History of peritonitis and GI bleed HISTORY OF PRESENT ILLNESS: The patient is a 68-year-old gentleman initially admitted with gross GI bleed. 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 He initially underwent a robotic right hemicolectomy on . On 12/09/2018, he had gross stool in his MICHAEL warranting emergency exploratory laparotomy. An extended right hemicolectomy was performed including abdominal washout on 12/09/2018. He is postop day 5. Patient examined this morning. Spouse is at the bedside. Patient is sitting up in the visitors lounge. His pain has improved. He has not required IV dilaudid since yesterday. He is receiving Toradol and Strandquist. TPN has been weaned off. Patient is tolerating full liquid diet. Reports decreased appetite. Patient is receiving high protein supplement drinks. Patient is passing gas and having BMs. Infectious disease is following. Patient will require outpatient IV antibiotics per ID. does not want to administer antibiotics. She is requesting that home care do everything or for patient to be discharged to [facility]. Case management notified. PHYSICAL EXAM: VITAL SIGNS: Reviewed GENERAL: Well-developed in no acute distress. HEENT: No sclera icterus. Head is atraumatic, normocephalic. Hears conversational speech. No nasal drainage. NECK: Supple without lymphadenopathy. CHEST: Non-labored respirations and equal bilateral excursions. CARDIOVASCULAR: Palpable 2+ radial pulses. ABDOMEN: Soft. PREVENA midline dressing clean dry and intact. MUSCULOSKELETAL: No clubbing, cyanosis. NEUROLOGIC: No focal or lateralizing signs. Cranial nerves II through XII grossly intact. PSYCH: Appropriate affect. Alert and oriented to person, place and time. SKIN: Well perfused. Good skin turgor. ASSESSMENT: 1. 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 Diverticulosis 3. Fecal peritonitis, S/P exploratory laparotomy with takedown of ileocolic anastomosis and extended right hemicolectomy secondary to blowout of initial ileocolic anastomosis 4. Severe iron deficiency anemia due to chronic blood loss, pre-existing 5. Aortic stenosis with tachycardia PLAN: 1. Continue full liquid/soft diet 2. Continue protein supplements TID 3. Pain control. Continue Strandquist and Toradol 4. Patient to receive Midline catheter today 5. Discharge antibiotic recommendations per ID 6. Case management to speak with regarding options for discharge as does not want to administer IV antibiotics and is requesting either home care or patient to be discharged to [facility] 7. Anticipate discharge by Thursday Nurse practitioner note has been reviewed by physician. Signing provider agrees with the documented findings, assessment, and plan of care. Objective - Vital Signs Vital signs: Vital Signs Temp 98.5 F 12/14/18 05:00 Pulse 85 12/14/18 05:00 Resp 18 12/14/18 05:00 BP 126/68 12/14/18 05:00 Pulse Ox 96 12/14/18 05:00 Intake & Output 12/13/18 12/14/18 12/14/18 18:59 06:59 18:59 Intake Total 2842.333 200 Output Total 450 30 Balance 2392.333 170 Weight 85 kg 85.5 kg Intake: Intake, IV Titration 1352.333 200 Amount Anidulafungin 100 mg In 100 Sodium Chloride 0.9% 100 ml @ 84 mls/hr IVPB DAILY [facility] Rx#:[id number] Fat Emulsion 20% 250 ml 169 In Empty Bag 1 bag @ 21 mls/hr IV Q24H [facility] Rx#: [id number] Mvi, Adult No.4 with Vit 983.333 K 10 ml Trace (Conc-1Ml/ Dose) 1 ml In Amino Acid 4.25%-D10w+Lytes*E* 1,000 ml @ 100 mls/hr IV .BY DURATION [facility] Rx#: [id number] Piperacillin-Tazobactam 3 100 .375 gm In Sodium Chloride 0.9% 100 ml @ 25 mls/hr IVPB Q8H [facility] Rx#: [id number] Sodium Ferric Gluconat- 100 Sucrose 125 mg In Sodium Chloride 0.9% 100 ml @ 100 mls/hr IVPB DAILY [facility] Rx#:[id number] metroNIDAZOLE-NS PMX 500 100 mg In Saline 1 100ml.bag @ 100 mls/hr IVPB Q6HR [facility] Rx#:[id number] Oral 1490 Output: Drainage 100 30 Left Lower Quadrant 100 30 Urine 350 Other: Voiding Method Urinal Urinal Urinal # Voids 2 2 # Bowel Movements 1 - Labs CBC & Chem 7: 12/14/18 07:56 12/14/18 07:56 Labs: Abnormal Lab Results - Last 24 Hours (Table) 12/13/18 12/13/18 12/13/18 Range/Units 11:38 17:00 23:58 RBC (4.30-5.90) m/uL Hgb (13.0-17.5) gm/dL Hct (39.0-53.0) % Chloride (98-107) mmol/L Glucose (74-99) mg/dL POC Glucose (mg/dL) 168 H 136 H 119 H (75-99) mg/dL Calcium (8.4-10.2) mg/dL 12/14/18 12/14/18 Range/Units 07:56 07:56 RBC 2.72 L (4.30-5.90) m/uL Hgb 8.4 L (13.0-17.5) gm/dL Hct 25.8 L (39.0-53.0) % Chloride 112 H (98-107) mmol/L Glucose 109 H (74-99) mg/dL POC Glucose (mg/dL) (75-99) mg/dL Calcium 8.3 L (8.4-10.2) mg/dL Assessment and Plan (1) Acute blood loss anemia Current Visit: Yes Status: Acute Code(s): D62 - ACUTE POSTHEMORRHAGIC ANEMIA SNOMED Code(s): 196754932 (2) Cecum mass Current Visit: Yes Status: Acute Code(s): K63.9 - DISEASE OF INTESTINE, UNSPECIFIED SNOMED Code(s): 858557652 (3) Diverticulosis of colon Current Visit: Yes Status: Acute Code(s): K57.30 - DVRTCLOS OF LG INT W/O PERFORATION OR ABSCESS W/O BLEEDING SNOMED Code(s): 944623323 (4) Internal hemorrhoid Current Visit: Yes Status: Acute Code(s): K64.8 - OTHER HEMORRHOIDS SNOMED Code(s): 70410826 (5) CVA (cerebral vascular accident) Current Visit: Yes Status: Acute Code(s): I63.9 - CEREBRAL INFARCTION, UNSPECIFIED SNOMED Code(s): 086916405 (6) GIB (gastrointestinal bleeding) Current Visit: Yes Status: Acute Code(s): K92.2 - GASTROINTESTINAL HEMORRHAGE, UNSPECIFIED SNOMED Code(s): 50980964 (7) Peritonitis Current Visit: Yes Status: Acute Code(s): K65.9 - PERITONITIS, UNSPECIFIED SNOMED Code(s): 12847772 <Riky,Dodie N - Last Filed: 12/14/18 22:27> Objective - Vital Signs Vital signs: Vital Signs Temp 98 F 12/14/18 21:03 Pulse 80 12/14/18 21:03 Resp 16 12/14/18 21:03 BP 115/56 12/14/18 21:03 Pulse Ox 98 12/14/18 21:03 Intake & Output 12/14/18 12/14/18 12/15/18 06:59 18:59 06:59 Intake Total 200 440 480 Output Total 30 50 Balance 170 390 480 Weight 85.5 kg Intake: Intake, IV Titration 200 200 Amount Anidulafungin 100 mg In 100 Sodium Chloride 0.9% 100 ml @ 84 mls/hr IVPB DAILY [facility] Rx#:[id number] Piperacillin-Tazobactam 3 100 100 .375 gm In Sodium Chloride 0.9% 100 ml @ 25 mls/hr IVPB Q8H [facility] Rx#: [id number] metroNIDAZOLE-NS PMX 500 100 mg In Saline 1 100ml.bag @ 100 mls/hr IVPB Q6HR [facility] Rx#:[id number] Oral 240 480 Output: Drainage 30 50 Left Lower Quadrant 30 50 Other: Voiding Method Urinal Urinal Urinal # Voids 2 - Labs CBC & Chem 7: 12/14/18 07:56 12/14/18 07:56 Labs: Abnormal Lab Results - Last 24 Hours (Table) 12/13/18 12/14/18 12/14/18 Range/Units 23:58 07:56 07:56 RBC 2.72 L (4.30-5.90) m/uL Hgb 8.4 L (13.0-17.5) gm/dL Hct 25.8 L (39.0-53.0) % Chloride 112 H (98-107) mmol/L Glucose 109 H (74-99) mg/dL POC Glucose (mg/dL) 119 H (75-99) mg/dL Calcium 8.3 L (8.4-10.2) mg/dL Assessment and Plan (1) Iron deficiency anemia secondary to blood loss (chronic) Current Visit: Yes Status: Acute Code(s): D50.0 - IRON DEFICIENCY ANEMIA SECONDARY TO BLOOD LOSS (CHRONIC) SNOMED Code(s): 201503232 (2) Hypoalbuminemia due to protein-calorie malnutrition Current Visit: Yes Status: Acute Code(s): E46 - UNSPECIFIED PROTEIN-CALORIE MALNUTRITION SNOMED Code(s): 839100504 (3) Acute blood loss anemia Current Visit: Yes Status: Acute Code(s): D62 - ACUTE POSTHEMORRHAGIC ANEMIA SNOMED Code(s): 548218787 (4) Cecum mass Current Visit: Yes Status: Acute Code(s): K63.9 - DISEASE OF INTESTINE, UNSPECIFIED SNOMED Code(s): 904223010 (5) Diverticulosis of colon Current Visit: Yes Status: Acute Code(s): K57.30 - DVRTCLOS OF LG INT W/O PERFORATION OR ABSCESS W/O BLEEDING SNOMED Code(s): 544123994 (6) GIB (gastrointestinal bleeding) Current Visit: Yes Status: Acute Code(s): K92.2 - GASTROINTESTINAL HEMORRHAGE, UNSPECIFIED SNOMED Code(s): 88419209 (7) Peritonitis Current Visit: Yes Status: Acute Code(s): K65.9 - PERITONITIS, UNSPECIFIED SNOMED Code(s): 22567530 Plan: Overall, patient doing very well since open colectomy. Pain is now controlled. Disposition pending recommendations of IV antibiotics per ID. I discussed with family that low appetite is expected given complexity of surgery. Will discontinue dressing tomorrow. Agree with home health care management.
[2018-12-14] MEDS: DAPTOmycin 500 MG in SODIUM CHLORIDE 0.9% 50 ML IVPB SCH (15:52)
[2018-12-14] MEDS: TAMSULOSIN 0.4 MG CAP.ER.24H PO SCH (20:22)
--- NOTE | 2018-12-14 22:49 | P.PN ---
Subjective Progress Note Date: 12/14/18 68-year-old male who has a significant past medical history cardiovascular disease, stroke, being legally blind presents to hospital with several bowel movements. Because it did not improve and he continued to have bright red blood per rectum he presented to the emergency center. He underwent evaluations with gastroenterology as well as general surgery. 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 Due to the cecal mass in the high-grade nature he was taken to the operating room on 12/06/2018 in the colonic resection and anastomosis occurred. The patient continued to have some abdominal discomfort and distention and markedly worsened and by December 09 there was evidence of leakage of the anastomosis because was taken back to the operating room where the anastomotic below was seen and it was revised. Patient has been modified wound VAC in place and is modestly comfortable. He has noted he is still receiving a large amount of pain medications and is somewhat sedated but is comfortable. There allowing some clear liquids and is having no nausea. No bloody rectal discharge is noted. MICHAEL drainage is modestly clear. 12/12/2018 patient is feeling better. Was still having pain. He is however up walking in the halls without nausea. Still has some modest drainage in the MICHAEL drain 12/13/2018 patient is still having pain seems to be comfortable. Has been able to walk in the hallway but still requires some narcotic pain medication. Tolerating current diet without nausea or emesis. 12/14/2018 there is been some improvement in his status pain seems to be improving and tolerating diet. Objective - Vital Signs Vital signs: Vital Signs Temp 98 F 12/14/18 21:03 Pulse 80 12/14/18 21:03 Resp 16 12/14/18 21:03 BP 115/56 12/14/18 21:03 Pulse Ox 98 12/14/18 21:03 Intake & Output 12/14/18 12/14/18 12/15/18 06:59 18:59 06:59 Intake Total 200 440 480 Output Total 30 50 Balance 170 390 480 Weight 85.5 kg Intake: Intake, IV Titration 200 200 Amount Anidulafungin 100 mg In 100 Sodium Chloride 0.9% 100 ml @ 84 mls/hr IVPB DAILY [facility] Rx#:[id number] Piperacillin-Tazobactam 3 100 100 .375 gm In Sodium Chloride 0.9% 100 ml @ 25 mls/hr IVPB Q8H [facility] Rx#: [id number] metroNIDAZOLE-NS PMX 500 100 mg In Saline 1 100ml.bag @ 100 mls/hr IVPB Q6HR [facility] Rx#:[id number] Oral 240 480 Output: Drainage 30 50 Left Lower Quadrant 30 50 Other: Voiding Method Urinal Urinal Urinal # Voids 2 - Exam 68-year-old male of a somewhat thin build, is not in acute distress HEENT: Anicteric conjunctiva are pink and moist nasal mucosa grossly intact without significant lesions, there is no thrush. Neck: The neck is supple without significant lymphadenopathy or thyromegaly. Lungs: Good bilateral air entry without significant crackles or wheezing. There is no significant bronchial sounds. There is no egophony or dullness. Heart: Regular rate and rhythm with an audible S1-S2, no S3 no S4. There is no significant murmur click or rub, PMI was nondisplaced. Abdomen: Abdomen is mildly distended, wound VAC is in place, scant drainage is seen that is nonbloody. No bloody drainage per rectum at this time. Abdomen is mildly distended Extremities: The upper extremities have excellent pulses they are symmetric, no significant petechiae or telangiectasia. No splinter hemorrhages were noted. The lower extremities are free from significant edema. The peripheral pulses were 2+ and symmetric. Neuro: Awake alert interactive is noted has legal blindness, does not seem to be in severe pain - Labs CBC & Chem 7: 12/14/18 07:56 12/14/18 07:56 Labs: Abnormal Lab Results - Last 24 Hours (Table) 12/13/18 12/14/18 12/14/18 Range/Units 23:58 07:56 07:56 RBC 2.72 L (4.30-5.90) m/uL Hgb 8.4 L (13.0-17.5) gm/dL Hct 25.8 L (39.0-53.0) % Chloride 112 H (98-107) mmol/L Glucose 109 H (74-99) mg/dL POC Glucose (mg/dL) 119 H (75-99) mg/dL Calcium 8.3 L (8.4-10.2) mg/dL Laboratory Results WBC 7.6 k/uL (3.8-10.6) 12/14/18 07:56 RBC 2.72 m/uL (4.30-5.90) L 12/14/18 07:56 Hgb 8.4 gm/dL (13.0-17.5) L 12/14/18 07:56 Hct 25.8 % (39.0-53.0) L 12/14/18 07:56 MCV 94.6 fL (80.0-100.0) 12/14/18 07:56 MCH 30.9 pg (25.0-35.0) 12/14/18 07:56 MCHC 32.7 g/dL (31.0-37.0) 12/14/18 07:56 RDW 13.5 % (11.5-15.5) 12/14/18 07:56 Plt Count 353 k/uL (150-450) 12/14/18 07:56 Neutrophils % 71 % 12/14/18 07:56 Lymphocytes % 16 % 12/14/18 07:56 Monocytes % 6 % 12/14/18 07:56 Eosinophils % 4 % 12/14/18 07:56 Basophils % 1 % 12/14/18 07:56 Neutrophils # 5.4 k/uL (1.3-7.7) 12/14/18 07:56 Lymphocytes # 1.2 k/uL (1.0-4.8) 12/14/18 07:56 Monocytes # 0.5 k/uL (0-1.0) 12/14/18 07:56 Eosinophils # 0.3 k/uL (0-0.7) 12/14/18 07:56 Basophils # 0.0 k/uL (0-0.2) 12/14/18 07:56 Hypochromasia Slight 12/14/18 07:56 PT 10.1 sec (9.0-12.0) 11/29/18 02:30 INR 0.9 (<1.2) 11/29/18 02:30 APTT 23.6 sec (22.0-30.0) 11/29/18 02:30 Sodium 139 mmol/L (137-145) 12/14/18 07:56 Potassium 4.5 mmol/L (3.5-5.1) 12/14/18 07:56 Chloride 112 mmol/L (98-107) H 12/14/18 07:56 Carbon Dioxide 24 mmol/L (22-30) 12/14/18 07:56 Anion Gap 3 mmol/L 12/14/18 07:56 BUN 14 mg/dL (9-20) 12/14/18 07:56 Creatinine 0.81 mg/dL (0.66-1.25) 12/14/18 07:56 Est GFR (CKD-EPI)AfAm >90 (>60 ml/min/1.73 sqM) 12/14/18 07:56 Est GFR (CKD-EPI)NonAf >90 (>60 ml/min/1.73 sqM) 12/14/18 07:56 Glucose 109 mg/dL (74-99) H 12/14/18 07:56 POC Glucose (mg/dL) 119 mg/dL (75-99) H 12/13/18 23:58 POC Glu Dowel Maker ID Michelle Landaverde 12/13/18 23:58 Plasma Lactic Acid Mikhail 1.0 mmol/L (0.7-2.0) 11/29/18 02:30 Calcium 8.3 mg/dL (8.4-10.2) L 12/14/18 07:56 Ionized Calcium Tay 5.1 mg/dL (4.5-5.3) 12/12/18 07:30 Phosphorus 4.1 mg/dL (2.5-4.5) 12/14/18 07:56 Magnesium 2.0 mg/dL (1.6-2.3) 12/14/18 07:56 Iron 5 ug/dL (65-175) L 12/10/18 12:21 TIBC 219 ug/dL (228-460) L 12/10/18 12:21 Iron Saturation 2.28 (15.00-50.00) L 12/10/18 12:21 Ferritin 117.1 ng/mL (22.0-322.0) 12/10/18 06:22 Total Bilirubin 1.0 mg/dL (0.2-1.3) 12/10/18 06:22 AST 17 U/L (17-59) 12/10/18 06:22 ALT 21 U/L (21-72) 12/10/18 06:22 Alkaline Phosphatase 37 U/L (38-126) L 12/10/18 06:22 Total Protein 4.3 g/dL (6.3-8.2) L 12/10/18 06:22 Albumin 2.4 g/dL (3.5-5.0) L 12/11/18 07:03 Triglycerides 39 mg/dL (<150) 12/10/18 12:21 Carcinoembryonic Ag 0.9 ng/mL (0.0-4.9) 12/03/18 08:25 Stool Occult Blood Positive (Negative) 11/29/18 02:30 Microbiology 12/09/18 14:59 [facility]-[place] Gram Stain - Final 12/09/18 14:59 John[facility]-[place] Body Fluid Culture - Final Enterococcus faecium Enterobacter cloacae Assessment and Plan (1) Cecum mass Narrative/Plan: 68-year-old male with multiple medical troubles including cardiovascular disease, stroke, legally blind presents to hospital with further blood per rectum. He underwent endoscopy finding evidence of a cecal mass. Consequently on December 06 was taken to the operating room in the colonic resection anastomosis occurred. By December 09 there was evidence of failure the anastomosis was taken back to the operating room with evidence of blowout of the anastomosis, the patient underwent extension of the colectomy and reanastomosis and wound VAC application. Patient is doing relatively well this point in time does have leukocytosis which of the base of the recent surgeries in the anastomotic leak. Antimicrobial therapy with Zosyn and Flagyl is adequate for the moment however would add Eraxis ensure covering for Priscilla other fungus given the gross spillage. Cultures be monitored and hopefully will have a oral course of antimicrobial therapy at discharge. He is tolerating some clear liquids without nausea or emesis. Family's questions are answered. 12/12/2018 patient is sitting upright in the lounge is not walking the floors. He is slightly more comfortable but still having some pain. He is denying other intermediate troubles at this point in time. No fevers or chills are noted. The patient's is present and has been assisting him in walking in the hallway. He is not having nausea or emesis and is not having any significant stool output either. Some flatus as noted. Pain control seems to be adequate. The culture is now finalized and there is evidence of enterococcus feacalis that has a Vanco ADEOLA of 4 and does not appear to be susceptible to penicillin based antibiotics and constantly daptomycin is added in addition to the other agents. Follow-up cultures indicated if he has fevers, surgery has no further plans at this time. 12/13/2018 patient's pain seems to be improving. He is without fever or chills. Some stool is been noted. Cultures are finalized and is receiving antibiotic therapy with daptomycin and Zosyn. The patient has had a very complex course and plan at this point in time will be to have a midline placed, and plan home or outpatient intravenous antibiotic therapy with daptomycin and ertapenem in the outpatient setting. Patient does have some lower extremity edema due to his low albumin hopefully as his nutrition improves this will improve. Leukocytosis has resolved. 12/14/2018 patient is showing ongoing improvement. The patient has a complex intra-abdominal infection and is being treated with antibiotic therapy that at discharge will include daptomycin and ertapenem likely for another 7-10 days at that time. Likely will go to subacute rehab to receive his antibiotic therapy given his weakness and family difficulties and assisting with this level of care. When asked for a PICC line to be placed if they start to transition to subacute rehab. Current Visit: Yes Status: Acute Code(s): K63.9 - DISEASE OF INTESTINE, UNSPECIFIED SNOMED Code(s): 286749917 (2) Diverticulosis of colon Current Visit: Yes Status: Acute Code(s): K57.30 - DVRTCLOS OF LG INT W/O PERFORATION OR ABSCESS W/O BLEEDING SNOMED Code(s): 098232379 (3) Acute blood loss anemia Current Visit: Yes Status: Acute Code(s): D62 - ACUTE POSTHEMORRHAGIC ANEMIA SNOMED Code(s): 971830235
[2018-12-15] MEDS: metroNIDAZOLE-NS PMX 500 MG in SALINE 1 100ML.BAG IVPB SCH ×5 (00:52→23:25)
[2018-12-15] MEDS: KETOROLAC 30 MG/ML 1 ML VIAL IVP SCH ×3 (00:52→11:05)
[2018-12-15] MEDS: HYDROcodone/APAP 7.5-325MG 1 EACH TAB PO SCH ×6 (00:56→20:38)
[2018-12-15] MEDS: PIPERACILLIN-TAZOBACTAM 3.375 GM in SODIUM CHLORIDE 0.9% 100 ML IVPB SCH ×3 (03:22→20:17)
[2018-12-15] MEDS: PANTOPRAZOLE 40 MG/10 ML VIAL IVP SCH ×2 (08:49→20:40)
[2018-12-15] MEDS: HEPARIN SODIUM,PORCINE 5,000 UNIT/ML 1 ML VIAL SQ SCH ×2 (08:49→20:40)
[2018-12-15] MEDS: ANIDULAFUNGIN 100 MG in SODIUM CHLORIDE 0.9% 100 ML IVPB SCH (08:51)
[2018-12-15] MEDS: METOPROLOL TARTRATE 25 MG TAB PO SCH ×2 (08:51→20:39)
[2018-12-15 08:59] LABS: Basophils # (A) 0.1 k/uL (0-0.2); Basophils % (A) 1 %; Eosinophils # (A) 0.3 k/uL (0-0.7); Eosinophils % (A) 4 %; HCT 30.7 % (39.0-53.0); HGB 9.6 gm/dL (13.0-17.5); Hypochromasia Slight; Lymphocytes # (A) 1.1 k/uL (1.0-4.8); Lymphocytes % (A) 14 %; MCH 29.9 pg (25.0-35.0); MCHC 31.2 g/dL (31.0-37.0); MCV 95.9 fL (80.0-100.0); Mean Platelet Volume 6.9; Monocytes # (A) 0.4 k/uL (0-1.0); Monocytes % (A) 5 %; Neutrophils % (A) 74 %; Platelet Count 489 k/uL (150-450); RDW 13.7 % (11.5-15.5); WBC 8.1 k/uL (3.8-10.6)
[2018-12-15 09:08] LABS: Anion Gap 5 mmol/L; Blood Urea Nitrogen 16 mg/dL (9-20); Calcium 8.6 mg/dL (8.4-10.2); Carbon Dioxide 26 mmol/L (22-30); Chloride 108 mmol/L (98-107); Glucose 111 mg/dL (74-99); Phosphorus 3.9 mg/dL (2.5-4.5); Potassium 4.5 mmol/L (3.5-5.1); Sodium 139 mmol/L (137-145)
--- NOTE | 2018-12-15 11:25 | P.PN ---
Subjective History of present illness, taken from records. 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 Patient underwent robotic right colectomy by Dr. Lan. 12/07/2018 Patient denied any complaints of chest pain or shortness of breath. Abdominal pain is better. No flatness or bowel movement. Epidural has been discontinued. No fever no chills. No nausea vomiting. Discussed with family at bedside in detail. 12/08/2018 No complaints of chest pain or shortness breath. Holden catheter has been discontinued and voiding spontaneously. Patient is tolerating clear liquid diet. No bowel movement or flatus. Bowel sounds are heard today. No fever no chills. Patient remains on antibiotics in the form of Flagyl and Zosyn. General surgery is following. No other acute overnight issues. Plan discussed with the family at bedside in detail. 12/09/2018 Patient is more lethargic and confused today. As per family patient is getting abdominal distention. MICHAEL drain is draining greenish colored fluid. General surgery is planning for expiratory laparotomy due to leak. WBC count is slightly increased to 14. Continued antibiotics with Zosyn and Flagyl. No fever. Patient does not have any bowel movement or flatus. Surgical pathology is negative for any malignancy. 12/10/2018 Patient is more awake and oriented today. Patient was taken to OR on 2010 due to possible bowel leak with greenish fluid in the MICHAEL drain. Patient was found to have blowout of initial ileocolic anastomosis and intra-abdominal adhesions from diverticulitis with internal hernia 4. He underwent exploratory laparotomy with extended right hemicolectomy. Currently abdomen is soft. Bowel sounds are diminished. No flatus or bowel movement yet. Continued on IV hydration and antibiotics in the form of Flagyl and Zosyn. Hemoglobin is 10.6 and leukocytosis improved to 10.4 today. Discussed with his at bedside in detail. 12/11/2018 Patient is more awake and oriented. Patient has not passed factor soft bowel movement yet. Otherwise fluid cultures are showing enterococcus patient and Enterobacter species. ID is following. Currently on Zosyn and Flagyl. No fever no chills. WBC slightly increased to 12.0. No nausea or vomiting. Abdominal pain is controlled with pain medications. No chest pain. Patient does complain of short of breath otherwise. Chest x-ray showed bibasilar atelectasis. General surgery and ID is following. 12/12/2018 Patient denied any complaints of nausea vomiting. Abdominal pain is much better. Otherwise patient did have a small bowel movement today. Able to ambulate in the hallway. Patient was started on clear liquid diet. Will continue with TPN for today. Continue with IV antibiotics in the form of Zosyn and Flagyl and Anidulafungin for peritonitis. General surgery and ID is following. Current medications reviewed 12/13/2018 Patient was walking in the hallways, however he wants some discomfort due to his abdominal pain at the surgical site. Patient saw taking IV Dilaudid. His diet was advanced but he only ate part of the meal at breakfast. Passing gases but normal bowel movements. Abdominal pain is controlled with pain medication. No nausea vomiting. Patient still have total parenteral nutrition. Vitas looks stable. Last fever was in 100.0 Fahrenheit on 12/11/2018. WBC 8.6K. Creatinine 0.6 electrolytes within normal limits. Sugar controlled. 12/14/2018 Patient still complaining from pain at the surgical site, however pain looks controlled. Patient is lying In bed comfortable not in distress. He is tolerating diet slowly. TPN was tapered down he remains on antibiotics as per infectious team recommendation for his positive culture for enterococcus in his body fluids. Hemoglobin is 8.4 slightly trending down. Chest of CBC was unremarkable. Vital sustainable 12/15/2018 Patient looks better controlled today. His sitting in chair and trying to have some liquid diet. No bowel movement yet. His body fluid culture came back positive for enterococcus. Currently he remains on daptomycin, Zosyn and Flagyl as well as antifungal as per infectious disease recommendation. Possible patient would need IV line and prolonged IV antibiotics, and as per infectious disease will be going to recommend. No more fevers since 12/11 18. Labs reviewed and including WBC 8.1, hemoglobin 9.6. Sodium 139, potassium 4.5 and creatinine 0.8 Objective - Vital Signs Vital signs: Vital Signs Temp 98.1 F 12/15/18 05:00 Pulse 78 12/15/18 05:00 Resp 18 12/15/18 05:00 BP 107/56 12/15/18 05:00 Pulse Ox 96 12/15/18 05:00 Intake & Output 12/14/18 12/15/18 12/15/18 18:59 06:59 18:59 Intake Total 440 1260 Output Total 50 38 40 Balance 390 1222 -40 Weight 86 kg Intake: Intake, IV Titration 200 300 Amount Anidulafungin 100 mg In 100 Sodium Chloride 0.9% 100 ml @ 84 mls/hr IVPB DAILY LAURE Rx#:[id number] Piperacillin-Tazobactam 3 100 200 .375 gm In Sodium Chloride 0.9% 100 ml @ 25 mls/hr IVPB Q8H LAURE Rx#: [id number] metroNIDAZOLE-NS PMX 500 100 mg In Saline 1 100ml.bag @ 100 mls/hr IVPB Q6HR LAURE Rx#:[id number] Oral 240 960 Output: Drainage 50 38 40 Left Lower Quadrant 50 38 40 Other: Voiding Method Urinal Urinal Urinal # Voids 1 - Exam -GENERAL: Well-developed pleasant male in no acute distress. He has discomfort from his abdominal pain. HEENT: Patient is legally blind. No scleral icterus. Moist buccal mucosa. NECK: Supple without lymphadenopathy. CHEST: Equal expansion. Bibasilar diminished air entry. No wheezing no crackles. CARDIOVASCULAR: Regular rate regular rhythm. Distal 2+ pulses. S1-S2 heard. Systolic murmur positive. -ABDOMEN: Abdominal dressing clean dry intact. Bowel sounds present. Abdomen is soft. No guarding no rigidity. MUSCULOSKELETAL: No clubbing, cyanosis, or edema. NEURO : Difficult to thoroughly assess due to history of CVA. No seizure activity noted. No tremors. PSYCH: Awake and alert. SKIN: Well perfused. Good skin turgor. No cyanosis. No jaundice. 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 Status post robotic right colectomy. 12/06/2018 Status post exploratory laparotomy on 12/09/2018. Patient was found to have blowout of initial ileocolic anastomosis and intra-abdominal adhesions from diverticulitis with internal hernia 4. He underwent exploratory laparotomy with extended right hemicolectomy. Peritonitis Acute blood loss anemia History of CVA/TIA occipital stroke and blindness and expressive aphasia. dementia hyperlipidemia Legal blindness History of aortic stenosis. Outpatient follow-up per cardiology Plan: Plan: Patient will be continued on IV hydration pain management. Continue with IV antibiotics. Continue with total parenteral nutrition for now. General surgery is following closely. Replace electrolyte is continue to monitor closely. Patient was started on clear liquid diet and advance as tolerated. Encourage ambulation and incentive spirometry. Surgery and infectious disease teams are following the patient closely. Continued on antibiotics in the form of Zosyn and Flagyl and Anidulafungin. Further recommendations based on the clinical course. Prognosis is guarded.
--- NOTE | 2018-12-15 11:47 | P.PN ---
<Denise Rankin - Last Filed: 12/15/18 11:46> Subjective Progress Note Date: 12/15/18 CHIEF COMPLAINT: History of peritonitis and GI bleed HISTORY OF PRESENT ILLNESS: The patient is a 68-year-old gentleman initially admitted with gross GI bleed. 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 He initially underwent a robotic right hemicolectomy on . On 12/09/2018, he had gross stool in his MICHAEL warranting emergency exploratory laparotomy. An extended right hemicolectomy was performed including abdominal washout on 12/09/2018. He is postop day 6. Patient examined this morning. Spouse is at the bedside. Patient states his pain is tolerable. He received Midline IV to right arm today. Dr. العلي recommends Daptomycin and Invanz for 14 days at the time of discharge. Patients is now agreeable to IV antibiotics at home and willing to learn how to administer them. states patient had some cream of wheat this morning and his protein supplement. Continues to have decreased appetite. Denies nausea or vomiting. + BM this AM. WBC 8.1. Afebrile. PHYSICAL EXAM: VITAL SIGNS: Reviewed GENERAL: Well-developed in no acute distress. HEENT: No sclera icterus. Head is atraumatic, normocephalic. Hears conversational speech. No nasal drainage. NECK: Supple without lymphadenopathy. CHEST: Non-labored respirations and equal bilateral excursions. CARDIOVASCULAR: Palpable 2+ radial pulses. ABDOMEN: Soft. PREVENA midline dressing clean dry and intact. MICHAEL with serosanguineous drainage. MUSCULOSKELETAL: No clubbing, cyanosis. NEUROLOGIC: No focal or lateralizing signs. Cranial nerves II through XII grossly intact. PSYCH: Appropriate affect. Alert and oriented to person, place and time. SKIN: Well perfused. Good skin turgor. ASSESSMENT: 1. 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 Diverticulosis 3. Fecal peritonitis, S/P exploratory laparotomy with takedown of ileocolic anastomosis and extended right hemicolectomy secondary to blowout of initial ileocolic anastomosis 4. Severe iron deficiency anemia due to chronic blood loss, pre-existing 5. Aortic stenosis with tachycardia PLAN: 1. May advance diet to low fiber 2. Continue protein supplements 3 times a day 3. Pain control. Continue [place] 4. Patient received midline IV today. Dr. العلي recommends daptomycin and Invanz for 14 days and time of discharge. 5. Will discontinue PREVENA wound VAC system today 6. Discharge planning per medicine. Anticipate patient will be ready for discharge by Thursday Nurse practitioner note has been reviewed by physician. Signing provider agrees with the documented findings, assessment, and plan of care. Objective - Vital Signs Vital signs: Vital Signs Temp 98.1 F 12/15/18 05:00 Pulse 78 12/15/18 05:00 Resp 18 12/15/18 05:00 BP 107/56 12/15/18 05:00 Pulse Ox 96 12/15/18 05:00 Intake & Output 12/14/18 12/15/18 12/15/18 18:59 06:59 18:59 Intake Total 440 1260 Output Total 50 38 40 Balance 390 1222 -40 Weight 86 kg Intake: Intake, IV Titration 200 300 Amount Anidulafungin 100 mg In 100 Sodium Chloride 0.9% 100 ml @ 84 mls/hr IVPB DAILY LAURE Rx#:[id number] Piperacillin-Tazobactam 3 100 200 .375 gm In Sodium Chloride 0.9% 100 ml @ 25 mls/hr IVPB Q8H LAURE Rx#: [id number] metroNIDAZOLE-NS PMX 500 100 mg In Saline 1 100ml.bag @ 100 mls/hr IVPB Q6HR LAURE Rx#:[id number] Oral 240 960 Output: Drainage 50 38 40 Left Lower Quadrant 50 38 40 Other: Voiding Method Urinal Urinal Urinal # Voids 1 - Labs CBC & Chem 7: 12/15/18 08:05 12/15/18 08:05 Labs: Abnormal Lab Results - Last 24 Hours (Table) 12/15/18 12/15/18 Range/Units 08:05 08:05 RBC 3.20 L (4.30-5.90) m/uL Hgb 9.6 L (13.0-17.5) gm/dL Hct 30.7 L (39.0-53.0) % Plt Count 489 H (150-450) k/uL Chloride 108 H (98-107) mmol/L Glucose 111 H (74-99) mg/dL Assessment and Plan (1) Acute blood loss anemia Current Visit: Yes Status: Acute Code(s): D62 - ACUTE POSTHEMORRHAGIC ANEMIA SNOMED Code(s): 280732968 (2) Cecum mass Current Visit: Yes Status: Acute Code(s): K63.9 - DISEASE OF INTESTINE, UNSPECIFIED SNOMED Code(s): 284391808 (3) Diverticulosis of colon Current Visit: Yes Status: Acute Code(s): K57.30 - DVRTCLOS OF LG INT W/O PERFORATION OR ABSCESS W/O BLEEDING SNOMED Code(s): 325709677 (4) Internal hemorrhoid Current Visit: Yes Status: Acute Code(s): K64.8 - OTHER HEMORRHOIDS SNOMED Code(s): 23321803 (5) CVA (cerebral vascular accident) Current Visit: Yes Status: Acute Code(s): I63.9 - CEREBRAL INFARCTION, UNSPECIFIED SNOMED Code(s): 124326838 (6) GIB (gastrointestinal bleeding) Current Visit: Yes Status: Acute Code(s): K92.2 - GASTROINTESTINAL HEMORRHAGE, UNSPECIFIED SNOMED Code(s): 35949703 (7) Peritonitis Current Visit: Yes Status: Acute Code(s): K65.9 - PERITONITIS, UNSPECIFIED SNOMED Code(s): 89225722 <Dodie Lan N - Last Filed: 12/15/18 19:33> Objective - Vital Signs Vital signs: Vital Signs Temp 98.3 F 12/15/18 16:16 Pulse 76 12/15/18 16:20 Resp 16 12/15/18 16:20 BP 112/63 12/15/18 16:16 Pulse Ox 99 12/15/18 16:16 Intake & Output 12/15/18 12/15/18 12/16/18 06:59 18:59 06:59 Intake Total 1260 200 Output Total 38 160 Balance 1222 40 Weight 86 kg 86 kg Intake: Intake, IV Titration 300 200 Amount Piperacillin-Tazobactam 3 200 100 .375 gm In Sodium Chloride 0.9% 100 ml @ 25 mls/hr IVPB Q8H LAURE Rx#: [id number] metroNIDAZOLE-NS PMX 500 100 100 mg In Saline 1 100ml.bag @ 100 mls/hr IVPB Q6HR LAURE Rx#:[id number] Oral 960 Output: Drainage 38 160 Left Lower Quadrant 38 160 Other: Voiding Method Urinal Toilet Urinal # Voids 1 # Bowel Movements 1 - Labs CBC & Chem 7: 12/15/18 08:05 12/15/18 08:05 Labs: Abnormal Lab Results - Last 24 Hours (Table) 12/15/18 12/15/18 Range/Units 08:05 08:05 RBC 3.20 L (4.30-5.90) m/uL Hgb 9.6 L (13.0-17.5) gm/dL Hct 30.7 L (39.0-53.0) % Plt Count 489 H (150-450) k/uL Chloride 108 H (98-107) mmol/L Glucose 111 H (74-99) mg/dL Assessment and Plan (1) Iron deficiency anemia secondary to blood loss (chronic) Current Visit: Yes Status: Acute Code(s): D50.0 - IRON DEFICIENCY ANEMIA SECONDARY TO BLOOD LOSS (CHRONIC) SNOMED Code(s): 406851240 (2) Hypoalbuminemia due to protein-calorie malnutrition Current Visit: Yes Status: Acute Code(s): E46 - UNSPECIFIED PROTEIN-CALORIE MALNUTRITION SNOMED Code(s): 181968084 (3) Acute blood loss anemia Current Visit: Yes Status: Acute Code(s): D62 - ACUTE POSTHEMORRHAGIC ANEMIA SNOMED Code(s): 606570822 (4) Cecum mass Current Visit: Yes Status: Acute Code(s): K63.9 - DISEASE OF INTESTINE, UNSPECIFIED SNOMED Code(s): 964858030 (5) Diverticulosis of colon Current Visit: Yes Status: Acute Code(s): K57.30 - DVRTCLOS OF LG INT W/O PERFORATION OR ABSCESS W/O BLEEDING SNOMED Code(s): 868768942 (6) GIB (gastrointestinal bleeding) Current Visit: Yes Status: Acute Code(s): K92.2 - GASTROINTESTINAL HEMORRHAGE, UNSPECIFIED SNOMED Code(s): 28601434 (7) Peritonitis Current Visit: Yes Status: Acute Code(s): K65.9 - PERITONITIS, UNSPECIFIED SNOMED Code(s): 76808623 Plan: Patient is clear from a surgical standpoint for discharge once medically cleared
[2018-12-15] MEDS: MULTIVITAMINS, THERA 1 EACH TAB PO SCH (13:02)
[2018-12-15 13:37] VITALS: BMI 28.0
[2018-12-15] MEDS: DAPTOmycin 500 MG in SODIUM CHLORIDE 0.9% 50 ML IVPB SCH (16:37)
--- NOTE | 2018-12-15 18:11 | US ---
EXAMINATION TYPE: US venous doppler duplex LE DATE OF EXAM: 12/15/2018 5:50 PM COMPARISON: NONE CLINICAL HISTORY: lower extremity edema r/o DVT. edema in legs. On aspirin. No hx of DVT. SIDE PERFORMED: Bilateral TECHNIQUE: The lower extremity deep venous system is examined utilizing real time linear array sonog vandana with graded compression, doppler sonography and color-flow sonography. VESSELS IMAGED: External Iliac Vein (EIV) Common Femoral Vein Deep Femoral Vein Greater Saphenous Vein * Femoral Vein Popliteal Vein Small Saphenous Vein * Proximal Calf Veins (* superficial vessels) Right Leg: Negative for DVT Left Leg: Negative for DVT IMPRESSION: No evidence of deep venous thrombosis in both legs.
--- NOTE | 2018-12-15 19:32 | P.PN ---
Progress Note - Text Progress Note Date: 12/15/18 He has much more strength today. Dressing of wound VAC was discontinued and changed. We'll remove MICHAEL prior to discharge. Antibiotic management per infectious disease. We'll discontinue angelika on 12/29/2018 in the office
[2018-12-15] MEDS: TAMSULOSIN 0.4 MG CAP.ER.24H PO SCH (20:39)
[2018-12-16] MEDS: HYDROcodone/APAP 7.5-325MG 1 EACH TAB PO SCH ×7 (01:51→23:58)
[2018-12-16] MEDS: PIPERACILLIN-TAZOBACTAM 3.375 GM in SODIUM CHLORIDE 0.9% 100 ML IVPB SCH ×3 (04:25→19:24)
[2018-12-16] MEDS: metroNIDAZOLE-NS PMX 500 MG in SALINE 1 100ML.BAG IVPB SCH ×4 (04:40→23:58)
[2018-12-16] MEDS: ANIDULAFUNGIN 100 MG in SODIUM CHLORIDE 0.9% 100 ML IVPB SCH (08:29)
[2018-12-16] MEDS: PANTOPRAZOLE 40 MG/10 ML VIAL IVP SCH ×2 (08:36→21:34)
[2018-12-16] MEDS: HEPARIN SODIUM,PORCINE 5,000 UNIT/ML 1 ML VIAL SQ SCH ×2 (08:45→21:34)
[2018-12-16] MEDS: METOPROLOL TARTRATE 25 MG TAB PO SCH ×2 (08:45→21:34)
[2018-12-16 08:52] LABS: Basophils # (A) 0.1 k/uL (0-0.2); Basophils % (A) 1 %; Eosinophils # (A) 0.2 k/uL (0-0.7); Eosinophils % (A) 2 %; HCT 31.6 % (39.0-53.0); HGB 9.9 gm/dL (13.0-17.5); Hypochromasia Slight; Lymphocytes # (A) 1.3 k/uL (1.0-4.8); Lymphocytes % (A) 14 %; MCH 30.3 pg (25.0-35.0); MCHC 31.3 g/dL (31.0-37.0); MCV 96.6 fL (80.0-100.0); Mean Platelet Volume 7.3; Monocytes # (A) 0.4 k/uL (0-1.0); Monocytes % (A) 4 %; Neutrophils # (A) 7.2 k/uL (1.3-7.7); Neutrophils % (A) 77 %; Platelet Count 509 k/uL (150-450); RBC 3.27 m/uL (4.30-5.90); RDW 13.9 % (11.5-15.5); WBC 9.3 k/uL (3.8-10.6)
[2018-12-16 09:01] LABS: Anion Gap 5 mmol/L; Blood Urea Nitrogen 13 mg/dL (9-20); Calcium 8.4 mg/dL (8.4-10.2); Carbon Dioxide 25 mmol/L (22-30); Chloride 108 mmol/L (98-107); Glucose 104 mg/dL (74-99); Sodium 138 mmol/L (137-145)
[2018-12-16 09:15] LABS: Phosphorus 3.4 mg/dL (2.5-4.5)
[2018-12-16] MEDS: MULTIVITAMINS, THERA 1 EACH TAB PO SCH (13:14)
--- NOTE | 2018-12-16 15:02 | P.PN ---
<Denise Rankin Sergio - Last Filed: 12/16/18 15:00> Subjective Progress Note Date: 12/16/18 CHIEF COMPLAINT: History of peritonitis and GI bleed HISTORY OF PRESENT ILLNESS: The patient is a 68-year-old gentleman initially admitted with gross GI bleed. 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 He initially underwent a robotic right hemicolectomy on . On 12/09/2018, he had gross stool in his MICHAEL warranting emergency exploratory laparotomy. An extended right hemicolectomy was performed including abdominal washout on 12/09/2018. He is postop day 7. Patient examined at the bedside. Pain is tolerable. Patient tolerating PO intake. Dressing to abdomen saturated. MICHAEL intact. Patient anticipating discharge home tomorrow. PHYSICAL EXAM: VITAL SIGNS: Reviewed GENERAL: Well-developed in no acute distress. HEENT: No sclera icterus. Head is atraumatic, normocephalic. Hears conversational speech. No nasal drainage. NECK: Supple without lymphadenopathy. CHEST: Non-labored respirations and equal bilateral excursions. CARDIOVASCULAR: Palpable 2+ radial pulses. ABDOMEN: Soft. Dressing with serosanguineous drainage present.. MICHAEL with serous drainage. MUSCULOSKELETAL: No clubbing, cyanosis. NEUROLOGIC: No focal or lateralizing signs. Cranial nerves II through XII grossly intact. PSYCH: Appropriate affect. Alert and oriented to person, place and time. SKIN: Well perfused. Good skin turgor. ASSESSMENT: 1. 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 Diverticulosis 3. Fecal peritonitis, S/P exploratory laparotomy with takedown of ileocolic anastomosis and extended right hemicolectomy secondary to blowout of initial ileocolic anastomosis 4. Severe iron deficiency anemia due to chronic blood loss, pre-existing 5. Aortic stenosis with tachycardia PLAN: 1. Dressing changes to abdomen with dry gauze, ABD, and tape 2. MICHAEL drain discontinued 3. Continue current diet 4. Anticipate discharge home tomorrow on IV antibiotics Nurse practitioner note has been reviewed by physician. Signing provider agrees with the documented findings, assessment, and plan of care. Objective - Vital Signs Vital signs: Vital Signs Temp 97.5 F L 12/16/18 11:18 Pulse 72 12/16/18 11:18 Resp 15 12/16/18 11:18 BP 106/63 12/16/18 11:18 Pulse Ox 98 12/16/18 11:18 Intake & Output 12/15/18 12/16/18 12/16/18 18:59 06:59 18:59 Intake Total 200 590 Output Total 160 30 45 Balance 40 560 -45 Weight 86 kg 83.5 kg Intake: Intake, IV Titration 200 Amount Piperacillin-Tazobactam 3 100 .375 gm In Sodium Chloride 0.9% 100 ml @ 25 mls/hr IVPB Q8H LAURE Rx#: [id number] metroNIDAZOLE-NS PMX 500 100 mg In Saline 1 100ml.bag @ 100 mls/hr IVPB Q6HR LAURE Rx#:[id number] Oral 590 Output: Drainage 160 30 45 Left Lower Quadrant 160 30 45 Other: Voiding Method Toilet Toilet Urinal Urinal # Voids 2 # Bowel Movements 1 - Labs CBC & Chem 7: 12/16/18 08:16 12/16/18 08:16 Labs: Abnormal Lab Results - Last 24 Hours (Table) 12/16/18 12/16/18 Range/Units 08:16 08:16 RBC 3.27 L (4.30-5.90) m/uL Hgb 9.9 L (13.0-17.5) gm/dL Hct 31.6 L (39.0-53.0) % Plt Count 509 H (150-450) k/uL Chloride 108 H (98-107) mmol/L Glucose 104 H (74-99) mg/dL Assessment and Plan (1) Acute blood loss anemia Current Visit: Yes Status: Acute Code(s): D62 - ACUTE POSTHEMORRHAGIC ANEMIA SNOMED Code(s): 869197199 (2) Cecum mass Current Visit: Yes Status: Acute Code(s): K63.9 - DISEASE OF INTESTINE, UNSPECIFIED SNOMED Code(s): 800358124 (3) Diverticulosis of colon Current Visit: Yes Status: Acute Code(s): K57.30 - DVRTCLOS OF LG INT W/O PERFORATION OR ABSCESS W/O BLEEDING SNOMED Code(s): 701835200 (4) Internal hemorrhoid Current Visit: Yes Status: Acute Code(s): K64.8 - OTHER HEMORRHOIDS SNOMED Code(s): 59130689 (5) CVA (cerebral vascular accident) Current Visit: Yes Status: Acute Code(s): I63.9 - CEREBRAL INFARCTION, UNSPECIFIED SNOMED Code(s): 510869429 (6) GIB (gastrointestinal bleeding) Current Visit: Yes Status: Acute Code(s): K92.2 - GASTROINTESTINAL HEMORRHAGE, UNSPECIFIED SNOMED Code(s): 19666468 (7) Peritonitis Current Visit: Yes Status: Acute Code(s): K65.9 - PERITONITIS, UNSPECIFIED SNOMED Code(s): 18546563 <RikyDodie N - Last Filed: 12/16/18 16:20> Objective - Vital Signs Vital signs: Vital Signs Temp 97.5 F L 12/16/18 11:18 Pulse 72 12/16/18 11:18 Resp 15 12/16/18 11:18 BP 106/63 12/16/18 11:18 Pulse Ox 98 12/16/18 11:18 Intake & Output 12/15/18 12/16/18 12/16/18 18:59 06:59 18:59 Intake Total 200 590 Output Total 160 30 45 Balance 40 560 -45 Weight 86 kg 83.5 kg Intake: Intake, IV Titration 200 Amount Piperacillin-Tazobactam 3 100 .375 gm In Sodium Chloride 0.9% 100 ml @ 25 mls/hr IVPB Q8H LAURE Rx#: [id number] metroNIDAZOLE-NS PMX 500 100 mg In Saline 1 100ml.bag @ 100 mls/hr IVPB Q6HR LAURE Rx#:[id number] Oral 590 Output: Drainage 160 30 45 Left Lower Quadrant 160 30 45 Other: Voiding Method Toilet Toilet Urinal Urinal # Voids 2 # Bowel Movements 1 - Labs CBC & Chem 7: 12/16/18 08:16 12/16/18 08:16 Labs: Abnormal Lab Results - Last 24 Hours (Table) 12/16/18 12/16/18 Range/Units 08:16 08:16 RBC 3.27 L (4.30-5.90) m/uL Hgb 9.9 L (13.0-17.5) gm/dL Hct 31.6 L (39.0-53.0) % Plt Count 509 H (150-450) k/uL Chloride 108 H (98-107) mmol/L Glucose 104 H (74-99) mg/dL Assessment and Plan (1) Iron deficiency anemia secondary to blood loss (chronic) Current Visit: Yes Status: Acute Code(s): D50.0 - IRON DEFICIENCY ANEMIA SECONDARY TO BLOOD LOSS (CHRONIC) SNOMED Code(s): 735894932 (2) Hypoalbuminemia due to protein-calorie malnutrition Current Visit: Yes Status: Acute Code(s): E46 - UNSPECIFIED PROTEIN-CALORIE MALNUTRITION SNOMED Code(s): 566154812 (3) Acute blood loss anemia Current Visit: Yes Status: Acute Code(s): D62 - ACUTE POSTHEMORRHAGIC ANEMIA SNOMED Code(s): 410849107 (4) Cecum mass Current Visit: Yes Status: Acute Code(s): K63.9 - DISEASE OF INTESTINE, UNSPECIFIED SNOMED Code(s): 073336538 (5) Diverticulosis of colon Current Visit: Yes Status: Acute Code(s): K57.30 - DVRTCLOS OF LG INT W/O PERFORATION OR ABSCESS W/O BLEEDING SNOMED Code(s): 078282357 (6) GIB (gastrointestinal bleeding) Current Visit: Yes Status: Acute Code(s): K92.2 - GASTROINTESTINAL HEMORRHAGE, UNSPECIFIED SNOMED Code(s): 09333520 (7) Peritonitis Current Visit: Yes Status: Acute Code(s): K65.9 - PERITONITIS, UNSPECIFIED SNOMED Code(s): 80081216 Plan: Patient seen and evaluated with [employer]. Dressing was discontinued and changed at bedside. No cellulitis or infection. Dry dressings were placed along midline incision. MICHAEL discontinued by me. He is tolerating diet. Agreeable with discharge when medically stable.
[2018-12-16] MEDS: DAPTOmycin 500 MG in SODIUM CHLORIDE 0.9% 50 ML IVPB SCH (16:05)
--- NOTE | 2018-12-16 17:37 | P.PN ---
Subjective Progress Note Date: 12/16/18 Progress note being dictated for Dr. Corona. Interval history:History of present illness, taken from records. 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 Patient underwent robotic right colectomy by Dr. Lan. 12/07/2018 Patient denied any complaints of chest pain or shortness of breath. Abdominal pain is better. No flatness or bowel movement. Epidural has been discontinued. No fever no chills. No nausea vomiting. Discussed with family at bedside in detail. 12/08/2018 No complaints of chest pain or shortness breath. Holden catheter has been discontinued and voiding spontaneously. Patient is tolerating clear liquid diet. No bowel movement or flatus. Bowel sounds are heard today. No fever no chills. Patient remains on antibiotics in the form of Flagyl and Zosyn. General surgery is following. No other acute overnight issues. Plan discussed with the family at bedside in detail. 12/09/2018 Patient is more lethargic and confused today. As per family patient is getting abdominal distention. MICHAEL drain is draining greenish colored fluid. General surgery is planning for expiratory laparotomy due to leak. WBC count is slightly increased to 14. Continued antibiotics with Zosyn and Flagyl. No fever. Patient does not have any bowel movement or flatus. Surgical pathology is negative for any malignancy. 12/10/2018 Patient is more awake and oriented today. Patient was taken to OR on 2010 due to possible bowel leak with greenish fluid in the MICHAEL drain. Patient was found to have blowout of initial ileocolic anastomosis and intra-abdominal adhesions from diverticulitis with internal hernia 4. He underwent exploratory laparotomy with extended right hemicolectomy. Currently abdomen is soft. Bowel sounds are diminished. No flatus or bowel movement yet. Continued on IV hydration and antibiotics in the form of Flagyl and Zosyn. Hemoglobin is 10.6 and leukocytosis improved to 10.4 today. Discussed with his at bedside in detail. 12/11/2018 Patient is more awake and oriented. Patient has not passed factor soft bowel movement yet. Otherwise fluid cultures are showing enterococcus patient and Enterobacter species. ID is following. Currently on Zosyn and Flagyl. No fever no chills. WBC slightly increased to 12.0. No nausea or vomiting. Abdominal pain is controlled with pain medications. No chest pain. Patient does complain of short of breath otherwise. Chest x-ray showed bibasilar atelectasis. General surgery and ID is following. 12/12/2018 Patient denied any complaints of nausea vomiting. Abdominal pain is much better. Otherwise patient did have a small bowel movement today. Able to ambulate in the hallway. Patient was started on clear liquid diet. Will continue with TPN for today. Continue with IV antibiotics in the form of Zosyn and Flagyl and Anidulafungin for peritonitis. General surgery and ID is following. Current medications reviewed 12/13/2018 Patient was walking in the hallways, however he wants some discomfort due to his abdominal pain at the surgical site. Patient saw taking IV Dilaudid. His diet was advanced but he only ate part of the meal at breakfast. Passing gases but normal bowel movements. Abdominal pain is controlled with pain medication. No nausea vomiting. Patient still have total parenteral nutrition. Vitas looks stable. Last fever was in 100.0 Fahrenheit on 12/11/2018. WBC 8.6K. Creatinine 0.6 electrolytes within normal limits. Sugar controlled. 12/14/2018 Patient still complaining from pain at the surgical site, however pain looks controlled. Patient is lying In bed comfortable not in distress. He is tolerating diet slowly. TPN was tapered down he remains on antibiotics as per infectious team recommendation for his positive culture for enterococcus in his body fluids. Hemoglobin is 8.4 slightly trending down. Chest of CBC was unremarkable. Vital sustainable 12/15/2018 Patient looks better controlled today. His sitting in chair and trying to have some liquid diet. No bowel movement yet. His body fluid culture came back positive for enterococcus. Currently he remains on daptomycin, Zosyn and Flagyl as well as antifungal as per infectious disease recommendation. Possible patient would need IV line and prolonged IV antibiotics, and as per infectious disease will be going to recommend. No more fevers since 12/11 18. Labs reviewed and including WBC 8.1, hemoglobin 9.6. Sodium 139, potassium 4.5 and creatinine 0.8 12/16/2018 wound VAC removed last night, dressing applied. Tolerating low fiber diet, consuming 50% with no nausea vomiting. Afebrile, normal WBC. Pain controlled. Objective - Vital Signs Vital signs: Vital Signs Temp 97.5 F L 01/17/19 11:18 Pulse 72 12/16/18 11:18 Resp 15 12/16/18 11:18 BP 106/63 12/16/18 11:18 Pulse Ox 98 12/16/18 11:18 Intake & Output 12/15/18 12/16/18 12/16/18 18:59 06:59 18:59 Intake Total 200 590 350 Output Total 160 30 45 Balance 40 560 305 Weight 86 kg 83.5 kg Intake: Intake, IV Titration 200 350 Amount Anidulafungin 100 mg In 100 Sodium Chloride 0.9% 100 ml @ 84 mls/hr IVPB DAILY LAURE Rx#:[id number] DAPTOmycin 500 mg In 50 Sodium Chloride 0.9% 50 ml @ 100 mls/hr IVPB Q24H LAURE Rx#:[id number] Piperacillin-Tazobactam 3 100 100 .375 gm In Sodium Chloride 0.9% 100 ml @ 25 mls/hr IVPB Q8H LAURE Rx#: [id number] metroNIDAZOLE-NS PMX 500 100 100 mg In Saline 1 100ml.bag @ 100 mls/hr IVPB Q6HR LAURE Rx#:[id number] Oral 590 Output: Drainage 160 30 45 Left Lower Quadrant 160 30 45 Other: Voiding Method Toilet Toilet Urinal Urinal # Voids 2 # Bowel Movements 1 - Exam -GENERAL: Sitting up in bed, alert and oriented 2, no acute distress. HEENT: Patient is legally blind. No scleral icterus. Oral mucosa moist. NECK: Supple without lymphadenopathy. CHEST: Equal expansion. Bibasilar diminished air entry. No wheezing no crackles. CARDIOVASCULAR: Regular rate regular rhythm. Distal 2+ pulses. S1-S2 heard. Systolic murmur positive. -ABDOMEN: Abdomen soft, nondistended, status post surgery .Abdominal dressing with serosanguineous drainage. MICHAEL with serous drainage. Bowel sounds present. No guarding no rigidity. NEURO : Difficult to thoroughly assess due to history of CVA. No seizure activity noted. No tremors. SKIN: Well perfused. Good skin turgor. No cyanosis. No jaundice. 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 Status post robotic right colectomy. 12/06/2018 Status post exploratory laparotomy on 12/09/2018. Patient was found to have blowout of initial ileocolic anastomosis and intra-abdominal adhesions from diverticulitis with internal hernia 4. He underwent exploratory laparotomy with extended right hemicolectomy. Peritonitis Acute blood loss anemia, post surgery, expected outcome, in addition to iron deficiency. History of CVA/TIA occipital stroke and blindness and expressive aphasia. dementia hyperlipidemia Legal blindness History of aortic stenosis. Outpatient follow-up per cardiology Plan: Continue on current medication regime ,monitoring and symptomatic treatment. Maintain IV antibiotics as per infectious disease. Discharge planning in progress for tomorrow pending clearance from surgery and infectious disease. The impression and plan of care has been dictated as directed. : I performed a history and examination of this patient, discussed the same with the dictator. I agree with the dictator's note ,documented as a scribe. Any additional findings or plans will be noted.
[2018-12-16] MEDS: TAMSULOSIN 0.4 MG CAP.ER.24H PO SCH (21:34)
[2018-12-17] MEDS: PIPERACILLIN-TAZOBACTAM 3.375 GM in SODIUM CHLORIDE 0.9% 100 ML IVPB SCH ×2 (04:26→12:56)
[2018-12-17] MEDS: HYDROcodone/APAP 7.5-325MG 1 EACH TAB PO SCH ×4 (04:27→16:55)
[2018-12-17] MEDS: metroNIDAZOLE-NS PMX 500 MG in SALINE 1 100ML.BAG IVPB SCH ×2 (05:08→11:20)
[2018-12-17 07:26] VITALS: RESP 16
[2018-12-17] MEDS: METOPROLOL TARTRATE 25 MG TAB PO SCH (08:12)
[2018-12-17] MEDS: HEPARIN SODIUM,PORCINE 5,000 UNIT/ML 1 ML VIAL SQ SCH (08:13)
[2018-12-17 08:21] LABS: Basophils % (A) 1 %; Eosinophils # (A) 0.2 k/uL (0-0.7); Eosinophils % (A) 2 %; HGB 9.2 gm/dL (13.0-17.5); Hypochromasia Slight; Lymphocytes # (A) 1.1 k/uL (1.0-4.8); Lymphocytes % (A) 13 %; MCHC 30.7 g/dL (31.0-37.0); MCV 97.5 fL (80.0-100.0); Mean Platelet Volume 7.6; Monocytes # (A) 0.4 k/uL (0-1.0); Monocytes % (A) 4 %; Neutrophils # (A) 6.8 k/uL (1.3-7.7); Neutrophils % (A) 78 %; Platelet Count 535 k/uL (150-450); RBC 3.08 m/uL (4.30-5.90); WBC 8.7 k/uL (3.8-10.6)
[2018-12-17 08:32] LABS: Anion Gap 6 mmol/L; Blood Urea Nitrogen 9 mg/dL (9-20); Calcium 8.4 mg/dL (8.4-10.2); Carbon Dioxide 24 mmol/L (22-30); Chloride 109 mmol/L (98-107); Glucose 99 mg/dL (74-99); Potassium 4.6 mmol/L (3.5-5.1); Sodium 139 mmol/L (137-145)
[2018-12-17] MEDS: PANTOPRAZOLE 40 MG/10 ML VIAL IVP SCH (08:45)
[2018-12-17] MEDS: ANIDULAFUNGIN 100 MG in SODIUM CHLORIDE 0.9% 100 ML IVPB SCH (08:45)
[2018-12-17] MEDS ORDERED: HYDROmorphone 4 MG TABLET PO PRN (10:09)
--- NOTE | 2018-12-17 11:29 | P.PN ---
Subjective Progress Note Date: 12/17/18 CHIEF COMPLAINT: History of peritonitis and GI bleed HISTORY OF PRESENT ILLNESS: The patient is a 68-year-old gentleman initially admitted with gross GI bleed. 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 He initially underwent a robotic right hemicolectomy on . On 12/09/2018, he had gross stool in his MICHAEL warranting emergency exploratory laparotomy. An extended right hemicolectomy was performed including abdominal washout on 12/09/2018. He is postop day 8. Patient examined at the bedside. Pain is tolerable. Patient tolerating PO intake. Patient reports eating eggs this morning which did not agree with him. Dressing to abdomen clean dry and intact. Patient is anticipating discharge home today. PHYSICAL EXAM: VITAL SIGNS: Reviewed GENERAL: Well-developed in no acute distress. HEENT: No sclera icterus. Head is atraumatic, normocephalic. Hears conversational speech. No nasal drainage. NECK: Supple without lymphadenopathy. CHEST: Non-labored respirations and equal bilateral excursions. CARDIOVASCULAR: Palpable 2+ radial pulses. ABDOMEN: Soft. Dressing clean dry and intact. MUSCULOSKELETAL: No clubbing, cyanosis. NEUROLOGIC: No focal or lateralizing signs. Cranial nerves II through XII grossly intact. PSYCH: Appropriate affect. Alert and oriented to person, place and time. SKIN: Well perfused. Good skin turgor. ASSESSMENT: 1. 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 Diverticulosis 3. Fecal peritonitis, S/P exploratory laparotomy with takedown of ileocolic anastomosis and extended right hemicolectomy secondary to blowout of initial ileocolic anastomosis 4. Severe iron deficiency anemia due to chronic blood loss, pre-existing 5. Aortic stenosis with tachycardia PLAN: 1. Dressing changes to abdomen with dry gauze, ABD pad, and tape 2. Optifoam dressing to MICHAEL site 3. Patient stable for discharge home today from a surgical standpoint 4. Follow up with Dr. Lan 12/29/2018. Mary will be removed at that time. Nurse practitioner note has been reviewed by physician. Signing provider agrees with the documented findings, assessment, and plan of care. Objective - Vital Signs Vital signs: Vital Signs Temp 97.9 F 12/17/18 07:19 Pulse 89 12/17/18 09:58 Resp 16 12/17/18 09:58 BP 147/80 12/17/18 07:19 Pulse Ox 98 12/17/18 07:19 Intake & Output 12/16/18 12/17/18 12/17/18 18:59 06:59 18:59 Intake Total 350 700 Output Total 45 Balance 305 700 Weight 82.5 kg 82.5 kg Intake: Intake, IV Titration 350 300 Amount Anidulafungin 100 mg In 100 Sodium Chloride 0.9% 100 ml @ 84 mls/hr IVPB DAILY LAURE Rx#:[id number] DAPTOmycin 500 mg In 50 Sodium Chloride 0.9% 50 ml @ 100 mls/hr IVPB Q24H LAURE Rx#:[id number] Piperacillin-Tazobactam 3 100 200 .375 gm In Sodium Chloride 0.9% 100 ml @ 25 mls/hr IVPB Q8H LAURE Rx#: [id number] metroNIDAZOLE-NS PMX 500 100 100 mg In Saline 1 100ml.bag @ 100 mls/hr IVPB Q6HR LAURE Rx#:[id number] Oral 400 Output: Drainage 45 Left Lower Quadrant 45 Other: Voiding Method Toilet Toilet Urinal Urinal # Voids 1 - Labs CBC & Chem 7: 12/17/18 07:30 12/17/18 07:30 Labs: Abnormal Lab Results - Last 24 Hours (Table) 12/17/18 12/17/18 Range/Units 07:30 07:30 RBC 3.08 L (4.30-5.90) m/uL Hgb 9.2 L (13.0-17.5) gm/dL Hct 30.0 L (39.0-53.0) % MCHC 30.7 L (31.0-37.0) g/dL Plt Count 535 H (150-450) k/uL Chloride 109 H (98-107) mmol/L Assessment and Plan (1) Acute blood loss anemia Current Visit: Yes Status: Acute Code(s): D62 - ACUTE POSTHEMORRHAGIC ANEMIA SNOMED Code(s): 054271902 (2) Cecum mass Current Visit: Yes Status: Acute Code(s): K63.9 - DISEASE OF INTESTINE, UNSPECIFIED SNOMED Code(s): 343356821 (3) Diverticulosis of colon Current Visit: Yes Status: Acute Code(s): K57.30 - DVRTCLOS OF LG INT W/O PERFORATION OR ABSCESS W/O BLEEDING SNOMED Code(s): 306170733 (4) Internal hemorrhoid Current Visit: Yes Status: Acute Code(s): K64.8 - OTHER HEMORRHOIDS SNOMED Code(s): 04055665 (5) CVA (cerebral vascular accident) Current Visit: Yes Status: Acute Code(s): I63.9 - CEREBRAL INFARCTION, UNSPECIFIED SNOMED Code(s): 552285827 (6) GIB (gastrointestinal bleeding) Current Visit: Yes Status: Acute Code(s): K92.2 - GASTROINTESTINAL HEMORRHAGE, UNSPECIFIED SNOMED Code(s): 27004947 (7) Peritonitis Current Visit: Yes Status: Acute Code(s): K65.9 - PERITONITIS, UNSPECIFIED SNOMED Code(s): 59461856
[2018-12-17] MEDS: MULTIVITAMINS, THERA 1 EACH TAB PO SCH (12:25)
[2018-12-17 12:58] VITALS: BP 128/75; PULSE 82; TEMP 98
[2018-12-17] MEDS: DAPTOmycin 500 MG in SODIUM CHLORIDE 0.9% 50 ML IVPB SCH (17:11)
--- NOTE | 2018-12-18 05:17 | DS ---
DISCHARGE SUMMARY FINAL DIAGNOSES: 1. Acute lower gastrointestinal bleed secondary to rectal tumor status post robotic right colectomy. 2. Status post exploratory laparotomy with blowout of initial ileocolic anastomosis with intraabdominal adhesions and diverticulitis internal hernia and underwent extended right hemicolectomy. 3. Peritonitis. 4. Acute blood loss anemia. 5. History of cerebrovascular accident, transient ischemic attack. 6. Dementia. 7. Hyperlipidemia. 8. Legal blindness. 9. History of aortic stenosis. HISTORY OF PRESENT ILLNESS: This 68-year-old gentleman with a past medical history of multiple medical problems was admitted with acute GI bleed secondary to cecal tumor. The patient underwent right colectomy. The patient also underwent multiple procedures as discussed above. Please refer to the surgical notes for further information. Otherwise, the patient also seen by multiple consultants during hospitalization. Patient improved significantly eventually and the patient being discharged home in stable condition with guarded prognosis. The patient also had enterococcus faecium and Enterobacter cloacae grown from the cultures. PHYSICAL EXAMINATION: On exam, vitals are stable. CARDIOVASCULAR: S1, S2. Abdomen is soft. Nervous system: No focal deficits. WBC 8.7. The biopsy report showed a cecal tumor, showed benign colonic mucosa with subserosal fibrosis, acute serositis, subserosal abscess, fat necrosis, fecal material consistent with perforated viscus. Recommend close outpatient follow up with Dr. Lan the surgeon and as well as Infectious Disease who followed the patient during the hospitalization. Currently the WBC 8.2, hemoglobin 9.2. DISCHARGE ADVICE INSTRUCTIONS/MEDICATIONS: 1. Diet is full cardiac as tolerated. 2. Activity limited until followup. 3. Follow up Dr. Hess as advised. 4. Follow up with Dr. Lan as advised. 5. Follow up with Dr. Jaquelin Greene. DISCHARGE MEDICATIONS: 1. Flomax 0.4 daily. 2. Ecotrin 81 mg daily. 3. Daptomycin 500 mg IV daily for [address] العلي. 4. Invanz 1 g IV daily for [address] العلي. 5. Westhoff 7.5 q.4 p.r.n. 6. Lopressor 25 mg p.o. b.i.d. 7. Multivitamins 1 p.o. daily. 8. Protonix 40 mg p.o. daily. Once again, the patient being discharged in stable condition. Guarded prognosis. MMODL / IJN: [id number] /
--- NOTE | 2018-12-21 08:37 | CDI ---
Documentation Clarification Form Date: 12-21-18 From: SMITH Smith Phone: If you have question, contact [facility] at [phone] M-F 8:30 am to 6pm Admit Date: 12/03/2018 3:29:00 PM Patient Name: Edgard Call Visit Number: [id number] Discharge Date: 12/17/2018 5:55:00 PM ATTENTION: The Clinical Documentation Specialists (CDI) and [facility] Coding Staff appreciate your assistance in clarifying documentation. Please respond to the clarification below the line at the bottom and electronically sign. The CDI & [facility] Coding staff will review the response and follow-up if needed. Please note: Queries are made part of the Legal Health Record. If you have any questions, please contact the author of this message via ITS. Dr. 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 Yes No Other (please specify) Unable to determine Yes MTDD
--- NOTE | 2018-12-24 07:49 | P.PN ---
Subjective Progress Note Date: 12/09/18 CHIEF COMPLAINT: Cecal neoplasm HISTORY OF PRESENT ILLNESS: The patient is a 68-year-old gentleman status post right hemicolectomy, POD 3. Patient now has stool coming out of drain with new abdominal pain. Family and at bedside. PHYSICAL EXAM: VITAL SIGNS: Reviewed GENERAL: Well-developed in no acute distress. HEENT: No sclera icterus. Extraocular movements grossly intact. Moist buccal mucosa. Head is atraumatic, normocephalic. Hears conversational speech. No nasal drainage. NECK: Supple without lymphadenopathy. CHEST: Non-labored respirations and equal bilateral excursions. CARDIOVASCULAR: Palpable 2+ radial pulses. ABDOMEN: Soft. Diffuse abdominal tenderness. MICHAEL brown stool drainage MUSCULOSKELETAL: No clubbing, cyanosis or edema. NEUROLOGIC: No focal or lateralizing signs. Cranial nerves II through XII grossly intact. PSYCH: Appropriate affect. Alert and oriented to person, place and time. SKIN: Well perfused. Good skin turgor. LABS: Reviewed ASSESSMENT: 1. Cecal neoplasm 2. History of gastrointestinal bleed PLAN: 1. Clinical leak confirmed. 2. Exploratory laparotomy with ostomy described. 3. Path is negative for cancer and information dispensed to family. 5. All questions thoroughly addressed to and family. Objective - Vital Signs Vital signs: Vital Signs Temp 99.6 F 12/09/18 14:56 Pulse 103 H 12/09/18 14:56 Resp 17 12/09/18 14:56 BP 107/57 12/09/18 14:56 Pulse Ox 97 12/09/18 14:56 Intake & Output 12/09/18 12/09/18 12/10/18 06:59 18:59 06:59 Output Total 40 10 Balance -40 -10 Weight 74.389 kg Output: Drainage 40 10 Abdomen 40 10 Other: Voiding Method Toilet Toilet # Voids 2 3 # Bowel Movements 1 1 - Labs CBC & Chem 7: 12/09/18 09:04 Labs: Abnormal Lab Results - Last 24 Hours (Table) 12/09/18 12/09/18 Range/Units 09:04 09:04 WBC 13.4 H (3.8-10.6) k/uL RBC 3.84 L (4.30-5.90) m/uL Hgb 11.5 L (13.0-17.5) gm/dL Hct 36.1 L (39.0-53.0) % Neutrophils # 11.3 H (1.3-7.7) k/uL BUN 6 L (9-20) mg/dL Glucose 170 H (74-99) mg/dL Microbiology - Last 24 Hours (Table) 12/09/18 14:59 Body Fluid Culture - Preliminary [facility] Objective - Vital Signs Vital signs: Vital Signs Temp 99.6 F 12/09/18 14:56 Pulse 103 H 12/09/18 14:56 Resp 17 12/09/18 14:56 BP 107/57 12/09/18 14:56 Pulse Ox 97 12/09/18 14:56 Intake & Output 12/09/18 12/09/18 12/10/18 06:59 18:59 06:59 Output Total 40 10 Balance -40 -10 Weight 74.389 kg Output: Drainage 40 10 Abdomen 40 10 Other: Voiding Method Toilet Toilet # Voids 2 3 # Bowel Movements 1 1 - Labs CBC & Chem 7: 12/17/18 07:30 12/17/18 07:30 Labs: Abnormal Lab Results - Last 24 Hours (Table) 12/09/18 12/09/18 Range/Units 09:04 09:04 WBC 13.4 H (3.8-10.6) k/uL RBC 3.84 L (4.30-5.90) m/uL Hgb 11.5 L (13.0-17.5) gm/dL Hct 36.1 L (39.0-53.0) % Neutrophils # 11.3 H (1.3-7.7) k/uL BUN 6 L (9-20) mg/dL Glucose 170 H (74-99) mg/dL Microbiology - Last 24 Hours (Table) 12/09/18 14:59 Body Fluid Culture - Preliminary [facility]
== END 2018-12-17 17:55 | disposition home or self-care (01) | DRG 329 ==
LOC: EC 01:14 → 4SSUR 03:22 → 3NMEDONC 16:02 → OBSVTOIN 12-03 15:29
PROVIDERS: ADMIT Hospitalist; ATTEND Hospitalist
PROC: 0DBK8ZX Excision of Ascending Colon, Via Natural or Artificial Opening Endoscopic, Diagnostic (ICD-10-PCS; principal; 2018-12-03)
PROC: 0DBP8ZX Excision of Rectum, Via Natural or Artificial Opening Endoscopic, Diagnostic (ICD-10-PCS; 2018-12-03)
PROC: 0DBM8ZX Excision of Descending Colon, Via Natural or Artificial Opening Endoscopic, Diagnostic (ICD-10-PCS; 2018-12-03)
PROC: 0DBH8ZX Excision of Cecum, Via Natural or Artificial Opening Endoscopic, Diagnostic (ICD-10-PCS; 2018-12-03)
PROC: 0DTF4ZZ Resection of Right Large Intestine, Percutaneous Endoscopic Approach (ICD-10-PCS; 2018-12-06)
PROC: 8E0W8CZ Robotic Assisted Procedure of Trunk Region, Via Natural or Artificial Opening Endoscopic (ICD-10-PCS; 2018-12-06)
DX: D12.0 Benign neoplasm of cecum (principal); K65.9 Peritonitis, unspecified; A41.9 Sepsis, unspecified organism; E46 Unspecified protein-calorie malnutrition; D62 Acute posthemorrhagic anemia; K57.32 Diverticulitis of large intestine without perforation or abscess without bleeding; E78.5 Hyperlipidemia, unspecified; E11.9 Type 2 diabetes mellitus without complications; E83.42 Hypomagnesemia; K64.8 Other hemorrhoids; K62.1 Rectal polyp; K64.4 Residual hemorrhoidal skin tags; F03.90 Unspecified dementia, unspecified severity, without behavioral disturbance, psychotic disturbance, mood disturbance, and anxiety; H54.8 Legal blindness, as defined in USA; K66.0 Peritoneal adhesions (postprocedural) (postinfection); I25.10 Atherosclerotic heart disease of native coronary artery without angina pectoris; I25.5 Ischemic cardiomyopathy; I35.0 Nonrheumatic aortic (valve) stenosis; I44.0 Atrioventricular block, first degree; I50.9 Heart failure, unspecified; N40.0 Benign prostatic hyperplasia without lower urinary tract symptoms; I69.919 Unspecified symptoms and signs involving cognitive functions following unspecified cerebrovascular disease; I69.320 Aphasia following cerebral infarction; I69.398 Other sequelae of cerebral infarction; Z79.82 Long term (current) use of aspirin; Z79.899 Other long term (current) drug therapy; Z91.040 Latex allergy status; Z85.828 Personal history of other malignant neoplasm of skin; Z87.440 Personal history of urinary (tract) infections; Z87.442 Personal history of urinary calculi
CPT/HCPCS: 36410; 36415; 45380; 71045; 71260; 74177; 76937; 80048; 80053; 82040; 82272; 82330; 82378; 82728; 83540; 83550; 83605; 83735; 84100; 84478; 85025; 85610; 85730; 87070; 87077; 87186; 87205; 88305; 88307; 88309; 93005; 93306; 93970; 94760; 96365; 96375; 99284

== ENCOUNTER 2019-03-20 11:39 | Emergency (ER) | payer MEDICARE ==
[2019-03-20 11:53] VITALS: RESP 18
[2019-03-20] MEDS ORDERED: SODIUM CHLORIDE 0.9% 1,000 ML IV ONE (12:13)
--- NOTE | 2019-03-20 12:19 | ED ---
General Adult HPI - General Chief complaint: Altered Mental Status Stated complaint: poss abn labs Time Seen by Provider: 03/20/19 11:56 Source: patient Mode of arrival: ambulatory Limitations: no limitations - History of Present Illness Initial comments: Dictation was produced using [employer] dictation software. please excuse any grammatical, word or spelling errors. Chief Complaint: 68-year-old male past medical history of cognitive deficit, CVA, intra-abdominal sepsis, intra-abdominal cancer presents with chief complain t of altered mental status. History of Present Illness: 68-year-old male he has history of dementia, CVA, sepsis presents with altered mental status. He is accompanied by his spouse. Patient was observed yesterday with signs of altered mental status. Patient is legally blind and has other chronic cognitive deficits from CVA suffered 5-6 years ago. Patient also has been having acute episodes of confusion since November when he was diagnosed with sepsis. Yesterday patient was showing temper issues. He also was not able to find the bathroom with assistance. Patient has chronic cognitive and vision deficits however over the past several months he has been able to get to the bathroom with assistance. Yesterday however it was abnormal that patient not able to perform dysfunction. Patient otherwise feels fine. He has no complaints at this time. at bedside was told to bring patient to the emergency department because he might have an infection if he shows signs of altered mental status. The ROS documented in this emergency department record has been reviewed and confirmed by me. Those systems with pertinent positive or negative responses have been documented in the HPI. All other systems are other negative and/or noncontributory. PHYSICAL EXAM: General Impression: Alert and oriented x2/4, not in acute distress HEENT: Normocephalic atraumatic, extra-ocular movements intact, pupils equal and reactive to light bilaterally, mucous membranes moist. Cardiovascular: Heart regular rate and rhythm, S1&S2 audible, no murmurs, rubs or gallops Chest: Lungs clear to auscultation bilaterally, no rhonchi, no wheeze, no rales Abdomen: Bowel sounds present, abdomen soft, non-tender, non-distended, no organomegaly Musculoskeletal: Pulses present and equal in all extremities, no peripheral edema Motor: no focal deficits noted Neurological: CN II-XII grossly intact, no focal motor or sensory deficits noted, no clonus, no rigidity Skin: Intact with no visualized rashes Psych: Normal affect and mood ED course: 68-year-old male presents with altered mental status. Patient has history of chronic mental condition likely multifactorial secondary to CVA. Patient also has visual deficits that also are chronic. Patient does not have any neural deficits on physical examination. Furthermore patient is pleasant and cooperative. Laboratory evaluation obtained. CBC, coag panel, metabolic panel, urinalysis, rapid urine drug screen all within acceptable limits. CT imaging of the brain is nonacute. Chest x-ray is unremarkable and also nonacute. She observed in emergency department. Patient's clinical presentation likely secondary to dementia. Patient does have established diagnosis of vascular dementia per neurologist. Patient is given outpatient follow-up with PCP. At this point patient appears clinically stable. Patient clear for discharge. Specimens told to take patient to his PCP for outpatient management of his symptoms. She does have a prescription for Xanax that she is allowed to give him prescribed by PCP. She told to increase the dose as needed. EKG interpretation: Ventricular rate 80, sinus rhythm, OK interval 210, Q's 88, QTc 440. No OK prolongation, no QTC prolongation, no ST or T-wave changes noted. EKG compared to 11/29/2018 showing no changes. Overall, this EKG is unremarkable - Related Data Home Medications Medication Instructions Recorded Confirmed Tamsulosin [Flomax] 0.4 mg PO HS 11/29/18 03/20/19 ALPRAZolam [Xanax] 0.5 mg PO BID PRN 03/20/19 03/20/19 Acetaminophen Tab [Tylenol Tab] 500 mg PO Q6H PRN 03/20/19 03/20/19 Previous Rx's Medication Instructions Recorded Aspirin EC [Ecotrin Low Dose] 81 mg PO BID #0 12/17/18 Metoprolol Tartrate [Lopressor] 25 mg PO BID #60 tab 12/17/18 Allergies Allergy/AdvReac Type Severity Reaction Status Date / Time Latex, Natural Rubber Allergy Rash/Hives Verified 03/20/19 12:21 PLASTIC Allergy Rash/Hives Uncoded 03/20/19 12:21 Review of Systems ROS Statement: Those systems with pertinent positive or pertinent negative responses have been documented in the HPI. ROS Other: All systems not noted in ROS Statement are negative. Past Medical History Past Medical History: CVA/TIA, Dementia, Hyperlipidemia, Prostate Disorder Additional Past Medical History / Comment(s): kidney stones,uti/sepsis , per pt's pt legally blind "occiptal stroke" History of Any Multi-Drug Resistant Organisms: None Reported Past Surgical History: No Surgical Hx Reported Additional Past Surgical History / Comment(s): Two surgeries for kidney stones Past Anesthesia/Blood Transfusion Reactions: No Reported Reaction Additional Past Anesthesia/Blood Transfusion Reaction / Comment(s): Never had transfusion Past Psychological History: No Psychological Hx Reported Smoking Status: Never smoker Past Alcohol Use History: None Reported Past Drug Use History: None Reported - Past Family History Father History Unknown: Yes Additional Family Medical History / Comment(s): father in a mva Mother Family Medical History: Dementia General Exam Limitations: no limitations Course Vital Signs 03/20/19 11:49 Temperature 98.5 F Pulse Rate 83 Respiratory 18 Rate Blood Pressure 132/77 Medical Decision Making - Lab Data Result diagrams: 03/20/19 12:14 03/20/19 12:14 Lab Results 03/20/19 03/20/19 03/20/19 Range/Units 12:14 12:14 12:14 WBC 8.5 (3.8-10.6) k/uL RBC 4.62 (4.30-5.90) m/uL Hgb 13.7 (13.0-17.5) gm/dL Hct 40.4 (39.0-53.0) % MCV 87.3 (80.0-100.0) fL MCH 29.7 (25.0-35.0) pg MCHC 34.0 (31.0-37.0) g/dL RDW 14.0 (11.5-15.5) % Plt Count 262 (150-450) k/uL Neutrophils % 68 % Lymphocytes % 21 % Monocytes % 5 % Eosinophils % 4 % Basophils % 1 % Neutrophils # 5.8 (1.3-7.7) k/uL Lymphocytes # 1.8 (1.0-4.8) k/uL Monocytes # 0.4 (0-1.0) k/uL Eosinophils # 0.3 (0-0.7) k/uL Basophils # 0.1 (0-0.2) k/uL PT 10.3 (9.0-12.0) sec INR 1.0 (<1.2) APTT 23.3 (22.0-30.0) sec Sodium 141 (137-145) mmol/L Potassium 4.1 (3.5-5.1) mmol/L Chloride 108 H (98-107) mmol/L Carbon Dioxide 26 (22-30) mmol/L Anion Gap 7 mmol/L BUN 16 (9-20) mg/dL Creatinine 0.77 (0.66-1.25) mg/dL Est GFR (CKD-EPI)AfAm >90 (>60 ml/min/1.73 sqM) Est GFR (CKD-EPI)NonAf >90 (>60 ml/min/1.73 sqM) Glucose 97 (74-99) mg/dL Calcium 9.8 (8.4-10.2) mg/dL Total Bilirubin 0.9 (0.2-1.3) mg/dL AST 23 (17-59) U/L ALT 36 (21-72) U/L Alkaline Phosphatase 66 (38-126) U/L Ammonia (<30) umol/L Troponin I (0.000-0.034) ng/mL Total Protein 6.9 (6.3-8.2) g/dL Albumin 4.5 (3.5-5.0) g/dL Urine Color Urine Appearance (Clear) Urine pH (5.0-8.0) Ur Specific Queen (1.001-1.035) Urine Protein (Negative) Urine Glucose (UA) (Negative) Urine Ketones (Negative) Urine Blood (Negative) Urine Nitrite (Negative) Urine Bilirubin (Negative) Urine Urobilinogen (<2.0) mg/dL Ur Leukocyte Esterase (Negative) Urine Opiates Screen (NotDetected) Ur Oxycodone Screen (NotDetected) Urine Methadone Screen (NotDetected) Ur Propoxyphene Screen (NotDetected) Ur Barbiturates Screen (NotDetected) U Tricyclic Antidepress (NotDetected) Ur Phencyclidine Scrn (NotDetected) Ur Amphetamines Screen (NotDetected) U Methamphetamines Scrn (NotDetected) U Benzodiazepines Scrn (NotDetected) Urine Cocaine Screen (NotDetected) U Marijuana (THC) Screen (NotDetected) 04/03/20/19 03/20/19 Range/Units 12:14 12:14 12:55 WBC (3.8-10.6) k/uL RBC (4.30-5.90) m/uL Hgb (13.0-17.5) gm/dL Hct (39.0-53.0) % MCV (80.0-100.0) fL MCH (25.0-35.0) pg MCHC (31.0-37.0) g/dL RDW (11.5-15.5) % Plt Count (150-450) k/uL Neutrophils % % Lymphocytes % % Monocytes % % Eosinophils % % Basophils % % Neutrophils # (1.3-7.7) k/uL Lymphocytes # (1.0-4.8) k/uL Monocytes # (0-1.0) k/uL Eosinophils # (0-0.7) k/uL Basophils # (0-0.2) k/uL PT (9.0-12.0) sec INR (<1.2) APTT (22.0-30.0) sec Sodium (137-145) mmol/L Potassium (3.5-5.1) mmol/L Chloride (98-107) mmol/L Carbon Dioxide (22-30) mmol/L Anion Gap mmol/L BUN (9-20) mg/dL Creatinine (0.66-1.25) mg/dL Est GFR (CKD-EPI)AfAm (>60 ml/min/1.73 sqM) Est GFR (CKD-EPI)NonAf (>60 ml/min/1.73 sqM) Glucose (74-99) mg/dL Calcium (8.4-10.2) mg/dL Total Bilirubin (0.2-1.3) mg/dL AST (17-59) U/L ALT (21-72) U/L Alkaline Phosphatase (38-126) U/L Ammonia <9 (<30) umol/L Troponin I <0.012 (0.000-0.034) ng/mL Total Protein (6.3-8.2) g/dL Albumin (3.5-5.0) g/dL Urine Color Yellow Urine Appearance Clear (Clear) Urine pH 6.5 (5.0-8.0) Ur Specific Queen 1.024 (1.001-1.035) Urine Protein Trace H (Negative) Urine Glucose (UA) Negative (Negative) Urine Ketones Negative (Negative) Urine Blood Negative (Negative) Urine Nitrite Negative (Negative) Urine Bilirubin Negative (Negative) Urine Urobilinogen <2.0 (<2.0) mg/dL Ur Leukocyte Esterase Negative (Negative) Urine Opiates Screen Not Detected (NotDetected) Ur Oxycodone Screen Not Detected (NotDetected) Urine Methadone Screen Not Detected (NotDetected) Ur Propoxyphene Screen Not Detected (NotDetected) Ur Barbiturates Screen Not Detected (NotDetected) U Tricyclic Antidepress Not Detected (NotDetected) Ur Phencyclidine Scrn Not Detected (NotDetected) Ur Amphetamines Screen Not Detected (NotDetected) U Methamphetamines Scrn Not Detected (NotDetected) U Benzodiazepines Scrn Detected H (NotDetected) Urine Cocaine Screen Not Detected (NotDetected) U Marijuana (THC) Screen Not Detected (NotDetected) Disposition Clinical Impression: Aggressive behavior Disposition: HOME SELF-CARE Condition: Good Instructions (If sedation given, give patient instructions): Altered Mental Status (ED) Is patient prescribed a controlled substance at d/c from ED?: No Referrals: Sydney Spaulding MD [Primary Care Provider] - 1-2 days Time of Disposition: 13:33
[2019-03-20 12:33] LABS: Basophils # (A) 0.1 k/uL (0-0.2); Basophils % (A) 1 %; Eosinophils # (A) 0.3 k/uL (0-0.7); Eosinophils % (A) 4 %; HCT 40.4 % (39.0-53.0); HGB 13.7 gm/dL (13.0-17.5); Lymphocytes # (A) 1.8 k/uL (1.0-4.8); Lymphocytes % (A) 21 %; MCH 29.7 pg (25.0-35.0); MCV 87.3 fL (80.0-100.0); Mean Platelet Volume 6.9; Monocytes # (A) 0.4 k/uL (0-1.0); Monocytes % (A) 5 %; Neutrophils # (A) 5.8 k/uL (1.3-7.7); Neutrophils % (A) 68 %; Platelet Count 262 k/uL (150-450); RBC 4.62 m/uL (4.30-5.90); WBC 8.5 k/uL (3.8-10.6)
--- NOTE | 2019-03-20 12:37 | XR ---
EXAMINATION TYPE: XR chest 2V DATE OF EXAM: 03/20/2019 COMPARISON: 12/11/2018 HISTORY: 68-year-old male confusion, altered mental status TECHNIQUE: AP and lateral views FINDINGS: The heart is upper limits of normal in size. Mild diffuse interstitial prominence is unchanged. No co nsolidation or pleural effusion. Old rib fracture deformities are demonstrated. IMPRESSION: Borderline heart size. Chronic changes, possible chronic bronchitis/asthma. Multiple old healed rib f racture deformities. No acute process seen.
[2019-03-20 12:41] LABS: ALT 36 U/L (21-72); AST 23 U/L (17-59); African American GFR (CKD) >90 (>60 ml/min/1.73 sqM); Albumin 4.5 g/dL (3.5-5.0); Alkaline Phosphatase 66 U/L (38-126); Anion Gap 7 mmol/L; Blood Urea Nitrogen 16 mg/dL (9-20); Calcium 9.8 mg/dL (8.4-10.2); Carbon Dioxide 26 mmol/L (22-30); Chloride 108 mmol/L (98-107); Glucose 97 mg/dL (74-99); Potassium 4.1 mmol/L (3.5-5.1); Sodium 141 mmol/L (137-145); Total Bilirubin 0.9 mg/dL (0.2-1.3); Total Protein 6.9 g/dL (6.3-8.2)
[2019-03-20 12:42] LABS: Partial Thromboplastin Time 23.3 sec (22.0-30.0); Prothrombin Time 10.3 sec (9.0-12.0)
--- NOTE | 2019-03-20 13:04 | CT ---
EXAMINATION TYPE: CT brain wo con DATE OF EXAM: 03/20/2019 COMPARISON: 11/09/2014 HISTORY: 68-year-old male with pain, Altered mental status TECHNIQUE: Examination was done in axial plane without intravenous contrast. Coronal and sagittal r econstructions performed. CT DLP: 1125.4 mGycm Automated exposure control for dose reduction was used. FINDINGS: There is no evidence of acute intracranial hemorrhage, acute ischemic changes, mass, mass-effect, or extra-axial fluid collection. There is no effacement of cerebral sulci or basal subarachnoid cister ns. There is no hydrocephalus. There is no midline shift. Beltran-white matter distinction is preserv ed. Mild generalized supratentorial volume loss unchanged prominence to the occipital horns of the latera l ventricles, left greater than right. The corpus callosum is visualized on the sagittal series. Mild generalized atrophy Moderate to severe mucosal thickening throughout the ethmoid air cells and frontal sinuses. Mild to m oderate within the sphenoid and maxillary sinuses. Undulating nasal septum. Prominent cerumen right e xternal auditory canal. Mastoid air cells are well pneumatized. Orbits and globes appear intact. IMPRESSION: 1. Stable prominence to the occipital horns of the lateral ventricles, left greater than right. Moder ate generalized atrophy and mild changes of chronic small vessel ischemic disease. No acute intracran ial abnormality seen. 2. Moderate to severe chronic pansinus disease.
[2019-03-20 13:06] LABS: Appearance,Urine Clear (Clear); Bilirubin,Urine Negative (Negative); Blood,Urine Negative (Negative); Color,Urine Yellow; Glucose,Urine (UA) Negative (Negative); Ketones,Urine Negative (Negative); Leukocyte Esterase,Urine Negative (Negative); Nitrite,Urine Negative (Negative); PH, Urine 6.5 (5.0-8.0); Protein,Urine Trace (Negative); Specific Gravity,Urine 1.024 (1.001-1.035); Urobilinogen,Urine <2.0 mg/dL (<2.0)
[2019-03-20 13:17] LABS: Amphetamine Screen,Urine Not Detected (NotDetected); Barbiturate Screen,Urine Not Detected (NotDetected); Benzodiazepines Screen,Urine Detected (NotDetected); Cocaine Screen,Urine Not Detected (NotDetected); Methadone Screen, Urine Not Detected (NotDetected); Opiate Screen,Urine Not Detected (NotDetected); Oxycodone Screen, Urine Not Detected (NotDetected); Phencyclidine Screen,Urine Not Detected (NotDetected); Tricyclic Antidepressant,Urine Not Detected (NotDetected); Urn Cannabinoid Scrn Not Detected (NotDetected)
[2019-03-20] MEDS ORDERED: ALPRAZolam 0.5 MG TAB PO STA (13:31)
[2019-03-20 13:58] VITALS: BP 147/85; PULSE 84; TEMP 98.6
== END 2019-03-20 13:57 | disposition home or self-care (01) ==
LOC: EC 11:39
DX: R41.82 Altered mental status, unspecified (principal); F01.51 Vascular dementia, unspecified severity, with behavioral disturbance; Z79.899 Other long term (current) drug therapy; Z86.73 Personal history of transient ischemic attack (TIA), and cerebral infarction without residual deficits; Z91.040 Latex allergy status; Z91.048 Other nonmedicinal substance allergy status
CPT/HCPCS: 36415; 70450; 71046; 80053; 80306; 81003; 82140; 84484; 85025; 85610; 85730; 87086; 93005; 99285

== ENCOUNTER 2020-01-02 20:57 | Observation (INO) | payer MEDICARE ==
[2020-01-02] MEDS ORDERED: DIAZEPAM 5 MG/ML 2 ML INJ IVP STA (21:38)
[2020-01-02] MEDS ORDERED: ONDANSETRON 4 MG/2 ML VIAL IVP STA (21:38)
[2020-01-02 21:48] LABS: Basophils # (A) 0.1 k/uL (0-0.2); Basophils % (A) 1 %; Eosinophils # (A) 0.1 k/uL (0-0.7); Eosinophils % (A) 1 %; HCT 43.2 % (39.0-53.0); HGB 14.5 gm/dL (13.0-17.5); Lymphocytes # (A) 2.1 k/uL (1.0-4.8); Lymphocytes % (A) 25 %; MCH 30.7 pg (25.0-35.0); MCHC 33.5 g/dL (31.0-37.0); MCV 91.5 fL (80.0-100.0); Mean Platelet Volume 7.8; Monocytes # (A) 0.4 k/uL (0-1.0); Monocytes % (A) 5 %; Neutrophils # (A) 5.8 k/uL (1.3-7.7); Neutrophils % (A) 67 %; Platelet Count 280 k/uL (150-450); RBC 4.72 m/uL (4.30-5.90); RDW 12.5 % (11.5-15.5); WBC 8.7 k/uL (3.8-10.6)
[2020-01-02 21:58] LABS: ALT 15 U/L (4-49); AST 21 U/L (17-59); African American GFR (CKD) >90 (>60 ml/min/1.73 sqM); Albumin 4.4 g/dL (3.5-5.0); Alkaline Phosphatase 67 U/L (38-126); Anion Gap 9 mmol/L; Blood Urea Nitrogen 20 mg/dL (9-20); Calcium 9.6 mg/dL (8.4-10.2); Carbon Dioxide 26 mmol/L (22-30); Chloride 106 mmol/L (98-107); Glucose 142 mg/dL (74-99); Non-African American GFR(CKD) >90 (>60 ml/min/1.73 sqM); Potassium 3.9 mmol/L (3.5-5.1); Sodium 141 mmol/L (137-145); Total Bilirubin 1.1 mg/dL (0.2-1.3); Total Protein 6.8 g/dL (6.3-8.2)
[2020-01-02 22:03] LABS: INR 1.1 (<1.2); Prothrombin Time 10.9 sec (9.0-12.0)
[2020-01-02 22:08] LABS: Partial Thromboplastin Time 21.8 sec (22.0-30.0)
--- NOTE | 2020-01-02 22:23 | XR ---
EXAMINATION TYPE: XR chest 1V DATE OF EXAM: 01/02/2020 COMPARISON: 03/20/2019 HISTORY: Altered mental status. Confusion. TECHNIQUE: FINDINGS: There is no heart failure nor confluent pneumonic infiltrate. There is old left-sided heale d rib fractures. Thoracic aorta is atheromatous. Heart size is normal. There is no pleural effusion. There are chest leads. IMPRESSION: No active cardiopulmonary disease. No change.
--- NOTE | 2020-01-02 22:41 | CT ---
EXAMINATION TYPE: CT brain wo con for TPA DATE OF EXAM: 01/02/2020 COMPARISON: 03/20/2019 HISTORY: hx of stroke CT DLP: 437.8 mGycm Automated exposure control for dose reduction was used. Multiple axial sections were obtained of the brain without contrast. There is cerebral cortical atrophy. There is no mass effect nor midline shift. There is no sign of in tracranial hemorrhage. There is enlargement of the occipital horns of the lateral ventricles. Calvari um is intact. There is fluid levels in the sphenoid sinus. There is mild mucosal thickening right max illary sinus. IMPRESSION: Cerebral atrophy. There is some more pronounced cortical thinning in the occipital lobes. Sinusitis. There is some encephalomalacia left posterior parietal lobe. Brain is not significantly different than old exam. Sinusitis improved compared to old exam.
--- NOTE | 2020-01-02 22:51 | CT ---
EXAMINATION TYPE: CT angio head neck DATE OF EXAM: 01/02/2020 COMPARISON: None HISTORY: hx of stroke CT DLP: 437.8 mGycm Automated exposure control for dose reduction was used. CONTRAST: Performed with IV Contrast, patient injected with 65 mL of Isovue 370. Multiple axial sections were obtained from the aortic arch to the vertex of the brain with intravenou s contrast. There are 3-D post processed images. FINDINGS: There is normal branching pattern of the great vessels on the aortic arch. There is bilateral arteria l flow in the subclavian arteries. There is bilateral arterial flow in the common internal and convex grinder operator al carotid arteries. There is bilateral arterial flow in the vertebral arteries which are fairly symm etric. There is no evidence of carotid artery or vertebral artery aneurysm or dissection. There is mi nimal plaque formation at the left carotid artery bifurcation. There is lumen narrowing approximately 25%. The right side shows no evidence of any significant stenosis. There is arterial flow in the vertebrobasilar artery system. There is arterial flow in the anterior m iddle and posterior cerebral arteries. There is normal contrast opacification of the venous sinuses. There is no mass effect. There is no sign of intracranial aneurysm or neovascularity. IMPRESSION: Negative CT angiogram of the brain. Minimal plaque at the left carotid artery bifurcation. No evidence of hemodynamic stenosis. Pansinusitis is noted.
--- NOTE | 2020-01-02 23:00 | ED ---
Dizziness HPI - General Chief Complaint: Dizziness Stated Complaint: dizziness Time Seen by Provider: 01/02/20 21:26 Source: patient Mode of arrival: ambulatory Limitations: no limitations - History of Present Illness Initial Comments: 69-year-old male patient presents to the emergency department today for evaluation of headache and dizziness. Patient had sudden onset just prior to arrival around 2044. Patient states he is having pain to the bilateral temples. States he went upstairs to go to bed when he developed extreme dizziness. Patient states he developed nausea as a result of the dizziness. States that he feels like the room is spinning. Patient does have history of CVA with residual cognitive deficits and visual loss. Patient denies any numbness, to bring, weakness to his extremities. Denies any chest pain, shortness of breath, cough or congestion. Patient denies history of similar type headache. is noticing spontaneous back and forth movements of his eyes which is new for him since symptom onset. Patient was ill with viral upper respiratory illness last week, but symptoms have improved. Patient denies any recent rash, fever, chills, abdominal pain, diarrhea, constipation, back pain, hematuria, dysuria, urinary urgency, urinary frequency, or any other complaints. - Related Data Home Medications Medication Instructions Recorded Confirmed Tamsulosin [Flomax] 0.4 mg PO HS 11/29/18 03/20/19 ALPRAZolam [Xanax] 0.5 mg PO BID PRN 03/20/19 03/20/19 Acetaminophen Tab [Tylenol Tab] 500 mg PO Q6H PRN 03/20/19 03/20/19 Previous Rx's Medication Instructions Recorded Aspirin EC [Ecotrin Low Dose] 81 mg PO BID #0 12/17/18 Metoprolol Tartrate [Lopressor] 25 mg PO BID #60 tab 12/17/18 Allergies Allergy/AdvReac Type Severity Reaction Status Date / Time Latex, Natural Rubber Allergy Rash/Hives Verified 01/02/20 21:10 PLASTIC Allergy Rash/Hives Uncoded 01/02/20 21:10 Review of Systems ROS Statement: Those systems with pertinent positive or pertinent negative responses have been documented in the HPI. ROS Other: All systems not noted in ROS Statement are negative. Past Medical History Past Medical History: CVA/TIA, Dementia, Hyperlipidemia, Prostate Disorder Additional Past Medical History / Comment(s): kidney stones,uti/sepsis , per pt's pt legally blind "occiptal stroke" History of Any Multi-Drug Resistant Organisms: None Reported Past Surgical History: No Surgical Hx Reported Additional Past Surgical History / Comment(s): Two surgeries for kidney stones Past Anesthesia/Blood Transfusion Reactions: No Reported Reaction Additional Past Anesthesia/Blood Transfusion Reaction / Comment(s): Never had transfusion Past Psychological History: No Psychological Hx Reported Smoking Status: Never smoker Past Alcohol Use History: None Reported Past Drug Use History: None Reported - Past Family History Father History Unknown: Yes Additional Family Medical History / Comment(s): father in a mva Mother Family Medical History: Dementia General Exam Limitations: no limitations General appearance: alert, in no apparent distress, other (This is a well- developed, well-nourished adult male patient in no acute distress. Vital signs upon presentation are temperature 97.6F, pulse 69, respirations 16, blood pressure 150/87, pulse ox 99% on room air.) Eye exam: Present: normal appearance, PERRL, EOMI, nystagmus (bilateral, spontaneous). Absent: scleral icterus, conjunctival injection, periorbital swelling ENT exam: Present: normal exam, normal oropharynx, mucous membranes moist, TM's normal bilaterally Respiratory exam: Present: normal lung sounds bilaterally. Absent: respiratory distress, wheezes, rales, rhonchi, stridor Cardiovascular Exam: Present: regular rate, normal rhythm, normal heart sounds. Absent: systolic murmur, diastolic murmur, rubs, gallop, clicks GI/Abdominal exam: Present: soft, normal bowel sounds. Absent: distended, tenderness, guarding, rebound, rigid Neurological exam: Present: alert, oriented X3, CN II-XII intact Expanded Speech: Present: fluid speech Cranial nerves: EOM's Intact: Normal, Tongue Deviation: Normal Motor strength exam: RUE: 5, LUE: 5, RLE: 5, LLE: 5 Psychiatric exam: Present: normal affect, normal mood Skin exam: Present: warm, dry, intact, normal color. Absent: rash Course Vital Signs 01/02/20 01/02/20 01/02/20 21:06 21:16 21:26 Temperature 97.6 F Pulse Rate 69 74 71 Respiratory 16 18 20 Rate Blood Pressure 150/87 132/82 133/80 O2 Sat by Pulse 99 97 98 Oximetry 01/02/20 01/02/20 01/02/20 21:36 21:42 21:46 Temperature Pulse Rate 77 77 76 Respiratory 20 18 18 Rate Blood Pressure 129/79 129/74 127/65 O2 Sat by Pulse 98 98 98 Oximetry 01/02/20 01/02/20 21:56 22:06 Temperature Pulse Rate 80 60 Respiratory 20 20 Rate Blood Pressure 128/75 141/79 O2 Sat by Pulse 98 98 Oximetry EKG Findings - EKG Comments: EKG Findings:: EKG obtained at 1 shows normal sinus rhythm with a ventricular rate of 67, HI interval 206, QRS duration 96, QT 408, QTC 431. No evidence of ST elevation or depression. Medical Decision Making - Medical Decision Making 69-year-old male patient presents to the emergency department today for evaluation of headache and dizziness which started suddenly approximately 20 minutes prior to arrival. Physical examination did reveal nystagmus but was otherwise unremarkable. Patient does have some residual deficits from a previous CVA. Labs reviewed and are unremarkable. CT brain without contrast and CT angio head and neck were performed and showed no acute abnormalities of the then pansinusitis. Patient was given a small dose of Valium, this did not seem to improve his symptoms. He will be admitted to the hospital for further evaluation by neurology. Patient and family updated regarding results and plan. - Lab Data Result diagrams: 01/02/20 21:27 01/02/20 21:27 Lab Results 01/02/20 01/02/20 01/02/20 Range/Units 21:27 21:27 21:27 WBC 8.7 (3.8-10.6) k/uL RBC 4.72 (4.30-5.90) m/uL Hgb 14.5 (13.0-17.5) gm/dL Hct 43.2 (39.0-53.0) % MCV 91.5 (80.0-100.0) fL MCH 30.7 (25.0-35.0) pg MCHC 33.5 (31.0-37.0) g/dL RDW 12.5 (11.5-15.5) % Plt Count 280 (150-450) k/uL Neutrophils % 67 % Lymphocytes % 25 % Monocytes % 5 % Eosinophils % 1 % Basophils % 1 % Neutrophils # 5.8 (1.3-7.7) k/uL Lymphocytes # 2.1 (1.0-4.8) k/uL Monocytes # 0.4 (0-1.0) k/uL Eosinophils # 0.1 (0-0.7) k/uL Basophils # 0.1 (0-0.2) k/uL PT 10.9 (9.0-12.0) sec INR 1.1 (<1.2) APTT 21.8 L (22.0-30.0) sec Sodium 141 (137-145) mmol/L Potassium 3.9 (3.5-5.1) mmol/L Chloride 106 (98-107) mmol/L Carbon Dioxide 26 (22-30) mmol/L Anion Gap 9 mmol/L BUN 20 (9-20) mg/dL Creatinine 0.82 (0.66-1.25) mg/dL Est GFR (CKD-EPI)AfAm >90 (>60 ml/min/1.73 sqM) Est GFR (CKD-EPI)NonAf >90 (>60 ml/min/1.73 sqM) Glucose 142 H (74-99) mg/dL Calcium 9.6 (8.4-10.2) mg/dL Total Bilirubin 1.1 (0.2-1.3) mg/dL AST 21 (17-59) U/L ALT 15 (4-49) U/L Alkaline Phosphatase 67 (38-126) U/L Troponin I (0.000-0.034) ng/mL Total Protein 6.8 (6.3-8.2) g/dL Albumin 4.4 (3.5-5.0) g/dL 01/02/20 Range/Units 21:27 WBC (3.8-10.6) k/uL RBC (4.30-5.90) m/uL Hgb (13.0-17.5) gm/dL Hct (39.0-53.0) % MCV (80.0-100.0) fL MCH (25.0-35.0) pg MCHC (31.0-37.0) g/dL RDW (11.5-15.5) % Plt Count (150-450) k/uL Neutrophils % % Lymphocytes % % Monocytes % % Eosinophils % % Basophils % % Neutrophils # (1.3-7.7) k/uL Lymphocytes # (1.0-4.8) k/uL Monocytes # (0-1.0) k/uL Eosinophils # (0-0.7) k/uL Basophils # (0-0.2) k/uL PT (9.0-12.0) sec INR (<1.2) APTT (22.0-30.0) sec Sodium (137-145) mmol/L Potassium (3.5-5.1) mmol/L Chloride (98-107) mmol/L Carbon Dioxide (22-30) mmol/L Anion Gap mmol/L BUN (9-20) mg/dL Creatinine (0.66-1.25) mg/dL Est GFR (CKD-EPI)AfAm (>60 ml/min/1.73 sqM) Est GFR (CKD-EPI)NonAf (>60 ml/min/1.73 sqM) Glucose (74-99) mg/dL Calcium (8.4-10.2) mg/dL Total Bilirubin (0.2-1.3) mg/dL AST (17-59) U/L ALT (4-49) U/L Alkaline Phosphatase (38-126) U/L Troponin I <0.012 (0.000-0.034) ng/mL Total Protein (6.3-8.2) g/dL Albumin (3.5-5.0) g/dL - Radiology Data Radiology results: report reviewed, image reviewed Disposition Clinical Impression: Dizziness, Nystagmus, History of CVA (cerebrovascular accident) Disposition: ADMITTED IP TO THIS [facility] Condition: Serious Referrals: Sydney Spaulding MD [Primary Care Provider] - 1-2 days Decision to Admit Reason: Admit from EC Decision Date: 01/02/20 Decision Time: 23:25
[2020-01-02] MEDS ORDERED: ACETAMINOPHEN TAB 325 MG TAB PO PRN (23:20)
[2020-01-02] MEDS ORDERED: NALOXONE 0.4 MG/ML 1 ML VIAL IV PRN (23:20)
[2020-01-02] MEDS ORDERED: ONDANSETRON 4 MG/2 ML VIAL IVP PRN (23:20)
[2020-01-02 23:36] VITALS: RESP 16
[2020-01-03 07:16] VITALS: BP 109/64; PULSE 62; TEMP 97.4
[2020-01-03] MEDS ORDERED: FLUTICASONE 50MCG/SPRAY NASAL 16GM EA NOSTRIL PRN (09:48)
--- NOTE | 2020-01-03 13:00 | P.HPIM ---
History of Present Illness patient is a pleasant 69-year-old male came in with complaints of vertigo. Patient the is not a great historian because of his memory deficits from previous stroke patient had an occipital stroke involving his of which has some vision abnormalities which improved he still has some memory deficits and his bit mentally slow. He can get the complete history for his vertigo although patient had a recent upper respiratory infection what while infection patient is comparing of fullness in the ears. Patient denied any ataxia patient's Romberg sign with eyes closed and open are negative patient doesn't denied any weakness denied any headache. CT of the head and CT angios the head did not show any significant abnormality. Patient denied any fever chills patient is feeling much better dizziness improved wanted to go home. neurology was consulted from ER.patient probably has a labyrinthitis morosely viral origin but as per the request of the family member we'll give her 5 days of azithromycin and the patient is already on Flonase since it antihistamines which she patient can continue. Patient is still on 81 mg of aspirin and her statin was discontinued by his neurologist. Patient doesn't have any signs or symptoms of sepsis. Patient will be discharged today on meclizine and azithromycin as mentioned above. Patient was complaining of headaches which improved now Review of Systems REVIEW OF SYSTEMS: CONSTITUTIONAL: No fever, no malaise, no fatigue. HEENT: No recent visual problems or hearing problems. Denied any sore throat. CARDIOVASCULAR: No chest pain, orthopnea, PND, no palpitations, no syncope. PULMONARY: No shortness of breath, no cough, no hemoptysis. GASTROINTESTINAL: No diarrhea, no nausea, no vomiting, no abdominal pain. NEUROLOGICAL: no weakness, no numbness. HEMATOLOGICAL: Denies any bleeding or petechiae. GENITOURINARY: Denies any burning micturition, frequency, or urgency. MUSCULOSKELETAL/RHEUMATOLOGICAL: Denies any joint pain, swelling, or any muscle pain. ENDOCRINE: Denies any polyuria or polydipsia. The rest of the 14-point review of systems is negative. Past Medical History Past Medical History: CVA/TIA, Dementia, Hyperlipidemia, Prostate Disorder Additional Past Medical History / Comment(s): kidney stones,uti/sepsis , per pt's pt legally blind "occiptal stroke", speaks slowly History of Any Multi-Drug Resistant Organisms: None Reported Past Surgical History: No Surgical Hx Reported Additional Past Surgical History / Comment(s): Two surgeries for kidney stones Past Anesthesia/Blood Transfusion Reactions: No Reported Reaction Additional Past Anesthesia/Blood Transfusion Reaction / Comment(s): Never had transfusion Past Psychological History: No Psychological Hx Reported Additional Psychological History / Comment(s): Retired from the [employer]. No experience. Pet dog in parakeets in the home. Lives with the , no children in the home. No international travel. walks and speaks slowly. Lifelong nonsmoker Smoking Status: Never smoker Past Alcohol Use History: None Reported Past Drug Use History: None Reported - Past Family History Father History Unknown: Yes Additional Family Medical History / Comment(s): father in a mva Mother Family Medical History: CVA/TIA, Dementia Additional Family Medical History / Comment(s): from a stroke Medications and Allergies Home Medications Medication Instructions Recorded Confirmed Type Tamsulosin [Flomax] 0.4 mg PO HS 11/29/18 01/03/20 History Aspirin EC [Ecotrin Low Dose] 81 mg PO HS 01/03/20 01/03/20 History Azithromycin 250 mg PO DAILY 5 Days #5 tab 01/03/20 Rx Fluticasone Nasal [place] [Flonase 2 spr EA NOSTRIL DAILY PRN 01/03/20 01/03/20 History Nasal [place]] Loratadine [Claritin] 10 mg PO DAILY 01/03/20 01/03/20 History Meclizine [Antivert] 25 mg PO TID PRN #30 tab 01/03/20 Rx Metoprolol Tartrate [Lopressor] 12.5 mg PO BID #60 tab 01/03/20 01/03/20 Rx Allergies Allergy/AdvReac Type Severity Reaction Status Date / Time Latex, Natural Rubber AdvReac Rash/Hives Verified 01/03/20 00:07 rosuvastatin [From Crestor] AdvReac BODY ACHES Verified 01/03/20 00:07 PLASTIC AdvReac Rash/Hives Uncoded 01/03/20 00:07 Physical Exam Vitals: Vital Signs Temp Pulse Pulse Resp BP BP Pulse Ox 01/03/20 08:02 98 01/03/20 07:00 97.4 F L 62 16 109/64 99 01/02/20 23:45 97.7 F 60 16 110/66 99 01/02/20 23:36 63 16 104/65 98 01/02/20 22:06 60 20 141/79 98 01/02/20 21:56 80 20 128/75 98 01/02/20 21:46 76 18 127/65 98 01/02/20 21:42 77 18 129/74 98 01/02/20 21:36 77 20 129/79 98 01/02/20 21:26 71 20 133/80 98 01/02/20 21:16 74 18 132/82 97 01/02/20 21:06 97.6 F 69 16 150/87 99 Intake and Output 01/02/20 01/03/20 01/03/20 22:59 06:59 14:59 Other: Voiding Method Toilet # Voids 2 Weight 71.668 kg 71.668 kg PHYSICAL EXAMINATION: GENERAL: The patient is alert and oriented x3, not in any acute distress. Well developed, well nourished. bit slow mentally HEENT: Pupils are round and equally reacting to light. EOMI. No scleral icterus. No conjunctival pallor. Normocephalic, atraumatic. No pharyngeal erythema. No thyromegaly. CARDIOVASCULAR: S1 and S2 present. No murmurs, rubs, or gallops. PULMONARY: Chest is clear to auscultation, no wheezing or crackles. ABDOMEN: Soft, nontender, nondistended, normoactive bowel sounds. No palpable organomegaly. MUSCULOSKELETAL: No joint swelling or deformity. EXTREMITIES: No cyanosis, clubbing, or pedal edema. NEUROLOGICAL: Gross neurological examination did not reveal any focal deficits. SKIN: No rashes. Results CBC & Chem 7: 01/02/20 21:27 01/02/20 21:27 Labs: Abnormal Lab Results - Last 24 Hours (Table) 01/02/20 01/02/20 Range/Units 21:27 21:27 APTT 21.8 L (22.0-30.0) sec Glucose 142 H (74-99) mg/dL Thrombosis Risk Factor Assmnt - Choose All That Apply Each Risk Factor Represents 2 Points: Age 61-74 years Thrombosis Risk Factor Assessment Total Risk Factor Score: 2 Thrombosis Risk Factor Assessment Level: Low Risk Assessment and Plan Plan: -vertigo: Secondary to labyrinthitis patient will not need any more workup patie nt will be discharged on meclizine on as-needed basis and azithromycin although patient most probably has sinusitis which is viral in origin -sinusitis -hypertension: We'll cut down the dose of metoprolol -History of cerebral vascular accident involving the occipital lobe and some memory deficits from his previous CVA patient is presently close to his baseline now -hyperlipidemia Hypertension benign prostatic hypertrophy Patient will be discharged today as mentioned above
--- NOTE | 2020-01-03 13:01 | P.DS ---
Providers Date of admission: 01/02/20 23:14 Attending physician: Hudson Corona Consults: 01/02/20 23:21 Consult Physician Routine Consulting Provider: Angelika Garcia Consult Reason/Comments: Dizziness; Nystagmus Do you want consulting provider notified?: Yes Primary care physician: Sydney Spaulding [facility] Course: as mentioned in HPI Patient Condition at Discharge: Serious Plan - Discharge Summary New Discharge Prescriptions: New Meclizine [Antivert] 25 mg PO TID PRN #30 tab PRN Reason: Vertigo Azithromycin 250 mg PO DAILY 5 Days #5 tab Continue Tamsulosin [Flomax] 0.4 mg PO HS Aspirin EC [Ecotrin Low Dose] 81 mg PO HS Loratadine [Claritin] 10 mg PO DAILY Fluticasone Nasal [place] [Flonase Nasal [place]] 2 spr EA NOSTRIL DAILY PRN PRN Reason: Allergy Symptoms Changed Metoprolol Tartrate [Lopressor] 12.5 mg PO BID #60 tab Discharge Medication List Tamsulosin [Flomax] 0.4 mg PO HS 11/29/18 [History] Aspirin EC [Ecotrin Low Dose] 81 mg PO HS 01/03/20 [History] Azithromycin 250 mg PO DAILY 5 Days #5 tab 01/03/20 [Rx] Fluticasone Nasal [place] [Flonase Nasal [place]] 2 spr EA NOSTRIL DAILY PRN 01/03/20 [History] Loratadine [Claritin] 10 mg PO DAILY 01/03/20 [History] Meclizine [Antivert] 25 mg PO TID PRN #30 tab 01/03/20 [Rx] Metoprolol Tartrate [Lopressor] 12.5 mg PO BID #60 tab 01/03/20 [Rx] Follow up Appointment(s)/Referral(s): Roel Khoury MD [REFERRING] - 01/05/20 9:30 am Patient Instructions/Handouts: Dizziness (GEN) Discharge Disposition: HOME SELF-CARE
[2020-01-03] MEDS ORDERED: TAMSULOSIN 0.4 MG CAP.ER.24H PO SCH (21:00)
[2020-01-03] MEDS ORDERED: METOPROLOL TARTRATE 25 MG TAB PO SCH (21:00)
[2020-01-04] MEDS ORDERED: LORATADINE 10 MG TAB PO SCH (09:00)
== END 2020-01-03 13:15 | disposition home or self-care (01) ==
LOC: EC 20:57 → 4SSUR 23:14
PROVIDERS: ADMIT Hospitalist; ATTEND Hospitalist
DX: H83.09 Labyrinthitis, unspecified ear (principal); R42 Dizziness and giddiness; J32.9 Chronic sinusitis, unspecified; I10 Essential (primary) hypertension; I69.311 Memory deficit following cerebral infarction; E78.5 Hyperlipidemia, unspecified; N40.0 Benign prostatic hyperplasia without lower urinary tract symptoms; H54.8 Legal blindness, as defined in USA; Z87.442 Personal history of urinary calculi; H55.00 Unspecified nystagmus; F03.90 Unspecified dementia, unspecified severity, without behavioral disturbance, psychotic disturbance, mood disturbance, and anxiety; N42.9 Disorder of prostate, unspecified; Z91.040 Latex allergy status; Z91.048 Other nonmedicinal substance allergy status; Z88.8 Allergy status to other drugs, medicaments and biological substances; Z79.899 Other long term (current) drug therapy; Z79.51 Long term (current) use of inhaled steroids; Z79.82 Long term (current) use of aspirin; Z79.2 Long term (current) use of antibiotics
CPT/HCPCS: 96374; 96375; 99285; 36415; 94760; 93005; 80053; 84484; 85025; 85610; 85730; 71045; 70496; 70450; 70498; G0378 ×2; J3360; J2405; Q9967

== ENCOUNTER → 2020-07-27 | Outpatient (CLI) | payer MEDICARE ==
--- NOTE | 2020-07-27 16:49 | MR ---
EXAMINATION TYPE: MR brain wo/w con DATE OF EXAM: 07/27/2020 COMPARISON: CT brain 01/02/2020. CTA head and neck 01/02/2020. MRI brain 04/26/2015. HISTORY: Nontraumatic subdural hematoma, infarct, dementia TECHNIQUE: Multiplanar, multisequence images of the brain and brainstem is performed without and with IV contras t, utilizing 7 mL intravenous Gadavist . FINDINGS: Diffusion weighted images demonstrate no evidence of a recent infarct or other diffusion ab normality. There is no extra-axial fluid collection. There are redemonstrated T2 FLAIR hyperintense foci of the periventricular, deep, and subcortical white matter including the mikey, which is mildly i ncreased versus 04/18/2015 MRI comparison. The ventricular system and cisternal spaces are diffusely d ilated with no evidence of obstructive lesion, with mildly increased dilatation and fullness versus comparison. Mild diffuse volume loss appears similar to 2015. Midline structures demonstrate normal morphology. Corpus callosum is normal. The craniocervical junc tion appears within normal limits. Post contrast images demonstrate no abnormal enhancement. The dur al venous sinuses appear patent. The visualized sinuses demonstrate air-fluid levels of the bilateral maxillary sinuses and mucosal thickening of the ethmoid air cells and right sphenoid sinus. The glob es are grossly symmetric. The bilateral mastoid air cells are clear. IMPRESSION: 1. Diffusely dilated ventricular system is mildly increased in size and fullness versus 2015, and not concordant with the generalized volume loss which appears similar versus 2015 MRI comparison. 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 2. T2 FLAIR white matter hypodensities mildly increased versus 2015 comparison and are nonspecific. 3. No acute infarct. No extra axial fluid collections. 4. Paranasal sinus disease with air-fluid levels in the bilateral maxillary sinuses.
== END | disposition home or self-care (01) ==
LOC: RADMRIMAIN 09:26
PROVIDERS: ATTEND Psychiatry & Neurology Neurology
DX: I62.00 Nontraumatic subdural hemorrhage, unspecified (principal); F03.90 Unspecified dementia, unspecified severity, without behavioral disturbance, psychotic disturbance, mood disturbance, and anxiety; I63.9 Cerebral infarction, unspecified
CPT/HCPCS: 70553; A9585

== ENCOUNTER 2020-10-19 09:54 | Emergency (ER) | payer MEDICARE ==
[2020-10-19 09:59] VITALS: RESP 18
[2020-10-19 10:49] LABS: Basophils % (A) 1 %; Eosinophils % (A) 1 %; HCT 43.6 % (39.0-53.0); HGB 14.8 gm/dL (13.0-17.5); Lymphocytes # (A) 1.3 k/uL (1.0-4.8); Lymphocytes % (A) 34 %; MCH 31.1 pg (25.0-35.0); MCHC 33.9 g/dL (31.0-37.0); Mean Platelet Volume 7.7; Monocytes # (A) 0.3 k/uL (0-1.0); Monocytes % (A) 9 %; Neutrophils # (A) 2.1 k/uL (1.3-7.7); Neutrophils % (A) 54 %; Platelet Count 161 k/uL (150-450); RBC 4.75 m/uL (4.30-5.90); RDW 12.4 % (11.5-15.5); WBC 3.9 k/uL (3.8-10.6)
[2020-10-19 10:54] LABS: MCV 91.8 fL (80.0-100.0)
[2020-10-19 10:58] LABS: ALT 23 U/L (4-49); AST 36 U/L (17-59); African American GFR (CKD) >90 (>60 ml/min/1.73 sqM); Albumin 4.2 g/dL (3.5-5.0); Alkaline Phosphatase 62 U/L (38-126); Anion Gap 9 mmol/L; Blood Urea Nitrogen 16 mg/dL (9-20); Calcium 8.9 mg/dL (8.4-10.2); Carbon Dioxide 26 mmol/L (22-30); Chloride 104 mmol/L (98-107); Glucose 102 mg/dL (74-99); Non-African American GFR(CKD) >90 (>60 ml/min/1.73 sqM); Potassium 4.3 mmol/L (3.5-5.1); Sodium 139 mmol/L (137-145); Total Bilirubin 0.8 mg/dL (0.2-1.3)
[2020-10-19 11:11] LABS: Valproic Acid (Depakene) 51.7 ug/mL
--- NOTE | 2020-10-19 11:25 | ED ---
Psych HPI - General Source: patient, family, RN notes reviewed Mode of arrival: wheelchair Limitations: no limitations <Alvin Lindsey - Last Filed: 10/19/20 11:25> <Kyle Henderson - Last Filed: 10/19/20 16:21> - General Chief Complaint: Psychiatric Symptoms Stated Complaint: Mental Health - sent by PCP Time Seen by Provider: 10/19/20 10:00 - History of Present Illness Initial Comments: 70-year-old male presents emergency Department with sent in by PCP for psychiatric evaluation. Patient's been having worsening symptoms over the last year or so. Patient has hallucinations which are chronic but have been worsening, anger issues. They've been trying treated with Depakote which has not been helping. states that his troponin 2015 has helped has been declining. Patient did have an MRI which showed NPH type symptoms but patient does not want a shunt and they are trying to medically treat his behavioral issues (Alvin Lindsey) - Related Data Home Medications Medication Instructions Recorded Confirmed Tamsulosin [Flomax] 0.4 mg PO HS 11/29/18 10/19/20 Loratadine [Claritin] 10 mg PO DAILY PRN 01/03/20 10/19/20 Divalproex [Depakote] 250 mg PO TID 10/19/20 10/19/20 Escitalopram [Lexapro] 20 mg PO DAILY 10/19/20 10/19/20 Ezetimibe [Zetia] 10 mg PO HS 10/19/20 10/19/20 Melatonin 5 mg PO HS PRN 10/19/20 10/19/20 Multivitamins, Thera [Multivitamin 1 tab PO DAILY 10/19/20 10/19/20 (formulary)] Allergies Allergy/AdvReac Type Severity Reaction Status Date / Time Latex, Natural Rubber AdvReac Rash/Hives Verified 10/19/20 11:21 rosuvastatin [From Crestor] AdvReac BODY ACHES Verified 10/19/20 11:21 PLASTIC AdvReac Rash/Hives Uncoded 10/19/20 11:21 Review of Systems ROS Other: All systems not noted in ROS Statement are negative. <Alvin Lindsey - Last Filed: 10/19/20 11:25> ROS Other: All systems not noted in ROS Statement are negative. <Kyle Henderson - Last Filed: 10/19/20 16:21> ROS Statement: Those systems with pertinent positive or pertinent negative responses have been documented in the HPI. Past Medical History Past Medical History: CVA/TIA, Dementia, Hyperlipidemia, Prostate Disorder Additional Past Medical History / Comment(s): kidney stones,uti/sepsis , per pt's pt legally blind "occiptal stroke", speaks slowly History of Any Multi-Drug Resistant Organisms: None Reported Past Surgical History: No Surgical Hx Reported Additional Past Surgical History / Comment(s): Two surgeries for kidney stones Past Anesthesia/Blood Transfusion Reactions: No Reported Reaction Additional Past Anesthesia/Blood Transfusion Reaction / Comment(s): Never had transfusion Past Psychological History: No Psychological Hx Reported Smoking Status: Never smoker Past Alcohol Use History: None Reported Past Drug Use History: None Reported - Past Family History Father History Unknown: Yes Additional Family Medical History / Comment(s): father in a mva Mother Family Medical History: CVA/TIA, Dementia Additional Family Medical History / Comment(s): from a stroke <Alvin Lindsey - Last Filed: 10/19/20 11:25> General Exam Limitations: no limitations General appearance: alert, in no apparent distress Head exam: Present: atraumatic, normocephalic, normal inspection Eye exam: Present: normal appearance. Absent: scleral icterus, conjunctival injection, periorbital swelling ENT exam: Present: normal exam, mucous membranes moist Neck exam: Present: normal inspection, full ROM. Absent: tenderness, meningi smus, lymphadenopathy Respiratory exam: Present: normal lung sounds bilaterally. Absent: respiratory distress, wheezes, rales, rhonchi, stridor Cardiovascular Exam: Present: regular rate, normal rhythm, systolic murmur. Absent: diastolic murmur, rubs, gallop, clicks Neurological exam: Present: alert Psychiatric exam: Present: flat affect <Alvin Lindsey - Last Filed: 10/19/20 11:25> Course Vital Signs 10/19/20 10/19/20 09:56 14:09 Temperature 98.5 F 97.9 F Pulse Rate 73 59 L Respiratory 18 18 Rate Blood Pressure 113/74 128/71 O2 Sat by Pulse 99 98 Oximetry Medical Decision Making - Lab Data Result diagrams: 10/19/20 10:37 10/19/20 10:37 <Alvin Lindsey - Last Filed: 10/19/20 11:25> - Lab Data Result diagrams: 10/19/20 10:37 10/19/20 10:37 <Kyle Henderson - Last Filed: 10/19/20 16:21> - Medical Decision Making EPS evaluated the patient and determined the patient could go home with a safety plan in the discharge the patient. (Kyle Henderson) - Lab Data Lab Results 10/19/20 10/19/20 10/19/20 Range/Units 10:37 10:37 10:37 WBC 3.9 (3.8-10.6) k/uL RBC 4.75 (4.30-5.90) m/uL Hgb 14.8 (13.0-17.5) gm/dL Hct 43.6 (39.0-53.0) % MCV 91.8 D (80.0-100.0) fL MCH 31.1 (25.0-35.0) pg MCHC 33.9 (31.0-37.0) g/dL RDW 12.4 (11.5-15.5) % Plt Count 161 (150-450) k/uL MPV 7.7 Neutrophils % 54 % Lymphocytes % 34 % Monocytes % 9 % Eosinophils % 1 % Basophils % 1 % Neutrophils # 2.1 (1.3-7.7) k/uL Lymphocytes # 1.3 (1.0-4.8) k/uL Monocytes # 0.3 (0-1.0) k/uL Eosinophils # 0.0 (0-0.7) k/uL Basophils # 0.0 (0-0.2) k/uL Sodium 139 (137-145) mmol/L Potassium 4.3 (3.5-5.1) mmol/L Chloride 104 (98-107) mmol/L Carbon Dioxide 26 (22-30) mmol/L Anion Gap 9 mmol/L BUN 16 (9-20) mg/dL Creatinine 0.81 (0.66-1.25) mg/dL Est GFR (CKD-EPI)AfAm >90 (>60 ml/min/1.73 sqM) Est GFR (CKD-EPI)NonAf >90 (>60 ml/min/1.73 sqM) Glucose 102 H (74-99) mg/dL Calcium 8.9 (8.4-10.2) mg/dL Total Bilirubin 0.8 (0.2-1.3) mg/dL AST 36 (17-59) U/L ALT 23 (4-49) U/L Alkaline Phosphatase 62 (38-126) U/L Total Protein 7.0 (6.3-8.2) g/dL Albumin 4.2 (3.5-5.0) g/dL Urine Color Yellow Urine Appearance Clear (Clear) Urine pH 6.0 (5.0-8.0) Ur Specific [place] 1.029 (1.001-1.035) Urine Protein Trace H (Negative) Urine Glucose (UA) Negative (Negative) Urine Ketones Trace H (Negative) Urine Blood Negative (Negative) Urine Nitrite Negative (Negative) Urine Bilirubin Negative (Negative) Urine Urobilinogen <2.0 (<2.0) mg/dL Ur Leukocyte Esterase Negative (Negative) Urine Opiates Screen Not Detected (NotDetected) Ur Oxycodone Screen Not Detected (NotDetected) Urine Methadone Screen Not Detected (NotDetected) Ur Propoxyphene Screen Not Detected (NotDetected) Ur Barbiturates Screen Not Detected (NotDetected) Valproic Acid 51.7 ug/mL U Tricyclic Antidepress Not Detected (NotDetected) Ur Phencyclidine Scrn Not Detected (NotDetected) Ur Amphetamines Screen Not Detected (NotDetected) U Methamphetamines Scrn Not Detected (NotDetected) U Benzodiazepines Scrn Not Detected (NotDetected) Urine Cocaine Screen Not Detected (NotDetected) U Marijuana (THC) Screen Not Detected (NotDetected) Disposition <Alvin Lindsey - Last Filed: 10/19/20 11:25> Is patient prescribed a controlled substance at d/c from ED?: No Time of Disposition: 16:21 <Kyle Henderson - Last Filed: 10/19/20 16:21> Clinical Impression: Psychosis Disposition: HOME SELF-CARE Condition: Good Referrals: Sydney Spaulding MD [Primary Care Provider] - 1-2 days
[2020-10-19 12:59] LABS: Appearance,Urine Clear (Clear); Bilirubin,Urine Negative (Negative); Blood,Urine Negative (Negative); Color,Urine Yellow; Glucose,Urine (UA) Negative (Negative); Ketones,Urine Trace (Negative); Leukocyte Esterase,Urine Negative (Negative); Nitrite,Urine Negative (Negative); Protein,Urine Trace (Negative); Specific Gravity,Urine 1.029 (1.001-1.035); Urobilinogen,Urine <2.0 mg/dL (<2.0)
[2020-10-19 13:01] LABS: Amphetamine Screen,Urine Not Detected (NotDetected); Barbiturate Screen,Urine Not Detected (NotDetected); Benzodiazepines Screen,Urine Not Detected (NotDetected); Cocaine Screen,Urine Not Detected (NotDetected); Methadone Screen, Urine Not Detected (NotDetected); Opiate Screen,Urine Not Detected (NotDetected); Oxycodone Screen, Urine Not Detected (NotDetected); Phencyclidine Screen,Urine Not Detected (NotDetected); Tricyclic Antidepressant,Urine Not Detected (NotDetected); Urn Cannabinoid Scrn Not Detected (NotDetected)
[2020-10-19 14:11] VITALS: BP 128/71; PULSE 59; TEMP 97.9
== END 2020-10-19 17:02 | disposition home or self-care (01) ==
LOC: EC 09:54
DX: F29 Unspecified psychosis not due to a substance or known physiological condition (principal); H54.8 Legal blindness, as defined in USA; N42.9 Disorder of prostate, unspecified; Z79.899 Other long term (current) drug therapy; Z88.8 Allergy status to other drugs, medicaments and biological substances; Z91.040 Latex allergy status; Z91.048 Other nonmedicinal substance allergy status; Z86.73 Personal history of transient ischemic attack (TIA), and cerebral infarction without residual deficits
CPT/HCPCS: 36415; 80053; 80164; 80306; 81003; 82075; 85025; 99285

== ENCOUNTER 2020-10-31 14:33 | Inpatient (IN) | payer MEDICARE ==
[2020-10-31 15:28] LABS: Basophils % (A) 1 %; Eosinophils # (A) 0.1 k/uL (0-0.7); Eosinophils % (A) 2 %; HCT 46.7 % (39.0-53.0); HGB 15.5 gm/dL (13.0-17.5); Lymphocytes # (A) 1.6 k/uL (1.0-4.8); Lymphocytes % (A) 32 %; MCH 30.1 pg (25.0-35.0); MCHC 33.3 g/dL (31.0-37.0); MCV 90.3 fL (80.0-100.0); Mean Platelet Volume 7.9; Monocytes # (A) 0.2 k/uL (0-1.0); Monocytes % (A) 4 %; Neutrophils % (A) 60 %; Platelet Count 238 k/uL (150-450); RBC 5.17 m/uL (4.30-5.90); RDW 12.6 % (11.5-15.5)
--- NOTE | 2020-10-31 15:45 | XR ---
EXAMINATION TYPE: XR chest 1V portable DATE OF EXAM: 10/31/2020 Comparison: 01/02/2020 Clinical History: 70-year-old male with shortness of breath, Suspected COVID-19 pneumonia Findings: Heart normal size. Mild atherosclerotic arch calcifications. Mild interstitial prominence is unchange d. No consolidation or pleural effusion. Old bilateral rib fracture deformities. Impression: Chronic changes without acute cardiopulmonary process.
[2020-10-31 15:54] LABS: D-Dimer 0.33 mg/L FEU (<0.60); INR 1.1 (<1.2); Prothrombin Time 10.9 sec (9.0-12.0)
[2020-10-31 15:58] LABS: ALT 17 U/L (4-49); AST 30 U/L (17-59); African American GFR (CKD) >90 (>60 ml/min/1.73 sqM); Albumin 4.4 g/dL (3.5-5.0); Alkaline Phosphatase 71 U/L (38-126); Anion Gap 8 mmol/L; Blood Urea Nitrogen 19 mg/dL (9-20); C Reactive Protein <5.0 mg/L (<10.0); Calcium 9.4 mg/dL (8.4-10.2); Carbon Dioxide 24 mmol/L (22-30); Chloride 108 mmol/L (98-107); Glucose 98 mg/dL (74-99); LDH 624 U/L (313-618); Non-African American GFR(CKD) >90 (>60 ml/min/1.73 sqM); Potassium 4.6 mmol/L (3.5-5.1); Sodium 140 mmol/L (137-145); Total Bilirubin 1.4 mg/dL (0.2-1.3); Total Protein 7.5 g/dL (6.3-8.2)
[2020-10-31] MEDS ORDERED: NALOXONE 0.4 MG/ML 1 ML VIAL IV PRN (16:37)
--- NOTE | 2020-10-31 16:39 | ED ---
URI HPI - General Chief Complaint: Upper Respiratory Infection Stated Complaint: SOB Time Seen by Provider: 10/31/20 14:43 Source: patient, EMS Mode of arrival: EMS Limitations: no limitations - History of Present Illness Initial Comments: 70-year-old male with history of previous CVA with residual deficits including dysarthria, lower extremity weakness--history provided by both patietn as well as . Patient states he has had shortness of breath and cough. states that he was also diagnosed wtih covid otupatient on thursday, same as . he states that he has had occasional chest pain, non currently. Denies noting leg swelling. Denies headaches, or neck pain, denies vomiting. Admits to diarrhea nad body aches. denies additional complaints. pt does not appear in distress on arrival. - Related Data Home Medications Medication Instructions Recorded Confirmed Tamsulosin [Flomax] 0.4 mg PO HS 11/29/18 10/31/20 Loratadine [Claritin] 10 mg PO DAILY PRN 01/03/20 10/31/20 Divalproex [Depakote] 250 mg PO DIRECTED 10/19/20 10/31/20 Escitalopram [Lexapro] 20 mg PO DAILY 10/19/20 10/31/20 Ezetimibe [Zetia] 10 mg PO HS 10/19/20 10/31/20 Melatonin 5 mg PO HS PRN 10/19/20 10/31/20 Multivitamins, Thera [Multivitamin 1 tab PO DAILY 10/19/20 10/31/20 (formulary)] ALPRAZolam [Xanax] 0.5 mg PO DIRECTED PRN 10/31/20 10/31/20 Allergies Allergy/AdvReac Type Severity Reaction Status Date / Time Latex, Natural Rubber AdvReac Rash/Hives Verified 10/31/20 16:13 rosuvastatin [From Crestor] AdvReac BODY ACHES Verified 10/31/20 16:13 PLASTIC AdvReac Rash/Hives Uncoded 10/19/20 11:21 Review of Systems ROS Statement: Those systems with pertinent positive or pertinent negative responses have been documented in the HPI. ROS Other: All systems not noted in ROS Statement are negative. Past Medical History Past Medical History: CVA/TIA, Dementia, Hyperlipidemia, Prostate Disorder Additional Past Medical History / Comment(s): kidney stones,uti/sepsis , per pt's pt legally blind "occiptal stroke", speaks slowly History of Any Multi-Drug Resistant Organisms: None Reported Past Surgical History: No Surgical Hx Reported Additional Past Surgical History / Comment(s): Two surgeries for kidney stones Past Anesthesia/Blood Transfusion Reactions: No Reported Reaction Additional Past Anesthesia/Blood Transfusion Reaction / Comment(s): Never had transfusion Past Psychological History: No Psychological Hx Reported Smoking Status: Never smoker Past Alcohol Use History: None Reported Past Drug Use History: None Reported - Past Family History Father History Unknown: Yes Additional Family Medical History / Comment(s): father in a mva Mother Family Medical History: CVA/TIA, Dementia Additional Family Medical History / Comment(s): from a stroke General Exam - General Exam Comments Initial Comments: General: The patient is awake and alert, in no distress Eye: Pupils are equal, round and reactive to light, extra-ocular movements are intact. No nystagmus. There is normal conjunctiva bilaterally. No signs of icterus. Ears, nose, mouth and throat: There are moist mucous membranes and no oral lesions. Neck: The neck is supple, there is no tenderness or JVD. Cardiovascular: There is a regular rate and rhythm. No murmur, rub or gallop is appreciated. Respiratory: Lungs sounds diminished. Respirations are non-labored, breath sounds are equal. No wheezes, stridor. Rhonchi present. Gastrointestinal: Soft, non-distended, non-tender abdomen without masses or organomegaly noted. There is no rebound or guarding present. Musculoskeletal: Normal ROM, no tenderness. LE weakness b/l. Sensation intact. radial pulses equal bilaterally 2+. Neurological: A&O x 2. Loss of muscle tone of LE b/l. Coordination appears grossly intact. Speech is slow patient has difficulty articulating sentences. Skin: Skin is warm and dry and no rashes or lesions are noted. Psychiatric: Cooperative Limitations: no limitations Course Vital Signs 10/31/20 10/31/20 14:37 14:43 Temperature 98.9 F Pulse Rate 78 Respiratory 19 19 Rate Blood Pressure 141/92 O2 Sat by Pulse 97 Oximetry Medical Decision Making - Medical Decision Making covid +. labs stable. CXR within acceptable limits. pt has no behavioral health care manager. he appears mild tachypneic. patient will be admitted for continuous pulse oximetry/and monitor her respiratory status as well as social work consultation for possible further temporary placement. Dr Schmitt agreeable to care plan. [facility] accepted admission. Ventricular rate 74 bpm, IL interval 198 ms, QRS temple 88 ms, QT/QTC 394/437. This is normal sinus no ST elevation or depression is appreciated. - Lab Data Result diagrams: 10/31/20 14:59 10/31/20 14:59 Lab Results 10/31/20 10/31/20 10/31/20 Range/Units 14:59 14:59 14:59 WBC 5.0 (3.8-10.6) k/uL RBC 5.17 (4.30-5.90) m/uL Hgb 15.5 (13.0-17.5) gm/dL Hct 46.7 (39.0-53.0) % MCV 90.3 (80.0-100.0) fL MCH 30.1 (25.0-35.0) pg MCHC 33.3 (31.0-37.0) g/dL RDW 12.6 (11.5-15.5) % Plt Count 238 (150-450) k/uL MPV 7.9 Neutrophils % 60 % Lymphocytes % 32 % Monocytes % 4 % Eosinophils % 2 % Basophils % 1 % Neutrophils # 3.0 (1.3-7.7) k/uL Lymphocytes # 1.6 (1.0-4.8) k/uL Monocytes # 0.2 (0-1.0) k/uL Eosinophils # 0.1 (0-0.7) k/uL Basophils # 0.0 (0-0.2) k/uL PT 10.9 (9.0-12.0) sec INR 1.1 (<1.2) APTT 20.0 L (22.0-30.0) sec D-Dimer 0.33 (<0.60) mg/L FEU Sodium 140 (137-145) mmol/L Potassium 4.6 (3.5-5.1) mmol/L Chloride 108 H (98-107) mmol/L Carbon Dioxide 24 (22-30) mmol/L Anion Gap 8 mmol/L BUN 19 (9-20) mg/dL Creatinine 0.80 (0.66-1.25) mg/dL Est GFR (CKD-EPI)AfAm >90 (>60 ml/min/1.73 sqM) Est GFR (CKD-EPI)NonAf >90 (>60 ml/min/1.73 sqM) Glucose 98 (74-99) mg/dL Plasma Lactic Acid Mikhail (0.7-2.0) mmol/L Calcium 9.4 (8.4-10.2) mg/dL Magnesium 2.0 (1.6-2.3) mg/dL Total Bilirubin 1.4 H (0.2-1.3) mg/dL AST 30 (17-59) U/L ALT 17 (4-49) U/L Alkaline Phosphatase 71 (38-126) U/L Lactate Dehydrogenase 624 H (313-618) U/L Troponin I (0.000-0.034) ng/mL C-Reactive Protein <5.0 (<10.0) mg/L Total Protein 7.5 (6.3-8.2) g/dL Albumin 4.4 (3.5-5.0) g/dL 10/31/20 10/31/20 Range/Units 14:59 14:59 WBC (3.8-10.6) k/uL RBC (4.30-5.90) m/uL Hgb (13.0-17.5) gm/dL Hct (39.0-53.0) % MCV (80.0-100.0) fL MCH (25.0-35.0) pg MCHC (31.0-37.0) g/dL RDW (11.5-15.5) % Plt Count (150-450) k/uL MPV Neutrophils % % Lymphocytes % % Monocytes % % Eosinophils % % Basophils % % Neutrophils # (1.3-7.7) k/uL Lymphocytes # (1.0-4.8) k/uL Monocytes # (0-1.0) k/uL Eosinophils # (0-0.7) k/uL Basophils # (0-0.2) k/uL PT (9.0-12.0) sec INR (<1.2) APTT (22.0-30.0) sec D-Dimer (<0.60) mg/L FEU Sodium (137-145) mmol/L Potassium (3.5-5.1) mmol/L Chloride (98-107) mmol/L Carbon Dioxide (22-30) mmol/L Anion Gap mmol/L BUN (9-20) mg/dL Creatinine (0.66-1.25) mg/dL Est GFR (CKD-EPI)AfAm (>60 ml/min/1.73 sqM) Est GFR (CKD-EPI)NonAf (>60 ml/min/1.73 sqM) Glucose (74-99) mg/dL Plasma Lactic Acid Mikhail 1.2 (0.7-2.0) mmol/L Calcium (8.4-10.2) mg/dL Magnesium (1.6-2.3) mg/dL Total Bilirubin (0.2-1.3) mg/dL AST (17-59) U/L ALT (4-49) U/L Alkaline Phosphatase (38-126) U/L Lactate Dehydrogenase (313-618) U/L Troponin I <0.012 (0.000-0.034) ng/mL C-Reactive Protein (<10.0) mg/L Total Protein (6.3-8.2) g/dL Albumin (3.5-5.0) g/dL Disposition Clinical Impression: Dyspnea, COVID-19 Disposition: ADMITTED IP TO THIS [facility] Condition: Stable Is patient prescribed a controlled substance at d/c from ED?: No Referrals: Sydney Spaulding MD [Primary Care Provider] - 1-2 days Time of Disposition: 16:39 Decision to Admit Reason: Admit from EC Decision Date: 10/31/20 Decision Time: 16:39
[2020-10-31] MEDS ORDERED: LORazepam 2 MG/ML INJ IV STA (16:56)
[2020-10-31] MEDS ORDERED: ALPRAZolam 0.5 MG TAB PO PRN (20:09)
[2020-10-31] MEDS ORDERED: MELATONIN 5 MG TABLET PO PRN (20:09)
[2020-10-31] MEDS ORDERED: LORATADINE 10 MG TAB PO PRN (20:09)
[2020-10-31] MEDS ORDERED: ACETAMINOPHEN TAB 325 MG TAB PO PRN (20:11)
[2020-10-31] MEDS ORDERED: DIVALPROEX 250 MG TABLET.DR PO SCH (20:15)
[2020-10-31] MEDS: EZETIMIBE 10 MG TAB PO SCH (21:34)
[2020-10-31] MEDS: TAMSULOSIN 0.4 MG CAP.ER.24H PO SCH (21:34)
[2020-11-01] MEDS: MULTIVITAMINS, THERA 1 EACH TAB PO SCH (08:13)
[2020-11-01] MEDS: DIVALPROEX 250 MG TABLET.DR PO SCH ×2 (08:13→20:52)
[2020-11-01] MEDS: ESCITALOPRAM 20 MG TAB PO SCH (08:13)
[2020-11-01] MEDS: ZINC SULFATE 220 MG CAP PO SCH (09:24)
[2020-11-01] MEDS: PANTOPRAZOLE 40 MG TABLET PO SCH (09:24)
[2020-11-01 09:41] LABS: Basophils % (A) 0 %; Eosinophils % (A) 1 %; HCT 44.3 % (39.0-53.0); HGB 14.7 gm/dL (13.0-17.5); Lymphocytes # (A) 0.8 k/uL (1.0-4.8); Lymphocytes % (A) 18 %; MCH 30.4 pg (25.0-35.0); MCHC 33.1 g/dL (31.0-37.0); MCV 91.6 fL (80.0-100.0); Mean Platelet Volume 7.7; Monocytes # (A) 0.2 k/uL (0-1.0); Monocytes % (A) 4 %; Neutrophils # (A) 3.3 k/uL (1.3-7.7); Neutrophils % (A) 76 %; Platelet Count 230 k/uL (150-450); RBC 4.83 m/uL (4.30-5.90); RDW 12.7 % (11.5-15.5); WBC 4.3 k/uL (3.8-10.6)
[2020-11-01 09:41] LABS: Ferritin 258.4 ng/mL (22.0-322.0)
[2020-11-01] MEDS: ASCORBIC ACID 500 MG TAB PO SCH (10:07)
[2020-11-01] MEDS: LORazepam 2 MG/ML INJ IV PRN (13:38)
[2020-11-01 15:19] LABS: African American GFR (CKD) 100.6 (60.0-200.0); Anion Gap 9.1 mmol/L (4.00-12.00); BUN/Creat Ratio 22.22 Ratio (12.00-20.00); Calcium 9.3 mg/dL (8.7-10.3); Carbon Dioxide 25.9 mmol/L (21.6-31.8); Non-African American GFR(CKD) 86.8 (60.0-200.0); Potassium 4.6 mmol/L (3.5-5.5)
[2020-11-01] MEDS: EZETIMIBE 10 MG TAB PO SCH (20:51)
[2020-11-01] MEDS: TAMSULOSIN 0.4 MG CAP.ER.24H PO SCH (20:51)
--- NOTE | 2020-11-02 01:03 | P.HPIM ---
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 Patient states that he was not feeling well lately and he thinks is due to his Covid infection. He is legally blind and he depends on his caregiver which is his who is also Covid infection. Patient is also poor historian due to his prior history of stroke and at times is confused and slow to respond. However he denies chest pain or dyspnea. No diarrhea. He is afebrile Vital signs stable and he is saturating 96% on room air. Labs are unremarkable including CBC, BMP, liver enzymes, d-dimer is negative at 0.33, troponin is negative less than 0.012. Inflammatory markers like C-reactive protein is negative with less than 5, lactate dehydrogenase slightly elevated at 624. EKG showed normal sinus rhythm at [address]-T changes. Chest x- ray: No acute process by radiologist patient presents because of shortness of breath and coughing. Patient was diagnosed with cuvid as an outpatient earlier this week. patient was admitted for temporary placement as his is also was diagnosed with Covid and is unable to take care of him His operative Covid test came back positive Review of Systems CONSTITUTIONAL: No fever, no malaise, no fatigue. HEENT: No recent visual problems or hearing problems. Denied any sore throat. CARDIOVASCULAR: No orthopnea, PND, no palpitations, no syncope. PULMONARY: No shortness of breath, no cough, no hemoptysis. GASTROINTESTINAL: No diarrhea, no nausea, no vomiting, no abdominal pain. Normoactive bowel sounds. NEUROLOGICAL: No headaches, no weakness, no numbness. HEMATOLOGICAL: Denies any bleeding or petechiae. GENITOURINARY: Denies any burning micturition, frequency, or urgency. MUSCULOSKELETAL/RHEUMATOLOGICAL: Denies any joint pain, swelling, or any muscle pain. ENDOCRINE: Denies any polyuria or polydipsia. Past Medical History Past Medical History: CVA/TIA, Dementia, Hyperlipidemia, Prostate Disorder Additional Past Medical History / Comment(s): kidney stones,uti/sepsis , per pt's pt legally blind "occiptal stroke", speaks slowly History of Any Multi-Drug Resistant Organisms: None Reported Past Surgical History: No Surgical Hx Reported Additional Past Surgical History / Comment(s): Two surgeries for kidney stones Past Anesthesia/Blood Transfusion Reactions: No Reported Reaction Additional Past Anesthesia/Blood Transfusion Reaction / Comment(s): Never had transfusion Past Psychological History: No Psychological Hx Reported Additional Psychological History / Comment(s): Retired from the [employer]. No experience. Pet dog in parakeets in the home. Lives with the , no children in the home. No international travel. walks and speaks slowly. Lifelong nonsmoker Smoking Status: Never smoker Past Alcohol Use History: None Reported Past Drug Use History: None Reported - Past Family History Father History Unknown: Yes Additional Family Medical History / Comment(s): father in a mva Mother Family Medical History: CVA/TIA, Dementia Additional Family Medical History / Comment(s): from a stroke Medications and Allergies Home Medications Medication Instructions Recorded Confirmed Type Tamsulosin [Flomax] 0.4 mg PO HS 11/29/18 10/31/20 History Loratadine [Claritin] 10 mg PO DAILY PRN 01/03/20 10/31/20 History Divalproex [Depakote] 250 mg PO BID 10/19/20 11/01/20 History Escitalopram [Lexapro] 20 mg PO DAILY 10/19/20 10/31/20 History Ezetimibe [Zetia] 10 mg PO HS 10/19/20 10/31/20 History Melatonin 5 mg PO HS PRN 10/19/20 10/31/20 History Multivitamins, Thera [Multivitamin 1 tab PO DAILY 10/19/20 10/31/20 History (formulary)] ALPRAZolam [Xanax] 0.5 mg PO HS PRN 10/31/20 11/01/20 History Allergies Allergy/AdvReac Type Severity Reaction Status Date / Time Latex, Natural Rubber AdvReac Rash/Hives Verified 10/31/20 16:13 rosuvastatin [From Crestor] AdvReac BODY ACHES Verified 10/31/20 16:13 PLASTIC AdvReac Rash/Hives Uncoded 10/19/20 11:21 Physical Exam Vitals: Vital Signs Temp Pulse Pulse Resp BP BP Pulse Ox 11/01/20 05:00 98 F 69 17 107/66 94 L 10/31/20 21:31 97.6 F 71 17 122/75 95 10/31/20 19:35 14 10/31/20 19:00 98.3 F 74 17 115/74 96 10/31/20 14:43 19 10/31/20 14:37 98.9 F 78 19 141/92 97 Intake and Output 10/31/20 11/01/20 11/01/20 22:59 06:59 14:59 Intake Total 0 Balance 0 Intake: Oral 0 Other: # Voids 2 Weight 86.183 kg GENERAL: The patient is alert and oriented x3, not in any acute distress. Well developed, well nourished. HEENT: Pupils are round and equally reacting to light. EOMI. No scleral icterus. No conjunctival pallor. Normocephalic, atraumatic. No pharyngeal erythema. No thyromegaly. CARDIOVASCULAR: S1 and S2 present. No murmurs, rubs, or gallops. PULMONARY: Chest is clear to auscultation, no wheezing or crackles. ABDOMEN: Soft, nontender, nondistended, normoactive bowel sounds. No palpable organomegaly. MUSCULOSKELETAL: No joint swelling or deformity. EXTREMITIES: No cyanosis, clubbing, or pedal edema. NEUROLOGICAL: Gross neurological examination did not reveal any focal deficits. SKIN: No rashes. No petechiae Results CBC & Chem 7: 11/01/20 09:10 11/01/20 09:10 Labs: Abnormal Lab Results - Last 24 Hours (Table) 10/31/20 10/31/20 Range/Units 14:59 14:59 APTT 20.0 L (22.0-30.0) sec Chloride 108 H (98-107) mmol/L Total Bilirubin 1.4 H (0.2-1.3) mg/dL Lactate Dehydrogenase 624 H (313-618) U/L Thrombosis Risk Factor Assmnt - Choose All That Apply Any of the Below Risk Factors Present?: Yes Each Factor Represents 1 point: Abnormal pulmonary function (COPD), Medical pt on bed rest Other Risk Factors: Yes Each Risk Factor Represents 2 Points: Age 61-74 years Other congenital or acquired thrombophilia - If yes, enter type in comment: No Thrombosis Risk Factor Assessment Total Risk Factor Score: 4 Thrombosis Risk Factor Assessment Level: Moderate Risk Assessment and Plan Assessment: Recent diagnosis with Covid infection Inability to take care of himself with his child care director would not Covid infection as well History of CVA with residual weakness Hyperlipidemia Dementia Benign prostatic hypertrophy Legally blind Plan: This is a pleasant 70 years old male diagnosed with Covid and generalized weakness, admitted for placement (his caregiver is hospitalized for Covid) and he has history of hemiparesis secondary to CVA deficits. No dyspnea or upper respiratory tract symptoms. Encourage oral hydration. Symptomatic treatment with cough syrup and other medication. Pain management. Zinc and ascorbic acid with Lovenox Labs and medication were reviewed.. Continue same treatment. Continue with symptomatic treatment. Resume home medication. Monitor lytes and vitals. DVT and GI prophylaxis. Further recommendations depends on the clinical course of the patient DVT prophylaxis: Sub. Lovenox GI Prophylaxis: Ppi PT/OT: Pending
[2020-11-02] MEDS: PANTOPRAZOLE 40 MG TABLET PO SCH (07:28)
[2020-11-02] MEDS: ZINC SULFATE 220 MG CAP PO SCH (09:06)
[2020-11-02] MEDS: MULTIVITAMINS, THERA 1 EACH TAB PO SCH (09:06)
[2020-11-02] MEDS: ASCORBIC ACID 500 MG TAB PO SCH (09:06)
[2020-11-02] MEDS: ESCITALOPRAM 20 MG TAB PO SCH (09:06)
[2020-11-02] MEDS: DIVALPROEX 250 MG TABLET.DR PO SCH ×2 (09:06→20:21)
[2020-11-02] MEDS: LORazepam 2 MG/ML INJ IV PRN ×2 (15:19→20:21)
[2020-11-02] MEDS: TAMSULOSIN 0.4 MG CAP.ER.24H PO SCH (20:21)
[2020-11-02] MEDS: EZETIMIBE 10 MG TAB PO SCH (20:21)
[2020-11-03] MEDS: PANTOPRAZOLE 40 MG TABLET PO SCH (08:25)
[2020-11-03] MEDS: MULTIVITAMINS, THERA 1 EACH TAB PO SCH (08:25)
[2020-11-03] MEDS: ASCORBIC ACID 500 MG TAB PO SCH (08:25)
[2020-11-03] MEDS: ESCITALOPRAM 20 MG TAB PO SCH (08:26)
[2020-11-03] MEDS: DIVALPROEX 250 MG TABLET.DR PO SCH ×2 (08:26→22:59)
[2020-11-03] MEDS: ZINC SULFATE 220 MG CAP PO SCH (08:26)
[2020-11-03 09:26] LABS: Basophils % (A) 1 %; Eosinophils # (A) 0.1 k/uL (0-0.7); Eosinophils % (A) 2 %; HCT 41.8 % (39.0-53.0); HGB 14.2 gm/dL (13.0-17.5); Lymphocytes # (A) 1.2 k/uL (1.0-4.8); Lymphocytes % (A) 27 %; MCH 31.3 pg (25.0-35.0); MCHC 34.1 g/dL (31.0-37.0); MCV 91.8 fL (80.0-100.0); Mean Platelet Volume 7.8; Monocytes # (A) 0.2 k/uL (0-1.0); Monocytes % (A) 5 %; Neutrophils # (A) 2.9 k/uL (1.3-7.7); Neutrophils % (A) 64 %; Platelet Count 219 k/uL (150-450); RBC 4.55 m/uL (4.30-5.90); RDW 12.3 % (11.5-15.5); WBC 4.6 k/uL (3.8-10.6)
[2020-11-03 09:35] LABS: African American GFR (CKD) >90 (>60 ml/min/1.73 sqM); Anion Gap 7 mmol/L; Blood Urea Nitrogen 17 mg/dL (9-20); Calcium 9.4 mg/dL (8.4-10.2); Carbon Dioxide 29 mmol/L (22-30); Chloride 105 mmol/L (98-107); Glucose 167 mg/dL (74-99); Non-African American GFR(CKD) 90 (>60 ml/min/1.73 sqM); Potassium 3.8 mmol/L (3.5-5.1); Sodium 141 mmol/L (137-145)
--- NOTE | 2020-11-03 10:47 | P.PN ---
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 Patient states that he was not feeling well lately and he thinks is due to his Covid infection. He is legally blind and he depends on his caregiver which is his who is also Covid infection. Patient is also poor historian due to his prior history of stroke and at times is confused and slow to respond. However he denies chest pain or dyspnea. No diarrhea. He is afebrile Vital signs stable and he is saturating 96% on room air. Labs are unremarkable including CBC, BMP, liver enzymes, d-dimer is negative at 0.33, troponin is negative less than 0.012. Inflammatory markers like C-reactive protein is negative with less than 5, lactate dehydrogenase slightly elevated at 624. EKG showed normal sinus rhythm at [address]-T changes. Chest x- ray: No acute process by radiologist patient presents because of shortness of breath and coughing. Patient was diagnosed with cuvid as an outpatient earlier this week. patient was admitted for temporary placement as his is also was diagnosed with Covid and is unable to take care of him His operative Covid test came back positive 11/02/2020 Patient sitting in bed, asymptomatic. No coughing, no chest pain, no shortness of breath. Saturating 100% on room air No abdominal or gastroenteritis symptoms. No diarrhea. Patient is Covid test is detected. Pending placement. He will need a three-day stay. So he can go forward EC for placement Objective - Vital Signs Vital signs: Vital Signs Temp 98.2 F 11/02/20 11:12 Pulse 76 11/02/20 11:12 Resp 16 11/02/20 11:12 BP 120/73 11/02/20 11:12 Pulse Ox 98 11/02/20 11:12 Intake & Output 11/01/20 11/02/20 11/02/20 18:59 06:59 18:59 Intake Total 250 Balance 250 Intake: Oral 250 Other: Voiding Method Diaper Diaper Diaper Incontinent Incontinent Incontinent # Voids 3 2 2 # Bowel Movements 1 0 - Exam GENERAL: The patient is alert and oriented x2-3, not in any acute distress. Well developed, well nourished. HEENT: Pupils are round and equally reacting to light. EOMI. No scleral icterus. No conjunctival pallor. Normocephalic, atraumatic. No pharyngeal erythema. No thyromegaly. CARDIOVASCULAR: S1 and S2 present. No murmurs, rubs, or gallops. PULMONARY: Chest is clear to auscultation, no wheezing or crackles. ABDOMEN: Soft, nontender, nondistended, normoactive bowel sounds. No palpable organomegaly. MUSCULOSKELETAL: No joint swelling or deformity. EXTREMITIES: No cyanosis, clubbing, or pedal edema. NEUROLOGICAL: Gross neurological examination did not reveal any focal deficits. SKIN: No rashes. No petechiae - Labs CBC & Chem 7: 11/03/20 09:12 11/03/20 09:12 Labs: Microbiology - Last 24 Hours (Table) 10/31/20 18:13 Blood Culture - Preliminary Blood No Growth after 24 hours Assessment and Plan Assessment: Recent diagnosis with Covid infection Inability to take care of himself with his respiratory care program director would not Covid infection as well History of CVA with residual weakness Hyperlipidemia Dementia Benign prostatic hypertrophy Legally blind Plan: This is a pleasant 70 years old male diagnosed with Covid and generalized weakness, admitted for placement (his caregiver is hospitalized for Covid) and he has history of hemiparesis secondary to CVA deficits. No dyspnea or upper respiratory tract symptoms. Encourage oral hydration. Symptomatic treatment wi th cough syrup and other medication. Pain management. Zinc and ascorbic acid with Lovenox Labs and medication were reviewed.. Continue same treatment. Continue with symptomatic treatment. Resume home medication. Monitor lytes and vitals. DVT and GI prophylaxis. Further recommendations depends on the clinical course of the patient DVT prophylaxis: Sub. Lovenox GI Prophylaxis: Ppi PT/OT: Pending
[2020-11-03] MEDS: LORazepam 2 MG/ML INJ IV PRN (15:01)
[2020-11-03] MEDS: TAMSULOSIN 0.4 MG CAP.ER.24H PO SCH (22:43)
[2020-11-03] MEDS: EZETIMIBE 10 MG TAB PO SCH (22:59)
[2020-11-04] MEDS: LORazepam 2 MG/ML INJ IV PRN ×2 (01:33→19:47)
[2020-11-04] MEDS: ASCORBIC ACID 500 MG TAB PO SCH (07:55)
[2020-11-04] MEDS: MULTIVITAMINS, THERA 1 EACH TAB PO SCH (07:55)
[2020-11-04] MEDS: PANTOPRAZOLE 40 MG TABLET PO SCH (07:55)
[2020-11-04] MEDS: DIVALPROEX 250 MG TABLET.DR PO SCH ×2 (07:56→20:11)
[2020-11-04] MEDS: ESCITALOPRAM 20 MG TAB PO SCH (07:56)
[2020-11-04] MEDS: ZINC SULFATE 220 MG CAP PO SCH (07:56)
[2020-11-04] MEDS: TAMSULOSIN 0.4 MG CAP.ER.24H PO SCH (20:11)
[2020-11-04] MEDS: EZETIMIBE 10 MG TAB PO SCH (20:11)
[2020-11-05] MEDS: LORazepam 2 MG/ML INJ IV PRN ×3 (00:07→11:43)
[2020-11-05 05:55] VITALS: TEMP 97.6
[2020-11-05] MEDS: DIVALPROEX 250 MG TABLET.DR PO SCH (08:32)
[2020-11-05] MEDS: ESCITALOPRAM 20 MG TAB PO SCH (08:32)
[2020-11-05] MEDS: ASCORBIC ACID 500 MG TAB PO SCH (08:32)
[2020-11-05] MEDS: PANTOPRAZOLE 40 MG TABLET PO SCH (08:32)
[2020-11-05] MEDS: ZINC SULFATE 220 MG CAP PO SCH (08:33)
[2020-11-05] MEDS: MULTIVITAMINS, THERA 1 EACH TAB PO SCH (08:33)
[2020-11-05 12:18] VITALS: BP 156/77; PULSE 100; RESP 18
--- NOTE | 2020-11-05 13:49 | P.PN ---
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 Patient states that he was not feeling well lately and he thinks is due to his Covid infection. He is legally blind and he depends on his caregiver which is his who is also Covid infection. Patient is also poor historian due to his prior history of stroke and at times is confused and slow to respond. However he denies chest pain or dyspnea. No diarrhea. He is afebrile Vital signs stable and he is saturating 96% on room air. Labs are unremarkable including CBC, BMP, liver enzymes, d-dimer is negative at 0.33, troponin is negative less than 0.012. Inflammatory markers like C-reactive protein is negative with less than 5, lactate dehydrogenase slightly elevated at 624. EKG showed normal sinus rhythm at [address]-T changes. Chest x- ray: No acute process by radiologist patient presents because of shortness of breath and coughing. Patient was diagnosed with cuvid as an outpatient earlier this week. patient was admitted for temporary placement as his is also was diagnosed with Covid and is unable to take care of him Sitter at bed side. On 11/03/2020- Pt is sleeping comfortably in his bed. Sitter at bed side. He is a poor historan due to h/o stroke and legally blind. On discussion with nursing staff and the sitter not active concerns. On reviewing the patient's vitals temperature 98.3, heart rate 95, respiratory rate 17, blood pressure 10 2 x 63. He has been saturating at 97% on room air. On reviewing the patient's labs white count of 4.6, hemoglobin stable at 14.2. Active Medications Acetaminophen (Acetaminophen Tab 325 Mg Tab) 650 mg PO Q6HR PRN PRN Reason: Fever and/ or Pain Last Admin: 11/01/20 20:51 Dose: 650 mg Documented by: Ascorbic Acid (Ascorbic Acid 500 Mg Tab) 1,000 mg PO DAILY [facility] Last Admin: 11/03/20 08:25 Dose: 1,000 mg Documented by: Divalproex Sodium (Divalproex 250 Mg Tablet.Dr) 250 mg PO BID [facility] Last Admin: 11/03/20 08:26 Dose: 250 mg Documented by: Ezetimibe (Ezetimibe 10 Mg Tab) 10 mg PO [facility] Last Admin: 11/02/20 20:21 Dose: 10 mg Documented by: Escitalopram Oxalate (Escitalopram 20 Mg Tab) 20 mg PO DAILY [facility] Last Admin: 11/03/20 08:26 Dose: 20 mg Documented by: Loratadine (Loratadine 10 Mg Tab) 10 mg PO DAILY PRN PRN Reason: Allergy Symptoms Lorazepam (Lorazepam 2 Mg/Ml Inj) 1 mg IV Q4H PRN PRN Reason: Agitation Last Admin: 11/02/20 20:21 Dose: 1 mg Documented by: Melatonin (Melatonin 5 Mg Tablet) 5 mg PO HS PRN PRN Reason: Insomnia Last Admin: 11/01/20 20:53 Dose: 5 mg Documented by: Multivitamins (Multivitamins, Thera 1 Each Tab) 1 each PO DAILY [facility] Last Admin: 11/03/20 08:25 Dose: 1 each Documented by: Naloxone HCl (Naloxone 0.4 Mg/Ml 1 Ml Vial) 0.2 mg IV Q2M PRN PRN Reason: Opioid Reversal Pantoprazole Sodium (Pantoprazole 40 Mg Tablet) 40 mg PO AC-BRKFST [facility] Last Admin: 11/03/20 08:25 Dose: 40 mg Documented by: Tamsulosin HCl (Tamsulosin 0.4 Mg Cap.Er.24h) 0.4 mg PO [facility] Last Admin: 11/02/20 20:21 Dose: 0.4 mg Documented by: Zinc Sulfate (Zinc Sulfate 220 Mg Cap) 220 mg PO DAILY [facility] Last Admin: 11/03/20 08:26 Dose: 220 mg Documented by: Objective - Vital Signs Vital signs: Vital Signs Temp 97.4 F L 11/03/20 11:00 Pulse 92 11/03/20 11:00 Resp 18 11/03/20 11:00 BP 106/69 11/03/20 11:00 Pulse Ox 98 11/03/20 11:00 Intake & Output 11/02/20 11/03/20 11/03/20 18:59 06:59 18:59 Intake Total 240 Balance 240 Intake: Oral 240 Other: Voiding Method Diaper Urinal Urinal Incontinent Diaper Diaper Incontinent Incontinent # Voids 1 2 # Bowel Movements 0 - Exam GENERAL: The patient is alert and oriented x2-3, not in any acute distress. Well developed, well nourished. HEENT: Pupils are round and equally reacting to light. CARDIOVASCULAR: S1 and S2 present. No murmurs, rubs, or gallops. PULMONARY: Chest is clear to auscultation, no wheezing or crackles. ABDOMEN: Soft, nontender, nondistended, normoactive bowel sounds. No palpable organomegaly. MUSCULOSKELETAL: No joint swelling or deformity. EXTREMITIES: No cyanosis, clubbing, or pedal edema. NEUROLOGICAL: Gross neurological examination did not reveal any focal deficits. SKIN: No rashes. No petechiae - Labs CBC & Chem 7: 11/03/20 09:12 11/03/20 09:12 Labs: Abnormal Lab Results - Last 24 Hours (Table) 11/03/20 Range/Units 09:12 Glucose 167 H (74-99) mg/dL Microbiology - Last 24 Hours (Table) 10/31/20 18:13 Blood Culture - Preliminary Blood No Growth after 48 hours Assessment and Plan Assessment: ASSESSMENT COVID 19 infection History of CVA with residual weakness Hyperlipidemia Dementia Benign prostatic hypertrophy Legally blind PLAN: This is a pleasant 70 years old male diagnosed with Covid and generalized weakness, admitted for placement (his caregiver is hospitalized for Covid) and he has history of hemiparesis secondary to CVA deficits. No dyspnea or upper respiratory tract symptoms. Encourage oral hydration. Continue with symptomatic treatment. Resumed on home medication. Monitor lytes and vitals. DVT and GI prophylaxis. Further recommendations depends on the clinical course of the patient
--- NOTE | 2020-11-05 13:51 | P.PN ---
Subjective Progress Note Date: 11/04/20 Principal diagnosis: COVID 19 infection Mr. 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 Patient states that he was not feeling well lately and he thinks is due to his Covid infection. He is legally blind and he depends on his caregiver which is his who is also Covid infection. Patient is also poor historian due to his prior history of stroke and at times is confused and slow to respond. However he denies chest pain or dyspnea. No diarrhea. He is afebrile Vital signs stable and he is saturating 96% on room air. Labs are unremarkable including CBC, BMP, liver enzymes, d-dimer is negative at 0.33, troponin is negative less than 0.012. Inflammatory markers like C-reactive protein is negative with less than 5, lactate dehydrogenase slightly elevated at 624. EKG showed normal sinus rhythm at [address]-T changes. Chest x- ray: No acute process by radiologist patient presents because of shortness of breath and coughing. Patient was diagnosed with cuvid as an outpatient earlier this week. patient was admitted for temporary placement as his is also was diagnosed with Covid and is unable to take care of him Sitter at bed side. On 11/03/2020- Pt is sleeping comfortably in his bed. Sitter at bed side. He is a poor historan due to h/o stroke and legally blind. On discussion with nursing staff and the sitter not active concerns. On reviewing the patient's vitals temperature 98.3, heart rate 98, respiratory rate 17, blood pressure 118/60 . He has been saturating at 97% on room air. On reviewing the patient's labs white count of 4.6, hemoglobin stable at 14.2. Active Medications Acetaminophen (Acetaminophen Tab 325 Mg Tab) 650 mg PO Q6HR PRN PRN Reason: Fever and/ or Pain Last Admin: 11/01/20 20:51 Dose: 650 mg Documented by: Ascorbic Acid (Ascorbic Acid 500 Mg Tab) 1,000 mg PO DAILY [facility] Last Admin: 11/04/20 07:55 Dose: 1,000 mg Documented by: Divalproex Sodium (Divalproex 250 Mg Tablet.Dr) 250 mg PO BID [facility] Last Admin: 11/04/20 20:11 Dose: 250 mg Documented by: Ezetimibe (Ezetimibe 10 Mg Tab) 10 mg PO [facility] Last Admin: 11/04/20 20:11 Dose: 10 mg Documented by: Escitalopram Oxalate (Escitalopram 20 Mg Tab) 20 mg PO DAILY [facility] Last Admin: 11/04/20 07:56 Dose: 20 mg Documented by: Loratadine (Loratadine 10 Mg Tab) 10 mg PO DAILY PRN PRN Reason: Allergy Symptoms Lorazepam (Lorazepam 2 Mg/Ml Inj) 1 mg IV Q4H PRN PRN Reason: Agitation Last Admin: 11/05/20 00:07 Dose: 1 mg Documented by: Melatonin (Melatonin 5 Mg Tablet) 5 mg PO HS PRN PRN Reason: Insomnia Last Admin: 11/01/20 20:53 Dose: 5 mg Documented by: Multivitamins (Multivitamins, Thera 1 Each Tab) 1 each PO DAILY [facility] Last Admin: 11/04/20 07:55 Dose: 1 each Documented by: Naloxone HCl (Naloxone 0.4 Mg/Ml 1 Ml Vial) 0.2 mg IV Q2M PRN PRN Reason: Opioid Reversal Pantoprazole Sodium (Pantoprazole 40 Mg Tablet) 40 mg PO AC-BRKFST [facility] Last Admin: 11/04/20 07:55 Dose: 40 mg Documented by: Tamsulosin HCl (Tamsulosin 0.4 Mg Cap.Er.24h) 0.4 mg PO [facility] Last Admin: 11/04/20 20:11 Dose: 0.4 mg Documented by: Zinc Sulfate (Zinc Sulfate 220 Mg Cap) 220 mg PO DAILY [facility] Last Admin: 11/04/20 07:56 Dose: 220 mg Documented by: Objective - Vital Signs Vital signs: Vital Signs Temp 97.6 F 11/04/20 05:05 Pulse 73 11/04/20 05:05 Resp 16 11/04/20 05:05 BP 106/62 11/04/20 05:05 Pulse Ox 98 11/04/20 05:05 Intake & Output 11/03/20 11/04/20 11/04/20 18:59 06:59 18:59 Intake Total 100 Balance 100 Intake: Oral 100 Other: Voiding Method Urinal Urinal Toilet Diaper Diaper Diaper Incontinent Incontinent # Voids 2 - Exam PHYSICAL EXAM GENERAL: The patient is alert and oriented x2-3, not in any acute distress. Well developed, well nourished. HEENT: Pupils are round and equally reacting to light. CARDIOVASCULAR: S1 and S2 present. No murmurs, rubs, or gallops. PULMONARY: Chest is clear to auscultation, no wheezing or crackles. ABDOMEN: Soft, nontender, nondistended, normoactive bowel sounds. No palpable organomegaly. MUSCULOSKELETAL: No joint swelling or deformity. EXTREMITIES: No cyanosis, clubbing, or pedal edema. NEUROLOGICAL: Gross neurological examination did not reveal any focal deficits. SKIN: No rashes. No petechiae - Labs CBC & Chem 7: 11/03/20 09:12 11/03/20 09:12 Labs: Microbiology - Last 24 Hours (Table) 10/31/20 18:13 Blood Culture - Preliminary Blood No Growth after 72 hours Assessment and Plan Assessment: ASSESSMENT COVID 19 infection History of CVA with residual weakness Hyperlipidemia Dementia Benign prostatic hypertrophy Legally blind PLAN: Sitter at bed side. This is a pleasant 70 years old male diagnosed with Covid and generalized weakness, admitted for placement (his caregiver is hospitalized for Covid) and he has history of hemiparesis secondary to CVA deficits. No dyspnea or upper respiratory tract symptoms. Encourage oral hydration. Continue with symptomatic treatment. Resumed on home medication. Monitor lytes and vitals. DVT and GI prophylaxis. Pending placement.
--- NOTE | 2020-11-05 17:21 | P.DS ---
Providers Date of admission: 10/31/20 16:24 Expected date of discharge: 11/05/20 Attending physician: Hudson Corona Primary care physician: Sydney Spaulding [facility] Course: Final diagnosis COVID 19 infection History of CVA with residual weakness Hyperlipidemia Dementia Benign prostatic hypertrophy Legally blind Discharge disposition Patient is being discharged in a stable condition with guarded prognosis to home. Patient will continue with [facility] in the outpatient setting. Patient will follow-up with in the outpatient setting upon discharge. Patient is to continue with , vitamin C, and zinc supplements to complete the course. Total time taken is greater than 35 minutes. History of present illness This is a 70-year-old male who was recently admitted with acute covid 19 infection and was being closely monitored. Patient's caregivers and brother were also admitted for Covid 19. Patient does have a history of dementia and requires 24 7 care and will continue with home care in the outpatient setting. Patient instructed to follow-up with primary care provider upon discharge. Patient instructed to continue quarantine for an additional 7- 10 days until symptom-free for at least 3 days. Patient is currently on room air and tolerating well. Currently no reports of chest pain, worsening shortness of breath, or palpitations. Patient is afebrile. No reports of nausea or vomiting and patient is tolerating diet. Patient will be going home today. On exam vital signs are stable. Temp is 97.6F, pulse is 100, respirations are 18, blood pressure is 156/77, oxygen saturation is 98% on room air. Cardio S1, S2 are muffled. Respiratory system shows diminished breath sounds at the bases with no wheezing or rhonchi noted. Abdomen is soft and nontender. Nervous system shows no focal deficits. Please refer to medication reconciliation sheet for a list of medications. Patient Condition at Discharge: Stable Plan - Discharge Summary Discharge Rx Participant: No New Discharge Prescriptions: New Zinc Sulfate [Orazinc] 220 mg PO DAILY 30 Days #30 cap Acetaminophen Tab [Tylenol] 650 mg PO Q6HR PRN tab PRN Reason: Fever And/ Or Pain Ascorbic Acid [Vitamin C] 1,000 mg PO DAILY 30 Days #60 tab Continue Tamsulosin [Flomax] 0.4 mg PO HS Loratadine [Claritin] 10 mg PO DAILY PRN PRN Reason: Allergy Symptoms Multivitamins, Thera [Multivitamin (formulary)] 1 tab PO DAILY Melatonin 5 mg PO HS PRN PRN Reason: Insomnia Ezetimibe [Zetia] 10 mg PO HS Escitalopram [Lexapro] 20 mg PO DAILY Divalproex [Depakote] 250 mg PO BID ALPRAZolam [Xanax] 0.5 mg PO HS PRN PRN Reason: Anxiety Discharge Medication List Tamsulosin [Flomax] 0.4 mg PO HS 11/29/18 [History] Loratadine [Claritin] 10 mg PO DAILY PRN 01/03/20 [History] Divalproex [Depakote] 250 mg PO BID 10/19/20 [History] Escitalopram [Lexapro] 20 mg PO DAILY 10/19/20 [History] Ezetimibe [Zetia] 10 mg PO HS 10/19/20 [History] Melatonin 5 mg PO HS PRN 10/19/20 [History] Multivitamins, Thera [Multivitamin (formulary)] 1 tab PO DAILY 10/19/20 [Hist ory] ALPRAZolam [Xanax] 0.5 mg PO HS PRN 10/31/20 [History] Acetaminophen Tab [Tylenol] 650 mg PO Q6HR PRN tab 11/05/20 [Rx] Ascorbic Acid [Vitamin C] 1,000 mg PO DAILY 30 Days #60 tab 11/05/20 [Rx] Zinc Sulfate [Orazinc] 220 mg PO DAILY 30 Days #30 cap 11/05/20 [Rx] Follow up Appointment(s)/Referral(s): Sydney Spaulding MD [Primary Care Provider] - 1-2 days (please call office to make appointment for hospital follow up) [facility], [NON-STAFF] - Patient Instructions/Handouts: Viral Pneumonia (DC) Activity/Diet/Wound Care/Special Instructions: Activity Limited until follow-up Follow-up with primary care provider upon discharge Continue current diet Discharge Disposition: HOME WITH HOME HEALTH SERVICES
== END 2020-11-05 15:25 | disposition home health service (06) | DRG 179 ==
LOC: EC 14:33 → 6NMEDSUR 16:24
PROVIDERS: ADMIT Hospitalist; ATTEND Hospitalist
DX: U07.1 COVID-19 (principal); F03.90 Unspecified dementia, unspecified severity, without behavioral disturbance, psychotic disturbance, mood disturbance, and anxiety; I69.349 Monoplegia of lower limb following cerebral infarction affecting unspecified side; N40.0 Benign prostatic hyperplasia without lower urinary tract symptoms; J06.9 Acute upper respiratory infection, unspecified; E78.5 Hyperlipidemia, unspecified; I69.998 Other sequelae following unspecified cerebrovascular disease; H54.8 Legal blindness, as defined in USA; I69.922 Dysarthria following unspecified cerebrovascular disease; R19.7 Diarrhea, unspecified; R32 Unspecified urinary incontinence; Z87.442 Personal history of urinary calculi; Z88.8 Allergy status to other drugs, medicaments and biological substances; Z87.440 Personal history of urinary (tract) infections; Z91.040 Latex allergy status; Z98.890 Other specified postprocedural states; Z79.899 Other long term (current) drug therapy; Z82.3 Family history of stroke; Z82.0 Family history of epilepsy and other diseases of the nervous system
CPT/HCPCS: 36415; 71045; 80048; 80053; 82728; 83605; 83615; 83735; 84145; 84484; 85025; 85379; 85610; 85730; 86140; 87040; 87635; 93005; 94760; 96374; 99285